=== PATIENT | male | born 1950 | race Caucasian/White ===

== ENCOUNTER 2018-06-23 19:34 | Inpatient (IN) | payer MEDICARE, MEDICAID, SELFPAY ==
[2018-06-23] VITALS (8 sets, daily range): BP systolic 112–146; BP diastolic 67–71; PULSE 61–68; RESP 15–20; TEMP 36.6–36.8; O2SAT 97–99; BMI 24.3
--- NOTE | 2018-06-23 19:43 | ED.RN ---
CALLED FOR EKG PER RN REQUEST, PULLED OLD EKGS FOR
--- NOTE | 2018-06-23 20:34 | EKG12_ITS ---
Test Reason : SOB Blood Pressure : / mmHG Vent. Rate : 067 BPM Atrial Rate : 067 BPM P-R Int : 260 ms QRS Dur : 138 ms QT Int : 444 ms P-R-T Axes : 076 -77 000 degrees QTc Int : 469 ms Sinus rhythm with 1st degree A-V block Left axis deviation Non-specific intra-ventricular conduction block Inferior SD,age undetermined, cannot be excluded Nonspecific ST and T wave abnormality Abnormal ECG Confirmed by SINYD MATHEW, JOSE MARTIN ([id number]), web content editor EUSEBIO MARES ([id number] on 06/26/2018 2:17:12 PM Referred By: YAZAN SOLIS Confirmed By:JOSE MARTIN CALLAHAN MD
[2018-06-23 20:49] LABS: Absolute Lymphocyte Count 0.68 X10^3/ul (0.83-4.51); Absolute Neutrophil Count 6.7 X10^3/uL (2.0-7.7); Basophil# 0.01 X10^3/uL; Basophil% 0.1 % (0-1); Eosinophil# 0.06 X10^3/uL; Eosinophils% 0.7 % (0-5); Hematocrit 39.1 % (40-54); Hemoglobin 12.1 g/dl (13.0-16.5); Lymphocyte # 0.68 X10^3/ul (4.0); Lymphocyte % 8.4 % (19-41); Mean Corp Hgb Conc 30.9 g/gl (32-36); Mean Corpuscular Hgb 27.4 pg (27.0-32.0); Mean Corpuscular Volume 88.5 fL (80-94); Mean Platelet Vol. 11.4 fl (6.2-12.0); Monocyte# 0.57 X10^3/uL; Monocyte% 7.1 % (0-10); Neutrophil # 6.72 X10^3/uL (2.7-7.7); Neutrophil % 83.5 % (47-70); Platelet Count 129 K/mm3 (150-450); RBC Distribution Width CV 13.9 % (11.6-14.6); RBC Distribution Width SD 44.9 fl (35.1-43.9); Red Blood Count 4.42 M/mm3 (4.6-6.2); White Blood Count 8.1 K/mm3 (4.4-11.0)
[2018-06-23 20:51] LABS: POSITIVE COUNT NO; POSITIVE DIFFERENTIAL NO; POSITIVE MORPHOLOGY NO
[2018-06-23 20:58] LABS: ALB/GLOB Ratio 0.8 RATIO (0.9-2.4); AST(SGOT) 66 U/L (15-37); Alanine Aminotransfer ALT/SGPT 73 U/L (16-61); Albumin, Serum 3.4 g/dL (3.2-5.0); Alkaline Phosphatase 122 U/L (45-117); Anion Gap 10 (5-15); BUN 57 mg/dL (7-18); BUN/Creat Ratio 21.4 RATIO (10-20); Calcium,Total 8.5 mg/dL (8.5-10.1); Chloride 107 mmol/L (98-107); Creatinine, Serum 2.66 mg/dL (0.70-1.30); EST Glomerular Filtration Rate 26 mL/min (>60); Est Glom Filt Rate - Afr Amer 31 mL/min (>60); Estimated Creatinine Clearance 26.79 ml/min; Globulin 4.2 g/dL (2.2-4.2); Glucose 388 mg/dL (74-106); Potassium 4.7 mmol/L (3.5-5.1); Protein, Total 7.6 g/dL (6.4-8.2); Sodium Level 136 mmol/L (136-145)
[2018-06-23] MEDS: Nitroglycerin Oint 1 INCH PACKET 0.5 INCH TRANSDERM. (21:05)
[2018-06-23] MEDS: Furosemide 20 MG/2 ML VIAL IV (21:06)
--- NOTE | 2018-06-23 21:09 | RAD_ITS ---
STUDY: X-RAY CHEST REASON FOR EXAM: Male, 67 years old. Shortness of breath with syncope TECHNIQUE: PA and lateral views of the chest. COMPARISON: June 16, 2014 FINDINGS: There is a nonspecific left basilar opacity. There are prominent interstitial markings. Sternal cerclage wires are present from a prior sternotomy. There is a prosthetic cardiac valve. Normal mediastinum and herman. Normal visualized pulmonary arteries. There is atherosclerotic calcification of the aortic arch with tortuosity. Normal visualized thoracic spine. Normal visualized ribs, clavicles, and shoulders. There is no demonstrated abnormality of the visualized soft tissue structures of the upper abdomen. RAD/Chest PA and Lateral IMPRESSION: Nonspecific left basilar opacity may be secondary to underlying atelectasis. Possible interstitial edema. Electronically Signed: Luna Berry MD at 21:44 EST Tel , Service support ,
[2018-06-23 21:18] LABS: International Normalized Ratio 1.2; Partial Thromboplast Time 31.4 Seconds (24.1-36.2); Prothrombin Time (Protime)PT. 15.5 SECONDS (11.7-14.9)
--- NOTE | 2018-06-23 23:36 | PCM.HP.STD ---
Problem List (1) Hypertension Status: Chronic (2) Hyperlipidemia Status: Chronic (3) History of atrial flutter Status: Chronic (4) Diabetes mellitus type II Status: Chronic (5) Coronary artery disease Status: Chronic Comment: Status post CABG, 20 years ago Status post and placement in May 2014 at [facility] Following with Dr. Graham (6) Congestive heart failure Status: Chronic (7) Chronic kidney disease stage III Status: Chronic (8) BPH Status: Chronic (9) Pulmonary hypertension Status: Chronic (10) Aortic stenosis Status: Chronic (11) Recurrent falls Status: Acute (12) Syncope and collapse Status: Acute (13) Cellulitis of second toe of right foot Status: Acute History of Present Illness Date of Admission: 06/23/18 Chief Complaint: Shortness of breath for about 3 days The patient is a 67 year old M with multiple comorbidities including coronary artery disease status post CABG, chronic systolic and diastolic heart failure aortic stenosis last admission in June 2014 for non-ST elevation NM was sent to ER by Dr. Puga for shortness of breath, frequent fall. The patient is very hard of hearing and therefore history is limited. Patient has shortness of breath for the past 3 days which is progressive. Dyspnea on exertion, orthopnea present. Patient denies any chest tightness or chest pain to me although documented as mild intermittent chest pain as per ER physician. About 3 days ago at night, patient had a fall while going to the bathroom and it perhaps syncope and collapse. This was unwitnessed. Patient also having recurrent fall. He has a right second toe redness, bruise and possible superficial abscess, perhaps after fall. Small bruise in frontal region of head. EKG shows normal sinus rhythm at 67 bpm with QRS 138 ms, LAD with possible left bundle branch block. EKG from May 2018 normal sinus rhythm at 60 bpm LAD with no change from present EKG. QRS is more prolonged as compared to previous EKG. Chest x-ray done in the ER shows interstitial edema and left basilar opacity probably atelectasis. Past Medical History Past Medical History (Chronic Problems): Chronic Problems Hypertension (Chronic) Hyperlipidemia (Chronic) History of atrial flutter (Chronic) Diabetes mellitus type II (Chronic) Coronary artery disease (Chronic) Status post CABG, 20 years ago Status post and placement in May 2014 at [facility] Following with Dr. Graham Congestive heart failure (Chronic) Chronic kidney disease stage III (Chronic) BPH (Chronic) Pulmonary hypertension (Chronic) Aortic stenosis (Chronic) Allergies meperidine HCl [From Demerol] Allergy (Verified 06/23/18 19:38) Other Home Medications: Ambulatory Orders Medication Instructions Recorded Atorvastatin Calcium [Lipitor] 40 mg PO QHS 03/11/14 Carvedilol [Coreg (Beta Sandip)] 6.25 mg PO BID 03/11/14 Cholecalciferol (Vitamin D3) 5,000 unit PO DAILY 03/11/14 [Vitamin D3] Furosemide [Lasix] 40 mg PO DAILY 03/11/14 Insulin Glargine [Lantus SoloStar 26 units SC QHS 03/11/14 Pen] Ipratropium [place] 0.06% 2 spray NASAL BID 03/11/14 [ATROVENT NASAL SPRAY] Nitroglycerin [Nitrostat] 0.3 mg SL UD 03/11/14 Aspirin [Aspirin, Baby] 81 mg PO DAILY@0800 06/16/14 Clopidogrel Bisulfate [Plavix] 75 mg PO DAILY 06/16/14 Chromium Picolinate 1,000 mcg PO 06/23/18 Insulin Aspart [Novolog Flexpen 12 units SC TIDCM 06/23/18 ([facility])] Isosorbide Dinitrate 30 mg PO BID 06/23/18 Loperamide HCl [Anti-Diarrheal] 1 mg PO DAILY 06/23/18 O'Brien-3 Fatty Acids/Fish Oil 1 each PO DAILY 06/23/18 [O'Brien 3 Fish Oil Softgel] Vitamin B Complex 1 each PO DAILY 06/23/18 Surgical History: - - CABG, Smoking Status: Never smoker - *Family History Maternal History Items: No pertinent history Review of Systems Constitutional: Reports: Weakness, Fatigue. Denies: Chills, Fever, Weight Change HEENT: Reports: Difficulty Hearing. Denies: Head Aches, Sinus Congestion, Sinus Drainage Cardiovascular: Reports: Edema, Orthopnea, Paroxysmal Noc. Dyspnea, Syncope. Denies: Chest Pain, Palpitations Respiratory: Reports: Shortness of Breath, Shortness of breath upon exertion. Denies: Cough, Sputum production Gastrointestinal: Denies: Abdominal Pain, Nausea, Vomiting Genitourinary: Denies: Dysuria Musculoskeletal: Reports: Joint Pain. Denies: Joint Tenderness Skin: Reports: Rash, Wounds - Right second toe Neurological: Reports: Balance problems. Denies: Focal weakness, Numbness, Tingling Psychiatric: Denies: Anxiety, Depression, Homicidal Ideations, Suicidal Ideations Hematologic/ Lymphatic: Denies: Easy Bruising, Easy Bleeding VTE Information - Inpt Only VTE Present on Admission: No VTE Mechan Device Prophylaxis: None VTE Pharm Prophylaxis ordered?: Yes Patient Problems: Active and Suspected Problems Recurrent falls (Acute) Syncope and collapse (Acute) Cellulitis of second toe of right foot (Acute) - Physical Exam General: Alert, Oriented x3, Cooperative HEENT: Atraumatic, PERRLA, EOMI, Normocephalic Oral: Dry Mucosa Neck: Supple, No JVD, Negative Carotid Bruits Lungs: No rhonchi, No wheeze, No rales, Diminished - Air entry diminished bilaterally, more on the left lung base Cardiovascular: Regular rate, Regular Rhythm, Normal S1, Normal S2, No murmurs, Murmur - Systolic murmur present over left sternal border and aortic region Abdomen: Bowel Sounds Present, Soft, Non Tender, Non-Distended Extremities: Capillary Refill Less than 3 Seconds, Edema Skin: Ulcer/ Wound - Small bruise with superficial abscess present over right second toe. Localized cellulitis., Skin Tear, Rash Present, - - Bruise over frontal region of head. Musculoskeletal: No Tenderness to Palpation of Joints or Extremities, Arthritic Changes, Muscle Wasting Neurological: Cranial nerves II-XII grossly intact, Deep Tendon Reflexes 2+/4 and Symmetrical, Neuro grossly intact Psych/Mental Status: Normal Affect, Appropriate Vital Signs Temp Pulse Resp BP Pulse Ox 97.9 F 61 16 138/67 H 98 06/23/18 21:42 06/23/18 21:42 06/23/18 21:42 06/23/18 21:05 06/23/18 21:42 Oxygen Flow Rate (L/min) 2 Oxygen Delivery Method Nasal Cannula Weight: 160 lb 4.417 oz Body Mass Index (BMI) 24.3 Laboratory Tests Past 24 Hrs 06/23/18 06/23/18 06/23/18 17:50 17:50 17:50 WBC 8.1 RBC 4.42 L Hgb 12.1 L Hct 39.1 L MCV 88.5 MCH 27.4 MCHC 30.9 L RDW 13.9 RDW Differential 44.9 H Plt Count 129 L MPV 11.4 Immature Gran % (Auto) 0.200 Neut % (Auto) 83.5 H Lymph % (Auto) 8.4 L [place] % (Auto) 7.1 Eos % (Auto) 0.7 Baso % (Auto) 0.1 Absolute Neuts (auto) 6.7 Absolute Lymphs (auto) 0.68 L Total Counted Not Reportable PT 15.5 H INR 1.2 APTT 31.4 Sodium 136 Potassium 4.7 Chloride 107 Carbon Dioxide 19.0 L Anion Gap 10 BUN 57 H Creatinine 2.66 H Estim Creat Clear Calc 26.79 Est GFR (MDRD) Af Amer 31 L Est GFR (MDRD) Non-Af 26 L BUN/Creatinine Ratio 21.4 H Glucose 388 H Calcium 8.5 Total Bilirubin 0.50 AST 66 H ALT 73 H Alkaline Phosphatase 122 H Troponin I 0.105 H B-Natriuretic Peptide Total Protein 7.6 Albumin 3.4 Globulin 4.2 Albumin/Globulin Ratio 0.8 L 06/23/18 17:50 WBC RBC Hgb Hct MCV MCH MCHC RDW RDW Differential Plt Count MPV Immature Gran % (Auto) Neut % (Auto) Lymph % (Auto) [place] % (Auto) Eos % (Auto) Baso % (Auto) Absolute Neuts (auto) Absolute Lymphs (auto) Total Counted PT INR APTT Sodium Potassium Chloride Carbon Dioxide Anion Gap BUN Creatinine Estim Creat Clear Calc Est GFR (MDRD) Af Amer Est GFR (MDRD) Non-Af BUN/Creatinine Ratio Glucose Calcium Total Bilirubin AST ALT Alkaline Phosphatase Troponin I B-Natriuretic Peptide 1041.0 H Total Protein Albumin Globulin Albumin/Globulin Ratio Assessment/Plan All Active Problems Recurrent falls (Acute) Syncope and collapse (Acute) Cellulitis of second toe of right foot (Acute) The patient is a 67 year old M with multiple comorbidities including coronary artery disease status post CABG, chronic systolic and diastolic heart failure aortic stenosis last admission in June 2014 for non-ST elevation NM was sent to ER by Dr. Puga for shortness of breath, frequent fall. The patient is very hard of hearing and therefore history is limited. Patient has shortness of breath for the past 3 days which is progressive. Dyspnea on exertion, orthopnea present. Patient denies any chest tightness or chest pain to me although documented as mild intermittent chest pain as per ER physician. About 3 days ago at night, patient had a fall while going to the bathroom and it perhaps syncope and collapse. This was unwitnessed. Patient also having recurrent fall. He has a right second toe redness, bruise and possible superficial abscess, perhaps after fall. Small bruise in frontal region of head. EKG shows normal sinus rhythm at 67 bpm with QRS 138 ms, LAD with possible left bundle branch block. EKG from May 2018 normal sinus rhythm at 60 bpm LAD with no change from present EKG. QRS is more prolonged as compared to previous EKG. Chest x-ray done in the ER shows interstitial edema and left basilar opacity probably atelectasis. 1. Acute on chronic combined systolic and diastolic heart failure: Patient is being admitted in PCU. On Lasix 40 mg IV twice daily. Cycle cardiac enzymes. Monitor intake and output. Continue aspirin, atorvastatin, Plavix, Coreg and Isordil. 2D echo tomorrow a.m. As per patient's , he was scheduled to have echo in August and had previous echo many years ago. His channel man, Dr. Graham. BNP 1041. 2. Elevated troponin, rule out acute coronary syndrome. Possibly elevated from heart failure/CKD. Patient has coronary artery status post CABG and stents. 3. Aortic stenosis, history of atrial flutter and pulmonary hypertension: Exact quantification of these diagnoses are unclear. 2D echo tomorrow a.m for better definition. Patient is not on anticoagulant agent. 4. CKD stage IV: Previous BUN/creatinine 56/2.0 in June 2014. Currently 57/2.66. Monitor intake and output. 5. Diabetes mellitus type 2: Accu-Chek before meals and at bedtime and cover with NovoLog sliding scale. A1c tomorrow a.m. Glucose 388 and BMP. 6. Recurrent falls: PT and OT. Other chronic comorbidities include hypertension, dyslipidemia, BPH: Home medication reconciliation done. DVT prophylaxis: On Lovenox 30 mg subcu daily. Clinical Impression(s) from Imaging Studies Chest X-Ray 06/23/18 21:09 IMPRESSION: Nonspecific left basilar opacity may be secondary to underlying atelectasis. Possible interstitial edema. Code Visit Inpatient E&M: 96837 Init Hosp L3
--- NOTE | 2018-06-23 23:54 | ED.VISSUMM ---
- ER Visit Summary Date of Service: 06/23/18 Chief Complaint: Shortness of breath and frequent falls History of Present Illness: The patient is a 67 M who presents with shortness of breath and frequent falls that have been getting worse over the past 3 days. Patient states his breathing is worse with any exertion. Patient also admits to two-pillow orthopnea. Patient admits to a cough but denies any sputum. Patient admits to some mild rhinorrhea. Patient admits to subjective chills but denies any fevers. Patient admits to some mild intermittent chest pain. Patient denies any calf pain but admits to some swelling of his lower extremities. Physical Examination: Vital signs are stable. Patient is afebrile. Patient is in no acute distress. Oral mucosa is pink and moist. Neck is supple. Trachea is midline. There is no JVD noted. Heart was regular rate and rhythm. Lungs show bilateral basilar rales. There is good respiratory effort noted. Abdomen is soft. There is no tenderness. There is no rebound or guarding noted. Cranial nerves II through XII are intact. There are no focal motor or sensory deficits noted. Extremities are intact. There is 2+ edema of the lower extremities bilaterally to the knees. Her meaning physical exam is within normal limits. Test Results: PA and lateral chest x-ray shows increased interstitial markings. EKG showed normal sinus rhythm with first-degree AV block with a rate of 67. There is a questionable left bundle branch block. There are nonspecific ST-T wave changes noted in leads V1 through V4. These were improved compared to previous EKG. QRS was more prolonged compared to previous EKG. Previous EKG was dated 06/18/2014. CBC was normal. BNP was elevated at 1041. Troponin was slightly elevated at 0.105. BUN and creatinine were slightly elevated compared to previous results. Emergency Department Course and Treatment: Patient was given Lasix and nitroglycerin paste. Patient was feeling better on reevaluation. Case was discussed with Dr. Oliveira. He will admit the patient to his service. Patient and family understood and were agreeable with the plan. All questions were answered. Disposition: Admit to hospital Impression: Acute systolic congestive heart failure This note was generated with [employer] dictation software. It may contain incorrect words, spelling, and punctuation that were not noted in review of the chart prior to signing ED Disposition - Plan for ED Patient: Chief Complaint: Shortness of Breath
[2018-06-24] VITALS (15 sets, daily range): BP systolic 133–163; BP diastolic 64–74; PULSE 59–73; RESP 18; TEMP 36.6–37.4; O2SAT 94–100; BMI 23.7
[2018-06-24 00:41] LABS: Bedside Glucose 278 mg/dL (70-110)
[2018-06-24] MEDS: 0.9% NaCl Peripheral Flush Adult/Peds IV ×3 (00:57→17:57)
[2018-06-24 05:27] LABS: Hematocrit 36.6 % (40-54); Hemoglobin 11.6 g/dl (13.0-16.5); Mean Corp Hgb Conc 31.7 g/gl (32-36); Mean Corpuscular Hgb 27.8 pg (27.0-32.0); Mean Corpuscular Volume 87.6 fL (80-94); Mean Platelet Vol. 10.7 fl (6.2-12.0); Platelet Count 130 K/mm3 (150-450); RBC Distribution Width CV 13.6 % (11.6-14.6); RBC Distribution Width SD 42.8 fl (35.1-43.9); Red Blood Count 4.18 M/mm3 (4.6-6.2); White Blood Count 8.6 K/mm3 (4.4-11.0)
[2018-06-24 05:41] LABS: Scan Indicated on CBC? Y/N NO
--- NOTE | 2018-06-24 05:55 | EKG12_ITS ---
Test Reason : AM Blood Pressure : / mmHG Vent. Rate : 067 BPM Atrial Rate : 067 BPM P-R Int : 236 ms QRS Dur : 134 ms QT Int : 432 ms P-R-T Axes : 067 -88 -22 degrees QTc Int : 456 ms Sinus rhythm with 1st degree A-V block Left axis deviation Non-specific intra-ventricular conduction block Cannot rule out Septal infarct , age undetermined T wave abnormality, consider anterior ischemia Abnormal ECG Confirmed by SINDY MATHEW, JOSE MARTIN ([id number]), makeup editor EUSEBIO MARES ([id number]) on 06/26/2018 2:40:11 PM Referred By: SWETHA Confirmed By:JOSE MARTIN CALLAHAN MD
--- NOTE | 2018-06-24 05:55 | ECHOCS_ITS ---
Reason For Study: Aortic valve replacement Procedure This was a 2D Doppler, Color Flow transthoracic echocardiogram. Exam performed portable in patient room. Left Ventricle Moderately dilated left ventricle. The estimated ejection fraction is 30-35 %. Septal motion consistent with IVCD. There is moderate to severe global hypokinesis of the left ventricle. Right Ventricle Moderately dilated right ventricle. Mild to moderate global right ventricular systolic dysfunction. Atria Normal left atrium. Normal right atrium. Normal atrial septum. Mitral Valve The mitral valve is structurally normal. No prolapse or stenosis seen. Trivial mitral valve insufficiency. Tricuspid Valve Normal tricuspid valve. Mild (1+) tricuspid valve insufficiency. Right ventricular systolic pressure estimated to be 83 mmHg. Severe pulmonary hypertension. Aortic Valve Stable appearing bioprosthetic aortic valve apparatus. Pulmonic Valve Normal pulmonic valve. Mild (1+) eccentric pulmonic valve insufficiency. Great Vessels Normal aortic root. Normal arch. The inferior vena cava is dilated. Inferior vena cava collapse with sniff. Pericardium/Pleural No pericardial effusion. Medication Diluted definity 2ml given slow IV push to enhance endocardial definition. MMode/2D Measurements & Calculations LVIDd: 5.1 cm IVSd: 1.2 cm LVOT diam: 2.1 cm LVIDs: 4.6 cm LVPWd: 1.2 cm RVDd: 4.0 cm FS: 9.8 % LVOT area: 3.3 cm2 Ao root diam: 3.4 cm LAV(MOD-bp): 55.6 ml LA A4 area: 19.1 cm2 LAV(MOD-bp) Indexed: 30.3 ml/m2 LAV(MOD-sp2): 56.4 ml LAV(MOD-sp4): 53.5 ml LA dimension(2D): 5.0 cm RA A4 area: 15.9 cm2 Doppler Measurements & Calculations MV E max lewis: 141.4 cm/sec Lat Peak E' Lewis: 6.1 cm/sec Med Peak E' Lewis: 3.4 cm/sec MV A max lewis: 35.7 cm/sec E/E' lat: 23.0 E/E' med: 42.1 MV E/A: 4.0 Ao V2 max: 201.4 cm/sec LV V1 max: 142.8 cm/sec SV(LVOT): 95.0 ml Ao max P.3 mmHg LV V1 max P.2 mmHg Ao V2 mean: 132.8 cm/sec LV V1 mean P.0 mmHg Ao mean P.0 mmHg LV V1 mean: 93.3 cm/sec Ao V2 VTI: 39.6 cm LV V1 VTI: 28.6 cm JESUS(I,D): 2.4 cm2 JESUS(V,D): 2.4 cm2 PA V2 max: 78.5 cm/sec TR max lewis: 439.1 cm/sec TR max P.1 mmHg Interpretation Summary Moderately dilated left ventricle. The estimated ejection fraction is 30-35 %. There is moderate to severe global hypokinesis of the left ventricle. Moderately dilated right ventricle. Mild to moderate global right ventricular systolic dysfunction. Trivial mitral valve insufficiency. Mild (1+) tricuspid valve insufficiency. Right ventricular systolic pressure estimated to be 83 mmHg. Severe pulmonary hypertension. Stable and normal appearing bioprosthetic aortic valve apparatus. The study was technically difficult. There is no comparison study available. Contrast injection was performed. Ordering Physician: Josue Oliveira Referring Physician: Eduin Hagen M.D. Performed By: Maryann Kothari RDCS
[2018-06-24 05:56] LABS: Anion Gap 8 (5-15); BUN 57 mg/dL (7-18); BUN/Creat Ratio 24.1 RATIO (10-20); Chloride 109 mmol/L (98-107); Cholesterol 111 mg/dL (200); Creatinine, Serum 2.37 mg/dL (0.70-1.30); EST Glomerular Filtration Rate 29 mL/min (>60); Est Glom Filt Rate - Afr Amer 36 mL/min (>60); Estimated Creatinine Clearance 30.06 ml/min; Glucose 263 mg/dL (74-106); High Density Lipoprotein 31 mg/dL; Magnesium 2.2 mg/dL (1.6-2.6); Potassium 3.9 mmol/L (3.5-5.1); Sodium Level 140 mmol/L (136-145); Thyroid Stim Hormone (TSH) 0.45 uIU/mL (0.358-3.74); Triglycerides 108 mg/dL; Very Low Density Lipoprotein 22 mg/dL (5-40)
[2018-06-24 07:05] LABS: Bedside Glucose 232 mg/dL (70-110)
--- NOTE | 2018-06-24 07:40 | CON.PCM_ITS ---
Problem List (1) Cellulitis of right foot Status: Acute (2) Ulcer of right foot with fat layer exposed Status: Acute (3) Hammer toe of right foot Status: Chronic (4) Diabetes mellitus with complication Status: Chronic (5) Other specified peripheral vascular diseases Status: Suspected (6) Chronic kidney disease stage III Status: Chronic (7) Malnutrition Status: Suspected Reason for Consult Date of Consultation: 06/24/18 Reason for Consultation: Right second toe redness and open wound History of Present Illness: This 67-year-old male with multiple comorbidities was seen bedside this morning for right toe ulcer with redness and pain. He relates the onset was yesterday. He was admitted to the hospital for a fall and syncopal episode and is not sure if he sustained an injury to the foot at that time. His pain is mild. He denies fever, chill, nausea, vomiting. He does have diarrhea however he relates this is chronic and was being worked up in the outpatient setting. He denies odor. He denies previous self care for the wound site. He does have a history of other previous lower extremity ulcers and he was treated at the [facility]. He denies claudication or rest paresthesias. Past Medical History Past Medical History (Chronic Problems): Chronic Problems Hammer toe of right foot (Chronic) Diabetes mellitus with complication (Chronic) Hypertension (Chronic) Hyperlipidemia (Chronic) History of atrial flutter (Chronic) Diabetes mellitus type II (Chronic) Coronary artery disease (Chronic) Status post CABG, 20 years ago Status post and placement in May 2014 at [facility] Following with Dr. Graham Congestive heart failure (Chronic) Chronic kidney disease stage III (Chronic) BPH (Chronic) Pulmonary hypertension (Chronic) Aortic stenosis (Chronic) Allergies meperidine HCl [From Demerol] Allergy (Verified 06/23/18 19:38) Other Home Medications: Ambulatory Orders Medication Instructions Recorded Atorvastatin Calcium [Lipitor] 40 mg PO QHS 03/11/14 Carvedilol [Coreg (Beta Sandip)] 6.25 mg PO BID 03/11/14 Cholecalciferol (Vitamin D3) 5,000 unit PO DAILY 03/11/14 [Vitamin D3] Furosemide [Lasix] 40 mg PO DAILY 03/11/14 Insulin Glargine [Lantus SoloStar 26 units SC QHS 03/11/14 Pen] Ipratropium Walker 0.06% 2 spray NASAL BID 03/11/14 [ATROVENT NASAL SPRAY] Nitroglycerin [Nitrostat] 0.3 mg SL UD 03/11/14 Aspirin [Aspirin, Baby] 81 mg PO DAILY@0800 06/16/14 Clopidogrel Bisulfate [Plavix] 75 mg PO DAILY 06/16/14 Chromium Picolinate 1,000 mcg PO 06/23/18 Insulin Aspart [Novolog Flexpen 12 units SC TIDCM 06/23/18 (BK)] Isosorbide Dinitrate 30 mg PO BID 06/23/18 Loperamide HCl [Anti-Diarrheal] 1 mg PO DAILY 06/23/18 [place]-3 Fatty Acids/Fish Oil 1 each PO DAILY 06/23/18 [[place] 3 Fish Oil Softgel] Vitamin B Complex 1 each PO DAILY 06/23/18 Surgical History: - - CABG Smoking Status: Never smoker Tobacco Use: Non-smoker - *Family History Maternal History Items: No pertinent history Review of Systems Constitutional: Reports: Weakness. Denies: Chills, Fever HEENT: Reports: Difficulty Hearing Cardiovascular: Denies: Chest Pain, Claudication Respiratory: Denies: Shortness of Breath Gastrointestinal: Reports: Diarrhea. Denies: Nausea, Vomiting Musculoskeletal: Reports: Foot Pain. Denies: Joint Tenderness, Leg Pain Skin: Reports: Skin Changes, Wounds Neurological: Reports: Balance problems, Incoordination Patient Problems: Active and Suspected Problems Recurrent falls (Acute) Syncope and collapse (Acute) Cellulitis of second toe of right foot (Acute) Cellulitis of right foot (Acute) Ulcer of right foot with fat layer exposed (Acute) Other specified peripheral vascular diseases (Suspected) Malnutrition (Suspected) - Physical Exam General: Alert, Oriented x3, Cooperative Extremities: No cyanosis, Capillary Refill Less than 3 Seconds - Capillary fill time to all digits bilateral foot, No Calf Tenderness - Negative Montrell and Anthony sign bilateral, Peripheral Pulses Normal - Normal DP and PT pulse bilateral Skin: Ulcer/ Wound - 1.8 cm x 1.6 cm x 0.1 cm skin discontinuity to dorsal second toe with evidence of previous blister with partially adhered overlying skin layer. This is granular and some hemorrhagic. There is no bogginess or fluctuance or abscess on palpation. There is erythema to the entire dorsal second toe that extends to the foot dorsum with some streaking. Compartments remain soft and there is no purulence on expression, denoted necrosis or tissue loss or gangrene. No interdigital maceration, - - Lack of hair bilateral mid legs and feet with atrophic skin Musculoskeletal: No Tenderness to Palpation of Joints or Extremities, Muscle Wasting, - - Dorsal contraction of right second toe Neurological: Sensory exam intact to light touch and pain Psych/Mental Status: Normal Affect, Appropriate Vital Signs Temp Pulse Resp BP Pulse Ox 99.3 F H 66 18 150/71 H 100 06/24/18 05:15 06/24/18 05:15 06/24/18 05:15 06/24/18 05:15 06/24/18 05:15 Oxygen Flow Rate (L/min) 2 Oxygen Delivery Method Nasal Cannula Weight: 70.7 kg Body Mass Index (BMI) 23.7 Intake and Output for Last 24 Hours 06/22/18 06/23/18 06/24/18 23:59 23:59 23:59 Intake Total 274 / 274 Output Total 900 / 900 Balance -626 / -626 Laboratory Tests Past 24 Hrs 06/23/18 06/23/18 06/23/18 17:50 17:50 17:50 WBC 8.1 RBC 4.42 L Hgb 12.1 L Hct 39.1 L MCV 88.5 MCH 27.4 MCHC 30.9 L RDW 13.9 RDW Differential 44.9 H Plt Count 129 L MPV 11.4 Immature Gran % (Auto) 0.200 Neut % (Auto) 83.5 H Lymph % (Auto) 8.4 L Bonner % (Auto) 7.1 Eos % (Auto) 0.7 Baso % (Auto) 0.1 Absolute Neuts (auto) 6.7 Absolute Lymphs (auto) 0.68 L Total Counted Not Reportable PT 15.5 H INR 1.2 APTT 31.4 Sodium 136 Potassium 4.7 Chloride 107 Carbon Dioxide 19.0 L Anion Gap 10 BUN 57 H Creatinine 2.66 H Estim Creat Clear Calc 26.79 Est GFR (MDRD) Af Amer 31 L Est GFR (MDRD) Non-Af 26 L BUN/Creatinine Ratio 21.4 H Glucose 388 H Hemoglobin A1c Calcium 8.5 Magnesium Total Bilirubin 0.50 AST 66 H ALT 73 H Alkaline Phosphatase 122 H Troponin I 0.105 H B-Natriuretic Peptide Total Protein 7.6 Albumin 3.4 Globulin 4.2 Albumin/Globulin Ratio 0.8 L Triglycerides Cholesterol LDL Cholesterol VLDL Cholesterol HDL Cholesterol TSH 06/23/18 06/24/18 06/24/18 17:50 02:50 05:10 WBC 8.6 RBC 4.18 L Hgb 11.6 L Hct 36.6 L MCV 87.6 MCH 27.8 MCHC 31.7 L RDW 13.6 RDW Differential 42.8 Plt Count 130 L MPV 10.7 Immature Gran % (Auto) Neut % (Auto) Lymph % (Auto) Bonner % (Auto) Eos % (Auto) Baso % (Auto) Absolute Neuts (auto) Absolute Lymphs (auto) Total Counted PT INR APTT Sodium Potassium Chloride Carbon Dioxide Anion Gap BUN Creatinine Estim Creat Clear Calc Est GFR (MDRD) Af Amer Est GFR (MDRD) Non-Af BUN/Creatinine Ratio Glucose Hemoglobin A1c Calcium Magnesium Total Bilirubin AST ALT Alkaline Phosphatase Troponin I 0.084 H B-Natriuretic Peptide 1041.0 H Total Protein Albumin Globulin Albumin/Globulin Ratio Triglycerides Cholesterol LDL Cholesterol VLDL Cholesterol HDL Cholesterol TSH 06/24/18 06/24/18 05:10 05:10 WBC RBC Hgb Hct MCV MCH MCHC RDW RDW Differential Plt Count MPV Immature Gran % (Auto) Neut % (Auto) Lymph % (Auto) Bonner % (Auto) Eos % (Auto) Baso % (Auto) Absolute Neuts (auto) Absolute Lymphs (auto) Total Counted PT INR APTT Sodium 140 Potassium 3.9 Chloride 109 H Carbon Dioxide 23.0 Anion Gap 8 BUN 57 H Creatinine 2.37 H Estim Creat Clear Calc 30.06 Est GFR (MDRD) Af Amer 36 L Est GFR (MDRD) Non-Af 29 L BUN/Creatinine Ratio 24.1 H Glucose 263 H Hemoglobin A1c 9.0 H Calcium 9.0 Magnesium 2.2 Total Bilirubin AST ALT Alkaline Phosphatase Troponin I 0.083 H B-Natriuretic Peptide Total Protein Albumin Globulin Albumin/Globulin Ratio Triglycerides 108 Cholesterol 111 LDL Cholesterol 58 VLDL Cholesterol 22 HDL Cholesterol 31 L TSH 0.45 POC Glucose 06/24/18 06/24/18 07:02 00:34 POC Glucose 232 H 278 H Assessment/Plan All Active Problems Recurrent falls (Acute) Syncope and collapse (Acute) Cellulitis of second toe of right foot (Acute) Cellulitis of right foot (Acute) Ulcer of right foot with fat layer exposed (Acute) Right foot ulcer fat layer exposed, second toe Cellulitis right foot Uncontrolled diabetes, hemoglobin A1c of 9.0% Chronic kidney disease Rule out peripheral vascular disease Other comorbidities including acute on chronic heart failure Malnutrition suspected I reviewed and discussed the case with the patient today. He appears to have cellulitis extending from his right second toe ulcer site and I do not appreciate a palpable abscess. I recommend localized wound care. His cellulitis area was marked and this will be monitored closely. His diagnostic data including labs was reviewed. He does not have leukocytosis. ESR and CRP are pending. Foot x-ray will be obtained and this is pending. Aerobic and anaerobic cultures were taken. It is noted he was already started on Unasyn then. I do recommend broad-spectrum coverage until some of these cultures results develop. To offload with surgical shoe; this was ordered. To change dressing daily with Aquacel Ag. I recommend nutritional supplementation and better glycemic control to optimize healing. I recommend a noninvasive vascular study due to his atrophic skin and lack of hair to the lower legs and feet, and his history of previous ulcer formation. This was ordered and the results are pending. Medical management, DVT prophylaxis, pain control per primary team is greatly appreciated. Aurea Simon DPM, [facility] [phone]
--- NOTE | 2018-06-24 08:18 | ART_ITS ---
Reason For Study: Ulcers Procedure A bilateral lower extremity continuous wave Doppler with analog waveform analysis and ankle brachial indexes. Left Segmental Pressures Left brachial= 163mmHg. Left posterior tibial artery = N/CmmHg. Left dorsalis pedis artery = N/CmmHg. Left digit = 99 mmHg. The left dorsalis pedis waveforms are monophasic. The left posterior tibial artery waveforms are biphasic. Right Segmental Pressures Right brachial= 155mmHg. Right posterior tibial artery = N/CmmHg. Right dorsalis pedis artery = N/CmmHg. Right digit = 47 mmHg. The right dorsalis pedis waveforms are monophasic. The right posterior tibial artery waveforms are biphasic. Indices The right digital-brachial index is .29. The left digital-brachial index is .61. Interpretation Summary 1. Bilateral noncompressible consistent wiht medial calcinosis and biphasic flow. Further evaluation as clinically warranted. 2. 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 Ordering Physician: Aurea Simon Referring Physician: AUREA SIMON DPM Performed By: Polly Duval [facility]
--- NOTE | 2018-06-24 08:21 | PCM.PN.HOSP ---
Patient Problems: Active and Suspected Problems Recurrent falls (Acute) Syncope and collapse (Acute) Cellulitis of second toe of right foot (Acute) Subjective: States that he is feeling okay, he is unsure when he injured his foot states that he just woke up with it like that denies any significant chest pain or shortness of breath at the moment Vitals/I&O's: Vital Signs Temp Pulse Resp BP Pulse Ox 99.3 F H 66 18 150/71 H 100 06/24/18 05:15 06/24/18 07:00 06/24/18 05:15 06/24/18 05:15 06/24/18 05:15 Oxygen Flow Rate (L/min) 2 Oxygen Delivery Method Nasal Cannula Weight: 155 lb 13.869 oz Body Mass Index (BMI) 23.7 Intake and Output for Last 24 Hours 06/22/18 06/23/18 06/24/18 23:59 23:59 23:59 Intake Total 274 / 274 Output Total 900 / 900 Balance -626 / -626 General: Alert, Oriented x3, Cooperative, No apparent distress HEENT: Atraumatic, EOMI, Normocephalic Oral: Moist Mucosa Neck: Supple, No JVD, Trachea Midline Lungs: Clear to auscultation, Normal air movement, No rhonchi, No wheeze, No rales Cardiovascular: Regular rate, Regular Rhythm, Normal S1, Murmur - 2/6 WILLIE left upper sternal border Abdomen: Soft, Non Tender, Non-Distended, No Hepato-splenomegaly Skin: Ulcer/ Wound - Skin tear and erythema over right second toe Neurological: Neuro grossly intact, Sensory exam intact to light touch and pain Psych/Mental Status: Normal Affect, Appropriate Laboratory Results 06/23/18 17:50: WBC 8.1, RBC 4.42 L, Hgb 12.1 L, Hct 39.1 L, MCV 88.5, MCH 27.4, MCHC 30.9 L, RDW 13.9, RDW Differential 44.9 H, Plt Count 129 L, MPV 11.4, Immature Gran % (Auto) 0.200, Neut % (Auto) 83.5 H, Lymph % (Auto) 8.4 L, Phillips % (Auto) 7.1, Eos % (Auto) 0.7, Baso % (Auto) 0.1, Absolute Neuts (auto) 6.7, Absolute Lymphs (auto) 0.68 L, Total Counted Not Reportable 06/23/18 17:50: PT 15.5 H, INR 1.2, APTT 31.4 06/23/18 17:50: Sodium 136, Potassium 4.7, Chloride 107, Carbon Dioxide 19.0 L, Anion Gap 10, BUN 57 H, Creatinine 2.66 H, Estim Creat Clear Calc 26.79, Est GFR (MDRD) Af Amer 31 L, Est GFR (MDRD) Non-Af 26 L, BUN/Creatinine Ratio 21.4 H, Glucose 388 H, Calcium 8.5, Total Bilirubin 0.50, AST 66 H, ALT 73 H, Alkaline Phosphatase 122 H, Troponin I 0.105 H, Total Protein 7.6, Albumin 3.4, Globulin 4.2, Albumin/Globulin Ratio 0.8 L 06/23/18 17:50: B-Natriuretic Peptide 1041.0 H 06/24/18 00:34: POC Glucose 278 H 06/24/18 02:50: Troponin I 0.084 H 06/24/18 05:10: WBC 8.6, RBC 4.18 L, Hgb 11.6 L, Hct 36.6 L, MCV 87.6, MCH 27.8, MCHC 31.7 L, RDW 13.6, RDW Differential 42.8, Plt Count 130 L, MPV 10.7 06/24/18 05:10: Hemoglobin A1c 9.0 H 06/24/18 05:10: Sodium 140, Potassium 3.9, Chloride 109 H, Carbon Dioxide 23.0, Anion Gap 8, BUN 57 H, Creatinine 2.37 H, Estim Creat Clear Calc 30.06, Est GFR (MDRD) Af Amer 36 L, Est GFR (MDRD) Non-Af 29 L, BUN/Creatinine Ratio 24.1 H, Glucose 263 H, Calcium 9.0, Magnesium 2.2, Troponin I 0.083 H, Triglycerides 108, Cholesterol 111, LDL Cholesterol 58, VLDL Cholesterol 22, HDL Cholesterol 31 L, TSH 0.45 06/24/18 07:02: POC Glucose 232 H 06/24/18 08:10: Troponin I Pending Current Medications Acetaminophen (Tylenol) 650 mg PO Q6H PRN PRN PRN Reason: Mild Pain (scale 0-3)/T>100.7 Al Hydroxide/Mg Hydroxide (Mylanta Ii) 30 ml PO Q6H PRN PRN PRN Reason: Gastric Burning Aspirin (Aspirin, Baby) 81 mg PO DAILY@0800 [facility] Atorvastatin Calcium (Lipitor) 40 mg PO QHS [facility] Bisacodyl (Dulcolax) 10 mg RECTAL DAILY PRN PRN PRN Reason: Constipation Carvedilol (Coreg) 6.25 mg PO BID [facility] Cholecalciferol (Vitamin D) 5,000 unit PO DAILY [facility] Clopidogrel Bisulfate (Plavix) 75 mg PO DAILY [facility] Dextrose (D50w Syringe) 0 gm IV X1 PRN; Protocol PRN Reason: Hypoglycemia Docusate Sodium (Colace) 200 mg PO BID PRN PRN PRN Reason: Constipation Enoxaparin Sodium (Lovenox) 30 mg SC DAILY [facility] Last Admin: 06/24/18 02:19 Dose: Not Given Furosemide (Lasix) 40 mg IV BIDLX [facility] Glucagon () 1 mg IM .X1 PRN PRN Reason: Hypoglycemia Ampicillin Sodium/Sulbactam (Sodium 3 gm/ Sodium Chloride) 112 mls @ 100 mls/hr IV Q12 [facility] Last Admin: 06/24/18 00:46 Dose: 100 mls/hr Sodium Chloride () 250 mls @ 15 mls/hr IV .[id number] PRN PRN Reason: SALINE FLUSH Insulin Glargine (Lantus (Bkc)) 26 units SC QHS [facility] Insulin Human Lispro (Humalog Kwikpen (Bkc)) 12 unit SC TIDCM [facility] Insulin Human Lispro (Humalog Kwikpen (Bkc)) 0 unit SQ ACHS [facility]; Protocol Ipratropium [place] (Atrovent Nasal [place] (G)) 2 spray NASAL BID [facility] Isosorbide Dinitrate (Isordil) 30 mg PO BID [facility] Loperamide HCl (Imodium) 1 mg PO DAILY PRN PRN Nitroglycerin (Nitrostat) 0.4 mg SUBLINGUAL Q5M PRN PRN Reason: CARDIAC/CHEST PAIN Nutritional Formula (Lactose Free) (Glucerna Shake) 120 ml PO TIDCM [facility] Ondansetron HCl (Zofran) 4 mg IV Q8H PRN PRN PRN Reason: Nausea Oxycodone HCl (Oxyir) 5 mg PO Q4H PRN PRN PRN Reason: Moderate Pain (pain scale 4-5) Polyethylene Glycol (Miralax) 17 gm PO DAILY [facility] Sodium Chloride () 5 - 15 ml IV UD PRN PRN Reason: SALINE FLUSH Last Admin: 06/24/18 00:57 Dose: 10 ml Zolpidem Tartrate (Ambien (Generic)) 5 mg PO QHS PRN PRN PRN Reason: INSOMNIA Medical Necessity - Tobacco Use Smoking Status: Never smoker Assessment/Plan All Active Problems Recurrent falls (Acute) Syncope and collapse (Acute) Cellulitis of second toe of right foot (Acute) 1. Acute on chronic combined systolic and diastolic heart failure/CAD s/p CABG and stents//HTN/HLD/history of a-flutter -We will continue with IV diuresis based on proBNP being elevated to 1041, though this could be elevated due to his renal dysfunction -Plan for an echo to evaluate any new wall motion abnormalities -Known aortic stenosis -Continue with Lipitor, Coreg, Lasix, isordil and Plavix -Troponin initially was 0.105 and is trending down 2.083, repeat is pending -When he had his heart attack in 2014 his troponins peaked at 0.50, therefore this is likely due to demand ischemia 2. Right second toe cellulitis -Appreciate assistance from podiatry -Continue with IV Unasyn -Attempt to have better control of his blood sugars 3. DM 2/CKD stage IV -We will continue with his home insulin regimen as well as a sliding scale insulin to make adjustments as appropriate -A1c is 9 DVT: Lovenox Code Visit Inpatient E&M: 96171 Subs Hosp L2
--- NOTE | 2018-06-24 08:31 | PN_ITS ---
Patient Problems: Active and Suspected Problems Recurrent falls (Acute) Syncope and collapse (Acute) Cellulitis of second toe of right foot (Acute) Subjective: States that he is feeling okay, he is unsure when he injured his foot states that he just woke up with it like that denies any significant chest pain or shortness of breath at the moment Vitals/I&O's: Vital Signs Temp Pulse Resp BP Pulse Ox 99.3 F H 66 18 150/71 H 100 06/24/18 05:15 06/24/18 07:00 06/24/18 05:15 06/24/18 05:15 06/24/18 05:15 Oxygen Flow Rate (L/min) 2 Oxygen Delivery Method Nasal Cannula Weight: 155 lb 13.869 oz Body Mass Index (BMI) 23.7 Intake and Output for Last 24 Hours 06/22/18 06/23/18 06/24/18 23:59 23:59 23:59 Intake Total 274 / 274 Output Total 900 / 900 Balance -626 / -626 General: Alert, Oriented x3, Cooperative, No apparent distress HEENT: Atraumatic, EOMI, Normocephalic Oral: Moist Mucosa Neck: Supple, No JVD, Trachea Midline Lungs: Clear to auscultation, Normal air movement, No rhonchi, No wheeze, No rales Cardiovascular: Regular rate, Regular Rhythm, Normal S1, Murmur - 2/6 WILLIE left upper sternal border Abdomen: Soft, Non Tender, Non-Distended, No Hepato-splenomegaly Skin: Ulcer/ Wound - Skin tear and erythema over right second toe Neurological: Neuro grossly intact, Sensory exam intact to light touch and pain Psych/Mental Status: Normal Affect, Appropriate Laboratory Results 06/23/18 17:50: WBC 8.1, RBC 4.42 L, Hgb 12.1 L, Hct 39.1 L, MCV 88.5, MCH 27.4, MCHC 30.9 L, RDW 13.9, RDW Differential 44.9 H, Plt Count 129 L, MPV 11.4, Immature Gran % (Auto) 0.200, Neut % (Auto) 83.5 H, Lymph % (Auto) 8.4 L, [place] % (Auto) 7.1, Eos % (Auto) 0.7, Baso % (Auto) 0.1, Absolute Neuts (auto) 6.7, Absolute Lymphs (auto) 0.68 L, Total Counted Not Reportable 06/23/18 17:50: PT 15.5 H, INR 1.2, APTT 31.4 06/23/18 17:50: Sodium 136, Potassium 4.7, Chloride 107, Carbon Dioxide 19.0 L, Anion Gap 10, BUN 57 H, Creatinine 2.66 H, Estim Creat Clear Calc 26.79, Est GFR (MDRD) Af Amer 31 L, Est GFR (MDRD) Non-Af 26 L, BUN/Creatinine Ratio 21.4 H, Glucose 388 H, Calcium 8.5, Total Bilirubin 0.50, AST 66 H, ALT 73 H, Alkaline Phosphatase 122 H, Troponin I 0.105 H, Total Protein 7.6, Albumin 3.4, Globulin 4.2, Albumin/Globulin Ratio 0.8 L 06/23/18 17:50: B-Natriuretic Peptide 1041.0 H 06/24/18 00:34: POC Glucose 278 H 06/24/18 02:50: Troponin I 0.084 H 06/24/18 05:10: WBC 8.6, RBC 4.18 L, Hgb 11.6 L, Hct 36.6 L, MCV 87.6, MCH 27.8, MCHC 31.7 L, RDW 13.6, RDW Differential 42.8, Plt Count 130 L, MPV 10.7 06/24/18 05:10: Hemoglobin A1c 9.0 H 06/24/18 05:10: Sodium 140, Potassium 3.9, Chloride 109 H, Carbon Dioxide 23.0, Anion Gap 8, BUN 57 H, Creatinine 2.37 H, Estim Creat Clear Calc 30.06, Est GFR (MDRD) Af Amer 36 L, Est GFR (MDRD) Non-Af 29 L, BUN/Creatinine Ratio 24.1 H, Glucose 263 H, Calcium 9.0, Magnesium 2.2, Troponin I 0.083 H, Triglycerides 108, Cholesterol 111, LDL Cholesterol 58, VLDL Cholesterol 22, HDL Cholesterol 31 L, TSH 0.45 06/24/18 07:02: POC Glucose 232 H 06/24/18 08:10: Troponin I Pending Current Medications Acetaminophen (Tylenol) 650 mg PO Q6H PRN PRN PRN Reason: Mild Pain (scale 0-3)/T>100.7 Al Hydroxide/Mg Hydroxide (Mylanta Ii) 30 ml PO Q6H PRN PRN PRN Reason: Gastric Burning Aspirin (Aspirin, Baby) 81 mg PO DAILY@0800 COUNTS [facility]CLUDE 234 BEDS AT THE [facility] Atorvastatin Calcium (Lipitor) 40 mg PO QHS COUNTS INCLUDE 234 BEDS AT THE [facility] Bisacodyl (Dulcolax) 10 mg RECTAL DAILY PRN PRN PRN Reason: Constipation Carvedilol (Coreg) 6.25 mg PO BID COUNTS INCLUDE 234 BEDS AT THE [facility] Cholecalciferol (Vitamin D) 5,000 unit PO DAILY COUNTS INCLUDE 234 BEDS AT THE [facility] Clopidogrel Bisulfate (Plavix) 75 mg PO DAILY COUNTS INCLUDE 234 BEDS AT THE [facility] Dextrose (D50w Syringe) 0 gm IV X1 PRN; Protocol PRN Reason: Hypoglycemia Docusate Sodium (Colace) 200 mg PO BID PRN PRN PRN Reason: Constipation Enoxaparin Sodium (Lovenox) 30 mg SC DAILY [facility]S INCLUDE 234 BEDS AT THE [facility] Last Admin: 06/24/18 02:19 Dose: Not Given Furosemide (Lasix) 40 mg IV BIDLX COUNTS INCLUDE 234 BEDS AT THE [facility] Glucagon () 1 mg IM .X1 PRN PRN Reason: Hypoglycemia Ampicillin Sodium/Sulbactam (Sodium 3 gm/ Sodium Chloride) 112 mls @ 100 mls/hr IV Q12 [facility]S [facility]CLUDE 234 BEDS AT THE [facility] Last Admin: 06/24/18 00:46 Dose: 100 mls/hr Sodium Chloride () 250 mls @ 15 mls/hr IV .[id number] PRN PRN Reason: SALINE FLUSH Insulin Glargine (Lantus (Bkc)) 26 units SC QHS [facility]S [facility]CLUDE 234 BEDS AT THE [facility] Insulin Human Lispro (Humalog Kwikpen (Bkc)) 12 unit SC TIDCM [facility]S [facility]CLUDE 234 BEDS AT THE [facility] Insulin Human Lispro (Humalog Kwikpen (Bkc)) 0 unit SQ ACHS [facility]S [facility]CLUDE 234 BEDS AT THE [facility]; Protocol Ipratropium [place] (Atrovent Nasal [place] (G)) 2 spray NASAL BID [facility]S INCLUDE 234 BEDS AT THE [facility] Isosorbide Dinitrate (Isordil) 30 mg PO BID [facility]CLUDE 234 BEDS AT THE [facility] Loperamide HCl (Imodium) 1 mg PO DAILY PRN PRN Nitroglycerin (Nitrostat) 0.4 mg SUBLINGUAL Q5M PRN PRN Reason: CARDIAC/CHEST PAIN Nutritional Formula (Lactose Free) (Glucerna Shake) 120 ml PO TIDCM COUNTS INCLUDE 234 BEDS AT THE [facility] Ondansetron HCl (Zofran) 4 mg IV Q8H PRN PRN PRN Reason: Nausea Oxycodone HCl (Oxyir) 5 mg PO Q4H PRN PRN PRN Reason: Moderate Pain (pain scale 4-5) Polyethylene Glycol (Miralax) 17 gm PO DAILY [facility] Sodium Chloride () 5 - 15 ml IV UD PRN PRN Reason: SALINE FLUSH Last Admin: 06/24/18 00:57 Dose: 10 ml Zolpidem Tartrate (Ambien (Generic)) 5 mg PO QHS PRN PRN PRN Reason: INSOMNIA Medical Necessity - Tobacco Use Smoking Status: Never smoker Assessment/Plan All Active Problems Recurrent falls (Acute) Syncope and collapse (Acute) Cellulitis of second toe of right foot (Acute) 1. Acute on chronic combined systolic and diastolic heart failure/CAD s/p CABG and stents//HTN/HLD/history of a-flutter -We will continue with IV diuresis based on proBNP being elevated to 1041, though this could be elevated due to his renal dysfunction -Plan for an echo to evaluate any new wall motion abnormalities -Known aortic stenosis -Continue with Lipitor, Coreg, Lasix, isordil and Plavix -Troponin initially was 0.105 and is trending down 2.083, repeat is pending -When he had his heart attack in 2014 his troponins peaked at 0.50, therefore this is likely due to demand ischemia 2. Right second toe cellulitis -Appreciate assistance from podiatry -Continue with IV Unasyn -Attempt to have better control of his blood sugars 3. DM 2/CKD stage IV -We will continue with his home insulin regimen as well as a sliding scale insulin to make adjustments as appropriate -A1c is 9 DVT: Lovenox Code Visit Inpatient E&M: 32872 Subs Hosp L2
[2018-06-24 08:56] LABS: Erythrocyte Sedimentation Rate 59 mm/hr (0-20)
[2018-06-24] MEDS: Ipratropium Bromide 0.06% NASAL SPRAY 2 SPRAY NASAL ×2 (10:50→21:52)
[2018-06-24] MEDS: Aspirin 81 MG TAB.CHEW PO (10:52)
[2018-06-24] MEDS: Carvedilol 6.25 MG Tablet PO ×2 (10:52→21:52)
[2018-06-24] MEDS: Isosorbide DN 30 MG Tablet PO ×2 (10:52→21:51)
[2018-06-24] MEDS: Enoxaparin 30 MG/0.3 ML Syringe SC (10:52)
[2018-06-24] MEDS: Clopidogrel Bisulfate 75 MG Tablet PO (10:52)
[2018-06-24] MEDS: Furosemide 40 MG/4 ML Vial IV ×2 (10:53→17:57)
[2018-06-24] MEDS: Insulin Lispro 100 UNIT/ML INSULN.PEN 12 UNIT SC ×2 (11:50→17:56)
[2018-06-24] MEDS: Insulin Lispro 100 UNIT/ML INSULN.PEN SQ ×2 (11:51→17:57)
--- NOTE | 2018-06-24 11:55 | RAD_ITS ---
STUDY: X-RAY - RIGHT FOOT CLINICAL: Male, 67 years old. CELLULITIS SECOND TOE TECHNIQUE: 3 view(s) of the foot. COMPARISON: None. FINDINGS: There is generalized osteoporosis and diffuse arteriosclerosis. There is a plantar calcaneal spur. Minimal arthropathy visualized subtalar, talonavicular, calcaneocuboid, tarsal and tarsometatarsal articulations. Normal metatarsi. There is degenerative arthrosis of the metatarsophalangeal joint of the hallux . Normal tibial and fibular sesamoid bones. There is degenerative arthrosis of the interphalangeal joint of the great toe. Normal phalanges of the great toe. Normal second through fifth metatarsophalangeal joints. Normal interphalangeal joints and phalanges of the lesser toes. The soft tissue structures are unremarkable. RAD/Foot min 3 Views IMPRESSION: Osteoporosis, degenerative changes, arteriosclerosis. Sign of osteomyelitis detected. Electronically Signed: Anastasiia Thomas MD at 3:54 EST , Service support ,
[2018-06-24] MEDS: Acetaminophen 325 MG Tablet 650 MG PO (13:43)
--- NOTE | 2018-06-24 14:09 | CASEMGMT ---
DENISSE SAUCEDO assessment: Face to Face with patient for initial transition planning/care coordination assessment. DENISSE SAUCEDO introduced self and role at [facility], pt voices understanding and consents to assessment at this time. Pt is sitting up in bed in no distress at this time. Pt is A/Ox4 at this time and answers all questions appropriately at this time. Care providers, pharmacy, and demographics verified at this time. PCP: Hieu Specialists: faheem Vigil [facility]acy: [facility] Insurance: [facility] A/B, ANDRES Prescription Benefit: ANDRES Living Will/HPOA: Pt states he is unsure if he has LW/HPOA and declines info at this time. There are no AD on file at [facility] at this time. LNOK: Melonie Peralta, Living Arrangements: Pt states lives with , daughter, and granddaughter in 2 story home and states has had increased sob/syncopal episodes lately and has had trouble with the stairs. Pt states is normally independent with ADL's. Transportation: Pt states drives self and states no transportation concerns at this time. DME/HHC: Pt states has a shower chair and 2 liters home oxygen through [employer] [facility] [employer] out of [place]. Pt states no need for any further DME at this time. Pt states has had HHC twice in the past and states no hx of SNF. Pt states no concerns with going home at time of discharge. 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 Pt states does not smoke or drink ETOH. Pt states no further concerns/needs at this time. CM to follow PT/OT evals and for any further discharge planning/needs. Advised pt to ask for CM if any further questions/concerns/needs arise, voice understanding. Plan: [place] DENISSE SAUCEDO
[2018-06-24 14:31] LABS: Bedside Glucose 201 mg/dL (70-110)
--- NOTE | 2018-06-24 15:33 | NURSING ---
wound photo: Right Second Toe
[2018-06-24 16:56] LABS: Bedside Glucose 257 mg/dL (70-110)
[2018-06-24] MEDS: Atorvastatin Calcium 40 MG Tablet PO (21:51)
[2018-06-24 22:30] LABS: Bedside Glucose 125 mg/dL (70-110)
[2018-06-25] VITALS (13 sets, daily range): BP systolic 129–156; BP diastolic 53–77; PULSE 57–71; RESP 16–18; TEMP 36.5–37.2; O2SAT 92–99
[2018-06-25 05:57] LABS: Absolute Lymphocyte Count 0.99 X10^3/ul (0.83-4.51); Absolute Neutrophil Count 5.4 X10^3/uL (2.0-7.7); Basophil# 0.01 X10^3/uL; Basophil% 0.1 % (0-1); Eosinophil# 0.16 X10^3/uL; Eosinophils% 2.2 % (0-5); Hematocrit 35.2 % (40-54); Hemoglobin 11.3 g/dl (13.0-16.5); Lymphocyte # 0.99 X10^3/ul (4.0); Lymphocyte % 13.8 % (19-41); Mean Corp Hgb Conc 32.1 g/gl (32-36); Mean Corpuscular Hgb 28.2 pg (27.0-32.0); Mean Corpuscular Volume 87.8 fL (80-94); Mean Platelet Vol. 10.9 fl (6.2-12.0); Monocyte# 0.67 X10^3/uL; Monocyte% 9.3 % (0-10); Neutrophil # 5.36 X10^3/uL (2.7-7.7); Neutrophil % 74.5 % (47-70); Platelet Count 140 K/mm3 (150-450); RBC Distribution Width CV 13.4 % (11.6-14.6); RBC Distribution Width SD 41.9 fl (35.1-43.9); Red Blood Count 4.01 M/mm3 (4.6-6.2); White Blood Count 7.2 K/mm3 (4.4-11.0)
[2018-06-25 06:05] LABS: Anion Gap 10 (5-15); BUN 64 mg/dL (7-18); BUN/Creat Ratio 28.4 RATIO (10-20); Calcium,Total 9.2 mg/dL (8.5-10.1); Chloride 109 mmol/L (98-107); Creatinine, Serum 2.25 mg/dL (0.70-1.30); EST Glomerular Filtration Rate 31 mL/min (>60); Est Glom Filt Rate - Afr Amer 38 mL/min (>60); Estimated Creatinine Clearance 31.67 ml/min; Glucose 118 mg/dL (74-106); Potassium 3.7 mmol/L (3.5-5.1); Sodium Level 144 mmol/L (136-145)
[2018-06-25 06:06] LABS: POSITIVE COUNT NO; POSITIVE DIFFERENTIAL NO; POSITIVE MORPHOLOGY NO
[2018-06-25 06:46] LABS: Bedside Glucose 123 mg/dL (70-110)
--- NOTE | 2018-06-25 10:09 | PN_ITS ---
Patient Problems: Active and Suspected Problems Recurrent falls (Acute) Syncope and collapse (Acute) Cellulitis of second toe of right foot (Acute) Cellulitis of right foot (Acute) Ulcer of right foot with fat layer exposed (Acute) Other specified peripheral vascular diseases (Suspected) Malnutrition (Suspected) Subjective: This 67 year old male with multiple comorbidities was seen bedside this morning for cellulitis and ulcer to right second toe. He denies fever, chills, nausea. He has some pain to the second toe and the long nail on the fifth toe of this same foot. He denies odor. - Physical Exam General: Alert, Oriented x3, Cooperative, Lethargic HEENT: Atraumatic Extremities: Capillary Refill Less than 3 Seconds, No Calf Tenderness - negative sole and crawley bilateral, Diminished Peripheral Pulses, Edema - dorsal forefoot and second toe, Tenderness - 2nd to palpation, - - compartments soft to palpate foot Skin: Ulcer/ Wound - granular based superficial ulcer dorsal 2nd toe noted without deep tissue exposure or necrosis. erythema and rubour is still noted to the dorsal second toe and forefoot. there is less streaking noted. no interdigital maceration. no ulcer,tissue loss or infection to fifth toe, - - elongated 5th toenail, right without infection or wound. skin is hairless and atrophic Musculoskeletal: No Tenderness to Palpation of Joints or Extremities, Muscle Was ting, - - varus rotation 5th toe, right. dorsal contraction right second toe. Neurological: Sensory exam intact to light touch and pain Psych/Mental Status: Normal Affect, Appropriate Vital Signs Temp Pulse Resp BP Pulse Ox 98.2 F 58 L 18 142/65 H 97 06/25/18 04:00 06/25/18 07:00 06/25/18 04:00 06/25/18 04:00 06/25/18 08:09 Oxygen Flow Rate (L/min) 2 Oxygen Delivery Method Nasal Cannula Weight: 68.2 kg Body Mass Index (BMI) 23.7 Intake and Output for Last 24 Hours 06/23/18 06/24/18 06/25/18 23:59 23:59 23:59 Intake Total 1064 / 1064 120 / 120 Output Total 2024 / 2024 250 / 250 Balance -961 / -961 -130 / -130 Microbiology Past 72 Hours 06/24/18 08:51 Gram Stain - Final Wound Drainage - Aerobic & Anaerobic Swabs Laboratory Tests Past 24 Hrs 06/25/18 06/25/18 05:25 05:25 WBC 7.2 RBC 4.01 L Hgb 11.3 L Hct 35.2 L MCV 87.8 MCH 28.2 MCHC 32.1 RDW 13.4 RDW Differential 41.9 Plt Count 140 L MPV 10.9 Immature Gran % (Auto) 0.100 Neut % (Auto) 74.5 H Lymph % (Auto) 13.8 L [place] % (Auto) 9.3 Eos % (Auto) 2.2 Baso % (Auto) 0.1 Absolute Neuts (auto) 5.4 Absolute Lymphs (auto) 0.99 Total Counted Not Reportable Sodium 144 Potassium 3.7 Chloride 109 H Carbon Dioxide 25.0 Anion Gap 10 BUN 64 H Creatinine 2.25 H Estim Creat Clear Calc 31.67 Est GFR (MDRD) Af Amer 38 L Est GFR (MDRD) Non-Af 31 L BUN/Creatinine Ratio 28.4 H Glucose 118 H Calcium 9.2 POC Glucose 06/25/18 06/24/18 06/24/18 06:41 21:48 16:32 POC Glucose 123 H 125 H 257 H 06/24/18 11:28 POC Glucose 201 H Medical Necessity - Tobacco Use Smoking Status: Never smoker Tobacco Use: Non-smoker Assessment/Plan All Active Problems Recurrent falls (Acute) Syncope and collapse (Acute) Cellulitis of second toe of right foot (Acute) Cellulitis of right foot (Acute) Ulcer of right foot with fat layer exposed (Acute) Right foot ulcer fat layer exposed, second toe Cellulitis right foot Uncontrolled diabetes, hemoglobin A1c of 9.0% Chronic kidney disease Rule out peripheral vascular disease Other comorbidities including acute on chronic heart failure Malnutrition suspected Elongated right fifth toenail, with discomfort I reviewed and discussed the case with the patient today. He appears to have continued cellulitis extending from his right second toe ulcer site and this has improved on a very minimal basis compared to yesterday. I recommend localized wound care. His dressing was changed with aquacel ag this morning. He is afebrile and his vitals remain stable. His diagnostic data including labs was reviewed. He does not have leukocytosis. ESR (59)and CRP (41.2) are elevated. Foot x-ray were also reviewed without acute fracture or dislocation, osseous destruction adjacent to the injury/ulcer site, foreign body, or soft tissue emphysema. His small vessel calcification is recognized on x-rays. Aerobic and anaerobic cultures were taken; no bacterial growth is noted so far. This ulcer site is very superficial and the culture may be of limited value. It is noted he was already started on Unasyn. I do recommend broad-spectrum coverage until some of these cultures results develop or improvement is noted. To continue to offload with surgical shoe. His noninvasive vascular studies were also reviewed and it appears that he has noncompressible vessels and a right toe pressure of 47 mmHg in his right dorsalis pedis artery has a monophasic flow. This is consistent with small vessel disease and I recommend a vascular surgery consultation on an inpatient or outpatient basis. Medical management, DVT prophylaxis, pain control per primary team is greatly appreciated. Please call if questions. His right fifth toenail was debrided in length and he tolerated this with a nipper. No infection or ulcer is noted. Aurea Simon DPM, [facility] [phone]
[2018-06-25] MEDS: Ipratropium Bromide 0.06% NASAL SPRAY 2 SPRAY NASAL ×2 (10:42→21:50)
[2018-06-25] MEDS: Clopidogrel Bisulfate 75 MG Tablet PO (10:42)
[2018-06-25] MEDS: Insulin Lispro 100 UNIT/ML INSULN.PEN 12 UNIT SC ×3 (10:43→17:46)
[2018-06-25] MEDS: Carvedilol 6.25 MG Tablet PO ×2 (10:45→21:50)
[2018-06-25] MEDS: Isosorbide DN 30 MG Tablet PO ×2 (10:45→21:51)
[2018-06-25] MEDS: Furosemide 40 MG/4 ML Vial IV (10:45)
[2018-06-25] MEDS: Aspirin 81 MG TAB.CHEW PO (10:45)
[2018-06-25] MEDS: 0.9% NaCl Peripheral Flush Adult/Peds IV (10:59)
--- NOTE | 2018-06-25 12:02 | PCM.PROGNOTE ---
<Leonid Patel - Last Filed: 06/25/18 12:02> Patient Problems: Active and Suspected Problems Recurrent falls (Acute) Syncope and collapse (Acute) Cellulitis of second toe of right foot (Acute) Cellulitis of right foot (Acute) Ulcer of right foot with fat layer exposed (Acute) Other specified peripheral vascular diseases (Suspected) Malnutrition (Suspected) Subjective: Pt complaints of right 5th digit pain. She states his breathing is only slightly improved. He does use home O2. No CP/pressure. - Physical Exam General: Alert, Oriented x3, Cooperative HEENT: Atraumatic, PERRLA, EOMI, Normocephalic Neck: Supple, No JVD, Negative Carotid Bruits Lungs: Diminished, Rales - faint BL bases Cardiovascular: Regular rate, Murmur - 3/6 systolic murmur Abdomen: Bowel Sounds Present, Soft, Non Tender Extremities: No edema, Capillary Refill Less than 3 Seconds Skin: No rashes, No breakdown Musculoskeletal: No Tenderness to Palpation of Joints or Extremities Neurological: Cranial nerves II-XII grossly intact Psych/Mental Status: Normal Affect, Appropriate Vital Signs Temp Pulse Resp BP Pulse Ox 98.9 F 71 18 156/69 H 95 06/25/18 10:31 06/25/18 11:00 06/25/18 10:31 06/25/18 10:31 06/25/18 10:31 Oxygen Flow Rate (L/min) 2 Oxygen Delivery Method Nasal Cannula Weight: 150 lb 5.684 oz Body Mass Index (BMI) 23.7 Intake and Output for Last 24 Hours 06/23/18 06/24/18 06/25/18 23:59 23:59 23:59 Intake Total 1064 / 1064 120 / 120 Output Total 2024 / 2024 250 / 250 Balance -961 / -961 -130 / -130 Microbiology Past 72 Hours 06/24/18 08:51 Gram Stain - Final Wound Drainage - Aerobic & Anaerobic Swabs Laboratory Tests Past 24 Hrs 06/25/18 06/25/18 05:25 05:25 WBC 7.2 RBC 4.01 L Hgb 11.3 L Hct 35.2 L MCV 87.8 MCH 28.2 MCHC 32.1 RDW 13.4 RDW Differential 41.9 Plt Count 140 L MPV 10.9 Immature Gran % (Auto) 0.100 Neut % (Auto) 74.5 H Lymph % (Auto) 13.8 L [place] % (Auto) 9.3 Eos % (Auto) 2.2 Baso % (Auto) 0.1 Absolute Neuts (auto) 5.4 Absolute Lymphs (auto) 0.99 Total Counted Not Reportable Sodium 144 Potassium 3.7 Chloride 109 H Carbon Dioxide 25.0 Anion Gap 10 BUN 64 H Creatinine 2.25 H Estim Creat Clear Calc 31.67 Est GFR (MDRD) Af Amer 38 L Est GFR (MDRD) Non-Af 31 L BUN/Creatinine Ratio 28.4 H Glucose 118 H Calcium 9.2 POC Glucose 06/25/18 06/24/18 06/24/18 06:41 21:48 16:32 POC Glucose 123 H 125 H 257 H 06/24/18 11:28 POC Glucose 201 H Medical Necessity - Tobacco Use Smoking Status: Never smoker Tobacco Use: Non-smoker Assessment/Plan All Active Problems Recurrent falls (Acute) Syncope and collapse (Acute) Cellulitis of second toe of right foot (Acute) Cellulitis of right foot (Acute) Ulcer of right foot with fat layer exposed (Acute) 1. Acute on chronic systolic CHF exacerbation complicated by severe pulmonary HTN - echo with EF 30-35%, RVSP 83. Has ICD. Troponin indeterminate. 2. Hx Bovine Aortic valve - stable per echo. 3. Chronic diabetic wound complicated by PVD - possible osteo on xr. Podiatry following recommends conservative management, debridement today at bedside. Continue unasyn. No fever or WBC elevation. Calcification and poor flow on vascular studies - will need o/p vascular follow up. CRP 41, ESR 59. Cultures ordered per Podiatry. 4. CKD IV - improving. 5. DMt2 - A1C 9.0. Continue SSI, TID insulin, Lantus. Control is improving. Continue to trend and adjust insulins as needed. 6. CAD, HTN, HLD - pt of Dr. Vigil, prior CABG, stents. Continue asa/plavix, coreg, statin, isordil. 7. Falls - PTOT evals DVT ppx: lovenox DC planning: PTOT, falling recently, may benefit from placement. This patient was seen by Leonid Patel PA-C under the supervision of Doctor Sahra. <Wilber Bocanegra - Last Filed: 06/25/18 14:24> - Physical Exam Vital Signs Temp Pulse Resp BP Pulse Ox 98.9 F 71 18 156/69 H 95 06/25/18 10:31 06/25/18 11:00 06/25/18 10:31 06/25/18 10:31 06/25/18 10:31 Oxygen Flow Rate (L/min) 2 Oxygen Delivery Method Nasal Cannula Weight: 150 lb 5.684 oz Body Mass Index (BMI) 23.7 Intake and Output for Last 24 Hours 06/23/18 06/24/18 06/25/18 23:59 23:59 23:59 Intake Total 1064 / 1064 473 / 473 Output Total 2024 / 2024 450 / 450 Balance -961 / -961 Microbiology Past 72 Hours 06/24/18 08:51 Gram Stain - Final Wound Drainage - Aerobic & Anaerobic Swabs Wound Culture - Preliminary Staphylococcus aureus Laboratory Tests Past 24 Hrs 06/25/18 06/25/18 05:25 05:25 WBC 7.2 RBC 4.01 L Hgb 11.3 L Hct 35.2 L MCV 87.8 MCH 28.2 MCHC 32.1 RDW 13.4 RDW Differential 41.9 Plt Count 140 L MPV 10.9 Immature Gran % (Auto) 0.100 Neut % (Auto) 74.5 H Lymph % (Auto) 13.8 L [place] % (Auto) 9.3 Eos % (Auto) 2.2 Baso % (Auto) 0.1 Absolute Neuts (auto) 5.4 Absolute Lymphs (auto) 0.99 Total Counted Not Reportable Sodium 144 Potassium 3.7 Chloride 109 H Carbon Dioxide 25.0 Anion Gap 10 BUN 64 H Creatinine 2.25 H Estim Creat Clear Calc 31.67 Est GFR (MDRD) Af Amer 38 L Est GFR (MDRD) Non-Af 31 L BUN/Creatinine Ratio 28.4 H Glucose 118 H Calcium 9.2 POC Glucose 06/25/18 06/25/18 06/24/18 12:19 06:41 21:48 POC Glucose 231 H 123 H 125 H 06/24/18 06/24/18 16:32 11:28 POC Glucose 257 H 201 H Code Visit Addendum: Dr. Bocanegra I personally examined the patient and reviewed the chart. I agree with the above. 67-year-old male presenting with shortness of breath and found to be having a COPD exacerbation as well as a right foot cellulitis. Podiatry was consulted and ordered an WILLI as well as a foot x-ray. The foot x-ray was normal and the ABIs show significant peripheral vascular disease. A superficial culture was also obtained that is currently growing staph aureus. We will change the antibiotic from Unasyn to vancomycin pending sensitivities. We will decrease his Lasix from 40 IV twice daily to down to 40 mg IV daily, he is not edematous and did not have any diminished breath sounds in his bases, and I feel that the proBNP was elevated because of his renal dysfunction. Also his renal dysfunction explains the elevation in his troponin especially with the lack of chest pain. His previous troponins during his heart attack were elevated to 0.5, therefore will discontinue to monitor at this time. Inpatient E&M: 68068 Subs Hosp L2
[2018-06-25] MEDS: Acetaminophen 325 MG Tablet 650 MG PO ×2 (12:16→21:51)
[2018-06-25 12:25] LABS: Bedside Glucose 231 mg/dL (70-110)
[2018-06-25] MEDS: Insulin Lispro 100 UNIT/ML INSULN.PEN SQ ×2 (13:15→17:47)
--- NOTE | 2018-06-25 13:29 | NURSING ---
Called [facility] and spoke to Isaias the pharmacist and clarified Imdur dose is correct
--- NOTE | 2018-06-25 14:51 | PCM.RX.CS ---
Consult Pharmacy has been consulted to manage selected antiobiotic: Vancomycin Type of Consult: New start Suspected Infection: Skin/Soft tissue Prior Doses of Antibiotics Received/Current Regimen: 1750mg (~25mg/kg) iv loading dose 06.25.18 @1415 Labs: Sodium 144 mmol/L (136-145) 06/25/18 05:25 Potassium 3.7 mmol/L (3.5-5.1) 06/25/18 05:25 Chloride 109 mmol/L (98-107) H 06/25/18 05:25 Carbon Dioxide 25.0 mmol/L (21.0-32.0) 06/25/18 05:25 Anion Gap 10 (5-15) 06/25/18 05:25 BUN 64 mg/dL (7-18) H 06/25/18 05:25 Creatinine 2.25 mg/dL (0.70-1.30) H 06/25/18 05:25 Est GFR (MDRD) Af Amer 38 mL/min (>60) L 06/25/18 05:25 Est GFR (MDRD) Non-Af 31 mL/min (>60) L 06/25/18 05:25 BUN/Creatinine Ratio 28.4 RATIO (10-20) H 06/25/18 05:25 Glucose 118 mg/dL (74-106) H 06/25/18 05:25 Microbiology: Microbiology 06/24/18 08:51 Wound Drainage - Aerobic & Anaerobic Swabs Gram Stain - Final 06/24/18 08:51 Wound Drainage - Aerobic & Anaerobic Swabs Wound Culture - Preliminary Staphylococcus aureus Weight used for dosin.2 kg Estimated Creatinine Clearance: ~32ml/min Goal Trough: 15-20 mcg/mL Pharmacy Plan for Drug Dosing: Renal status reviewed with Cr 2.25 and CrCl ~32ml/min. Will begin dosing regimen of 1gm iv daily starting 06.26.18. Vancomycin trough ordered before 3rd dose on 06.27.18 with goal range of 15-20mcg/ml. Pharmacy Service will continue to monitor and adjust dosing as required. Follow-Up Labs: Trough Vancomycin - 06.27.18 @1330 before 1400 dose
[2018-06-25 17:15] LABS: Bedside Glucose 214 mg/dL (70-110)
[2018-06-25] MEDS: Atorvastatin Calcium 40 MG Tablet PO (21:51)
[2018-06-25 22:35] LABS: Bedside Glucose 143 mg/dL (70-110)
[2018-06-26 03:01] VITALS: PULSE 59
[2018-06-26 03:40] VITALS: BP 136/68; PULSE 57; RESP 18; TEMP 36.4; O2SAT 99
[2018-06-26 03:57] VITALS: O2SAT 99
--- NOTE | 2018-06-26 06:49 | EKG12_ITS ---
Test Reason : CP Blood Pressure : / mmHG Vent. Rate : 056 BPM Atrial Rate : 056 BPM P-R Int : 238 ms QRS Dur : 136 ms QT Int : 482 ms P-R-T Axes : 065 -89 -65 degrees QTc Int : 465 ms Sinus bradycardia with 1st degree A-V block with occasional Premature ventricular complexes Left axis deviation Non-specific intra-ventricular conduction block T wave abnormality, consider anterior ischemia Abnormal ECG Confirmed by SINDY MATHEW, JOSE MARTIN ([id number]), script editor EUSEBIO MARES ([id number] on 06/30/2018 3:44:59 PM Referred By: RANDOLPH Confirmed By:JOSE MARTIN CALLAHAN MD
[2018-06-26 06:52] LABS: Anion Gap 10 (5-15); BUN 70 mg/dL (7-18); BUN/Creat Ratio 31.5 RATIO (10-20); Calcium,Total 8.9 mg/dL (8.5-10.1); Chloride 110 mmol/L (98-107); Creatinine, Serum 2.22 mg/dL (0.70-1.30); EST Glomerular Filtration Rate 32 mL/min (>60); Est Glom Filt Rate - Afr Amer 38 mL/min (>60); Estimated Creatinine Clearance 31.86 ml/min; Glucose 98 mg/dL (74-106); Potassium 3.7 mmol/L (3.5-5.1); Sodium Level 144 mmol/L (136-145)
[2018-06-26 06:56] LABS: Bedside Glucose 91 mg/dL (70-110)
[2018-06-26 07:06] VITALS: O2SAT 98
[2018-06-26 08:00] VITALS: PULSE 54
--- NOTE | 2018-06-26 08:17 | PCA ---
Refaxed request to medical records for Yaritza's office cardiology medical records
[2018-06-26] MEDS: Ipratropium Bromide 0.06% NASAL SPRAY 2 SPRAY NASAL (09:31)
[2018-06-26] MEDS: Furosemide 40 MG/4 ML Vial IV (09:32)
[2018-06-26] MEDS: Clopidogrel Bisulfate 75 MG Tablet PO (09:32)
[2018-06-26] MEDS: Carvedilol 6.25 MG Tablet PO (09:32)
[2018-06-26] MEDS: Isosorbide DN 30 MG Tablet PO (09:32)
[2018-06-26] MEDS: Aspirin 81 MG TAB.CHEW PO (09:32)
[2018-06-26 09:42] VITALS: BP 146/56; PULSE 59; RESP 18; TEMP 37; O2SAT 98
--- NOTE | 2018-06-26 10:19 | DCINST_ITS ---
- Discharge Diagnoses Current Active Problems: Current Active and Chronic Problems Recurrent falls (Acute) Syncope and collapse (Acute) Cellulitis of second toe of right foot (Acute) Cellulitis of right foot (Acute) Ulcer of right foot with fat layer exposed (Acute) Hammer toe of right foot (Chronic) Diabetes mellitus with complication (Chronic) You will use the following diet at home:: Calorie/Carbohydrate Controlled (specify 1200, 1400, etc) - 1800 dashawn/ day, Cardiac - <2 grams sodium daily Your food should be the consistency of: Regular Your liquids should be the consistency of: Regular/Thin Discharge Activity: Return to Normal Activity, - - check daily weights. Allergies/Adverse Reactions: Allergies meperidine HCl [From Demerol] Allergy (Verified 06/23/18 19:38) Other Medications to take at Discharge Atorvastatin Calcium [Lipitor] 40 mg PO QHS 03/11/14 Carvedilol [Coreg (Beta Sandip)] 6.25 mg PO BID 03/11/14 Cholecalciferol (Vitamin D3) [Vitamin D3] 5,000 unit PO DAILY 03/11/14 Insulin Glargine [Lantus SoloStar Pen] 26 units SC QHS 03/11/14 Ipratropium [place] 0.06% [ATROVENT NASAL SPRAY] 2 spray NASAL BID 03/11/14 Nitroglycerin [Nitrostat] 0.3 mg SL UD 03/11/14 Aspirin [Aspirin, Baby] 81 mg PO DAILY@0800 06/16/14 Clopidogrel Bisulfate [Plavix] 75 mg PO DAILY 06/16/14 Chromium Picolinate 1,000 mcg PO 06/23/18 Insulin Aspart [Novolog Flexpen] 12 units SC TIDCM 06/23/18 Isosorbide Dinitrate 30 mg PO BID 06/23/18 [place]-3 Fatty Acids/Fish Oil [[place] 3 Fish Oil Softgel] 1 each PO DAILY 06/23/18 Vitamin B Complex 1 each PO DAILY 06/23/18 Cephalexin [Keflex] 500 mg PO TID #15 capsule 06/26/18 Furosemide [Lasix] 40 mg PO DAILY #0 06/26/18 Loperamide [Imodium Liquid] 1 mg PO DAILY PRN PRN ml 06/26/18 The following prescriptions were given: Cephalexin [Keflex] 500 mg PO TID #15 capsule Orders to be completed after discharge: Basic Metabolic Profile (BMP) Time Frame: 1 Week, Location: Laboratory Primary Care Physician: Eduin Hagen MD [Primary Care Provider] - Please follow up with your Primary Care Physician in: 1-2 weeks Test Results: Test results from this visit will be discussed in further detail at your follow- up appointment, if applicable. Please Follow Up With: Justen Rai MD - Severe pulmonary htn When: 2 weeks Please Follow Up With: Jg Vigil MD When: 2 weeks Please Follow Up With: Aurea Simon DPM When: 1 week Proposed Discharge Date: 06/26/18
--- NOTE | 2018-06-26 10:21 | PCA ---
Records from Dr. Vigil's office received
--- NOTE | 2018-06-26 10:42 | CASEMGMT ---
Per Natalia SANCHEZ, pt is agreeable to OP therapy at this time. Order obtained for and faxed to [facility] at this time. When this RN CM to room to give order to pt at this time, pt states concerns regarding finding out what's going on with falls/syncope/sob, etc. Dr. Bocanegra and Natalia SANCHEZ aware that pt still has some questions/concerns, voice understanding. SStgloria SALCEDO CM
[2018-06-26] MEDS: Insulin Lispro 100 UNIT/ML INSULN.PEN 12 UNIT SC ×2 (10:52→12:57)
[2018-06-26] MEDS: Insulin Lispro 100 UNIT/ML INSULN.PEN SQ (12:57)
[2018-06-26 13:10] LABS: Bedside Glucose 282 mg/dL (70-110)
[2018-06-26] MEDS: Cephalexin 250 MG Capsule 500 MG PO (14:57)
--- NOTE | 2018-06-26 15:10 | PCM.DC.SUM ---
<Leonid Patel - Last Filed: 06/26/18 15:10> Discharge Date and Diagnosis Date of Admission: 06/23/18 Date of Discharge: 06/26/18 - Primary Discharge Diagnosis Active and Suspected Problems Acute systolic congestive heart failure exacerbation, complicated by severe pulmonary hypertension Right lower extremity diabetic ulcer with MSSA Syncope secondary to vasovagal CKD stage IV CAD with a history of CABG, stents ICD in place History of bovine aortic valve Hypertension Hyperlipidemia Debility - Secondary Discharge Diagnosis Chronic Problems Hammer toe of right foot (Chronic) Diabetes mellitus with complication (Chronic) Hypertension (Chronic) Hyperlipidemia (Chronic) History of atrial flutter (Chronic) Diabetes mellitus type II (Chronic) Coronary artery disease (Chronic) Status post CABG, 20 years ago Status post and placement in May 2014 at [facility] Following with Dr. Graham Congestive heart failure (Chronic) Chronic kidney disease stage III (Chronic) BPH (Chronic) Pulmonary hypertension (Chronic) Aortic stenosis (Chronic) Hospital Course and Treatment Imaging Results: RAD/Chest PA and Lateral IMPRESSION: Nonspecific left basilar opacity may be secondary to underlying atelectasis. Possible interstitial edema. Interpretation Summary 1. Bilateral noncompressible consistent wiht medial calcinosis and biphasic flow. Further evaluation as clinically warranted. 2. 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 RAD/Foot min 3 Views IMPRESSION: Osteoporosis, degenerative changes, arteriosclerosis. Sign of osteomyelitis detected. Consultations 06/24/18 02:24 Consult: Onc/Wound/provider education specialist Routine Comment: Podiatry-Fascione Operations: None Procedures: 2-D Echocardiogram Summary of Care Provided: Hospital course: The patient is a 67 year old M with past medical history of CAD with prior CABG and stents, bovine aortic valve, systolic CHF with ICD in place, CKD stage IV, diabetic foot wounds, hypertension, hyperlipidemia, who presented to the emergency room with increased shortness of breath worsening over the past 3 days. The day prior to admission he had ambulate to the bathroom sat down to have a bowel movement and passed out, recovering after laying on the floor several minutes. He was sent to the ER by his PCP. He was found to be in acute CHF exacerbation. He had increased lower extremity edema, and chest x-ray consistent with CHF on BNP of 1041. He was admitted to the PCU and placed on telemetry. He was placed on IV Lasix. His troponin was cycled as it was indeterminate on presentation and this remained flat. TSH was normal. Echocardiogram was obtained which showed EF of 30% and severe pulmonary hypertension. He had worsening of his underlying renal disease however this improved with diuresis. His breathing improved with Lasix as well. He had ongoing issues with chronic wounds of his feet, podiatry was consulted. Wound culture was obtained demonstrated MSSA. He was initially placed on IV Vanco which was transitioned to oral Keflex. PVRs were obtained and showed right small vessel disease with TBI 0.9, medial calcinosis bilaterally.. He would benefit from outpatient referral to vascular surgery. He follows podiatry at the wound center. He is very weak and seen by physical therapy. He was able to ambulate but did remain very weak. Patient was not interested in any sort of placement and stated that he would be able to go home and have somebody take him for his [facility] He was discharged home in stable condition. Please follow-up with podiatry in 1-2 weeks, your own digital forensic examiner in 1-2 weeks, and pulmonology regarding her pulmonary hypertension in 1-2 weeks. He was advised to take Lasix twice daily for 3 days and then return to his daily dose, he will need a BMP within the next week, and may need further adjustment of his diuretics on an outpatient basis. This patient was seen by Leonid Patel PA-C under the supervision of Doctor Bocanegra. [] - Physical Exam General: Alert, Oriented x3, Cooperative HEENT: Atraumatic, PERRLA, EOMI, Normocephalic Neck: Supple, No JVD, Negative Carotid Bruits Lungs: Clear to auscultation, Normal air movement Cardiovascular: Regular rate, Murmur - 3 out of 6 systolic murmur best heard over the right and left SB at 2nd intercostal space Abdomen: Bowel Sounds Present, Soft, Non Tender Extremities: Capillary Refill Less than 3 Seconds, Edema Skin: No rashes, No breakdown Musculoskeletal: No Tenderness to Palpation of Joints or Extremities Neurological: Cranial nerves II-XII grossly intact Psych/Mental Status: Normal Affect, Appropriate, Alert and oriented to time, place, person, mood and affect Vital Signs Temp Pulse Resp BP Pulse Ox 98.6 F 59 L 18 146/56 H 98 06/26/18 09:42 06/26/18 09:42 06/26/18 09:42 06/26/18 09:42 06/26/18 09:42 Oxygen Flow Rate (L/min) 1.5 Oxygen Delivery Method Nasal Cannula Weight: 149 lb 11.102 oz Body Mass Index (BMI) 23.7 Intake and Output for Last 24 Hours 06/24/18 06/25/18 06/26/18 23:59 23:59 23:59 Intake Total 1064 / 1064 1469 / 1469 250 / 250 Output Total 2024 950 / 950 625 / 625 Balance -961 / -961 519 / 519 -375 / -375 Microbiology Past 72 Hours 06/24/18 08:51 Gram Stain - Final Wound Drainage - Aerobic & Anaerobic Swabs Wound Culture - Final Staphylococcus aureus Anaerobic Culture - Final No anaerobic bacteria isolated. Laboratory Tests Past 24 Hrs 06/26/18 06:05 Sodium 144 Potassium 3.7 Chloride 110 H Carbon Dioxide 24.0 Anion Gap 10 BUN 70 H Creatinine 2.22 H Estim Creat Clear Calc 31.86 Est GFR (MDRD) Af Amer 38 L Est GFR (MDRD) Non-Af 32 L BUN/Creatinine Ratio 31.5 H Glucose 98 Calcium 8.9 POC Glucose 06/26/18 06/26/18 06/25/18 12:55 06:43 21:45 POC Glucose 282 H 91 143 H 06/25/18 16:39 POC Glucose 214 H Discharge Diet: Low fat/ Low Cholesterol, 2000 mg Sodium Diet Discharge Activity: Return to Normal Activity, - - check daily weights. Home Medications: Medications to take at Discharge Atorvastatin Calcium [Lipitor] 40 mg PO QHS 03/11/14 Carvedilol [Coreg (Beta Sandip)] 6.25 mg PO BID 03/11/14 Cholecalciferol (Vitamin D3) [Vitamin D3] 5,000 unit PO DAILY 03/11/14 Insulin Glargine [Lantus SoloStar Pen] 26 units SC QHS 03/11/14 Ipratropium [place] 0.06% [ATROVENT NASAL SPRAY] 2 spray NASAL BID 03/11/14 Nitroglycerin [Nitrostat] 0.3 mg SL UD 03/11/14 Aspirin [Aspirin, Baby] 81 mg PO DAILY@0800 06/16/14 Clopidogrel Bisulfate [Plavix] 75 mg PO DAILY 06/16/14 Chromium Picolinate 1,000 mcg PO 06/23/18 Insulin Aspart [Novolog Flexpen] 12 units SC TIDCM 06/23/18 Isosorbide Dinitrate 30 mg PO BID 06/23/18 [place]-3 Fatty Acids/Fish Oil [[place] 3 Fish Oil Softgel] 1 each PO DAILY 06/23/18 Vitamin B Complex 1 each PO DAILY 06/23/18 Cephalexin [Keflex] 500 mg PO TID #15 cap 06/26/18 Furosemide [Lasix] 40 mg PO DAILY #0 06/26/18 Loperamide [Imodium Liquid] 1 mg PO DAILY PRN PRN ml 06/26/18 Following Prescrptions Were Given to Patient: Cephalexin [Keflex] 500 mg PO TID #15 cap Other Amb Orders: Basic Metabolic Profile (BMP) Time Frame: 1 Week, Location: Laboratory Primary Care Physician: Eduin Hagen MD [Primary Care Provider] - Please follow up with your Primary Care Physician in: 1-2 weeks Please Follow Up With: Nawaf Childs DO When: 2 weeks Please Follow Up With: Jg Vigil MD When: 2 weeks Please Follow Up With: Aurea Simon DPM When: 1 week Please Follow Up With: Stacia Bermudez NP-C Disposition: Home Minutes spent on discharge:: 35 Patient Condition:: Stable Medical Necessity - Tobacco Use Smoking Status: Never smoker Tobacco Use: Non-smoker Meaningful Use Info Meaningful Use Diagnoses (Choose all that apply): CHF - CHF AVNI/ARB ordered at discharge?: No Reason AVNI/ARB not ordered?: Worsening renal disease Documented LVEF (%): 30 <Wilber Bocanegra F - Last Filed: 06/26/18 16:26> Discharge Date and Diagnosis - Secondary Discharge Diagnosis Chronic Problems Hammer toe of right foot (Chronic) Diabetes mellitus with complication (Chronic) Hypertension (Chronic) Hyperlipidemia (Chronic) History of atrial flutter (Chronic) Diabetes mellitus type II (Chronic) Coronary artery disease (Chronic) Status post CABG, 20 years ago Status post and placement in May 2014 at [facility] Following with Dr. Graham Congestive heart failure (Chronic) Chronic kidney disease stage III (Chronic) BPH (Chronic) Pulmonary hypertension (Chronic) Aortic stenosis (Chronic) Hospital Course and Treatment Consultations 06/24/18 02:24 Consult: Onc/Wound/provider education specialist Routine Comment: Summary of Care Provided: The patient is a 67 year old M [] - Physical Exam Vital Signs Temp Pulse Resp BP Pulse Ox 98.6 F 59 L 18 146/56 H 98 06/26/18 09:42 06/26/18 09:42 06/26/18 09:42 06/26/18 09:42 06/26/18 09:42 Oxygen Flow Rate (L/min) 1.5 Oxygen Delivery Method Nasal Cannula Weight: 149 lb 11.102 oz Body Mass Index (BMI) 23.7 Intake and Output for Last 24 Hours 06/24/18 06/25/18 06/26/18 23:59 23:59 23:59 Intake Total 1064 / 1064 1469 / 1469 250 / 250 Output Total 2024 / 2024 950 / 950 625 / 625 Balance -961 / -961 519 / 519 -375 / -375 Microbiology Past 72 Hours 06/24/18 08:51 Gram Stain - Final Wound Drainage - Aerobic & Anaerobic Swabs Wound Culture - Final Staphylococcus aureus Anaerobic Culture - Final No anaerobic bacteria isolated. Laboratory Tests Past 24 Hrs 06/26/18 06:05 Sodium 144 Potassium 3.7 Chloride 110 H Carbon Dioxide 24.0 Anion Gap 10 BUN 70 H Creatinine 2.22 H Estim Creat Clear Calc 31.86 Est GFR (MDRD) Af Amer 38 L Est GFR (MDRD) Non-Af 32 L BUN/Creatinine Ratio 31.5 H Glucose 98 Calcium 8.9 POC Glucose 06/26/18 06/26/18 06/25/18 12:55 06:43 21:45 POC Glucose 282 H 91 143 H 06/25/18 16:39 POC Glucose 214 H Code Visit Addendum: Dr. Bocanegra I personally examined the patient and reviewed the chart. I agree with the above. 67-year-old male who presented with shortness of breath from home and was found to have an acute on chronic systolic heart failure exacerbation with an EF of 30-35% as well as a right ventricular systolic pressure of 83 mmHg. He was started on IV Lasix 40 mg twice daily and diuresed very well, he was transitioned to 40 mg p.o. twice daily for a couple of days and then ultimately returned to his baseline of 40 mg p.o. daily. Given his pulmonary hypertension he will need to follow-up with pulmonology for further evaluation of its etiology as well as a possible right heart cath for better characterization. He also had an area of cellulitis on his right foot that x-rays determined did not have any component of osteomyelitis, he had a superficial culture that demonstrated MSSA, and he was discharged on Keflex. He will need to follow-up with his primary care doctor as well as his digital forensic examiner. Inpatient E&M: [id number] Disch Hosp
--- NOTE | 2018-06-26 15:19 | DS.PCM_ITS ---
<Leonid Patel - Last Filed: 06/26/18 15:10> Discharge Date and Diagnosis Date of Admission: 06/23/18 Date of Discharge: 06/26/18 - Primary Discharge Diagnosis Active and Suspected Problems Acute systolic congestive heart failure exacerbation, complicated by severe pulmonary hypertension Right lower extremity diabetic ulcer with MSSA Syncope secondary to vasovagal CKD stage IV CAD with a history of CABG, stents ICD in place History of bovine aortic valve Hypertension Hyperlipidemia Debility - Secondary Discharge Diagnosis Chronic Problems Hammer toe of right foot (Chronic) Diabetes mellitus with complication (Chronic) Hypertension (Chronic) Hyperlipidemia (Chronic) History of atrial flutter (Chronic) Diabetes mellitus type II (Chronic) Coronary artery disease (Chronic) Status post CABG, 20 years ago Status post and placement in May 2014 at [facility] Following with Dr. Graham Congestive heart failure (Chronic) Chronic kidney disease stage III (Chronic) BPH (Chronic) Pulmonary hypertension (Chronic) Aortic stenosis (Chronic) Hospital Course and Treatment Imaging Results: RAD/Chest PA and Lateral IMPRESSION: Nonspecific left basilar opacity may be secondary to underlying atelectasis. Possible interstitial edema. Interpretation Summary 1. Bilateral noncompressible consistent wiht medial calcinosis and biphasic flow. Further evaluation as clinically warranted. 2. 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 RAD/Foot min 3 Views IMPRESSION: Osteoporosis, degenerative changes, arteriosclerosis. Sign of osteomyelitis detected. Consultations 06/24/18 02:24 Consult: Onc/Wound/anvilsmith Routine Comment: Podiatry-[facility] Operations: None Procedures: 2-D Echocardiogram Summary of Care Provided: Hospital course: The patient is a 67 year old M with past medical history of CAD with prior CABG and stents, bovine aortic valve, systolic CHF with ICD in place, CKD stage IV, diabetic foot wounds, hypertension, hyperlipidemia, who presented to the emergency room with increased shortness of breath worsening over the past 3 days. The day prior to admission he had ambulate to the bathroom sat down to have a bowel movement and passed out, recovering after laying on the floor several minutes. He was sent to the ER by his PCP. He was found to be in acute CHF exacerbation. He had increased lower extremity edema, and chest x-ray consistent with CHF on BNP of 1041. He was admitted to the PCU and placed on telemetry. He was placed on IV Lasix. His troponin was cycled as it was indeterminate on presentation and this remained flat. TSH was normal. Ec hocardiogram was obtained which showed EF of 30% and severe pulmonary hypertension. He had worsening of his underlying renal disease however this improved with diuresis. His breathing improved with Lasix as well. He had ongoing issues with chronic wounds of his feet, podiatry was consulted. Wound culture was obtained demonstrated MSSA. He was initially placed on IV Vanco which was transitioned to oral Keflex. PVRs were obtained and showed right small vessel disease with TBI 0.9, medial calcinosis bilaterally.. He would benefit from outpatient referral to vascular surgery. He follows podiatry at the wound center. He is very weak and seen by physical therapy. He was able to ambulate but did remain very weak. Patient was not interested in any sort of placement and stated that he would be able to go home and have somebody take him for his occult therapy [facility]. He was discharged home in stable condition. Please follow-up with podiatry in 1-2 wee ks, your own seo intern in 1-2 weeks, and pulmonology regarding her pulmonary hypertension in 1-2 weeks. He was advised to take Lasix twice daily for 3 days and then return to his daily dose, he will need a BMP within the next week, and may need further adjustment of his diuretics on an outpatient basis. This patient was seen by Leonid Patel PA-C under the supervision of Doctor Sahra. [] - Physical Exam General: Alert, Oriented x3, Cooperative HEENT: Atraumatic, PERRLA, EOMI, Normocephalic Neck: Supple, No JVD, Negative Carotid Bruits Lungs: Clear to auscultation, Normal air movement Cardiovascular: Regular rate, Murmur - 3 out of 6 systolic murmur best heard over the right and left SB at 2nd intercostal space Abdomen: Bowel Sounds Present, Soft, Non Tender Extremities: Capillary Refill Less than 3 Seconds, Edema Skin: No rashes, No breakdown Musculoskeletal: No Tenderness to Palpation of Joints or Extremities Neurological: Cranial nerves II-XII grossly intact Psych/Mental Status: Normal Affect, Appropriate, Alert and oriented to time, place, person, mood and affect Vital Signs Temp Pulse Resp BP Pulse Ox 98.6 F 59 L 18 146/56 H 98 06/26/18 09:42 06/26/18 09:42 06/26/18 09:42 06/26/18 09:42 06/26/18 09:42 Oxygen Flow Rate (L/min) 1.5 Oxygen Delivery Method Nasal Cannula Weight: 149 lb 11.102 oz Body Mass Index (BMI) 23.7 Intake and Output for Last 24 Hours 06/24/18 06/25/18 06/26/18 23:59 23:59 23:59 Intake Total 1064 / 1064 1469 / 1469 250 / 250 Output Total 2024 950 / 950 625 / 625 Balance -961 / -961 519 / 519 -375 / -375 Microbiology Past 72 Hours 06/24/18 08:51 Gram Stain - Final Wound Drainage - Aerobic & Anaerobic Swabs Wound Culture - Final Staphylococcus aureus Anaerobic Culture - Final No anaerobic bacteria isolated. Laboratory Tests Past 24 Hrs 06/26/18 06:05 Sodium 144 Potassium 3.7 Chloride 110 H Carbon Dioxide 24.0 Anion Gap 10 BUN 70 H Creatinine 2.22 H Estim Creat Clear Calc 31.86 Est GFR (MDRD) Af Amer 38 L Est GFR (MDRD) Non-Af 32 L BUN/Creatinine Ratio 31.5 H Glucose 98 Calcium 8.9 POC Glucose 06/26/18 06/26/18 06/25/18 12:55 06:43 21:45 POC Glucose 282 H 91 143 H 06/25/18 16:39 POC Glucose 214 H Discharge Diet: Low fat/ Low Cholesterol, 2000 mg Sodium Diet Discharge Activity: Return to Normal Activity, - - check daily weights. Home Medications: Medications to take at Discharge Atorvastatin Calcium [Lipitor] 40 mg PO QHS 03/11/14 Carvedilol [Coreg (Beta Sandip)] 6.25 mg PO BID 03/11/14 Cholecalciferol (Vitamin D3) [Vitamin D3] 5,000 unit PO DAILY 03/11/14 Insulin Glargine [Lantus SoloStar Pen] 26 units SC QHS 03/11/14 Ipratropium [place] 0.06% [ATROVENT NASAL SPRAY] 2 spray NASAL BID 03/11/14 Nitroglycerin [Nitrostat] 0.3 mg SL UD 03/11/14 Aspirin [Aspirin, Baby] 81 mg PO DAILY@0800 06/16/14 Clopidogrel Bisulfate [Plavix] 75 mg PO DAILY 06/16/14 Chromium Picolinate 1,000 mcg PO 06/23/18 Insulin Aspart [Novolog Flexpen] 12 units SC TIDCM 06/23/18 Isosorbide Dinitrate 30 mg PO BID 06/23/18 [place]-3 Fatty Acids/Fish Oil [[place] 3 Fish Oil Softgel] 1 each PO DAILY 06/23/18 Vitamin B Complex 1 each PO DAILY 06/23/18 Cephalexin [Keflex] 500 mg PO TID #15 cap 06/26/18 Furosemide [Lasix] 40 mg PO DAILY #0 06/26/18 Loperamide [Imodium Liquid] 1 mg PO DAILY PRN PRN ml 06/26/18 Following Prescrptions Were Given to Patient: Cephalexin [Keflex] 500 mg PO TID #15 cap Other Amb Orders: Basic Metabolic Profile (BMP) Time Frame: 1 Week, Location: Laboratory Primary Care Physician: Eduin Hagen MD [Primary Care Provider] - Please follow up with your Primary Care Physician in: 1-2 weeks Please Follow Up With: Nawaf Childs DO When: 2 weeks Please Follow Up With: Jg Vigil MD When: 2 weeks Please Follow Up With: Aurea Simon DPM When: 1 week Please Follow Up With: Stacia Bermudez NP-C Disposition: Home Minutes spent on discharge:: 35 Patient Condition:: Stable Medical Necessity - Tobacco Use Smoking Status: Never smoker Tobacco Use: Non-smoker Meaningful Use Info Meaningful Use Diagnoses (Choose all that apply): CHF - CHF AVNI/ARB ordered at discharge?: No Reason AVNI/ARB not ordered?: Worsening renal disease Documented LVEF (%): 30 <Wilber Bocanegra - Last Filed: 06/26/18 16:26> Discharge Date and Diagnosis - Secondary Discharge Diagnosis Chronic Problems Hammer toe of right foot (Chronic) Diabetes mellitus with complication (Chronic) Hypertension (Chronic) Hyperlipidemia (Chronic) History of atrial flutter (Chronic) Diabetes mellitus type II (Chronic) Coronary artery disease (Chronic) Status post CABG, 20 years ago Status post and placement in May 2014 at [facility] Following with Dr. Graham Congestive heart failure (Chronic) Chronic kidney disease stage III (Chronic) BPH (Chronic) Pulmonary hypertension (Chronic) Aortic stenosis (Chronic) Hospital Course and Treatment Consultations 06/24/18 02:24 Consult: Onc/Wound/anvilsmith Routine Comment: Summary of Care Provided: The patient is a 67 year old M [] - Physical Exam Vital Signs Temp Pulse Resp BP Pulse Ox 98.6 F 59 L 18 146/56 H 98 06/26/18 09:42 06/26/18 09:42 06/26/18 09:42 06/26/18 09:42 06/26/18 09:42 Oxygen Flow Rate (L/min) 1.5 Oxygen Delivery Method Nasal Cannula Weight: 149 lb 11.102 oz Body Mass Index (BMI) 23.7 Intake and Output for Last 24 Hours 06/24/18 06/25/18 06/26/18 23:59 23:59 23:59 Intake Total 1064 / 1064 1469 / 1469 250 / 250 Output Total 2024 / 2024 950 / 950 625 / 625 Balance -961 / -961 519 / 519 -375 / -375 Microbiology Past 72 Hours 06/24/18 08:51 Gram Stain - Final Wound Drainage - Aerobic & Anaerobic Swabs Wound Culture - Final Staphylococcus aureus Anaerobic Culture - Final No anaerobic bacteria isolated. Laboratory Tests Past 24 Hrs 06/26/18 06:05 Sodium 144 Potassium 3.7 Chloride 110 H Carbon Dioxide 24.0 Anion Gap 10 BUN 70 H Creatinine 2.22 H Estim Creat Clear Calc 31.86 Est GFR (MDRD) Af Amer 38 L Est GFR (MDRD) Non-Af 32 L BUN/Creatinine Ratio 31.5 H Glucose 98 Calcium 8.9 POC Glucose 06/26/18 06/26/18 06/25/18 12:55 06:43 21:45 POC Glucose 282 H 91 143 H 06/25/18 16:39 POC Glucose 214 H Code Visit Addendum: Dr. Bocanegra I personally examined the patient and reviewed the chart. I agree with the above. 67-year-old male who presented with shortness of breath from home and was found to have an acute on chronic systolic heart failure exacerbation with an EF of 30-35% as well as a right ventricular systolic pressure of 83 mmHg. He was started on IV Lasix 40 mg twice daily and diuresed very well, he was transitioned to 40 mg p.o. twice daily for a couple of days and then ultimately returned to his baseline of 40 mg p.o. daily. Given his pulmonary hypertension he will need to follow-up with pulmonology for further evaluation of its etiology as well as a possible right heart cath for better characterization. He also had an area of cellulitis on his right foot that x-rays determined did not have any component of osteomyelitis, he had a superficial culture that demonstrated MSSA, and he was discharged on Keflex. He will need to follow-up with his primary care doctor as well as his seo intern. Inpatient E&M: [id number] Disch Hosp
--- NOTE | 2018-06-29 13:48 | CASEMGMT ---
DENISSE CM DC PHONE CALL DC DATE:06/26/18 DC DISPOSITION: hOME Attempted call to given cell phone. Message was not pt's name, so no message left. no other phone given. Maxwell KHALIL RN ACM
--- OUTSIDE RECORDS SUMMARY | 2018-08-25 23:42 | XMS RPT_ITS ---
:1950 Author Organization OHIP Care Team Providers Name Role Phone JG CASTILLO Attending Unavailable JG CASTILLO Referring Unavailable Eduin Hagen MD Primary Care Unavailable Eduin Hagen Primary Care Unavailable Tee, Josue Admitting Unavailable Wilber Bocanegra Attending Unavailable Jolieone, Aurea Consulting Unavailable Tee, Josue Admitting Unavailable Tee, Josue Attending Unavailable Eduin Hagen Primary Care Unavailable Tee, Josue Consulting Unavailable Tee, Josue Admitting Unavailable Wilber Bocanegra Attending Unavailable Eduin Hagen Primary Care Unavailable Jolieone, Aurea Consulting Unavailable Magdaleno Bocanegraolas F Consulting Unavailable Tee, Josue Admitting Unavailable Leonid Patel Attending Unavailable Eduin Hagen Primary Care Unavailable Jolieone, Aurea Consulting Unavailable Magdaleno Bocanegraolas F Consulting Unavailable Tee, Josue Admitting Unavailable Teto Pately Attending Unavailable Eduin Hagen Primary Care Unavailable Jolieone, Aurea Consulting Unavailable Sahra Wilber F Consulting Unavailable EDUIN HAGEN H Referring Unavailable STACIA BERMUDEZ (ADMINISTRATIVE OFFICE MANAGER) Attending Unavailable STACIA BERMUDEZ (ADMINISTRATIVE OFFICE MANAGER) Referring Unavailable ANNA, JG E Attending Unavailable ANNA, JG E Referring Unavailable ANNA, JG E Referring Unavailable OLDER, STACIA (ADMINISTRATIVE OFFICE MANAGER) Referring Unavailable LEANAYMIRIAN (PA) Referring Unavailable HAGEN, NESS Attending Unavailable HAGEN, NESS Referring Unavailable THORPE, GUERDA ([employer]IC[employer]) Attending Unavailable HAGEN, NESS Referring Unavailable ANNA, JG E Referring Unavailable ANNA, JG E Attending Unavailable ANNA, JG E Referring Unavailable THORPE, GUERDA ([employer] OFF[employer]ER) Referring Unavailable THORPE, GUERDA ([employer]ER) Attending Unavailable THORPE, GUERDA ([employer] [place]) Referring Unavailable HAGEN, NESS Attending Unavailable HAGEN, NESS Referring Unavailable HAGEN, NESS Referring Unavailable PROBLEMS PROBLEMS DATE TYPE CONDITION / CODE ATTENDING STATUS SOURCE 06/26/2018 Unknown R29.6 - Repeated Leonid Patel Active [place] / R29.6(ICD-10) [facility] Repository 06/23/2018 Active Syncope and collapse NA Active [facility] / R55(ICD-10) [facility] 05/28/2018 Active Unknown / GUERDA BEASLEY Active [facility] UNK(Unknown) ([employer]) [facility] 03/30/2015 Active Essential (primary) NA Active [facility] hypertension / [facility] I10(ICD-10) [facility] Rep[facility] 05/05/2018 Active Change in bowel habit NA Active [facility] / R19.4(ICD-10) [facility] 03/18/2018 Active Pain in left wrist / NA Active [facility] M25.532(ICD-10) [facility] Rep[facility] 05/22/2017 Active Other hyperlipidemia NA Active [facility] / E78.49(ICD-10) [facility] 03/18/2018 Active Type 2 diabetes NA Active [facility] mellitus with [facility] diabetic chronic [facility] kidney disease / Repository E11.22(ICD-10) 03/18/2018 Active Chronic kidney NA Active [facility] disease, stage 3 [facility] (moderate) / [facility] N18.3(ICD-10) Repository 03/18/2018 Active senior living (current) NA Active [facility] use of insulin / [facility] Z79.4(ICD-10) [facility] Repository 11/21/2017 Active Atherosclerotic heart NA Active [facility] disease of [place] [facility] coronary artery [facility] without angina Repository pectoris / I25.10(ICD-10) 11/21/2017 Active Presence of NA Active [facility] prosthetic heart [facility] valve / Z95.2(ICD-10) [facility] Repository 09/22/2017 Active Cervicalgia / NA Active [facility] M54.2(ICD-10) [facility] Rep[facility] 09/18/2017 Active Other group home NA Active [facility] (current) drug [facility] therapy / [facility] Z79.899(ICD-10) Repository PROCEDURES PROCEDURES No Procedure Records FoundRESULTS RESULTS DISCHARGE SUMMARY Observed: 06/26/2018 Status: F Source: [place] 4:26 PM [facility] REPOSITORY [facility] Medical Records Department [address] [place] [address] Discharge Summary 06/26/18 1510 MR#: [id number] Acct: [id number] Name: MARISSA PERALTA Rep #: [id number] : 1950 67 From: Leonid ACE PCP: Eduin Hagen MD Status: DIS IN Y Location: [facility] [id number] <Leonid Patel - Last Filed: 06/26/18 15:10> Discharge Date and Diagnosis Date of Admission: 06/23/18 Date of Discharge: 06/26/18 - Primary Discharge Diagnosis Active and Suspected Problems Acute systolic congestive heart failure exacerbation, complicated by severe pulmonary hypertension Right lower extremity diabetic ulcer with MSSA Syncope secondary to vasovagal CKD stage IV CAD with a history of CABG, stents ICD in place History of bovine aortic valve Hypertension Hyperlipidemia Debility - Secondary Discharge Diagnosis Chronic Problems Hammer toe of right foot (Chronic) Diabetes mellitus with complication (Chronic) Hypertension (Chronic) Hyperlipidemia (Chronic) History of atrial flutter (Chronic) Diabetes mellitus type II (Chronic) Coronary artery disease (Chronic) Status post CABG, 20 years ago Status post and placement in May 2014 at [facility] Following with Dr. Graham Congestive heart failure (Chronic) Chronic kidney disease stage III (Chronic) BPH (Chronic) Pulmonary hypertension (Chronic) Aortic stenosis (Chronic) Hospital Course and Treatment Imaging Results: RAD/Chest PA and Lateral IMPRESSION: Nonspecific left basilar opacity may be secondary to underlying atelectasis. Possible interstitial edema. Interpretation Summary 1. Bilateral noncompressible consistent wiht medial calcinosis and biphasic flow. Further evaluation as clinically warranted. 2. 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 RAD/Foot min 3 Views IMPRESSION: Osteoporosis, degenerative changes, arteriosclerosis. Sign of osteomyelitis detected. Consultations 06/24/18 02:24 Consult: Onc/Wound/supervisor pullet farm Routine Comment: Podiatry-[place] Operations: None Procedures: 2-D Echocardiogram Summary of Care Provided: Hospital course: The patient is a 67 year old M with past medical history of CAD with prior CABG and stents, bovine aortic valve, systolic CHF with ICD in place, CKD stage IV, diabetic foot wounds, hypertension, hyperlipidemia, who presented to the emergency room with increased shortness of breath worsening over the past 3 days. The day prior to admission he had ambulate to the bathroom sat down to have a bowel movement and passed out, recovering after laying on the floor several minutes. He was sent to the ER by his PCP. He was found to be in acute CHF exacerbation. He had increased lower extremity edema, and chest x-ray consistent with CHF on BNP of 1041. He was admitted to the PCU and placed on telemetry. He was placed on IV Lasix. His troponin was cycled as it was indeterminate on presentation and this remained flat. TSH was normal. Echocardiogram was obtained which showed EF of 30% and severe pulmonary hypertension. He had worsening of his underlying renal disease however this improved with diuresis. His breathing improved with Lasix as well. He had ongoing issues with chronic wounds of his feet, podiatry was consulted. Wound culture was obtained demonstrated MSSA. He was initially placed on IV Vanco which was transitioned to oral Keflex. PVRs were obtained and showed right small vessel disease with TBI 0.9, medial calcinosis bilaterally.. He would benefit from outpatient referral to vascular surgery. He follows podiatry at the wound center. He is very weak and seen by physical therapy. He was able to ambulate but did remain very weak. Patient was not interested in any sort of placement and stated that he would be able to go home and have somebody take him for his occult [facility]. He was discharged home in stable condition. Please follow-up with podiatry in 1-2 weeks, your own comic writer in 1-2 weeks, and pulmonology regarding her pulmonary hypertension in 1-2 weeks. He was advised to take Lasix twice daily for 3 days and then return to his daily dose, he will need a BMP within the next week, and may need further adjustment of his diuretics on an outpatient basis. This patient was seen by Leonid Patel PA-C under the supervision of Doctor Sahra. [] - Physical Exam General: Alert, Oriented x3, Cooperative HEENT: Atraumatic, PERRLA, EOMI, Normocephalic Neck: Supple, No JVD, Negative Carotid Bruits Lungs: Clear to auscultation, Normal air movement Cardiovascular: Regular rate, Murmur - 3 out of 6 systolic murmur best heard over the right and left SB at 2nd intercostal space Abdomen: Bowel Sounds Present, Soft, Non Tender Extremities: Capillary Refill Less than 3 Seconds, Edema Skin: No rashes, No breakdown Musculoskeletal: No Tenderness to Palpation of Joints or Extremities Neurological: Cranial nerves II-XII grossly intact Psych/Mental Status: Normal Affect, Appropriate, Alert and oriented to time, place, person, mood and affect Vital Signs Temp Pulse Resp BP Pulse Ox 98.6 F 59 L 18 146/56 H 98 06/26/18 09:42 06/26/18 09:42 06/26/18 09:42 06/26/18 09:42 06/26/18 09:42 Oxygen Flow Rate (L/min) 1.5 Oxygen Delivery Method Nasal Cannula Weight: 149 lb 11.102 oz Body Mass Index (BMI) 23.7 Intake and Output for Last 24 Hours Intake Total 1064 / 1064 1469 / 1469 250 / 250 Output Total 2024 / 2024 950 / 950 625 / 625 Balance -961 / -961 519 / 519 -375 / -375 Microbiology Past 72 Hours 06/24/18 08:51 Gram Stain - Final Wound Drainage - Aerobic AND Anaerobic Swabs Wound Culture - Final Laboratory Tests Past 24 Hrs Sodium 144 Potassium 3.7 Chloride 110 H Carbon Dioxide 24.0 Anion Gap 10 POC Glucose POC Glucose 282 H 91 143 H POC Glucose 214 H Discharge Diet: Low fat/ Low Cholesterol, 2000 mg Sodium Diet Discharge Activity: Return to Normal Activity, - - check daily weights. Home Medications: Medications to take at Discharge Atorvastatin Calcium [Lipitor] 40 mg PO QHS 03/11/14 Carvedilol [Coreg (Beta Jr)] 6.25 mg PO BID 03/11/14 Cholecalciferol (Vitamin D3) [Vitamin D3] 5,000 unit PO DAILY 03/11/14 Insulin Glargine [Lantus SoloStar Pen] 26 units SC QHS 03/11/14 Ipratropium Sanford 0.06% [ATROVENT NASAL SPRAY] 2 spray NASAL BID 03/11/14 Nitroglycerin [Nitrostat] 0.3 mg SL UD 03/11/14 Aspirin [Aspirin, Baby] 81 mg PO DAILY@0800 06/16/14 Clopidogrel Bisulfate [Plavix] 75 mg PO DAILY 06/16/14 Chromium Picolinate 1,000 mcg PO 06/23/18 Insulin Aspart [Novolog Flexpen] 12 units SC TIDCM 06/23/18 Isosorbide Dinitrate 30 mg PO BID 06/23/18 Decker-3 Fatty Acids/Fish Oil [Decker 3 Fish Oil Softgel] 1 each PO DAILY 06/23/18 Vitamin B Complex 1 each PO DAILY 06/23/18 Cephalexin [Keflex] 500 mg PO TID #15 cap 06/26/18 Furosemide [Lasix] 40 mg PO DAILY #0 06/26/18 Loperamide [Imodium Liquid] 1 mg PO DAILY PRN PRN ml 06/26/18 Following Prescrptions Were Given to Patient: Cephalexin [Keflex] 500 mg PO TID #15 cap Other Amb Orders: Basic Metabolic Profile (BMP) Time Frame: 1 Week, Location: Laboratory Primary Care Physician: Eduin Hagen MD [Primary Care Provider] - Please follow up with your Primary Care Physician in: 1-2 weeks Please Follow Up With: Nawaf Childs DO When: 2 weeks Please Follow Up With: Jg Castillo MD When: 2 weeks Please Follow Up With: Aurea Durán DPM When: 1 week Please Follow Up With: Stacia Bermudez, [employer]-C Disposition: Home Minutes spent on discharge:: 35 Patient Condition:: Stable Medical Necessity - Tobacco Use Smoking Status: Never smoker Tobacco Use: Non-smoker Meaningful Use Info Meaningful Use Diagnoses (Choose all that apply): CHF - CHF AVNI/ARB ordered at discharge?: No Reason AVNI/ARB not ordered?: Worsening renal disease Documented LVEF (%): 30 <Wilber Bocanegra - Last Filed: 06/26/18 16:26> Discharge Date and Diagnosis - Secondary Discharge Diagnosis Chronic Problems Hammer toe of right foot (Chronic) Diabetes mellitus with complication (Chronic) Hypertension (Chronic) Hyperlipidemia (Chronic) History of atrial flutter (Chronic) Diabetes mellitus type II (Chronic) Coronary artery disease (Chronic) Status post CABG, 20 years ago Status post and placement in May 2014 at [facility] Following with Dr. Graham Congestive heart failure (Chronic) Chronic kidney disease stage III (Chronic) BPH (Chronic) Pulmonary hypertension (Chronic) Aortic stenosis (Chronic) Hospital Course and Treatment Consultations 06/24/18 02:24 Consult: Onc/Wound/supervisor pullet farm Routine Comment: Summary of Care Provided: The patient is a 67 year old M [] - Physical Exam Vital Signs Temp Pulse Resp BP Pulse Ox 98.6 F 59 L 18 146/56 H 98 06/26/18 09:42 06/26/18 09:42 06/26/18 09:42 06/26/18 09:42 06/26/18 09:42 Oxygen Flow Rate (L/min) 1.5 Oxygen Delivery Method Nasal Cannula Weight: 149 lb 11.102 oz Body Mass Index (BMI) 23.7 Intake and Output for Last 24 Hours Intake Total 1064 / 1064 1469 / 1469 250 / 250 Output Total 2024 / 2024 950 / 950 625 / 625 Balance -961 / -961 519 / 519 -375 / -375 Microbiology Past 72 Hours 06/24/18 08:51 Gram Stain - Final Wound Drainage - Aerobic AND Anaerobic Swabs Wound Culture - Final Laboratory Tests Past 24 Hrs Sodium 144 Potassium 3.7 Chloride 110 H Carbon Dioxide 24.0 Anion Gap 10 POC Glucose POC Glucose 282 H 91 143 H POC Glucose 214 H Code Visit Addendum: Dr. Bocanegra I personally examined the patient and reviewed the chart. I agree with the above. 67-year-old male who presented with shortness of breath from home and was found to have an acute on chronic systolic heart failure exacerbation with an EF of 30-35% as well as a right ventricular systolic pressure of 83 mmHg. He was started on IV Lasix 40 mg twice daily and diuresed very well, he was transitioned to 40 mg p.o. twice daily for a couple of days and then ultimately returned to his baseline of 40 mg p.o. daily. Given his pulmonary hypertension he will need to follow-up with pulmonology for further evaluation of its etiology as well as a possible right heart cath for better characterization. He also had an area of cellulitis on his right foot that x-rays determined did not have any component of osteomyelitis, he had a superficial culture that demonstrated MSSA, and he was discharged on Keflex. He will need to follow-up with his primary care doctor as well as his comic writer. Inpatient E AND M: [id number] Disch Hosp 06/26/18 1522 <Electronically signed by Leonid ACE> Date Leonid ACE 06/26/18 1626 <Electronically signed by Wilber Bocanegra MD> Cosigner Signature (if applicable): Date Wilber Bocanegra MD CC: MALKA Patel; Wilber Bocanegra MD; Eduin Hagen MD Signed BEDSIDE GLUCOSE Collected: 06/26/2018 Status: F Source: [place] 12:55 PM [facility] REPOSITORY TYPE CODE TESTS RESULT OUT OF REFERENCE UNITS RANGE LAB L501.080 70-110 mg/dL High BEDSIDE GLU 282 Result Comment: MANAGEMENT OF PATIENT CARE PER NURSING PROTOCOL Performed By: #### L501.080 #### [facility] Point of Care [address] [place], [place] [address] [address] DISCHARGE INSTRUCTION Observed: 06/26/2018 Status: F Source: [place] 10:19 AM [facility] REPOSITORY [facility] Medical Records Department [address] [place] [address] Instructions for Home/Discharge Instructions 06/26/18 1017 MR#: [id number] Acct: [id number] Name: MARISSA PERALTA Rep #: [id number] : 1950 67 From: Leonid ACE PCP: Hagen MD,Eduin Status: ADM IN - Discharge Diagnoses Current Active Problems: Current Active and Chronic Problems Recurrent falls (Acute) Syncope and collapse (Acute) Cellulitis of second toe of right foot (Acute) Cellulitis of right foot (Acute) Ulcer of right foot with fat layer exposed (Acute) Hammer toe of right foot (Chronic) Diabetes mellitus with complication (Chronic) You will use the following diet at home:: Calorie/Carbohydrate Controlled (specify 1200, 1400, etc) - 1800 dashawn/ day, Cardiac - <2 grams sodium daily Your food should be the consistency of: Regular Your liquids should be the consistency of: Regular/Thin Discharge Activity: Return to Normal Activity, - - check daily weights. Allergies/Adverse Reactions: Allergies meperidine HCl [From Demerol] Allergy (Verified 06/23/18 19:38) Other Medications to take at Discharge Atorvastatin Calcium [Lipitor] 40 mg PO QHS 03/11/14 Carvedilol [Coreg (Beta Jr)] 6.25 mg PO BID 03/11/14 Cholecalciferol (Vitamin D3) [Vitamin D3] 5,000 unit PO DAILY 03/11/14 Insulin Glargine [Lantus SoloStar Pen] 26 units SC QHS 03/11/14 Ipratropium Sanford 0.06% [ATROVENT NASAL SPRAY] 2 spray NASAL BID 03/11/14 Nitroglycerin [Nitrostat] 0.3 mg SL UD 03/11/14 Aspirin [Aspirin, Baby] 81 mg PO DAILY@0800 06/16/14 Clopidogrel Bisulfate [Plavix] 75 mg PO DAILY 06/16/14 Chromium Picolinate 1,000 mcg PO 06/23/18 Insulin Aspart [Novolog Flexpen] 12 units SC TIDCM 06/23/18 Isosorbide Dinitrate 30 mg PO BID 06/23/18 Decker-3 Fatty Acids/Fish Oil [Decker 3 Fish Oil Softgel] 1 each PO DAILY 06/23/18 Vitamin B Complex 1 each PO DAILY 06/23/18 Cephalexin [Keflex] 500 mg PO TID #15 capsule 06/26/18 Furosemide [Lasix] 40 mg PO DAILY #0 06/26/18 Loperamide [Imodium Liquid] 1 mg PO DAILY PRN PRN ml 06/26/18 The following prescriptions were given: Cephalexin [Keflex] 500 mg PO TID #15 capsule Orders to be completed after discharge: Basic Metabolic Profile (BMP) Time Frame: 1 Week, Location: Laboratory Primary Care Physician: Eduin Hagen MD [Primary Care Provider] - Please follow up with your Primary Care Physician in: 1-2 weeks Test Results: Test results from this visit will be discussed in further detail at your follow-up appointment, if applicable. Please Follow Up With: Justen Rai MD - Severe pulmonary htn When: 2 weeks Please Follow Up With: Jg Castillo MD When: 2 weeks Please Follow Up With: Aurea Durán DPM When: 1 week Proposed Discharge Date: 06/26/18 06/26/18 1019 <Electronically signed by Leonid ACE> Date Leonid ACE CC: Aurea Durán DPM; Eduin Hagen MD Signed BEDSIDE GLUCOSE Collected: 06/26/2018 Status: F Source: [place] 6:43 AM [facility] REPOSITORY TYPE CODE TESTS RESULT OUT OF RANGE REFERENCE UNITS LAB L501.080 70-110 mg/dL Normal BEDSIDE GLU 91 Result Comment: MANAGEMENT OF PATIENT CARE PER NURSING PROTOCOL Performed By: #### L501.080 #### [facility] Point of Care [address] [place] [address] BASIC METABOLIC Collected: 06/26/2018 Status: F Source: [facility] PROFILE (BMP) 6:05 AM [facility] REPOSITORY TYPE CODE TESTS RESULT OUT OF RANGE REFERENCE UNITS LAB L501.0100 74-106 mg/dL Normal GLU 98 Result Comment: Please note revised GLUCOSE reference range effective 2017. LAB L501.1000 7-18 mg/dL High BUN 70 LAB L501.1100 0.70-1.30 mg/dL High CREAT,SERUM 2.22 Result Comment: The validity of the calculated GFR AND GFRAA in patients over 70 years has not been determined. Clinical correlation is essential. LAB L501.1110 >60 mL/min Low EST GFR 32 Result Comment: Non- GFR Calc LAB L501.1115 >60 mL/min Low EST GFR - AA 38 Result Comment: GFR Calc LAB L501.1255 ml/min Normal Estimated CRCL 31.86 LAB L501.1300 10-20 RATIO High BUN/CRE 31.5 LAB L501.2200 8.5-10 mg/dL Normal .1 CA 8.9 LAB L501.5300 136-14 mmol/L Normal 5 NA 144 LAB L501.5600 3.5-5. mmol/L Normal 1 K 3.7 LAB L501.5900 98-107 mmol/L High CL 110 LAB L501.6100 21.0-3 mmol/L Normal 2.0 CO2 24.0 LAB L501.6200 5-15 Normal GAP 10 Performed By: #### L500.2500 #### [facility] [address] [place], [address] BEDSIDE GLUCOSE Collected: 06/25/2018 Status: F Source: [place] 9:45 PM [facility] REPOSITORY TYPE CODE TESTS RESULT OUT OF REFERENCE UNITS RANGE LAB L501.080 70-110 mg/dL High BEDSIDE GLU 143 Result Comment: MANAGEMENT OF PATIENT CARE PER NURSING PROTOCOL Performed By: #### L501.080 #### [facility] Point of Care [address] [place] [address] BEDSIDE GLUCOSE Collected: 06/25/2018 Status: F Source: [place] 4:39 PM [facility] REPOSITORY TYPE CODE TESTS RESULT OUT OF REFERENCE UNITS RANGE LAB L501.080 70-110 mg/dL High BEDSIDE GLU 214 Result Comment: Insulin Given MANAGEMENT OF PATIENT CARE PER NURSING PROTOCOL Performed By: #### L501.080 #### [facility] Point of Care [address] [place] [address] BEDSIDE GLUCOSE Collected: 06/25/2018 Status: F Source: [place] 12:19 PM [facility] REPOSITORY TYPE CODE TESTS RESULT OUT OF REFERENCE UNITS RANGE LAB L501.080 70-110 mg/dL High BEDSIDE GLU 231 Result Comment: Insulin Given MANAGEMENT OF PATIENT CARE PER NURSING PROTOCOL Performed By: #### L501.080 #### [facility] Point of Care [address] [place] [address] BEDSIDE GLUCOSE Collected: 06/25/2018 Status: F Source: [facility] 6:41 AM [facility] REPOSITORY TYPE CODE TESTS RESULT OUT OF REFERENCE UNITS RANGE LAB L501.080 70-110 mg/dL High BEDSIDE GLU 123 Result Comment: MANAGEMENT OF PATIENT CARE PER NURSING PROTOCOL Performed By: #### L501.080 #### [facility] Point of Care [address] [place], [place] [address] BASIC METABOLIC Collected: 06/25/2018 Status: F Source: [facility] PROFILE (BMP) 5:25 AM [facility] REPOSITORY TYPE CODE TESTS RESULT OUT OF RANGE REFERENCE UNITS LAB L501.0100 74-106 mg/dL High GLU 118 Result Comment: Fasting Glucose result from 100 to 125 mg/dL suggests IMPAIRED HOMEOSTASIS per A.D.A. criteria. Please note revised GLUCOSE reference range effective 2017. LAB L501.1000 7-18 mg/dL High BUN 64 LAB L501.1100 0.70-1.30 mg/dL High CREAT,SERUM 2.25 Result Comment: The validity of the calculated GFR AND GFRAA in patients over 70 years has not been determined. Clinical correlation is essential. LAB L501.1110 >60 mL/min Low EST GFR 31 Result Comment: Non- GFR Calc LAB L501.1115 >60 mL/min Low EST GFR - AA 38 Result Comment: GFR Calc LAB L501.1255 ml/min Normal Estimated CRCL 31.67 LAB L501.1300 10-20 RATIO High BUN/CRE 28.4 LAB L501.2200 8.5-10 mg/dL Normal .1 CA 9.2 LAB L501.5300 136-14 mmol/L Normal 5 NA 144 LAB L501.5600 3.5-5. mmol/L Normal 1 K 3.7 LAB L501.5900 98-107 mmol/L High CL 109 LAB L501.6100 21.0-3 mmol/L Normal 2.0 CO2 25.0 LAB L501.6200 5-15 Normal GAP 10 Performed By: #### L500.2500 #### [facility] [address] [place], [address] CBC W/DIFF, AUTOMATED Collected: 06/25/2018 Status: F Source: [facility] 5:25 AM [facility] REPOSITORY TYPE CODE TESTS RESULT OUT OF RANGE REFERENCE UNITS LAB L100.1000 4.4-11.0 K/mm3 Normal WBC 7.2 LAB L100.1200 4.6-6.2 M/mm3 Low RBC 4.01 LAB L100.1300 13.0-16.5 g/dl Low HGB 11.3 LAB L100.1400 40-54 % Low HCT 35.2 LAB L100.1500 80-94 fL Normal MCV 87.8 LAB L100.1600 27.0-32.0 pg Normal MCH 28.2 LAB L100.1700 32-36 g/gl Normal MCHC 32.1 LAB L100.1810 11.6-14.6 % Normal RDW CV 13.4 LAB L100.1820 35.1-43.9 fl Normal RDW SD 41.9 LAB L100.1900 150-450 K/mm3 Low PLT 140 LAB L100.2000 6.2-12.0 fl Normal MPV 10.9 LAB L100.2100 47-70 % High NEUT% 74.5 LAB L100.2200 19-41 % Low LY% 13.8 LAB L100.2300 0-10 % Normal MONO% 9.3 LAB L100.2400 0-5 % Normal EO% 2.2 LAB L100.2500 0-1 % Normal BASO% 0.1 LAB L100.2550 0.0-0.9 % Normal IM GRAN % 0.100 Result Comment: IG% - Immature Granulocytes (promyelocytes, myelocytes and metamyelocytes) > 1% indicates that a LEFT SHIFT is Present. LAB L100.2620 2.0-7.7 X10 3/uL Normal Absolute Neut 5.4 LAB L100.2720 0.83-4.51 X10 3/ul Normal Absolute Lymph 0.99 Performed By: #### L100.0100 #### [facility] [address] [place], [place], [address] BEDSIDE GLUCOSE Collected: 06/24/2018 Status: F Source: [facility] 9:48 PM [facility] REPOSITORY TYPE CODE TESTS RESULT OUT OF REFERENCE UNITS RANGE LAB L501.080 70-110 mg/dL High BEDSIDE GLU 125 Result Comment: MANAGEMENT OF PATIENT CARE PER NURSING PROTOCOL Performed By: #### L501.080 #### [facility] Point of Care [address] [place] [address] CONSULTATION Observed: 06/24/2018 Status: F Source: [facility] 5:53 PM [facility] REPOSITORY [facility] Medical Records Department [address] [place] [address] Consultation 06/24/18 0740 MR#: [id number] Acct: [id number] Name: MARISSA PERALTA Rep #: [id number] : 1950 67 From: Aurea Durán DPM PCP: Eduin Hagen MD Status: ADM IN Y Location: [address] ADDENDUM by Aurea Durán DPM on 06/24/18 at 1753 Code Visit The results are as previously order tests were reviewed. It is noted his sedimentation rate and C-reactive protein are elevated as 59 and 41.2, respectively. 3 right foot x-rays were also reviewed without acute fracture or dislocation, osseous destruction adjacent to the injury/ulcer site, foreign body, or soft tissue emphysema. His small vessel calcification is recognized on x-rays. His noninvasive vascular studies were also reviewed and it appears that he has noncompressible vessels and a right toe pressure of 47 mmHg in his right dorsalis pedis artery has a monophasic flow. This is consistent with small vessel disease and I recommend a vascular surgery consultation as inpatient or outpatient basis. I will continue to follow him close while he is admitted at the hospital for clinical improvement of his cellulitis. 06/24/18 1753 <Electronically signed by Aurea Durán DPM> Date Aurea Durán DPM cc: Aurea Durán DPM; Eduin Hagen MD * Signed Problem List (1) Cellulitis of right foot Status: Acute (2) Ulcer of right foot with fat layer exposed Status: Acute (3) Hammer toe of right foot Status: Chronic (4) Diabetes mellitus with complication Status: Chronic (5) Other specified peripheral vascular diseases Status: Suspected (6) Chronic kidney disease stage III Status: Chronic (7) Malnutrition Status: Suspected Reason for Consult Date of Consultation: 06/24/18 Reason for Consultation: Right second toe redness and open wound History of Present Illness: This 67-year-old male with multiple comorbidities was seen bedside this morning for right toe ulcer with redness and pain. He relates the onset was yesterday. He was admitted to the hospital for a fall and syncopal episode and is not sure if he sustained an injury to the foot at that time. His pain is mild. He denies fever, chill, nausea, vomiting. He does have diarrhea however he relates this is chronic and was being worked up in the outpatient setting. He denies odor. He denies previous self care for the wound site. He does have a history of other previous lower extremity ulcers and he was treated at the [facility]. He denies claudication or rest paresthesias. Past Medical History Past Medical History (Chronic Problems): Chronic Problems Hammer toe of right foot (Chronic) Diabetes mellitus with complication (Chronic) Hypertension (Chronic) Hyperlipidemia (Chronic) History of atrial flutter (Chronic) Diabetes mellitus type II (Chronic) Coronary artery disease (Chronic) Status post CABG, 20 years ago Status post and placement in May 2014 at [facility] Following with Dr. Graham Congestive heart failure (Chronic) Chronic kidney disease stage III (Chronic) BPH (Chronic) Pulmonary hypertension (Chronic) Aortic stenosis (Chronic) Allergies meperidine HCl [From Demerol] Allergy (Verified 06/23/18 19:38) Other Home Medications: Ambulatory Orders Medication Instructions Recorded Atorvastatin Calcium [Lipitor] 40 mg PO QHS 03/11/14 Carvedilol [Coreg (Beta Jr)] 6.25 mg PO BID 03/11/14 Surgical History: - - CABG Smoking Status: Never smoker Tobacco Use: Non-smoker - *Family History Maternal History Items: No pertinent history Review of Systems Constitutional: Reports: Weakness. Denies: Chills, Fever HEENT: Reports: Difficulty Hearing Cardiovascular: Denies: Chest Pain, Claudication Respiratory: Denies: Shortness of Breath Gastrointestinal: Reports: Diarrhea. Denies: Nausea, Vomiting Musculoskeletal: Reports: Foot Pain. Denies: Joint Tenderness, Leg Pain Skin: Reports: Skin Changes, Wounds Neurological: Reports: Balance problems, Incoordination Patient Problems: Active and Suspected Problems Recurrent falls (Acute) Syncope and collapse (Acute) Cellulitis of second toe of right foot (Acute) Cellulitis of right foot (Acute) Ulcer of right foot with fat layer exposed (Acute) Other specified peripheral vascular diseases (Suspected) Malnutrition (Suspected) - Physical Exam General: Alert, Oriented x3, Cooperative Extremities: No cyanosis, Capillary Refill Less than 3 Seconds - Capillary fill time to all digits bilateral foot, No Calf Tenderness - Negative Montrell and Anthony sign bilateral, Peripheral Pulses Normal - Normal DP and PT pulse bilateral Skin: Ulcer/ Wound - 1.8 cm x 1.6 cm x 0.1 cm skin discontinuity to dorsal second toe with evidence of previous blister with partially adhered overlying skin layer. This is granular and some hemorrhagic. There is no bogginess or fluctuance or abscess on palpation. There is erythema to the entire dorsal second toe that extends to the foot dorsum with some streaking. Compartments remain soft and there is no purulence on expression, denoted necrosis or tissue loss or gangrene. No interdigital maceration, - - Lack of hair bilateral mid legs and feet with atrophic skin Musculoskeletal: No Tenderness to Palpation of Joints or Extremities, Muscle Wasting, - - Dorsal contraction of right second toe Neurological: Sensory exam intact to light touch and pain Psych/Mental Status: Normal Affect, Appropriate Vital Signs Temp Pulse Resp BP Pulse Ox 99.3 F H 66 18 150/71 H 100 06/24/18 05:15 06/24/18 05:15 06/24/18 05:15 06/24/18 05:15 06/24/18 05:15 Oxygen Flow Rate (L/min) 2 Oxygen Delivery Method Nasal Cannula Weight: 70.7 kg Body Mass Index (BMI) 23.7 Intake and Output for Last 24 Hours Intake Total 274 / 274 Output Total 900 / 900 Balance -626 / -626 Laboratory Tests Past 24 Hrs WBC RBC Hgb Hct MCV MCH MCHC RDW RDW Differential Plt Count MPV Immature Gran % (Auto) Neut % (Auto) Lymph % (Auto) POC Glucose POC Glucose 232 H 278 H Assessment/Plan All Active Problems Recurrent falls (Acute) Syncope and collapse (Acute) Cellulitis of second toe of right foot (Acute) Cellulitis of right foot (Acute) Ulcer of right foot with fat layer exposed (Acute) Right foot ulcer fat layer exposed, second toe Cellulitis right foot Uncontrolled diabetes, hemoglobin A1c of 9.0% Chronic kidney disease Rule out peripheral vascular disease Other comorbidities including acute on chronic heart failure Malnutrition suspected I reviewed and discussed the case with the patient today. He appears to have cellulitis extending from his right second toe ulcer site and I do not appreciate a palpable abscess. I recommend localized wound care. His cellulitis area was marked and this will be monitored closely. His diagnostic data including labs was reviewed. He does not have leukocytosis. ESR and CRP are pending. Foot x-ray will be obtained and this is pending. Aerobic and anaerobic cultures were taken. It is noted he was already started on Unasyn then. I do recommend broad-spectrum coverage until some of these cultures results develop. To offload with surgical shoe; this was ordered. To change dressing daily with Aquacel Ag. I recommend nutritional supplementation and better glycemic control to optimize healing. I recommend a noninvasive vascular study due to his atrophic skin and lack of hair to the lower legs and feet, and his history of previous ulcer formation. This was ordered and the results are pending. Medical management, DVT prophylaxis, pain control per primary team is greatly appreciated. Aurea Durán DPM, [facility] [phone] 06/24/18 0859 <Electronically signed by Aurea Durán DPM> Date Aurea Durán DPM Cosigner Signature (if applicable): Date CC: Aurea Durán DPM; Eduin Hagen MD Signed BEDSIDE GLUCOSE Collected: 06/24/2018 Status: F Source: [facility] 4:32 PM [facility] REPOSITORY TYPE CODE TESTS RESULT OUT OF REFERENCE UNITS RANGE LAB L501.080 70-110 mg/dL High BEDSIDE GLU 257 Result Comment: Insulin Given MANAGEMENT OF PATIENT CARE PER NURSING PROTOCOL Performed By: #### L501.080 #### [facility] Point of Care [address] [place] [address] ARTERIAL Observed: 06/24/2018 Status: F Source: [place] 11:51 AM [facility] REPOSITORY [facility] Cardiovascular [place] [address] Ankle Brachial Index 06/24/18 0944 MR#: [id number] Acct: [id number] Name: MARISSA PERALTA Rep #: [id number] : 1950 67 From: Aristides Hoff MD Attending Dr: Wilber Bocanegra MD Status: ADM IN Ordering Dr: Aurea Durán DPM Date: 06/24/18 Location: [facility] Sex: M C Admitted: 06/23/18 Reason For Study: Ulcers Procedure A bilateral lower extremity continuous wave Doppler with analog waveform analysis and ankle brachial indexes. Left Segmental Pressures Left brachial= 163mmHg. Left posterior tibial artery = N/CmmHg. Left dorsalis pedis artery = N/CmmHg. Left digit = 99 mmHg. The left dorsalis pedis waveforms are monophasic. The left posterior tibial artery waveforms are biphasic. Right Segmental Pressures Right brachial= 155mmHg. Right posterior tibial artery = N/CmmHg. Right dorsalis pedis artery = N/CmmHg. Right digit = 47 mmHg. The right dorsalis pedis waveforms are monophasic. The right posterior tibial artery waveforms are biphasic. Indices The right digital-brachial index is .29. The left digital- brachial index is .61. Interpretation Summary 1. Bilateral noncompressible consistent wiht medial calcinosis and biphasic flow. Further evaluation as clinically warranted. 2. 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 Ordering Physician: Aurea Durán Referring Physician: AUREA DURÁN DPM Performed By: Polly Duval T 06/24/18 1150 Date Aristides Hoff MD CC: Aurea Durán DPM; Wilber Bocanegra MD; Eduin Hagen MD Date Dictated: 06/24/18 0944 Date Transcribed: 06/24/18 115 Furniture Mechanic: Signed ECHO, COMPLETE W/ Observed: 06/24/2018 Status: F Source: [place] CONTRAST 11:42 AM [facility] REPOSITORY [facility] Cardiovascular Services [address] [place] [address] Echo Complete W/ Contrast 06/24/18 0956 MR#: [id number] Acct: [id number] Name: MARISSA PERALTA Rep #: [id number] : 1950 67 From: Justice Singh MD Attending Dr: Wilber Bocanegra MD Status: ADM IN Ordering Dr: Josue Oliveira MD Date: 06/24/18 Location: [facility] Sex: M C Admitted: 06/23/18 Reason For Study: Aortic valve replacement Procedure This was a 2D Doppler, Color Flow transthoracic echocardiogram. Exam performed portable in patient room. Left Ventricle Moderately dilated left ventricle. The estimated ejection fraction is 30-35 %. Septal motion consistent with IVCD. There is moderate to severe global hypokinesis of the left ventricle. Right Ventricle Moderately dilated right ventricle. Mild to moderate global right ventricular systolic dysfunction. Atria Normal left atrium. Normal right atrium. Normal atrial septum. Mitral Valve The mitral valve is structurally normal. No prolapse or stenosis seen. Trivial mitral valve insufficiency. Tricuspid Valve Normal tricuspid valve. Mild (1+) tricuspid valve insufficiency. Right ventricular systolic pressure estimated to be 83 mmHg. Severe pulmonary hypertension. Aortic Valve Stable appearing bioprosthetic aortic valve apparatus. Pulmonic Valve Normal pulmonic valve. Mild (1+) eccentric pulmonic valve insufficiency. Great Vessels Normal aortic root. Normal arch. The inferior vena cava is dilated. Inferior vena cava collapse with sniff. Pericardium/Pleural No pericardial effusion. Medication Diluted definity 2ml given slow IV push to enhance endocardial definition. MMode/2D Measurements AND Calculations LVIDd: 5.1 cm IVSd: 1.2 cm LVOT diam: 2.1 cm LVIDs: 4.6 cm LVPWd: 1.2 cm RVDd: 4.0 cm FS: 9.8 % LVOT area: 3.3 cm2 Ao root diam: 3.4 cm LAV(MOD-bp): 55.6 ml LA A4 area: 19.1 cm2 LAV(MOD-bp) Indexed: 30.3 ml/m2 LAV(MOD-sp2): 56.4 ml LAV(MOD-sp4): 53.5 ml LA dimension(2D): 5.0 cm RA A4 area: 15.9 cm2 Doppler Measurements AND Calculations MV E max thor: 141.4 cm/sec Lat Peak E' Thor: 6.1 cm/sec Med Peak E' Thor: 3.4 cm/sec MV A max thor: 35.7 cm/sec E/E' lat: 23.0 E/E' med: 42.1 MV E/A: 4.0 Ao V2 max: 201.4 cm/sec LV V1 max: 142.8 cm/sec SV(LVOT): 95.0 ml Ao max P.3 mmHg LV V1 max P.2 mmHg Ao V2 mean: 132.8 cm/sec LV V1 mean P.0 mmHg Ao mean P.0 mmHg LV V1 mean: 93.3 cm/sec Ao V2 VTI: 39.6 cm LV V1 VTI: 28.6 cm JESUS(I,D): 2.4 cm2 JESUS(V,D): 2.4 cm2 PA V2 max: 78.5 cm/sec TR max thor: 439.1 cm/sec TR max P.1 mmHg Interpretation Summary Moderately dilated left ventricle. The estimated ejection fraction is 30-35 %. There is moderate to severe global hypokinesis of the left ventricle. Moderately dilated right ventricle. Mild to moderate global right ventricular systolic dysfunction. Trivial mitral valve insufficiency. Mild (1+) tricuspid valve insufficiency. Right ventricular systolic pressure estimated to be 83 mmHg. Severe pulmonary hypertension. Stable and normal appearing bioprosthetic aortic valve apparatus. The study was technically difficult. There is no comparison study available. Contrast injection was performed. Ordering Physician: Josue Oliveira Referring Physician: Eduin Hagen M.D. Performed By: Maryann Kothari RDCS 06/24/18 1141 Date Justice Singh MD CC: Wilber Bocanegra MD; Josue Oliveira MD; Eduin Hagen MD Date Dictated: 06/24/1856 Date Transcribed: 06/24/18 1142 Furniture Mechanic: Signed BEDSIDE GLUCOSE Collected: 06/24/2018 Status: F Source: [facility] 11:28 AM [facility] REPOSITORY TYPE CODE TESTS RESULT OUT OF REFERENCE UNITS RANGE LAB L501.080 70-110 mg/dL High BEDSIDE GLU 201 Result Comment: MANAGEMENT OF PATIENT CARE PER NURSING PROTOCOL Performed By: #### L501.080 #### [facility] Point of Care [address] [place], [place] [address] Observed: 06/24/2018 Status: F Source: [facility] CULTURE, DEEP WOUND 8:51 AM [facility] REPOSITORY List Antibiotics Last 48 Hours? unasyn Comments: on counter in room Gram Stain Gram Stain Rare Red Blood Cells No organisms seen Wound Culture ORGANISM 1: Staphylococcus aureus Amount Growth 3+ Staphylococcus aureus: REACTION Cefoxitin *NF NEG Doxycline <=0.5 S Daptomycin $$ 0.25 S Clindamycin $$ 0.25 S Inducable Clindamycin Resistan NEG Erythromycin $ <=0.25 S Gentamicin $ <=0.5 S Levofloxacin $ <=0.12 S Linezolid $$$$ 2 S Moxifloxicin *NF <=0.25 S Oxacillin NF <=0.25 S Tigecycline $$$$ <=0.12 S Rifampin $$ <=0.5 S Tetracycline NF <=1 S Trimethoprim/Sulfametho $ <=10 S Vancomycin $ <=0.5 S (NF) indicates non-formulary drug at [facility]. Approval by Infectious Disease Specialist required before non-formulary drugs may be ordered and/or dispensed. * CLSI guidelines does not recommend testing of cephalosporins. This interpretation is deduced from Beta-lactam/penicillin results. Cult, Anaerobic No anaerobic bacteria isolated. Performed By: #### M100.1500 #### [facility] [address] [place], [place], [address] FOOT MIN 3 VIEWS Observed: 06/24/2018 Status: F Source: [place] 8:28 AM [facility] REPOSITORY [facility] Imaging Services [address] [place] [address] Foot min 3 Views MR#: [id number] Acct: [id number] Name: MARISSA PERALTA Rep #: [id number] : 1950 M 67 From: Anastasiia Thomas MD PCP: Eduin Hagen MD Status: ADM IN Study: Foot min 3 Views Date of Exam: 06/24/18 Exam# [id number] Ordering Dr: Aurea Durán DPM STUDY: X-RAY - RIGHT FOOT CLINICAL: Male, 67 years old. CELLULITIS SECOND TOE TECHNIQUE: 3 view(s) of the foot. COMPARISON: None. FINDINGS: There is generalized osteoporosis and diffuse arteriosclerosis. There is a plantar calcaneal spur. Minimal arthropathy visualized subtalar, talonavicular, calcaneocuboid, tarsal and tarsometatarsal articulations. Normal metatarsi. There is degenerative arthrosis of the metatarsophalangeal joint of the hallux . Normal tibial and fibular sesamoid bones. There is degenerative arthrosis of the interphalangeal joint of the great toe. Normal phalanges of the great toe. Normal second through fifth metatarsophalangeal joints. Normal interphalangeal joints and phalanges of the lesser toes. The soft tissue structures are unremarkable. RAD/Foot min 3 Views IMPRESSION: Osteoporosis, degenerative changes, arteriosclerosis. Sign of osteomyelitis detected. Electronically Signed: Anastasiia Thomas MD at 3:54 EST , Service support , CC: Aurea Durán DPM; Eduin Hagen MD Furniture Mechanic: Signed TROPONIN-I Collected: 06/24/2018 Status: F Source: [place] 8:10 AM [facility] REPOSITORY Order Comment: 'TROP' Serial specimen #1, #2 or #3: 3 TYPE CODE TESTS RESULT OUT OF RANGE REFERENCE UNITS LAB L501.4010 <0.045 ng/mL High 0.102 TROPONIN-I Result Comment: TROPONIN-I EXPECTED VALUES <0.045 Negative 0.045 - 0.590 Consistent with Cardiac Damage > OR = 0.600 Critical Value Not every elevated troponin is indicative of MD. These values should be used with clinical judgement in examining the patient's clinical picture for diagnosis. To establish a diagnosis of MD versus myocardial injury, there must be a demonstrated rise and/or fall in the troponin values, in addition to ischemic symptoms, EKG changes, new regional wall motion abnormality, and/or angiographical evidence. PLEASE NOTE: REFERENCE RANGES EDITED 17 Performed By: #### L500.2500, L500.4100, L501.4010, L501.5200, L501.9520 #### [facility] [address] [place], [address] CRP Collected: 06/24/2018 Status: F Source: [place] 8:10 AM [facility] REPOSITORY TYPE CODE TESTS RESULT OUT OF RANGE REFERENCE UNITS LAB L501.6710 0.0-3.0 mg/L High 41.20 C-REACTIVE PROT Result Comment: C-Reactive Protein (CRP) provides useful information for the diagnosis, therapy and monitoring of inflammatory processes and associated diseases. For the evaluation of Relative Risk for Cardiovascular Disease, a High Sensitivity CRP (HSCRP) should be ordered. Performed By: #### L501.6710 #### [facility] [address] [place], [address] ERYTHROCYTE SED RATE Collected: 06/24/2018 Status: F Source: [place] 8:10 AM [facility] REPOSITORY TYPE CODE TESTS RESULT OUT OF RANGE REFERENCE UNITS LAB L102.0000 0-20 mm/hr High SED RATE 59 Performed By: #### L101.9900 #### [facility] [address] [place], [address] BEDSIDE GLUCOSE Collected: 06/24/2018 Status: F Source: [place] 7:02 AM [facility] REPOSITORY TYPE CODE TESTS RESULT OUT OF REFERENCE UNITS RANGE LAB L501.080 70-110 mg/dL High BEDSIDE GLU 232 Result Comment: MANAGEMENT OF PATIENT CARE PER NURSING PROTOCOL Performed By: #### L501.080 #### [facility] Point of Care [address] [place], [place] [address] CBC-COMPLETE BLOOD CNT Collected: 06/24/2018 Status: F Source: [facility] NO DIFF 5:10 AM [facility] REPOSITORY TYPE CODE TESTS RESULT OUT OF RANGE REFERENCE UNITS LAB L100.1000 4.4-11.0 K/mm3 Normal WBC 8.6 LAB L100.1200 4.6-6.2 M/mm3 Low RBC 4.18 LAB L100.1300 13.0-16.5 g/dl Low HGB 11.6 LAB L100.1400 40-54 % Low HCT 36.6 LAB L100.1500 80-94 fL Normal MCV 87.6 LAB L100.1600 27.0-32.0 pg Normal MCH 27.8 LAB L100.1700 32-36 g/gl Low MCHC 31.7 LAB L100.1810 11.6-14.6 % Normal RDW CV 13.6 LAB L100.1820 35.1-43.9 fl Normal RDW SD 42.8 LAB L100.1900 150-450 K/mm3 Low PLT 130 LAB L100.2000 6.2-12.0 fl Normal MPV 10.7 Performed By: #### L100.0500 #### [facility] [address] [place], [place], [address] BASIC METABOLIC Collected: 06/24/2018 Status: F Source: [facility] PROFILE (BMP) 5:10 AM [facility] REPOSITORY Order Comment: 'TROP' Serial specimen #1, #2 or #3: 2 'TROP' Serial specimen #1, #2, #3, or #4: 2 TYPE CODE TESTS RESULT OUT OF RANGE REFERENCE UNITS LAB L501.0100 74-106 mg/dL High GLU 263 Result Comment: Glucose result greater than or equal to 200 mg/dL suggests DIABETES MELLITUS per A.D.A. criteria. Please note revised GLUCOSE reference range effective 2017. LAB L501.1000 7-18 mg/dL High BUN 57 LAB L501.1100 0.70-1.30 mg/dL High CREAT,SERUM 2.37 Result Comment: The validity of the calculated GFR AND GFRAA in patients over 70 years has not been determined. Clinical correlation is essential. LAB L501.1110 >60 mL/min Low EST GFR 29 Result Comment: Non- GFR Calc LAB L501.1115 >60 mL/min Low EST GFR - AA 36 Result Comment: GFR Calc LAB L501.1255 ml/min Normal Estimated CRCL 30.06 LAB L501.1300 10-20 RATIO High BUN/CRE 24.1 LAB L501.2200 8.5-10 mg/dL Normal .1 CA 9.0 LAB L501.5300 136-14 mmol/L Normal 5 NA 140 LAB L501.5600 3.5-5. mmol/L Normal 1 K 3.9 LAB L501.5900 98-107 mmol/L High CL 109 LAB L501.6100 21.0-3 mmol/L Normal 2.0 CO2 23.0 LAB L501.6200 5-15 Normal GAP 8 Performed By: #### L500.2500, L500.4100, L501.4010, L501.5200, L501.9520 #### [facility] [address] [place], [address] LIPID PROFILE Collected: 06/24/2018 Status: F Source: [facility] 5:10 AM [facility] REPOSITORY Order Comment: 'TROP' Serial specimen #1, #2 or #3: 2 'TROP' Serial specimen #1, #2, #3, or #4: 2 TYPE CODE TESTS RESULT OUT OF RANGE REFERENCE UNITS LAB L501.4900 200 mg/dL Normal CHOL 111 Result Comment: <200 mg/dL Desirable 200-240 mg/dL Borderline >240 mg/dL High Risk LAB L501.5000 mg/dL Normal TRIG 108 Result Comment: The drugs N-Acetylcysteine and Metamizole may falsely depress this assay. Serum Triglycerides Reference Interval Normal <150 mg/dL Borderline high 150 - 199 mg/dL High 200 - 499 mg/dL Very High > or = 500 mg/dL LAB L501.6400 mg/dL Low HDL 31 Result Comment: The drugs N-Acetylcysteine and Metamizole may falsely depress this assay. Reference Range HDL <40 mg/dL Low HDL Cholesterol HDL >or= 60 mg/dL High HDL Cholesterol LAB L501.6500 0-130 mg/dL Normal LDL 58 LAB L501.6600 5-40 mg/dL Normal VLDL 22 Performed By: #### L500.2500, L500.4100, L501.4010, L501.5200, L501.9520 #### [facility] [address] [place], [place], [address] MAGNESIUM Collected: 06/24/2018 Status: F Source: [place] 5:10 AM [facility] REPOSITORY Order Comment: 'TROP' Serial specimen #1, #2 or #3: 2 'TROP' Serial specimen #1, #2, #3, or #4: 2 TYPE CODE TESTS RESULT OUT OF RANGE REFERENCE UNITS LAB L501.5200 1.6-2.6 mg/dL Normal MG 2.2 Performed By: #### L500.2500, L500.4100, L501.4010, L501.5200, L501.9520 #### [facility] [address] [place], [place], [id number] THYROID STIM HORMONE Collected: 06/24/2018 Status: F Source: [facility] (TSH) 5:10 AM [facility] REPOSITORY Order Comment: 'TROP' Serial specimen #1, #2 or #3: 2 'TROP' Serial specimen #1, #2, #3, or #4: 2 TYPE CODE TESTS RESULT OUT OF RANGE REFERENCE UNITS LAB L501.9520 0.358-3.74 uIU/mL Normal TSH 0.45 Performed By: #### L500.2500, L500.4100, L501.4010, L501.5200, L501.9520 #### [facility] [address] [place], [place], [address] HEMOGLOBIN A1C Collected: 06/24/2018 Status: F Source: [facility] 5:10 AM [facility] REPOSITORY TYPE CODE TESTS RESULT OUT OF RANGE REFERENCE UNITS LAB L501.9985 4.2-6.3 % High HGB A1C 9.0 Performed By: #### L501.9985 #### [facility] [address] [place], [address] TROPONIN-I Collected: 06/24/2018 Status: F Source: [place] 2:50 AM [facility] REPOSITORY Order Comment: 'TROP' Serial specimen #1, #2 or #3: 1 TYPE CODE TESTS RESULT OUT OF RANGE REFERENCE UNITS LAB L501.4010 <0.045 ng/mL High 0.084 TROPONIN-I Result Comment: TROPONIN-I EXPECTED VALUES <0.045 Negative 0.045 - 0.590 Consistent with Cardiac Damage > OR = 0.600 Critical Value Not every elevated troponin is indicative of MD. These values should be used with clinical judgement in examining the patient's clinical picture for diagnosis. To establish a diagnosis of MD versus myocardial injury, there must be a demonstrated rise and/or fall in the troponin values, in addition to ischemic symptoms, EKG changes, new regional wall motion abnormality, and/or angiographical evidence. PLEASE NOTE: REFERENCE RANGES EDITED 17 Performed By: #### L501.4010 #### [facility] [address] [place], [place], [id number] HISTORY AND PHYSICAL Observed: 06/24/2018 Status: F Source: [place] EXAM 12:47 AM [facility] REPOSITORY [facility] Medical Records Department [address] [place] [address] History and Physical 06/23/18 2336 MR#: [id number] Acct: [id number] Name: MARISSA PERALTA Doug Rep #: [id number] : 1950 67 From: Josue Oliveira MD PCP: Eduin Hagen MD Status: ADM IN Y Location: [address] Problem List (1) Hypertension Status: Chronic (2) Hyperlipidemia Status: Chronic (3) History of atrial flutter Status: Chronic (4) Diabetes mellitus type II Status: Chronic (5) Coronary artery disease Status: Chronic Comment: Status post CABG, 20 years ago Status post and placement in May 2014 at [facility] Following with Dr. Graham (6) Congestive heart failure Status: Chronic (7) Chronic kidney disease stage III Status: Chronic (8) BPH Status: Chronic (9) Pulmonary hypertension Status: Chronic (10) Aortic stenosis Status: Chronic (11) Recurrent falls Status: Acute (12) Syncope and collapse Status: Acute (13) Cellulitis of second toe of right foot Status: Acute History of Present Illness Date of Admission: 06/23/18 Chief Complaint: Shortness of breath for about 3 days The patient is a 67 year old M with multiple comorbidities including coronary artery disease status post CABG, chronic systolic and diastolic heart failure aortic stenosis last admission in June 2014 for non-ST elevation MD was sent to ER by Dr. Puga for shortness of breath, frequent fall. The patient is very hard of hearing and therefore history is limited. Patient has shortness of breath for the past 3 days which is progressive. Dyspnea on exertion, orthopnea present. Patient denies any chest tightness or chest pain to me although documented as mild intermittent chest pain as per ER physician. About 3 days ago at night, patient had a fall while going to the bathroom and it perhaps syncope and collapse. This was unwitnessed. Patient also having recurrent fall. He has a right second toe redness, bruise and possible superficial abscess, perhaps after fall. Small bruise in frontal region of head. EKG shows normal sinus rhythm at 67 bpm with QRS 138 ms, LAD with possible left bundle branch block. EKG from May 2018 normal sinus rhythm at 60 bpm LAD with no change from present EKG. QRS is more prolonged as compared to previous EKG. Chest x-ray done in the ER shows interstitial edema and left basilar opacity probably atelectasis. Past Medical History Past Medical History (Chronic Problems): Chronic Problems Hypertension (Chronic) Hyperlipidemia (Chronic) History of atrial flutter (Chronic) Diabetes mellitus type II (Chronic) Coronary artery disease (Chronic) Status post CABG, 20 years ago Status post and placement in May 2014 at [facility] Following with Dr. Graham Congestive heart failure (Chronic) Chronic kidney disease stage III (Chronic) BPH (Chronic) Pulmonary hypertension (Chronic) Aortic stenosis (Chronic) Allergies meperidine HCl [From Demerol] Allergy (Verified 06/23/18 19:38) Other Home Medications: Ambulatory Orders Medication Instructions Recorded Atorvastatin Calcium [Lipitor] 40 mg PO QHS 03/11/14 Carvedilol [Coreg (Beta Jr)] 6.25 mg PO BID 03/11/14 Surgical History: - - CABG, Smoking Status: Never smoker - *Family History Maternal History Items: No pertinent history Review of Systems Constitutional: Reports: Weakness, Fatigue. Denies: Chills, Fever, Weight Change HEENT: Reports: Difficulty Hearing. Denies: Head Aches, Sinus Congestion, Sinus Drainage Cardiovascular: Reports: Edema, Orthopnea, Paroxysmal Noc. Dyspnea, Syncope. Denies: Chest Pain, Palpitations Respiratory: Reports: Shortness of Breath, Shortness of breath upon exertion. Denies: Cough, Sputum production Gastrointestinal: Denies: Abdominal Pain, Nausea, Vomiting Genitourinary: Denies: Dysuria Musculoskeletal: Reports: Joint Pain. Denies: Joint Tenderness Skin: Reports: Rash, Wounds - Right second toe Neurological: Reports: Balance problems. Denies: Focal weakness, Numbness, Tingling Psychiatric: Denies: Anxiety, Depression, Homicidal Ideations, Suicidal Ideations Hematologic/ Lymphatic: Denies: Easy Bruising, Easy Bleeding VTE Information - Inpt Only VTE Present on Admission: No VTE Mechan Device Prophylaxis: None VTE Pharm Prophylaxis ordered?: Yes Patient Problems: Active and Suspected Problems Recurrent falls (Acute) Syncope and collapse (Acute) Cellulitis of second toe of right foot (Acute) - Physical Exam General: Alert, Oriented x3, Cooperative HEENT: Atraumatic, PERRLA, EOMI, Normocephalic Oral: Dry Mucosa Neck: Supple, No JVD, Negative Carotid Bruits Lungs: No rhonchi, No wheeze, No rales, Diminished - Air entry diminished bilaterally, more on the left lung base Cardiovascular: Regular rate, Regular Rhythm, Normal S1, Normal S2, No murmurs, Murmur - Systolic murmur present over left sternal border and aortic region Abdomen: Bowel Sounds Present, Soft, Non Tender, Non-Distended Extremities: Capillary Refill Less than 3 Seconds, Edema Skin: Ulcer/ Wound - Small bruise with superficial abscess present over right second toe. Localized cellulitis., Skin Tear, Rash Present, - - Bruise over frontal region of head. Musculoskeletal: No Tenderness to Palpation of Joints or Extremities, Arthritic Changes, Muscle Wasting Neurological: Cranial nerves II-XII grossly intact, Deep Tendon Reflexes 2+/4 and Symmetrical, Neuro grossly intact Psych/Mental Status: Normal Affect, Appropriate Vital Signs Temp Pulse Resp BP Pulse Ox 97.9 F 61 16 138/67 H 98 06/23/18 21:42 06/23/18 21:42 06/23/18 21:42 06/23/18 21:05 06/23/18 21:42 Oxygen Flow Rate (L/min) 2 Oxygen Delivery Method Nasal Cannula Weight: 160 lb 4.417 oz Body Mass Index (BMI) 24.3 Laboratory Tests Past 24 Hrs WBC 8.1 WBC RBC Hgb Hct MCV MCH MCHC RDW RDW Differential Plt Count Assessment/Plan All Active Problems Recurrent falls (Acute) Syncope and collapse (Acute) Cellulitis of second toe of right foot (Acute) The patient is a 67 year old M with multiple comorbidities including coronary artery disease status post CABG, chronic systolic and diastolic heart failure aortic stenosis last admission in June 2014 for non-ST elevation MD was sent to ER by Dr. Puga for shortness of breath, frequent fall. The patient is very hard of hearing and therefore history is limited. Patient has shortness of breath for the past 3 days which is progressive. Dyspnea on exertion, orthopnea present. Patient denies any chest tightness or chest pain to me although documented as mild intermittent chest pain as per ER physician. About 3 days ago at night, patient had a fall while going to the bathroom and it perhaps syncope and collapse. This was unwitnessed. Patient also having recurrent fall. He has a right second toe redness, bruise and possible superficial abscess, perhaps after fall. Small bruise in frontal region of head. EKG shows normal sinus rhythm at 67 bpm with QRS 138 ms, LAD with possible left bundle branch block. EKG from May 2018 normal sinus rhythm at 60 bpm LAD with no change from present EKG. QRS is more prolonged as compared to previous EKG. Chest x-ray done in the ER shows interstitial edema and left basilar opacity probably atelectasis. 1. Acute on chronic combined systolic and diastolic heart failure: Patient is being admitted in PCU. On Lasix 40 mg IV twice daily. Cycle cardiac enzymes. Monitor intake and output. Continue aspirin, atorvastatin, Plavix, Coreg and Isordil. 2D echo tomorrow a.m. As per patient's , he was scheduled to have echo in August and had previous echo many years ago. His comic writer, Dr. Graham. BNP 1041. 2. Elevated troponin, rule out acute coronary syndrome. Possibly elevated from heart failure/CKD. Patient has coronary artery status post CABG and stents. 3. Aortic stenosis, history of atrial flutter and pulmonary hypertension: Exact quantification of these diagnoses are unclear. 2D echo tomorrow a.m for better definition. Patient is not on anticoagulant agent. 4. CKD stage IV: Previous BUN/creatinine 56/2.0 in June 2014. Currently 57/2.66. Monitor intake and output. 5. Diabetes mellitus type 2: Accu-Chek before meals and at bedtime and cover with NovoLog sliding scale. A1c tomorrow a.m. Glucose 388 and BMP. 6. Recurrent falls: PT and OT. Other chronic comorbidities include hypertension, dyslipidemia, BPH: Home medication reconciliation done. DVT prophylaxis: On Lovenox 30 mg subcu daily. Clinical Impression(s) from Imaging Studies Chest X-Ray 06/23/18 21:09 IMPRESSION: Nonspecific left basilar opacity may be secondary to underlying atelectasis. Possible interstitial edema. Code Visit Inpatient E AND M: 07640 Init Hosp L3 06/24/18 0047 <Electronically signed by Josue Oliveira MD> Date Josue Oliveira MD Cosigner Signature: Date (if applicable) CC: Josue Oliveira MD; Eduin Hagen MD Signed BEDSIDE GLUCOSE Collected: 06/24/2018 Status: F Source: [facility] 12:34 AM [facility] REPOSITORY TYPE CODE TESTS RESULT OUT OF REFERENCE UNITS RANGE LAB L501.080 70-110 mg/dL High BEDSIDE GLU 278 Result Comment: MANAGEMENT OF PATIENT CARE PER NURSING PROTOCOL Performed By: #### L501.080 #### [facility] Point of Care [address] [place] [address] EMERGENCY DEPARTMENT Observed: 06/24/2018 Status: F Source: [facility] SUMMARY 12:00 AM [facility] REPOSITORY [facility] Medical Records Department [address] [place] [address] Emergency Department Summary 06/23/18 2354 MR#: [id number] Acct: [id number] Name: MARISSA PERALTA Rep #: [id number] : 1950 67 From: Kole Gould DO PCP: Eduin Hagen MD Status: ADM IN - ER Visit Summary Date of Service: 06/23/18 Chief Complaint: Shortness of breath and frequent falls History of Present Illness: The patient is a 67 M who presents with shortness of breath and frequent falls that have been getting worse over the past 3 days. Patient states his breathing is worse with any exertion. Patient also admits to two-pillow orthopnea. Patient admits to a cough but denies any sputum. Patient admits to some mild rhinorrhea. Patient admits to subjective chills but denies any fevers. Patient admits to some mild intermittent chest pain. Patient denies any calf pain but admits to some swelling of his lower extremities. Physical Examination: Vital signs are stable. Patient is afebrile. Patient is in no acute distress. Oral mucosa is pink and moist. Neck is supple. Trachea is midline. There is no JVD noted. Heart was regular rate and rhythm. Lungs show bilateral basilar rales. There is good respiratory effort noted. Abdomen is soft. There is no tenderness. There is no rebound or guarding noted. Cranial nerves II through XII are intact. There are no focal motor or sensory deficits noted. Extremities are intact. There is 2+ edema of the lower extremities bilaterally to the knees. Her meaning physical exam is within normal limits. Test Results: PA and lateral chest x-ray shows increased interstitial markings. EKG showed normal sinus rhythm with first-degree AV block with a rate of 67. There is a questionable left bundle branch block. There are nonspecific ST-T wave changes noted in leads V1 through V4. These were improved compared to previous EKG. QRS was more prolonged compared to previous EKG. Previous EKG was dated 06/18/2014. CBC was normal. BNP was elevated at 1041. Troponin was slightly elevated at 0.105. BUN and creatinine were slightly elevated compared to previous results. Emergency Department Course and Treatment: Patient was given Lasix and nitroglycerin paste. Patient was feeling better on reevaluation. Case was discussed with Dr. Oliveira. He will admit the patient to his service. Patient and family understood and were agreeable with the plan. All questions were answered. Disposition: Admit to hospital Impression: Acute systolic congestive heart failure This note was generated with [employer] dictation software. It may contain incorrect words, spelling, and punctuation that were not noted in review of the chart prior to signing ED Disposition - Plan for ED Patient: Chief Complaint: Shortness of Breath What to do if you have Problems For any increased pain, shortness of breath, bleeding, nausea or vomiting, chest pain, or any unexpected problems, contact your Primary Care Provider. Call [facility] ([phone]) or report to the closest Emergency Room. Call 911 if necessary. 06/24/18 0000 <Electronically signed by Kole Gould DO> Date Kole Gould DO Cosigner Signature (If Indicated): Date CC: Eduin Hagen MD CHEST PA AND LATERAL Observed: 06/23/2018 Status: F Source: [place] 8:36 PM [facility] REPOSITORY [facility] Imaging Services [address] [place] [id number] Chest PA and Lateral MR#: [id number] Acct: [id number] Name: MARISSA PERALTA Rep #: [id number] : 1950 M 67 From: Luna Berry MD PCP: Eduin Hagen MD Status: REG ER Study: Chest PA and Lateral Date of Exam: 06/23/18 Exam# [id number] Ordering Dr: Kole Gould DO STUDY: X-RAY CHEST REASON FOR EXAM: Male, 67 years old. Shortness of breath with syncope TECHNIQUE: PA and lateral views of the chest. COMPARISON: June 16, 2014 FINDINGS: There is a nonspecific left basilar opacity. There are prominent interstitial markings. Sternal cerclage wires are present from a prior sternotomy. There is a prosthetic cardiac valve. Normal mediastinum and herman. Normal visualized pulmonary arteries. There is atherosclerotic calcification of the aortic arch with tortuosity. Normal visualized thoracic spine. Normal visualized ribs, clavicles, and shoulders. There is no demonstrated abnormality of the visualized soft tissue structures of the upper abdomen. RAD/Chest PA and Lateral IMPRESSION: Nonspecific left basilar opacity may be secondary to underlying atelectasis. Possible interstitial edema. Electronically Signed: Luna Berry MD at 21:44 EST Tel , Service support , CC: Kole Gould DO; Eduin Hagen MD Furniture Mechanic: Signed PROGRESS Observed: 06/23/2018 Status: COMPLETED Source: [place] 5:52 PM [facility] [place] REPOSITORY HNO ID: [id number] Author: Eduin Hagen Service: (none) Author Type: Physician Type: Progress Notes Filed: 06/23/2018 6:24 PM Note Text: This note was created using NoteWriter. Subjective Patient presents with: F/U 3 Month Marissa Peralta was here with spouse and daughter with multiple concerns. He had been falling more for the past 3 days. He was climbing stairs and felt dyspneic at the top and nearly passed out. He did not seek medical attention. Yesterday, he actually passed out and hit his head. He also injured his right toe. He woke up feeling very weak and crawled to the bathroom focusing on his breathing. He had similar symptoms of dyspnea, near syncope today. He refused to go to the ER yesterday. Apparently, Dr. Castillo recommended he go to the ER last week due to worsening angina. His isosorbide was increased last month at his cardiology appointment. Family also indicated he was non compliant with oxygen use at home. 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) Proteinuria Cad (Coronary Artery Disease), [place] Coronary Artery Ckd (Chronic Kidney Disease) Stage 3, Gfr 30-59 Ml/Min ([facility]) Aortic Stenosis Acute On Chronic Combined Systolic and Diastolic Heart Failure ([facility]) Pulmonary Hypertension, Primary ([facility]) Hypertensive Kidney Disease With Ckd Stage Iii ([facility]) S/P Aortic Valve Replacement Current Outpatient Prescriptions: isosorbide dinitrate (ISORDIL, SORBITRATE) 30 mg tablet Take 1 tablet by mouth twice daily. insulin glargine (LANTUS SOLOSTAR U-100 INSULIN) 100 unit/mL (3 mL) inpn Inject 26 Units subcutaneously every evening. Take around 10 PM. insulin aspart U-100 (NOVOLOG FLEXPEN U-100 INSULIN) 100 unit/mL inpn Inject 12 units as a base then 1 unit for every 25 carbs 3 times a day with meals and snacks. 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 clopidogrel (PLAVIX) 75 mg tablet Take 1 tablet by mouth once daily. atorvastatin (LIPITOR) 40 mg tablet TAKE 1 TABLET BY MOUTH AT BEDTIME furosemide (LASIX) 80 mg tablet TAKE ONE-HALF TABLET BY MOUTH ONCE DAILY psyllium seed, with dextrose, (FIBER ORAL) Take 30 g by mouth once daily. MEDICATION, NON-DATABASE 1,000 mg. tumeric blood sugar diagnostic (FREESTYLE TEST) test strip Check blood sugar 4 times daily, E11.22 ipratropium bromide (ATROVENT) 42 mcg (0.06 %) nasal spray Use 2 Sprays in the nose twice daily as needed. carvedilol (COREG) 6.25 mg tablet Take 1 tablet by mouth twice daily with meals. chromium picolinate 1,000 mcg tab Take by mouth. omega 9-pxx-adw-fish oil 350 mg-235 mg- 90 mg-597 mg cpDR Take by mouth. nitroglycerin sublingual (NITROSTAT) 0.4 mg SL tablet Dissolve 1 tablet under the tongue every 5 minutes as needed for Chest Pain. vitamin b complex (B COMPLETE) tab Take 1 tablet by mouth once daily. OXYGEN, HOME THERAPY, Inhale as instructed as directed. 3 lts at night while sleeping and 2 lts if needed while awake Blood-Glucose Meter (GMATE VOICE METER) misc Use as directed, test 4 times a day and as needed dx E11.22 Lancing Device (GMATE LANCING DEVICE) [facility] LiteTouch Test 4 times daily, and PRN Insulin yes, dx:E11.22 aspirin, enteric coated (ASPIRIN, ENTERIC COATED) 81 mg EC tablet Take 81 mg by mouth once daily. Cholecalciferol, Vitamin D3, (VITAMIN D-3) 1,000 unit Chew Take 5,000 Units by mouth once daily. No current facility-administered medications for this visit. Review of Systems Constitutional: Positive for fatigue. Negative for chills, diaphoresis and fever. HENT: Negative for trouble swallowing. Eyes: Negative for visual disturbance. Respiratory: Positive for chest tightness and shortness of breath. Cardiovascular: Negative for chest pain, palpitations and leg swelling. Gastrointestinal: Negative for blood in stool, nausea and vomiting. Genitourinary: Negative. Musculoskeletal: Positive for gait problem. Skin: Positive for wound. Neurological: Positive for dizziness, syncope and weakness. Negative for speech difficulty and headaches. Objective BP 99/55 (BP Site: Right Arm, BP Position: Sitting, BP Cuff Size: Regular Adult) Pulse 62 Temp 37.2 ?C (99 ?F) (Temporal Artery) Resp 16 Wt 72.1 kg (159 lb) BMI 24.18 kg/m? Supine BP:114/48 Pulse:60. Sitting BP110/48 Pulse:60. Physical Exam Constitutional: He is oriented to person, place, and time. No distress. Hard of hearing. HENT: Nose: Nose normal. Mouth/Throat: Oropharynx is clear and moist. Contusion right forehead. Eyes: Pupils are equal, round, and reactive to light. EOM are normal. Neck: No JVD present. Cardiovascular: Regular rhythm, S1 normal and S2 normal. Bradycardia present. Murmur heard. Systolic murmur is present with a grade of 1/6 LSB Pulmonary/Chest: No respiratory distress. He has no wheezes. He has rales in the right lower field and the left lower field. Abdominal: Soft. There is no tenderness. Musculoskeletal: He exhibits no edema. Swollen, ecchymotic, abscessed right 2nd toe with seropurulent drainage. Neurological: He is alert and oriented to person, place, and time. No cranial nerve deficit or sensory deficit. GCS eye subscore is 4. GCS verbal subscore is 5. GCS motor subscore is 6. No lateralizing weakness. General weakness. Skin: He is not diaphoretic. Crusted ulcer with erythema, below left inguinal line. EKG RESULTS: normal sinus rhythm and LAD, LVH, inferior infarct pattern. New asymmetric T inversions in chest leads. Assessment and Plan 1. Fall, initial encounter - ICD9: E888.9, ICD10: W19.XXXA (primary diagnosis) 2. Syncope, unspecified syncope type - ICD9: 780.2, ICD10: R55 - ECG COMPLETE W INTERPRETATION 3. Closed head injury, initial encounter - ICD9: 959.01, ICD10: S09.90XA 4. Abscess of second toe of right foot - ICD9: 681.10, ICD10: L02.611 5. Folliculitis - ICD9: 704.8, ICD10: L73.9 Left inguinal area. 6. Coronary artery disease involving [place] coronary artery of [place] heart with angina pectoris (HCC) - ICD9: 414.01, 413.9, ICD10: I25.119 Rule out ACS. EKG showed new changes. I recommended ER evaluation and likely admission. Patient and family agreed, and they preferred to take him directly to [place] ER. Last 2 EKGs provided. I discussed his situation with Dr. Kole Lorenzo. At least 40 minutes was spent for this evaluation. Eduin Hagen MD CBC W/DIFF, AUTOMATED Collected: 06/23/2018 Status: F Source: [place] 5:50 PM [facility] REPOSITORY TYPE CODE TESTS RESULT OUT OF RANGE REFERENCE UNITS LAB L100.1000 4.4-11.0 K/mm3 Normal WBC 8.1 LAB L100.1200 4.6-6.2 M/mm3 Low RBC 4.42 LAB L100.1300 13.0-16.5 g/dl Low HGB 12.1 LAB L100.1400 40-54 % Low HCT 39.1 LAB L100.1500 80-94 fL Normal MCV 88.5 LAB L100.1600 27.0-32.0 pg Normal MCH 27.4 LAB L100.1700 32-36 g/gl Low MCHC 30.9 LAB L100.1810 11.6-14.6 % Normal RDW CV 13.9 LAB L100.1820 35.1-43.9 fl High RDW SD 44.9 LAB L100.1900 150-450 K/mm3 Low PLT 129 LAB L100.2000 6.2-12.0 fl Normal MPV 11.4 LAB L100.2100 47-70 % High NEUT% 83.5 LAB L100.2200 19-41 % Low LY% 8.4 LAB L100.2300 0-10 % Normal MONO% 7.1 LAB L100.2400 0-5 % Normal EO% 0.7 LAB L100.2500 0-1 % Normal BASO% 0.1 LAB L100.2550 0.0-0.9 % Normal IM GRAN % 0.200 Result Comment: IG% - Immature Granulocytes (promyelocytes, myelocytes and metamyelocytes) > 1% indicates that a LEFT SHIFT is Present. LAB L100.2620 2.0-7.7 X10 3/uL Normal Absolute Neut 6.7 LAB L100.2720 0.83-4.51 X10 3/ul Low Absolute Lymph 0.68 Performed By: #### L100.0100 #### [facility] [address] [employer] [facility] [place], [address] COMPREHENSIVE METABOLIC Collected: 06/23/2018 Status: F Source: [facility] 5:50 PM [facility] REPOSITORY TYPE CODE TESTS RESULT OUT OF RANGE REFERENCE UNITS LAB L501.0100 74-106 mg/dL High GLU 388 Result Comment: Glucose result greater than or equal to 200 mg/dL suggests DIABETES MELLITUS per A.D.A. criteria. Please note revised GLUCOSE reference range effective 2017. LAB L501.1000 7-18 mg/dL High BUN 57 LAB L501.1100 0.70-1.30 mg/dL High CREAT,SERUM 2.66 Result Comment: The validity of the calculated GFR AND GFRAA in patients over 70 years has not been determined. Clinical correlation is essential. LAB L501.1110 >60 mL/min Low EST GFR 26 Result Comment: Non- GFR Calc LAB L501.1115 >60 mL/min Low EST GFR - AA 31 Result Comment: GFR Calc LAB L501.1255 ml/min Normal Estimated CRCL 26.79 LAB L501.1300 10-20 RATIO High BUN/CRE 21.4 LAB L501.1500 6.4-8. g/dL Normal 2 T PROT 7.6 LAB L501.1800 3.2-5. g/dL Normal 0 ALB 3.4 LAB L501.1950 2.2-4. g/dL Normal 2 GLOB 4.2 LAB L501.2000 0.9-2. RATIO Low 4 A/G 0.8 LAB L501.2200 8.5-10 mg/dL Normal .1 CA 8.5 LAB L501.4100 15-37 U/L High AST 66 Result Comment: Moderate Hemolysis, Result may be falsely increased. LAB L501.4305 45-117 U/L High ALK P 122 LAB L501.4405 16-61 U/L High ALT 73 LAB L501.4600 0.20-1.00 mg/dL Normal T BILI 0.50 LAB L501.5300 136-145 mmol/L Normal NA 136 LAB L501.5600 3.5-5.1 mmol/L Normal K 4.7 Result Comment: Moderate Hemolysis, Result may be falsely increased. LAB L501.5900 98-107 mmol/L Normal CL 107 LAB L501.6100 21.0-32.0 mmol/L Low CO2 19.0 LAB L501.6200 5-15 Normal GAP 10 Performed By: #### L500.4050, L501.4010 #### [facility] [address] [place], [address] TROPONIN-I Collected: 06/23/2018 Status: F Source: [place] 5:50 PM [facility] REPOSITORY TYPE CODE TESTS RESULT OUT OF RANGE REFERENCE UNITS LAB L501.4010 <0.045 ng/mL High 0.105 TROPONIN-I Result Comment: TROPONIN-I EXPECTED VALUES <0.045 Negative 0.045 - 0.590 Consistent with Cardiac Damage > OR = 0.600 Critical Value Not every elevated troponin is indicative of MD. These values should be used with clinical judgement in examining the patient's clinical picture for diagnosis. To establish a diagnosis of MD versus myocardial injury, there must be a demonstrated rise and/or fall in the troponin values, in addition to ischemic symptoms, EKG changes, new regional wall motion abnormality, and/or angiographical evidence. PLEASE NOTE: REFERENCE RANGES EDITED 17 Performed By: #### L500.4050, L501.4010 #### [facility] [address] [place], [address] BNP,B-TYPE NATRIURETIC Collected: 06/23/2018 Status: F Source: [place] PEPTIDE 5:50 PM [facility] REPOSITORY TYPE CODE TESTS RESULT OUT OF RANGE REFERENCE UNITS LAB L503.6620 0-100 pg/mL High B-TYPE 1041.0 STACY PEP Performed By: #### L503.6620 #### [facility] [address] [place], [address] PROTHROMBIN TIME W/INR Collected: 06/23/2018 Status: F Source: [place] 5:50 PM [facility] REPOSITORY TYPE CODE TESTS RESULT OUT OF RANGE REFERENCE UNITS LAB L300.4150 11.7-14.9 SECONDS High PROTIME 15.5 LAB L300.4200 Normal INR 1.2 Performed By: #### L300.3900, L300.4310 #### [facility] [address] [place], [address] PARTIAL THROMBOPLAST Collected: 06/23/2018 Status: F Source: [place] TIME 5:50 PM [facility] REPOSITORY TYPE CODE TESTS RESULT OUT OF RANGE REFERENCE UNITS LAB L300.4310 24.1-36.2 Seconds Normal PTT 31.4 Performed By: #### L300.3900, L300.4310 #### [facility] [address] [place], [address] ECG COMPLETE W Observed: 06/23/2018 Status: F Source: [place] INTERPRETATION 5:29 PM [facility] REPOSITORY NAME : MARISSA PERALTA PID : [id number] : 1950 Gender : Male Race : ORD : [id number] Procedure Date : Jun 23 2018 17:29:33 Edit Date : Jun 25 2018 09:28:02 Diagnosis:SINUS BRADYCARDIA WITH 1ST DEGREE AV BLOCK LEFT AXIS DEVIATION NONSPECIFIC INTRAVENTRICULAR BLOCK INFERIOR MYOCARDIAL INFARCTION , AGE UNDETERMINED ANTERIOR T WAVE ABNORMALITY ABNORMAL ECG Confirmed by MD DELANEY GREGORY () on 06/25/2018 9:27:55 AM Ventricular Rate : 59 BPM Atrial Rate : 59 BPM P-R Interval : 258 ms QRS Duration : 128 ms Q-T Interval : 472 ms QTC Calculation(Bezet) : 467 ms P Emmalena : 69 degrees R Emmalena : -82 degrees T Emmalena : -63 degrees Test Reason : Location : 185 : [facility] Overread By : MD DELANEY GREGORY Edited By : MD DELANEY GREGORY Referred By : JG CASTILLO Acquired by : ANGELIA ABURTO Observed: 06/23/2018 Status: COMPLETED Source: [place] 4:00 PM [facility] REPOSITORY Office Visit (INTMWS) MARISSA PERALTA ([id number]) 1950 M Date Time Provider Department 06/23/18 4:00 PM EDUIN HAGEN INTMWS During your visit today, we recorded the following information about you: Temperature Pulse Respiration Blood pressure 99 degrees 62/minute 16/minute 99/55 Weight 72.1 kg Eduin Hagen MD 06/23/2018 5:45 PM Signed Your EKG has changed. Go to the ER for evaluation of multiple concerns. Eduin Hagen MD 06/23/2018 6:24 PM Signed This note was created using NoteWriter. Subjective Patient presents with: F/U 3 Month Marissa Peralta was here with spouse and daughter with multiple concerns. He had been falling more for the past 3 days. He was climbing stairs and felt dyspneic at the top and nearly passed out. He did not seek medical attention. Yesterday, he actually passed out and hit his head. He also injured his right toe. He woke up feeling very weak and crawled to the bathroom focusing on his breathing. He had similar symptoms of dyspnea, near syncope today. He refused to go to the ER yesterday. Apparently, Dr. Castillo recommended he go to the ER last week due to worsening angina. His isosorbide was increased last month at his cardiology appointment. Family also indicated he was non compliant with oxygen use at home. 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) Proteinuria Cad (Coronary Artery Disease), [place] Coronary Artery Ckd (Chronic Kidney Disease) Stage 3, Gfr 30-59 Ml/Min ([facility]) Aortic Stenosis Acute On Chronic Combined Systolic and Diastolic Heart Failure ([facility]) Pulmonary Hypertension, Primary ([facility]) Hypertensive Kidney Disease With Ckd Stage Iii ([facility]) S/P Aortic Valve Replacement Current Outpatient Prescriptions: isosorbide dinitrate (ISORDIL, SORBITRATE) 30 mg tablet Take 1 tablet by mouth twice daily. insulin glargine (LANTUS SOLOSTAR U-100 INSULIN) 100 unit/mL (3 mL) inpn Inject 26 Units subcutaneously every evening. Take around 10 PM. insulin aspart U-100 (NOVOLOG FLEXPEN U-100 INSULIN) 100 unit/mL inpn Inject 12 units as a base then 1 unit for every 25 carbs 3 times a day with meals and snacks. 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 clopidogrel (PLAVIX) 75 mg tablet Take 1 tablet by mouth once daily. atorvastatin (LIPITOR) 40 mg tablet TAKE 1 TABLET BY MOUTH AT BEDTIME furosemide (LASIX) 80 mg tablet TAKE ONE-HALF TABLET BY MOUTH ONCE DAILY psyllium seed, with dextrose, (FIBER ORAL) Take 30 g by mouth once daily. MEDICATION, NON-DATABASE 1,000 mg. tumeric blood sugar diagnostic (FREESTYLE TEST) test strip Check blood sugar 4 times daily, E11.22 ipratropium bromide (ATROVENT) 42 mcg (0.06 %) nasal spray Use 2 Sprays in the nose twice daily as needed. carvedilol (COREG) 6.25 mg tablet Take 1 tablet by mouth twice daily with meals. chromium picolinate 1,000 mcg tab Take by mouth. omega 1-olh-ata-fish oil 350 mg-235 mg- 90 mg-597 mg cpDR Take by mouth. nitroglycerin sublingual (NITROSTAT) 0.4 mg SL tablet Dissolve 1 tablet under the tongue every 5 minutes as needed for Chest Pain. vitamin b complex (B COMPLETE) tab Take 1 tablet by mouth once daily. OXYGEN, HOME THERAPY, Inhale as instructed as directed. 3 lts at night while sleeping and 2 lts if needed while awake Blood-Glucose Meter (GMATE VOICE METER) misc Use as directed, test 4 times a day and as needed dx E11.22 Lancing Device (GMATE LANCING DEVICE) [facility] LiteTouch Test 4 times daily, and PRN Insulin yes, dx:E11.22 aspirin, enteric coated (ASPIRIN, ENTERIC COATED) 81 mg EC tablet Take 81 mg by mouth once daily. Cholecalciferol, Vitamin D3, (VITAMIN D-3) 1,000 unit Chew Take 5,000 Units by mouth once daily. No current facility-administered medications for this visit. Review of Systems Constitutional: Positive for fatigue. Negative for chills, diaphoresis and fever. HENT: Negative for trouble swallowing. Eyes: Negative for visual disturbance. Respiratory: Positive for chest tightness and shortness of breath. Cardiovascular: Negative for chest pain, palpitations and leg swelling. Gastrointestinal: Negative for blood in stool, nausea and vomiting. Genitourinary: Negative. Musculoskeletal: Positive for gait problem. Skin: Positive for wound. Neurological: Positive for dizziness, syncope and weakness. Negative for speech difficulty and headaches. Objective BP 99/55 (BP Site: Right Arm, BP Position: Sitting, BP Cuff Size: Regular Adult) Pulse 62 Temp 37.2 ?C (99 ?F) (Temporal Artery) Resp 16 Wt 72.1 kg (159 lb) BMI 24.18 kg/m? Supine BP:114/48 Pulse:60. Sitting BP110/48 Pulse:60. Physical Exam Constitutional: He is oriented to person, place, and time. No distress. Hard of hearing. HENT: Nose: Nose normal. Mouth/Throat: Oropharynx is clear and moist. Contusion right forehead. Eyes: Pupils are equal, round, and reactive to light. EOM are normal. Neck: No JVD present. Cardiovascular: Regular rhythm, S1 normal and S2 normal. Bradycardia present. Murmur heard. Systolic murmur is present with a grade of 1/6 LSB Pulmonary/Chest: No respiratory distress. He has no wheezes. He has rales in the right lower field and the left lower field. Abdominal: Soft. There is no tenderness. Musculoskeletal: He exhibits no edema. Swollen, ecchymotic, abscessed right 2nd toe with seropurulent drainage. Neurological: He is alert and oriented to person, place, and time. No cranial nerve deficit or sensory deficit. GCS eye subscore is 4. GCS verbal subscore is 5. GCS motor subscore is 6. No lateralizing weakness. General weakness. Skin: He is not diaphoretic. Crusted ulcer with erythema, below left inguinal line. EKG RESULTS: normal sinus rhythm and LAD, LVH, inferior infarct pattern. New asymmetric T inversions in chest leads. Assessment and Plan 1. Fall, initial encounter - ICD9: E888.9, ICD10: W19.XXXA (primary diagnosis) 2. Syncope, unspecified syncope type - ICD9: 780.2, ICD10: R55 - ECG COMPLETE W INTERPRETATION 3. Closed head injury, initial encounter - ICD9: 959.01, ICD10: S09.90XA 4. Abscess of second toe of right foot - ICD9: 681.10, ICD10: L02.611 5. Folliculitis - ICD9: 704.8, ICD10: L73.9 Left inguinal area. 6. Coronary artery disease involving [place] coronary artery of [place] heart with angina pectoris (HCC) - ICD9: 414.01, 413.9, ICD10: I25.119 Rule out ACS. EKG showed new changes. I recommended ER evaluation and likely admission. Patient and family agreed, and they preferred to take him directly to [place] [facility]. Last 2 EKGs provided. I discussed his situation with Dr. Kole Lorenzo. At least 40 minutes was spent for this evaluation. Eduin Hagen MD Referring Provider: EDUIN HAGEN [[id number]] Allergies As of Date: 06/23/2018 Noted Allergy Reaction REMERON (MIRTAZAPINE) 07/10/2015 5 - Intolerance Comments: sleptalot; felt spaced out. DEMEROL (MEPERIDINE HCL) 03/18/2005 5 - Intolerance Comments: Vomiting spacey Date Reviewed: 06/23/2018 Reviewed by: Criselda Gallardo LPN - Fully Assessed Reason for Visit: F/U 3 Month [443] Primary Visit Diagnosis:Fall, initial encounter [W19.XXXA] Other Visit Diagnoses:Syncope, unspecified syncope type [R55] Closed head injury, initial encounter [S09.90XA] Abscess of second toe of right foot [L02.611] Folliculitis [L73.9] Coronary artery disease involving [place] coronary artery of [place] heart with angina pectoris (HCC) [I25.119] Order(s):ECG COMPLETE W INTERPRETATION [ECG01] Order #: [id number] FUTURE COMPLETE ECG [0615388] Order #: [id number]. #:[id number]--[id number]: 1 Prescriptions as of 06/23/2018 Sig: ISOSORBIDE DINITRATE 30 MG TA* Take 1 tablet by mouth twice * INSULIN GLARGINE (U-100) 100 * Inject 26 Units subcutaneousl* INSULIN ASPART U-100 100 UNI* Inject 12 units as a base the* PEN NEEDLE, DIABETIC 31 GAUGE* Use 1 pen needle for each ins* LOPERAMIDE 2 MG TABLET Take 1/2 tablet each morning. CLOPIDOGREL 75 MG TABLET Take 1 tablet by mouth once d* ATORVASTATIN 40 MG TABLET TAKE 1 TABLET BY MOUTH AT BED* FUROSEMIDE 80 MG TABLET TAKE ONE-HALF TABLET BY MOUTH* FIBER ORAL Take 30 g by mouth once daily* MEDICATION, NON-DATABASE 1,000 mg. tumeric BLOOD SUGAR DIAGNOSTIC STRIPS Check blood sugar 4 times jameel* IPRATROPIUM BROMIDE 42 MCG (0* Use 2 Sprays in the nose twic* CARVEDILOL 6.25 MG TABLET Take 1 tablet by mouth twice * CHROMIUM PICOLINATE 1,000 MCG* Take by mouth. OMEGA 3 350 MG-DHA 235 MG-EPA* Take by mouth. NITROGLYCERIN 0.4 MG SUBLINGU* Dissolve 1 tablet under the t* VITAMIN B COMPLEX TABLET Take 1 tablet by mouth once d* OXYGEN (HOME THERAPY) Inhale as instructed as dire* BLOOD-GLUCOSE METER Use as directed, test 4 times* LANCING DEVICE LiteTouch Test 4 times daily,* ASPIRIN 81 MG TABLET,DELAYED * Take 81 mg by mouth once joanie* CHOLECALCIFEROL (VITAMIN D3) * Take 5,000 Units by mouth onc* Medication notes this encounter BLOOD SUGAR DIAGNOSTIC STRIPS >> Criselda Gallardo LPN 06/23/2018 4:23 PM >> CRISELDA GALLARDO LPN FriJun 23, 2018 4:23 PM Patient testing blood sugar(s) x2 daily. OXYGEN (HOME THERAPY) >> Criselda Gallardo LPN 06/23/2018 4:25 PM >> CRISELDA GALLARDO LPN FriJun 23, 2018 4:25 PM Per family, Patient is not using oxygen through day. Problem List As Of Date 06/23/2018 Noted Resolved Other hyperlipidemia [E78.49] BENIGN HYPERTENSION [I10] AORTOCORONARY BYPASS STATUS [Z95.1] INVALID FOR* HEARING LOSS NOS [H91.90] INVALID FOR* Type II diabetes mellitus with renal manifestat*INVALID FOR* NEUROPATHY IN DIABETES [E11.42] INVALID FOR* Impotence of organic origin [N52.9] INVALID FOR*10/17/2015 CHRONIC RHINITIS [J31.0] INVALID FOR* Hypertrophy of prostate without urinary obstruc*INVALID FOR*05/22/2017 MOD NONPROLIF DIAB RETINOPATHY [E11.3399] INVALID FOR* More... Proteinuria [R80.9] INVALID FOR* Debility [R53.81] INVALID FOR*05/22/2017 Atrial flutter [I48.92] INVALID FOR*10/17/2015 More... Gallbladder calculus without cholecystitis [K80*INVALID FOR*11/04/2013 ADHF (acute decompensated heart failure) (HCC) *INVALID FOR*10/11/2014 More... Angina pectoris (HCC) [I20.9] INVALID FOR*10/16/2015 More... CAD (coronary artery disease), [place] coronary *INVALID FOR* More... SUMMARY [V999.95] INVALID FOR*05/09/2014 More... CKD (chronic kidney disease) stage 3, GFR 30-59*INVALID FOR* Aortic stenosis [I35.0] INVALID FOR* More... Lung crackles [R09.89] INVALID FOR*10/11/2014 More... SUMMARY [V999.95] INVALID FOR*10/17/2015 More... Hematoma [T14.8XXA] INVALID FOR*10/11/2014 More... Rash and nonspecific skin eruption [R21] INVALID FOR*10/17/2015 Hydrocele of testis [N43.3] INVALID FOR*10/17/2015 BPH with obstruction/lower urinary tract sympto*INVALID FOR*10/17/2015 Encounter for screening for other disorder [Z13*INVALID FOR*10/17/2015 SUMMARY INVALID FOR*04/09/2015 More... Acute on chronic combined systolic and diastoli*INVALID FOR* Acute renal injury (HCC) [N17.9] INVALID FOR*10/16/2015 More... Ascites of liver [R18.8] INVALID FOR*10/16/2015 More... Pulmonary hypertension, primary (HCC) [I27.0] INVALID FOR* More... More... Depressive disorder [F32.9] INVALID FOR*05/22/2017 Dental caries on smooth surface penetrating int*INVALID FOR*10/17/2015 Hypertensive kidney disease with CKD stage III *INVALID FOR* More... S/P aortic valve replacement [Z95.2] INVALID FOR* Right foot ulcer (HCC) [L97.519] INVALID FOR*08/08/2016 ACS (acute coronary syndrome) (HCC) [I24.9] INVALID FOR*05/22/2017 Other instructions from your clinician: Your EKG has changed. Go to the ER for evaluation of multiple concerns. Encounter Status:Closed by EDUIN HAGEN MD on 06/23/18 OBSOLETE Observed: 06/16/2018 Status: COMPLETED Source: [place] 12:00 AM [facility] REPOSITORY Refill (INTMWS) MARISSA PERALTA ([id number]) 1950 M Date Time Provider Department 06/16/18 EDUIN HAGEN During your visit today, we recorded the following information about you: Meghana Veras LPN 06/16/2018 6:38 PM Signed Refill request from [facility] for Isosorbide. Original Rx was written for 2 tabs TID. At last office visit patient reported taking 1 tab BID. Order pended to refect new sig if appropriate. Call from pharmacy requesting refill. Pending Prescriptions Disp Refills ISOSORBIDE DINITRATE 30 MG TABLET 60 tablet 11 Sig: Take 1 tablet by mouth twice daily. CAAR: No Patient last seen 03/24/18 Meghana Bermudez APRN.ADMINISTRATIVE OFFICE MANAGER 06/17/2018 8:26 AM Signed At last office visit Dr. Castillo made the following recommendations: As he is not taking his isosorbide as recommended, I have asked him to gradually return to the previous schedule of 30 milligrams 3 times daily. Please find out if patient has been taking as directed. Stacia Bermudez APRN.ADMINISTRATIVE OFFICE MANAGER Criselda Gallardo LPN 06/17/2018 8:34 AM Signed Per , Marissa is taking 1 tablet twice daily. Criselda Gallardo LPN Allergies As of Date: 06/16/2018 Noted Allergy Reaction REMERON (MIRTAZAPINE) 07/10/2015 5 - Intolerance Comments: sleptalot; felt spaced out. DEMEROL (MEPERIDINE HCL) 03/18/2005 5 - Intolerance Comments: Vomiting spacey Date Reviewed: 05/28/2018 Reviewed by: Janet Schroeder LPN - Fully Assessed Reason for Visit: Refill Request [94] Order(s):isosorbide dinitrate (ISORDIL, SORBITRATE) 30 mg tabletTake 1 tablet by mouth twice daily.Disp: 60 tabletRfl: 11 Prescriptions as of 06/16/2018 Sig: ISOSORBIDE DINITRATE 30 MG TA* Take 1 tablet by mouth twice * INSULIN GLARGINE (U-100) 100 * Inject 26 Units subcutaneousl* INSULIN ASPART U-100 100 UNI* Inject 12 units as a base the* PEN NEEDLE, DIABETIC 31 GAUGE* Use 1 pen needle for each ins* LOPERAMIDE 2 MG TABLET Take 1/2 tablet each morning. CLOPIDOGREL 75 MG TABLET Take 1 tablet by mouth once d* ATORVASTATIN 40 MG TABLET TAKE 1 TABLET BY MOUTH AT BED* FUROSEMIDE 80 MG TABLET TAKE ONE-HALF TABLET BY MOUTH* FIBER ORAL Take 30 g by mouth once daily* MEDICATION, NON-DATABASE 1,000 mg. tumeric BLOOD SUGAR DIAGNOSTIC STRIPS Check blood sugar 4 times jameel* IPRATROPIUM BROMIDE 42 MCG (0* Use 2 Sprays in the nose twic* CARVEDILOL 6.25 MG TABLET Take 1 tablet by mouth twice * CHROMIUM PICOLINATE 1,000 MCG* Take by mouth. OMEGA 3 350 MG-DHA 235 MG-EPA* Take by mouth. NITROGLYCERIN 0.4 MG SUBLINGU* Dissolve 1 tablet under the t* VITAMIN B COMPLEX TABLET Take 1 tablet by mouth once d* OXYGEN (HOME THERAPY) Inhale as instructed as dire* BLOOD-GLUCOSE METER Use as directed, test 4 times* LANCING DEVICE LiteTouch Test 4 times daily,* ASPIRIN 81 MG TABLET,DELAYED * Take 81 mg by mouth once joanie* CHOLECALCIFEROL (VITAMIN D3) * Take 5,000 Units by mouth onc* Problem List As Of Date 06/16/2018 Noted Resolved Other hyperlipidemia [E78.49] BENIGN HYPERTENSION [I10] AORTOCORONARY BYPASS STATUS [Z95.1] INVALID FOR* HEARING LOSS NOS [H91.90] INVALID FOR* Type II diabetes mellitus with renal manifestat*INVALID FOR* NEUROPATHY IN DIABETES [E11.42] INVALID FOR* Impotence of organic origin [N52.9] INVALID FOR*10/17/2015 CHRONIC RHINITIS [J31.0] INVALID FOR* Hypertrophy of prostate without urinary obstruc*INVALID FOR*05/22/2017 MOD NONPROLIF DIAB RETINOPATHY [E11.3399] INVALID FOR* More... Proteinuria [R80.9] INVALID FOR* Debility [R53.81] INVALID FOR*05/22/2017 Atrial flutter [I48.92] INVALID FOR*10/17/2015 More... Gallbladder calculus without cholecystitis [K80*INVALID FOR*11/04/2013 ADHF (acute decompensated heart failure) ([facility]) *INVALID FOR*10/11/2014 More... Angina pectoris (HCC) [I20.9] INVALID FOR*10/16/2015 More... CAD (coronary artery disease), [place] coronary *INVALID FOR* More... SUMMARY [V999.95] INVALID FOR*05/09/2014 More... CKD (chronic kidney disease) stage 3, GFR 30-59*INVALID FOR* Aortic stenosis [I35.0] INVALID FOR* More... Lung crackles [R09.89] INVALID FOR*10/11/2014 More... SUMMARY [V999.95] INVALID FOR*10/17/2015 More... Hematoma [T14.8XXA] INVALID FOR*10/11/2014 More... Rash and nonspecific skin eruption [R21] INVALID FOR*10/17/2015 Hydrocele of testis [N43.3] INVALID FOR*10/17/2015 BPH with obstruction/lower urinary tract sympto*INVALID FOR*10/17/2015 Encounter for screening for other disorder [Z13*INVALID FOR*10/17/2015 SUMMARY INVALID FOR*04/09/2015 More... Acute on chronic combined systolic and diastoli*INVALID FOR* Acute renal injury (HCC) [N17.9] INVALID FOR*10/16/2015 More... Ascites of liver [R18.8] INVALID FOR*10/16/2015 More... Pulmonary hypertension, primary (HCC) [I27.0] INVALID FOR* More... More... Depressive disorder [F32.9] INVALID FOR*05/22/2017 Dental caries on smooth surface penetrating int*INVALID FOR*10/17/2015 Hypertensive kidney disease with CKD stage III *INVALID FOR* More... S/P aortic valve replacement [Z95.2] INVALID FOR* Right foot ulcer (HCC) [L97.519] INVALID FOR*08/08/2016 ACS (acute coronary syndrome) (HCC) [I24.9] INVALID FOR*05/22/2017 Prescriptions ordered this encounter Disp Refills Start End ISOSORBIDE DINITRATE 30 MG TABLET 60 t* 11 06/17/2018 Route: ORAL Sig: Take 1 tablet by mouth twice daily. Medications Discontinued During This Encounter isosorbide dinitrate (ISORDIL, SORBI* 180 * 11 06/10/2017 06/17/2018 Cmt: Please consider 90 day supplies to promote better adherence Sig: TAKE TWO TABLETS BY MOUTH THREE TIMES DAILY Patient taking differently: take 2 tablets twice a ay Disc: Reason for discontinue is not on file. Encounter Status:Closed by STACIA BERMUDEZ CNP on 06/17/18 PROGRESS Observed: 05/28/2018 Status: COMPLETED Source: [place] 12:40 PM [facility] REPOSITORY HNO ID: [id number] Author: Guerda Jones) Ramos Service: (none) Author Type: Nurse Practitioner Type: Progress Notes Filed: 05/29/2018 8:04 AM Note Text: Marissa Peralta a 67 year old male who is returning for follow up regarding loose stool. I saw the patient in consultation on 05/05/18. That note has been reviewed. he reported loose stool since LAST May. Going several times a day. When I saw him on the he told me that he had started fiber and the stool was firming up. He was experiencing shortness of breath, and had a follow up with Dr. Castillo on 05/20/18. I suggested that we postpone setting up any procedures until after that appointment. The patient exhibits shortness of breath after walking in to the office. It has taken some time for him to recover. The patient didn't turn in the stool test until 05/24/18. We have contacted lab to expedite results, as it shows it's still pending. Component Latest Ref Rng AND Units 05/05/2018 Protein, Total 6.3 - 8.0 g/dL 7.2 Albumin 3.9 - 4.9 g/dL 4.1 Calcium 8.5 - 10.2 mg/dL 9.7 Bilirubin, Total 0.2 - 1.3 mg/dL 0.4 Alkaline Phosphatase 38 - 113 U/L 99 AST 14 - 40 U/L 20 Glucose 74 - 99 mg/dL 174 (H) BUN 9 - 24 mg/dL 56 (H) Creatinine 0.73 - 1.22 mg/dL 2.73 (H) Sodium 136 - 144 mmol/L 141 Potassium 3.7 - 5.1 mmol/L 4.4 Chloride 97 - 105 mmol/L 103 CO2 22 - 30 mmol/L 22 Anion Gap 9 - 18 mmol/L 16 ALT 10 - 54 U/L 22 eGFR- 28 eGFR-All Other Races . 24 Lipase 16 - 61 U/L 33 Amylase 30 - 104 U/L 76 Component Latest Ref Rng AND Units 05/20/2018 Magnesium 1.7 - 2.3 mg/dL 2.[address] Castillo on 05/20 has been reviewed and part as follows: CLINICAL IMPRESSION/PLAN: Marissa Peralta has had an increase in his exercise-related shortness of breath. This may be an ischemic equivalent. We would like to avoid any further dye test given his renal insufficiency. As he is not taking his isosorbide as recommended, I have asked him to gradually return to the previous schedule of 40 milligrams 3 times daily. I've asked him to update me in the next few weeks. ? He's had no recurrence of his atrial arrhythmia. ? His aortic valve gradients appears stable by exam. Is blood pressure is well-controlled. ? He will have an echocardiogram in 4 months for follow-up of his valvular heart disease and LV function. ? I recommend follow-up in the office in 6 months. ? Written and verbal health teaching given to patient, patient verbalizes understanding and agrees with treatment plan. Presenting complaint: The patient presents today reporting that he still has three or four bowel movements a day. Form can range from fluid to solid. He tells me that he has cramping (LLQ) and gas with the looser stools. Stools are brown in color. No visible blood or black stool. The patient continues to drink milk and eat ice cream just not every day. He tells me that he switched to organic. I have explained that it's the lactose in the milk and ice cream that's a problem. His is lactose intolerant and tells me that she has Lactaid tablets that she will have him use. I'm not sure why she hasn't given them to him already, as she was present for our discussion on 05/05/18. The patient also continues to take magnesium 2-3 times a week. He started that on his own after reading something on line that recommended magnesium fir IBS symptoms. I have explained that he needs to stop it completely. We also discussed that 05/05/18. I have suggested taking 1/2 tablet of loperamide each morning while we get him set up for procedure. REVIEW OF SYSTEMS: GENERAL: No weight loss, malaise or fevers RESPIRATORY: Shortness of breath secondary to cardiac status (according to Anna). O2 at night. CARDIOVASCULAR: Decreasing exercise tolerence, CHF, Shortness of breath, Hypertension, ischemic cardiomyopathy - under the care of Dr. Castillo. GI: The patient states that his appetite has been adequate. He does get hungry. There has been no nausea, no vomiting. He denies dysphagia and denies odynophagia. There has not been indigestion or heartburn. There has not been regurgitation. Bowel habits have been irregular. There has been diarrhea. There has not been constipation. The patient denies rectal bleeding. There has not been melena. No abdominal pain. HEMATOLOGY/LYMPHOLOGY: On Plavix. No anemia. ENDOCRINE: Positive for diabetes mellitus on insulin NEURO: No history of headaches, syncope, paralysis, seizures or tremors All other reviewed and negative other than HPI. PAST MEDICAL HISTORY Diagnosis Date - Aortic stenosis 05/06/2014 - Ascites of liver 04/04/2015 ar hepatic seen on CTA - Atrial flutter (HCC) 10/09/2012 - Chronic renal insufficiency - Chronic rhinitis 03/19/2005 - CKD (chronic kidney disease) stage 3, GFR 30-59 ml/min (HCC) 05/05/2014 - Congestive heart failure (HCC) - Essential hypertension, benign - Fracture - Gallbladder calculus without cholecystitis 10/09/2012 - Hypertrophy of prostate without urinary obstruction and other lower urinary tract symptoms (LUTS) 12/03/2007 - Impotence of organic origin 03/19/2005 - Moderate nonproliferative diabetic retinopathy(362.05) 12/16/2007 Dr. Pope - Myocardial infarct, old - New onset atrial flutter (HCC) 10/09/2012 - Other and unspecified hyperlipidemia - Polyneuropathy in diabetes(357.2) 03/19/2005 - Postsurgical aortocoronary bypass status 03/19/2005 - Proteinuria 08/13/2010 - Rash and nonspecific skin eruption 06/27/2014 - Rheumatic fever - Type I (juvenile type) diabetes mellitus with renal manifestations, not stated as uncontrolled(250.41) 03/19/2005 - Type II or unspecified type diabetes mellitus without mention of complication, not stated as uncontrolled - Unspecified hearing loss 03/19/2005 PAST SURGICAL HISTORY Procedure Laterality Date - CABG, ARTERY-VEIN, FIVE 09/1997 - CC CORONARY STENT 05/16/2014 bare metal stent, LMT - CC CORONARY STENT 04/07/2015 ENZO, LCfx - CC CORONARY STENT 09/28/2016 ENZO again, Left Cfx - INCISION AND DRAINAGE, COMPLICATED OR MULT 2004 brown recluse, upper back. - LEFT HEART CATH,PERCUTANEOUS 12/17/2001 Cardiac cath, L heart - TAVR PROCEDURAL PLANNING 07/11/2015 FAMILY HISTORY Problem Relation Age of Onset - Diabetes Father age 71 - Heart Father - Diabetes Mother - None Brother Current Outpatient Prescriptions: aspirin, enteric coated (ASPIRIN, ENTERIC COATED) 81 mg EC tablet Take 81 mg by mouth once daily. Disp: Rfl: atorvastatin (LIPITOR) 40 mg tablet TAKE 1 TABLET BY MOUTH AT BEDTIME Disp: 30 tablet Rfl: 5 blood sugar diagnostic (FREESTYLE TEST) test strip Check blood sugar 4 times daily, E11.22 Disp: 400 Strip Rfl: 4 Blood-Glucose Meter (GMATE VOICE METER) misc Use as directed, test 4 times a day and as needed dx E11.22 Disp: 1 Each Rfl: 0 carvedilol (COREG) 6.25 mg tablet Take 1 tablet by mouth twice daily with meals. Disp: 180 tablet Rfl: 3 Cholecalciferol, Vitamin D3, (VITAMIN D-3) 1,000 unit Chew Take 5,000 Units by mouth once daily. Disp: Rfl: chromium picolinate 1,000 mcg tab Take by mouth. Disp: Rfl: clopidogrel (PLAVIX) 75 mg tablet Take 1 tablet by mouth once daily. Disp: 30 tablet Rfl: 11 furosemide (LASIX) 80 mg tablet TAKE ONE-HALF TABLET BY MOUTH ONCE DAILY Disp: 45 tablet Rfl: 99 insulin aspart U-100 (NOVOLOG FLEXPEN U-100 INSULIN) 100 unit/mL inpn Inject 12 units as a base then 1 unit for every 25 carbs 3 times a day with meals and snacks. (12-15 units based upon glucose) Disp: 5 Pen Rfl: 1 insulin glargine (LANTUS SOLOSTAR U-100 INSULIN) 100 unit/mL (3 mL) inpn Inject 26 Units subcutaneously every evening. Take around 10 PM. 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 Disp: 1 Bottle Rfl: 2 isosorbide dinitrate (ISORDIL, SORBITRATE) 30 mg tablet TAKE TWO TABLETS BY MOUTH THREE TIMES DAILY Disp: 180 tablet Rfl: 11 Lancing Device (GMATE LANCING DEVICE) misc LiteTouch Test 4 times daily, and PRN Insulin yes, dx:E11.22 Disp: 300 Each Rfl: 3 Magnesium Oxide 500 mg tab Take 400 mg by mouth once daily. Disp: Rfl: MEDICATION, NON-DATABASE 1,000 mg. tumeric Disp: Rfl: nitroglycerin sublingual (NITROSTAT) 0.4 mg SL tablet Dissolve 1 tablet under the tongue every 5 minutes as needed for Chest Pain. Disp: 1 Bottle of 25 Rfl: 2 omega 0-mie-hti-fish oil 350 mg-235 mg- 90 mg-597 mg cpDR Take by mouth. Disp: Rfl: OXYGEN, HOME THERAPY, Inhale as instructed as directed. 3 lts at night while sleeping and 2 lts if needed while awake Disp: Rfl: psyllium seed, with dextrose, (FIBER ORAL) Take 30 g by mouth once daily. Disp: Rfl: vitamin b complex (B COMPLETE) tab Take 1 tablet by mouth once daily. Disp: Rfl: 0 No current facility-administered medications for this visit. SOCIAL HISTORY: Patient is . He quit smoking 8 years ago. He doesn't drink alcohol. He denies recreational drug use. PHYSICAL EXAMINATION: Blood pressure 138/64, pulse 61, height 172.7 cm (5' 8), weight 69.4 kg (153 lb). General Appearance: Appears older than his age, alert, in no acute distress, well-hydrated, well nourished. Skin: Skin color, texture, turgor normal, no suspicious rashes or lesions. Head: Normocephalic, no masses, lesions or abnormalities. Eyes: Anicteric sclera. Pupils are equally round and reactive to light. Extraocular movements are intact. Oropharynx: Lips, mucosa, and tongue normal, teeth and gums normal, oropharynx normal. Neck: Supple, no adenopathy; thyroid symmetric, normal size. Lungs: lungs clear to auscultation. No wheezing, rhonchi, rales. Heart: RRR with 1/6 murmur. Abdomen: Normal abdominal exam, Abdomen soft, non-tender. Bowel sounds normal. No masses, organomegaly. Extremities: No deformities. Trace edema bilateral lower extremities. Peripheral Pulses: Normal. Impression: altered bowel habits, some of which may be med related. lactose inotlerance Plan: Loperamide. Lactaid. Stop magnesium. Continue fiber. Status update 06/04, then set up for procedures. Performable message if any concerns in the mean time. He agrees with this plan. I have personally interviewed and examined this patient. I have reviewed the information that the PROPERTY CLERK entered for this encounter. I spent 30 minutes in the visit, with greater than 50% of the total [id number]-ib-[id number] time of the visit in counseling and coordination of care. Guerda Beasley RN APRN.SUNITA CNOV Observed: 05/28/2018 Status: COMPLETED Source: [place] 12:40 PM [facility] REPOSITORY Office Visit ([facility]) MARISSA PERALTA ([id number]) 1950 M Date Time Provider Department 05/28/18 12:40 PM GUERDA BEASLEY ([employer]) [facility] During your visit today, we recorded the following information about you: Pulse Blood pressure Weight Height 61/minute 138/64 69.4 kg 1.727 m Guerda Beasley RN APRN.SUNITA 05/29/2018 8:04 AM Signed Marissa Peralta a 67 year old male who is returning for follow up regarding loose stool. I saw the patient in consultation on 05/05/18. That note has been reviewed. he reported loose stool since LAST May. Going several times a day. When I saw him on the he told me that he had started fiber and the stool was firming up. He was experiencing shortness of breath, and had a follow up with Dr. Castillo on 05/20/18. I suggested that we postpone setting up any procedures until after that appointment. The patient exhibits shortness of breath after walking in to the office. It has taken some time for him to recover. The patient didn't turn in the stool test until 05/24/18. We have contacted lab to expedite results, as it shows it's still pending. Component Latest Ref Rng AND Units 05/05/2018 Protein, Total 6.3 - 8.0 g/dL 7.2 Albumin 3.9 - 4.9 g/dL 4.1 Calcium 8.5 - 10.2 mg/dL 9.7 Bilirubin, Total 0.2 - 1.3 mg/dL 0.4 Alkaline Phosphatase 38 - 113 U/L 99 AST 14 - 40 U/L 20 Glucose 74 - 99 mg/dL 174 (H) BUN 9 - 24 mg/dL 56 (H) Creatinine 0.73 - 1.22 mg/dL 2.73 (H) Sodium 136 - 144 mmol/L 141 Potassium 3.7 - 5.1 mmol/L 4.4 Chloride 97 - 105 mmol/L 103 CO2 22 - 30 mmol/L 22 Anion Gap 9 - 18 mmol/L 16 ALT 10 - 54 U/L 22 eGFR- 28 eGFR-All Other Races . 24 Lipase 16 - 61 U/L 33 Amylase 30 - 104 U/L 76 Component Latest Ref Rng AND Units 05/20/2018 Magnesium 1.7 - 2.3 mg/dL 2.[address] Castillo on 05/20 has been reviewed and part as follows: CLINICAL IMPRESSION/PLAN: Marissa Peralta has had an increase in his exercise-related shortness of breath. This may be an ischemic equivalent. We would like to avoid any further dye test given his renal insufficiency. As he is not taking his isosorbide as recommended, I have asked him to gradually return to the previous schedule of 40 milligrams 3 times daily. I've asked him to update me in the next few weeks. ? He's had no recurrence of his atrial arrhythmia. ? His aortic valve gradients appears stable by exam. Is blood pressure is well-controlled. ? He will have an echocardiogram in 4 months for follow-up of his valvular heart disease and LV function. ? I recommend follow-up in the office in 6 months. ? Written and verbal health teaching given to patient, patient verbalizes understanding and agrees with treatment plan. Presenting complaint: The patient presents today reporting that he still has three or four bowel movements a day. Form can range from fluid to solid. He tells me that he has cramping (LLQ) and gas with the looser stools. Stools are brown in color. No visible blood or black stool. The patient continues to drink milk and eat ice cream just not every day. He tells me that he switched to organic. I have explained that it's the lactose in the milk and ice cream that's a problem. His is lactose intolerant and tells me that she has Lactaid tablets that she will have him use. I'm not sure why she hasn't given them to him already, as she was present for our discussion on 05/05/18. The patient also continues to take magnesium 2-3 times a week. He started that on his own after reading something on line that recommended magnesium fir IBS symptoms. I have explained that he needs to stop it completely. We also discussed that 05/05/18. I have suggested taking 1/2 tablet of loperamide each morning while we get him set up for procedure. REVIEW OF SYSTEMS: GENERAL: No weight loss, malaise or fevers RESPIRATORY: Shortness of breath secondary to cardiac status (according to Anna). O2 at night. CARDIOVASCULAR: Decreasing exercise tolerence, CHF, Shortness of breath, Hypertension, ischemic cardiomyopathy - under the care of Dr. Castillo. GI: The patient states that his appetite has been adequate. He does get hungry. There has been no nausea, no vomiting. He denies dysphagia and denies odynophagia. There has not been indigestion or heartburn. There has not been regurgitation. Bowel habits have been irregular. There has been diarrhea. There has not been constipation. The patient denies rectal bleeding. There has not been melena. No abdominal pain. HEMATOLOGY/LYMPHOLOGY: On Plavix. No anemia. ENDOCRINE: Positive for diabetes mellitus on insulin NEURO: No history of headaches, syncope, paralysis, seizures or tremors All other reviewed and negative other than HPI. PAST MEDICAL HISTORY Diagnosis Date - Aortic stenosis 05/06/2014 - Ascites of liver 04/04/2015 ar hepatic seen on CTA - Atrial flutter (HCC) 10/09/2012 - Chronic renal insufficiency - Chronic rhinitis 03/19/2005 - CKD (chronic kidney disease) stage 3, GFR 30-59 ml/min ([facility]) 05/05/2014 - Congestive heart failure (HCC) - Essential hypertension, benign - Fracture - Gallbladder calculus without cholecystitis 10/09/2012 - Hypertrophy of prostate without urinary obstruction and other lower urinary tract symptoms (LUTS) 12/03/2007 - Impotence of organic origin 03/19/2005 - Moderate nonproliferative diabetic retinopathy(362.05) 12/16/2007 Dr. Pope - Myocardial infarct, old - New onset atrial flutter ([facility]) 10/09/2012 - Other and unspecified hyperlipidemia - Polyneuropathy in diabetes(357.2) 03/19/2005 - Postsurgical aortocoronary bypass status 03/19/2005 - Proteinuria 08/13/2010 - Rash and nonspecific skin eruption 06/27/2014 - Rheumatic fever - Type I (juvenile type) diabetes mellitus with renal manifestations, not stated as uncontrolled(250.41) 03/19/2005 - Type II or unspecified type diabetes mellitus without mention of complication, not stated as uncontrolled - Unspecified hearing loss 03/19/2005 PAST SURGICAL HISTORY Procedure Laterality Date - CABG, ARTERY-VEIN, FIVE 09/1997 - CC CORONARY STENT 05/16/2014 bare metal stent, LMT - CC CORONARY STENT 04/07/2015 ENZO, LCfx - CC CORONARY STENT 09/28/2016 ENZO again, Left Cfx - INCISION AND DRAINAGE, COMPLICATED OR MULT 2004 brown recluse, upper back. - LEFT HEART CATH,PERCUTANEOUS 12/17/2001 Cardiac cath, L heart - TAVR PROCEDURAL PLANNING 07/11/2015 FAMILY HISTORY Problem Relation Age of Onset - Diabetes Father age 71 - Heart Father - Diabetes Mother - None Brother Current Outpatient Prescriptions: aspirin, enteric coated (ASPIRIN, ENTERIC COATED) 81 mg EC tablet Take 81 mg by mouth once daily. Disp: Rfl: atorvastatin (LIPITOR) 40 mg tablet TAKE 1 TABLET BY MOUTH AT BEDTIME Disp: 30 tablet Rfl: 5 blood sugar diagnostic (FREESTYLE TEST) test strip Check blood sugar 4 times daily, E11.22 Disp: 400 Strip Rfl: 4 Blood-Glucose Meter (GMATE VOICE METER) misc Use as directed, test 4 times a day and as needed dx E11.22 Disp: 1 Each Rfl: 0 carvedilol (COREG) 6.25 mg tablet Take 1 tablet by mouth twice daily with meals. Disp: 180 tablet Rfl: 3 Cholecalciferol, Vitamin D3, (VITAMIN D-3) 1,000 unit Chew Take 5,000 Units by mouth once daily. Disp: Rfl: chromium picolinate 1,000 mcg tab Take by mouth. Disp: Rfl: clopidogrel (PLAVIX) 75 mg tablet Take 1 tablet by mouth once daily. Disp: 30 tablet Rfl: 11 furosemide (LASIX) 80 mg tablet TAKE ONE-HALF TABLET BY MOUTH ONCE DAILY Disp: 45 tablet Rfl: 99 insulin aspart U-100 (NOVOLOG FLEXPEN U-100 INSULIN) 100 unit/mL inpn Inject 12 units as a base then 1 unit for every 25 carbs 3 times a day with meals and snacks. (12-15 units based upon glucose) Disp: 5 Pen Rfl: 1 insulin glargine (LANTUS SOLOSTAR U-100 INSULIN) 100 unit/mL (3 mL) inpn Inject 26 Units subcutaneously every evening. Take around 10 PM. 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 Disp: 1 Bottle Rfl: 2 isosorbide dinitrate (ISORDIL, SORBITRATE) 30 mg tablet TAKE TWO TABLETS BY MOUTH THREE TIMES DAILY Disp: 180 tablet Rfl: 11 Lancing Device (GMATE LANCING DEVICE) misc LiteTouch Test 4 times daily, and PRN Insulin yes, dx:E11.22 Disp: 300 Each Rfl: 3 Magnesium Oxide 500 mg tab Take 400 mg by mouth once daily. Disp: Rfl: MEDICATION, NON-DATABASE 1,000 mg. tumeric Disp: Rfl: nitroglycerin sublingual (NITROSTAT) 0.4 mg SL tablet Dissolve 1 tablet under the tongue every 5 minutes as needed for Chest Pain. Disp: 1 Bottle of 25 Rfl: 2 omega 2-jum-nir-fish oil 350 mg-235 mg- 90 mg-597 mg cpDR Take by mouth. Disp: Rfl: OXYGEN, HOME THERAPY, Inhale as instructed as directed. 3 lts at night while sleeping and 2 lts if needed while awake Disp: Rfl: psyllium seed, with dextrose, (FIBER ORAL) Take 30 g by mouth once daily. Disp: Rfl: vitamin b complex (B COMPLETE) tab Take 1 tablet by mouth once daily. Disp: Rfl: 0 No current facility-administered medications for this visit. SOCIAL HISTORY: Patient is . He quit smoking 8 years ago. He doesn't drink alcohol. He denies recreational drug use. PHYSICAL EXAMINATION: Blood pressure 138/64, pulse 61, height 172.7 cm (5' 8), weight 69.4 kg (153 lb). General Appearance: Appears older than his age, alert, in no acute distress, well-hydrated, well nourished. Skin: Skin color, texture, turgor normal, no suspicious rashes or lesions. Head: Normocephalic, no masses, lesions or abnormalities. Eyes: Anicteric sclera. Pupils are equally round and reactive to light. Extraocular movements are intact. Oropharynx: Lips, mucosa, and tongue normal, teeth and gums normal, oropharynx normal. Neck: Supple, no adenopathy; thyroid symmetric, normal size. Lungs: lungs clear to auscultation. No wheezing, rhonchi, rales. Heart: RRR with 1/6 murmur. Abdomen: Normal abdominal exam, Abdomen soft, non-tender. Bowel sounds normal. No masses, organomegaly. Extremities: No deformities. Trace edema bilateral lower extremities. Peripheral Pulses: Normal. Impression: altered bowel habits, some of which may be med related. lactose inotlerance Plan: Loperamide. Lactaid. Stop magnesium. Continue fiber. Status update 06/04, then set up for procedures. MyChart message if any concerns in the mean time. He agrees with this plan. I have personally interviewed and examined this patient. I have reviewed the information that the PROPERTY CLERK entered for this encounter. I spent 30 minutes in the visit, with greater than 50% of the total jiwl-lg-lfyl time of the visit in counseling and coordination of care. Guerda Beasley RN [employer].SUNITA Beasley RN APRN.SUNITA 05/28/2018 1:51 PM Addendum Stop the magnesium. Continue fiber - either fiber or stir- in. Take 1/2 tablet loperamide each morning. Send a MyChart message with how this is working. Referring Provider: GUERDA BEASLEY ([employer]) [[id number]] Allergies As of Date: 05/28/2018 Noted Allergy Reaction REMERON (MIRTAZAPINE) 07/10/2015 5 - Intolerance Comments: sleptalot; felt spaced out. DEMEROL (MEPERIDINE HCL) 03/18/2005 5 - Intolerance Comments: Vomiting spacey Date Reviewed: 05/28/2018 Reviewed by: Janet Schroeder LPN - Fully Assessed Reason for Visit: follow up diarrhea [Other] Primary Visit Diagnosis:Altered bowel habits [R19.4] Other Visit Diagnosis:Loose stools [R19.5] Order(s):Loperamide HCl (IMODIUM) 2 mg tabTake 1/2 tablet each morning.Disp: 15 tabletRfl: 2 Prescriptions as of 05/28/2018 Sig: ISOSORBIDE DINITRATE 30 MG TA* TAKE TWO TABLETS BY MOUTH THR* Patient taking differently: take 2 tablets twice a ay ASPIRIN 81 MG TABLET,DELAYED * Take 81 mg by mouth once joanie* ATORVASTATIN 40 MG TABLET TAKE 1 TABLET BY MOUTH AT BED* BLOOD SUGAR DIAGNOSTIC STRIPS Check blood sugar 4 times jameel* BLOOD-GLUCOSE METER Use as directed, test 4 times* CARVEDILOL 6.25 MG TABLET Take 1 tablet by mouth twice * CHOLECALCIFEROL (VITAMIN D3) * Take 5,000 Units by mouth onc* CHROMIUM PICOLINATE 1,000 MCG* Take by mouth. CLOPIDOGREL 75 MG TABLET Take 1 tablet by mouth once d* FUROSEMIDE 80 MG TABLET TAKE ONE-HALF TABLET BY MOUTH* INSULIN ASPART U-100 100 UNI* Inject 12 units as a base the* INSULIN GLARGINE (U-100) 100 * Inject 26 Units subcutaneousl* PEN NEEDLE, DIABETIC 31 GAUGE* Use 1 pen needle for each ins* IPRATROPIUM BROMIDE 42 MCG (0* Use 2 Sprays in the nose twic* LANCING DEVICE LiteTouch Test 4 times daily,* LOPERAMIDE 2 MG TABLET Take 1/2 tablet each morning. MEDICATION, NON-DATABASE 1,000 mg. tumeric NITROGLYCERIN 0.4 MG SUBLINGU* Dissolve 1 tablet under the t* OMEGA 3 350 MG-DHA 235 MG-EPA* Take by mouth. OXYGEN (HOME THERAPY) Inhale as instructed as dire* FIBER ORAL Take 30 g by mouth once daily* VITAMIN B COMPLEX TABLET Take 1 tablet by mouth once d* Problem List As Of Date 05/28/2018 Noted Resolved Other hyperlipidemia [E78.49] BENIGN HYPERTENSION [I10] AORTOCORONARY BYPASS STATUS [Z95.1] INVALID FOR* HEARING LOSS NOS [H91.90] INVALID FOR* Type II diabetes mellitus with renal manifestat*INVALID FOR* NEUROPATHY IN DIABETES [E11.42] INVALID FOR* Impotence of organic origin [N52.9] INVALID FOR*10/17/2015 CHRONIC RHINITIS [J31.0] INVALID FOR* Hypertrophy of prostate without urinary obstruc*INVALID FOR*05/22/2017 MOD NONPROLIF DIAB RETINOPATHY [E11.3399] INVALID FOR* More... Proteinuria [R80.9] INVALID FOR* Debility [R53.81] INVALID FOR*05/22/2017 Atrial flutter [I48.92] INVALID FOR*10/17/2015 More... Gallbladder calculus without cholecystitis [K80*INVALID FOR*11/04/2013 ADHF (acute decompensated heart failure) (HCC) *INVALID FOR*10/11/2014 More... Angina pectoris (HCC) [I20.9] INVALID FOR*10/16/2015 More... CAD (coronary artery disease), [place] coronary *INVALID FOR* More... SUMMARY [V999.95] INVALID FOR*05/09/2014 More... CKD (chronic kidney disease) stage 3, GFR 30-59*INVALID FOR* Aortic stenosis [I35.0] INVALID FOR* More... Lung crackles [R09.89] INVALID FOR*10/11/2014 More... SUMMARY [V999.95] INVALID FOR*10/17/2015 More... Hematoma [T14.8XXA] INVALID FOR*10/11/2014 More... Rash and nonspecific skin eruption [R21] INVALID FOR*10/17/2015 Hydrocele of testis [N43.3] INVALID FOR*10/17/2015 BPH with obstruction/lower urinary tract sympto*INVALID FOR*10/17/2015 Encounter for screening for other disorder [Z13*INVALID FOR*10/17/2015 SUMMARY INVALID FOR*04/09/2015 More... Acute on chronic combined systolic and diastoli*INVALID FOR* Acute renal injury (HCC) [N17.9] INVALID FOR*10/16/2015 More... Ascites of liver [R18.8] INVALID FOR*10/16/2015 More... Pulmonary hypertension, primary (HCC) [I27.0] INVALID FOR* More... More... Depressive disorder [F32.9] INVALID FOR*05/22/2017 Dental caries on smooth surface penetrating int*INVALID FOR*10/17/2015 Hypertensive kidney disease with CKD stage III *INVALID FOR* More... S/P aortic valve replacement [Z95.2] INVALID FOR* Right foot ulcer (HCC) [L97.519] INVALID FOR*08/08/2016 ACS (acute coronary syndrome) (HCC) [I24.9] INVALID FOR*05/22/2017 Other instructions from your clinician: Stop the magnesium. Continue fiber - either fiber or stir- in. Take 1/2 tablet loperamide each morning. Send a Performable message with how this is working. Prescriptions ordered this encounter Disp Refills Start End LOPERAMIDE 2 MG TABLET 15 t* 2 05/28/2018 Sig: Take 1/2 tablet each morning. Medications Discontinued During This Encounter Magnesium Oxide 500 mg tab 05/28/2018 Class: Historical Med Route: ORAL Sig: Take 400 mg by mouth once daily. Disc: Reason for discontinue is not on file. Encounter Status:Closed by GUERDA BEASLEY CNP on 05/29/18 PANC ELASTASE, FECAL Collected: 05/24/2018 Status: F Source: [place] 2:00 PM [facility] REPOSITORY TYPE CODE TESTS RESULT OUT OF RANGE REFERENCE UNITS LAB PANCF1 >=201 ug/g Low Panc 195 Elastase, Fecal Result Comment: (NOTE) REFERENCE INTERVAL: Pancreatic Elastase, Fecal by TATA Greater than 200 ug/g ........ Normal 100-200 ug/g ................. Moderate to mild pancreatic insufficiency Less than 100 ug/g ........... Severe exocrine pancreatic insufficiency Reference range does not apply for infants less than one month old. Performed by [facility], [address] [place] [id number] [email or web address] Ej Thompson MD, Lab. Director Performed By: #### PANCEF #### [facility] [address] [place] [address] [phone] EKG1 Observed: 05/20/2018 Status: F Source: [place] 3:39 PM [facility] REPOSITORY NAME : MARISSA PERALTA PID : [id number] : 1950 Gender : Male Race : ORD : Procedure Date : May 20 2018 15:39:22 Edit Date : May 21 2018 12:10:52 Diagnosis:SINUS RHYTHM WITH 1ST DEGREE AV BLOCK WITH PREMATURE ATRIAL COMPLEXES WITH ABERRANT CONDUCTION LEFT AXIS DEVIATION LEFT VENTRICULAR HYPERTROPHY WITH QRS WIDENING AND REPOLARIZATION ABNORMALITY INFERIOR MYOCARDIAL INFARCTION , AGE UNDETERMINED ABNORMAL ECG NO SIGNIFICANT CHANGE FROM PREVIOUS ECG Confirmed by JG CASTILLO MD ([id number]) on 05/21/2018 12:10:45 PM Ventricular Rate : 60 BPM Atrial Rate : 60 BPM P-R Interval : 252 ms QRS Duration : 130 ms Q-T Interval : 474 ms QTC Calculation(Bezet) : 474 ms P Emmalena : 73 degrees R Emmalena : -45 degrees T Emmalena : 191 degrees Test Reason : Location : 136 : [place] Overread By : JG CASTILLO MD Edited By : JG CASTILLO MD Referred By : ANNA, Acquired by : , BASIC METABOLIC PANL Collected: 05/20/2018 Status: F Source: [place] 3:34 PM [facility] REPOSITORY TYPE CODE TESTS RESULT OUT OF REFERENCE UNITS RANGE LAB GLU 74-99 mg/dL Glucose High 261 LAB BUN 9-24 mg/dL BUN High 62 LAB CRET 0.73-1.22 mg/dL High Creatinine 2.26 LAB NA 136-144 mmol/L Sodium 138 LAB K 3.7-5.1 mmol/L Potassium 4.1 LAB CL 97-105 mmol/L Chloride 103 LAB CO2 22-30 mmol/L CO2 25 LAB AGAP 9-18 mmol/L Anion Gap 10 LAB CA 8.5-10.2 mg/dL Calcium, Total 9.9 LAB GFRAA eGFR- 35 Amer. LAB GFRNAA . eGFR-All Other Races 29 Result Comment: eGFR (Estimated GFR) Units of measure: mL/min/1.73 meters squared eGFR is derived from the reexpressed MDRD Study equation using the following parameters: serum creatinine, age, gender and race. The creatinine assay has been calibrated to be traceable to IDMS. An eGFR <60 mL/min/1.73m2 for >3 months is consistent with chronic kidney disease. Refer to KDOQI guidelines for clinical interpretation. In patients with unstable renal function, e.g. those with acute kidney injury, the eGFR may not accurately reflect actual GFR. MAGNESIUM Collected: 05/20/2018 Status: F Source: [place] 3:34 PM [facility] REPOSITORY TYPE CODE TESTS RESULT OUT OF REFERENCE UNITS RANGE LAB MG 1.7-2.3 mg/dL Magnesium 2.3 PROGRESS Observed: 05/20/2018 Status: COMPLETED Source: [place] 3:04 PM [facility] REPOSITORY HNO ID: [id number] Author: Jg Castillo Service: (none) Author Type: Physician Type: Progress Notes Filed: 05/20/2018 5:25 PM Note Text: PERTINENT CARDIAC HISTORY ASHD - CABGx5 1997, 05/2014 PCI (BMS) distal LMT/proximal LCx, PCI Cx 2014, PCI osteal Cx (ENZO) 09/16 Cardiomyopathy - ischemic CHF - systolic DM HTN HL Atrial flutter - cardioversion 2013, no a/c while on DAPT, due to bleeding CRF Aortic stenosis - TAVR 2015 Pulmonary hypertension ADHERENCE TO GUIDELINES AVNI-I or ARB for HF with prior LVEF<40 (NQF 0081) - CRF ASA or Plavix for ASHD (NQF 0067) - met Beta jr for ASHD with prior MD or prior LVEF<40 (NQF 0070) - met Beta jr for HF with prior LVEF<40 (NQF 0083) - met AVNI-I or ARB for ASHD with DM or prior LVEF<40 (NQF 0066) - CRF Statin therapy for ASHD or FHL or DM - met BMI documented and plan if >25 (NQF 0421) - lifestyle recommendation form Tobacco use screening and referral (NQF 0028) - lifestyle recommendation form Recommendation for whole food, plant based diet - lifestyle recommendation form CLINICAL IMPRESSION/PLAN: Marissa Peralta has had an increase in his exercise-related shortness of breath. This may be an ischemic equivalent. We would like to avoid any further dye test given his renal insufficiency. As he is not taking his isosorbide as recommended, I have asked him to gradually return to the previous schedule of 40 milligrams 3 times daily. I've asked him to update me in the next few weeks. He's had no recurrence of his atrial arrhythmia. His aortic valve gradients appears stable by exam. Is blood pressure is well-controlled. He will have an echocardiogram in 4 months for follow-up of his valvular heart disease and LV function. I recommend follow-up in the office in 6 months. Written and verbal health teaching given to patient, patient verbalizes understanding and agrees with treatment plan. DIAGNOSIS FOR VISIT: AVR Hypertension HISTORY OF PRESENT ILLNESS Marissa Peralta returns for follow-up of his valvular and ischemic heart disease and other issues. He reports that he has had some decrease in exercise tolerance. He reports being short of breath walking up the steps. He has not been taking isosorbide as recommended. He's had no chest tightness at rest and has used no nitroglycerin sublingual. He denies orthopnea. He's had no recent exacerbation of his COPD. He's had stable, minimal edema. He denies syncope, TIAs, amaurosis and claudication. He's had no recent palpitations. ALLERGIES: ALLERGIES Allergen Reactions - Remeron [Mirtazapin* Intolerance sleptalot; felt spaced out. - Demerol [Meperidine* Intolerance Vomiting spacey CURRENT OUTPATIENT MEDICATIONS: aspirin, enteric coated (ASPIRIN, ENTERIC COATED) 81 mg EC tablet Take 81 mg by mouth once daily. atorvastatin (LIPITOR) 40 mg tablet TAKE 1 TABLET BY MOUTH AT BEDTIME blood sugar diagnostic (FREESTYLE TEST) test strip Check blood sugar 4 times daily, E11.22 Blood-Glucose Meter (GMATE VOICE METER) [facility] Use as directed, test 4 times a day and as needed dx E11.22 carvedilol (COREG) 6.25 mg tablet Take 1 tablet by mouth twice daily with meals. Cholecalciferol, Vitamin D3, (VITAMIN D-3) 1,000 unit Chew Take 5,000 Units by mouth once daily. chromium picolinate 1,000 mcg tab Take by mouth. clopidogrel (PLAVIX) 75 mg tablet Take 1 tablet by mouth once daily. furosemide (LASIX) 80 mg tablet TAKE ONE-HALF TABLET BY MOUTH ONCE DAILY insulin aspart U-100 (NOVOLOG FLEXPEN U-100 INSULIN) 100 unit/mL inpn Inject 12 units as a base then 1 unit for every 25 carbs 3 times a day with meals and snacks. (12-15 units based upon glucose) insulin glargine (LANTUS SOLOSTAR U-100 INSULIN) 100 unit/mL (3 mL) inpn Inject 26 Units subcutaneously every evening. Take around 10 PM. 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 isosorbide dinitrate (ISORDIL, SORBITRATE) 30 mg tablet TAKE TWO TABLETS BY MOUTH THREE TIMES DAILY Lancing Device (GMATE LANCING DEVICE) misc LiteTouch Test 4 times daily, and PRN Insulin yes, dx:E11.22 Magnesium Oxide 500 mg tab Take 400 mg by mouth once daily. MEDICATION, NON-DATABASE 1,000 mg. tumeric nitroglycerin sublingual (NITROSTAT) 0.4 mg SL tablet Dissolve 1 tablet under the tongue every 5 minutes as needed for Chest Pain. omega 0-geu-pwi-fish oil 350 mg-235 mg- 90 mg-597 mg cpDR Take by mouth. OXYGEN, HOME THERAPY, Inhale as instructed as directed. 3 lts at night while sleeping and 2 lts if needed while awake psyllium seed, with dextrose, (FIBER ORAL) Take 30 g by mouth once daily. vitamin b complex (B COMPLETE) tab Take 1 tablet by mouth once daily. PHYSICAL EXAMINATION: VITAL SIGNS: BP 138/79 Pulse 59 Ht 5' 8 (1.73m) Wt 154 lb 8 oz (70.1kg) BMI 23.50 kg/(m2). Chest: Clear to auscultation. There is mild expiratory prolongation. Trachea is midline. Air entry is equal. Cardiac: Regular rhythm. S1 and S2 are normal. PMI is nondisplaced. There is a 1/6 systolic ejection murmur. Carotids are brisk soft bilateral bruits. JVP is less than 10 cm. Abdomen: Soft and nontender. There are no pulsatile masses or bruits. No liver enlargement. Bowel sounds are active. Extremities: Trace edema. Pulses are diminished but symmetrical. Recent labs reviewed. Renal function has decreased. LDL was 33. EKG shows sinus rhythm with incomplete left bundle branch block. There is occasional ventricular ectopic. There is no significant change. Electronically Signed: Jg Castillo MD May 20, 2018 3:04 PM CC: Eduin Hagen MD CNOV Observed: 05/20/2018 Status: COMPLETED Source: [place] 2:45 PM [facility] REPOSITORY Office Visit (CAWSTR) MARISSA PERALTA ([id number]) 1950 M Date Time Provider Department 05/20/18 2:45 PM JG CASTILLO CAWSTR During your visit today, we recorded the following information about you: Pulse Blood pressure Weight Height 59/minute 138/79 70.1 kg 1.727 m Jg Castillo MD 05/20/2018 5:25 PM Signed PERTINENT CARDIAC HISTORY ASHD - CABGx5 1997, 05/2014 PCI (BMS) distal LMT/proximal LCx, PCI Cx 2014, PCI osteal Cx (ENZO) 09/16 Cardiomyopathy - ischemic CHF - systolic DM HTN HL Atrial flutter - cardioversion 2013, no a/c while on DAPT, due to bleeding CRF Aortic stenosis - TAVR 2015 Pulmonary hypertension ADHERENCE TO GUIDELINES AVNI-I or ARB for HF with prior LVEF<40 (NQF 0081) - CRF ASA or Plavix for ASHD (NQF 0067) - met Beta jr for ASHD with prior MD or prior LVEF<40 (NQF 0070) - met Beta jr for HF with prior LVEF<40 (NQF 0083) - met AVNI-I or ARB for ASHD with DM or prior LVEF<40 (NQF 0066) - CRF Statin therapy for ASHD or FHL or DM - met BMI documented and plan if >25 (NQF 0421) - lifestyle recommendation form Tobacco use screening and referral (NQF 0028) - lifestyle recommendation form Recommendation for whole food, plant based diet - lifestyle recommendation form CLINICAL IMPRESSION/PLAN: Marissa Peralta has had an increase in his exercise-related shortness of breath. This may be an ischemic equivalent. We would like to avoid any further dye test given his renal insufficiency. As he is not taking his isosorbide as recommended, I have asked him to gradually return to the previous schedule of 40 milligrams 3 times daily. I've asked him to update me in the next few weeks. He's had no recurrence of his atrial arrhythmia. His aortic valve gradients appears stable by exam. Is blood pressure is well-controlled. He will have an echocardiogram in 4 months for follow-up of his valvular heart disease and LV function. I recommend follow-up in the office in 6 months. Written and verbal health teaching given to patient, patient verbalizes understanding and agrees with treatment plan. DIAGNOSIS FOR VISIT: AVR Hypertension HISTORY OF PRESENT ILLNESS Marissa Peralta returns for follow-up of his valvular and ischemic heart disease and other issues. He reports that he has had some decrease in exercise tolerance. He reports being short of breath walking up the steps. He has not been taking isosorbide as recommended. He's had no chest tightness at rest and has used no nitroglycerin sublingual. He denies orthopnea. He's had no recent exacerbation of his COPD. He's had stable, minimal edema. He denies syncope, TIAs, amaurosis and claudication. He's had no recent palpitations. ALLERGIES: ALLERGIES Allergen Reactions - Remeron [Mirtazapin* Intolerance sleptalot; felt spaced out. - Demerol [Meperidine* Intolerance Vomiting spacey CURRENT OUTPATIENT MEDICATIONS: aspirin, enteric coated (ASPIRIN, ENTERIC COATED) 81 mg EC tablet Take 81 mg by mouth once daily. atorvastatin (LIPITOR) 40 mg tablet TAKE 1 TABLET BY MOUTH AT BEDTIME blood sugar diagnostic (FREESTYLE TEST) test strip Check blood sugar 4 times daily, E11.22 Blood-Glucose Meter (GMATE VOICE METER) [facility] [place] Use as directed, test 4 times a day and as needed dx E11.22 carvedilol (COREG) 6.25 mg tablet Take 1 tablet by mouth twice daily with meals. Cholecalciferol, Vitamin D3, (VITAMIN D-3) 1,000 unit Chew Take 5,000 Units by mouth once daily. chromium picolinate 1,000 mcg tab Take by mouth. clopidogrel (PLAVIX) 75 mg tablet Take 1 tablet by mouth once daily. furosemide (LASIX) 80 mg tablet TAKE ONE-HALF TABLET BY MOUTH ONCE DAILY insulin aspart U-100 (NOVOLOG FLEXPEN U-100 INSULIN) 100 unit/mL inpn Inject 12 units as a base then 1 unit for every 25 carbs 3 times a day with meals and snacks. (12-15 units based upon glucose) insulin glargine (LANTUS SOLOSTAR U-100 INSULIN) 100 unit/mL (3 mL) inpn Inject 26 Units subcutaneously every evening. Take around 10 PM. 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 isosorbide dinitrate (ISORDIL, SORBITRATE) 30 mg tablet TAKE TWO TABLETS BY MOUTH THREE TIMES DAILY Lancing Device (GMATE LANCING DEVICE) misc LiteTouch Test 4 times daily, and PRN Insulin yes, dx:E11.22 Magnesium Oxide 500 mg tab Take 400 mg by mouth once daily. MEDICATION, NON-DATABASE 1,000 mg. tumeric nitroglycerin sublingual (NITROSTAT) 0.4 mg SL tablet Dissolve 1 tablet under the tongue every 5 minutes as needed for Chest Pain. omega 5-akq-ssw-fish oil 350 mg-235 mg- 90 mg-597 mg cpDR Take by mouth. OXYGEN, HOME THERAPY, Inhale as instructed as directed. 3 lts at night while sleeping and 2 lts if needed while awake psyllium seed, with dextrose, (FIBER ORAL) Take 30 g by mouth once daily. vitamin b complex (B COMPLETE) tab Take 1 tablet by mouth once daily. PHYSICAL EXAMINATION: VITAL SIGNS: BP 138/79 Pulse 59 Ht 5' 8 (1.73m) Wt 154 lb 8 oz (70.1kg) BMI 23.50 kg/(m2). Chest: Clear to auscultation. There is mild expiratory prolongation. Trachea is midline. Air entry is equal. Cardiac: Regular rhythm. S1 and S2 are normal. PMI is nondisplaced. There is a 1/6 systolic ejection murmur. Carotids are brisk soft bilateral bruits. JVP is less than 10 cm. Abdomen: Soft and nontender. There are no pulsatile masses or bruits. No liver enlargement. Bowel sounds are active. Extremities: Trace edema. Pulses are diminished but symmetrical. Recent labs reviewed. Renal function has decreased. LDL was 33. EKG shows sinus rhythm with incomplete left bundle branch block. There is occasional ventricular ectopic. There is no significant change. Electronically Signed: Jg Castillo MD May 20, 2018 3:04 PM CC: MD Jg Bronson MD 05/20/2018 3:04 PM Signed LIFESTYLE CHANGE A healthy lifestyle is the most important component of your overall treatment plan. Please give serious thought to the following areas and commit to making baster hand changes. EAT A WHOLE FOOD, PLANT BASED DIET The nutrition your body gets is more important than the medicine you take. What matters most is the overall way you eat. We encourage you to minimize the use of animal products (which include dairy and all meats except fatty fish) and use whole, unprocessed plant foods to provide your protein, vitamins and other nutrients. We have a lot of information to share with you on this topic. This is not a diet. It is a way of life that you will keep with you. EXERCISE REGULARLY It is not important to spend hours in the gym, lifting weights and perspiring heavily. A total of 2-3 hours per week of aerobic (causing you to be moderately short of breath) exercise is sufficient to improve your health. Talk to us before you begin a new exercise program, if you have heart disease or experience shortness of breath or chest pain. REDUCE STRESS Chronic emotional and physical stress leads to disease. Ways of reducing stress include meditation, visualization, prayer, yoga and other forms of relaxation therapy. Consistency is the jauregui. Find a technique that works for you and do it every day. CULTIVATE RELATIONSHIPS Loneliness and isolation have a major negative impact on health. Seek out others who can love, care for and nurture you. Avoid hurtful relationships. MAINTAIN IDEAL BODY WEIGHT The best way to do this is to do all the things above. Our bodies naturally find the right weight if we keep moving and feed ourselves the right food. If your BMI is greater than 25, we strongly recommend a referral to a weight management program. Please speak to us or your family physician about available programs. AVOID NICOTINE IN ALL FORMS This includes all tobacco products, whether chewed, smoked, vaped, or rubbed on the skin. Smoking cessation programs, which can make use of tobacco substitutes, medications to suppress cravings and behavior management, are available. Please contact your family physician about programs in your area. Referring Provider: JG CASTILLO [[id number]] Allergies As of Date: 05/20/2018 Noted Allergy Reaction REMERON (MIRTAZAPINE) 07/10/2015 5 - Intolerance Comments: sleptalot; felt spaced out. DEMEROL (MEPERIDINE HCL) 03/18/2005 5 - Intolerance Comments: Vomiting spacey Date Reviewed: 05/20/2018 Reviewed by: Lu Sims MA - Fully Assessed Reason for Visit: Established Patient [175] Primary Visit Diagnosis:ASHD (arteriosclerotic heart disease) [I25.10] Other Visit Diagnosis:Essential hypertension [I10] Order(s):BASIC METABOLIC PNL [SQBMP] Order #: [id number] FUTURE ECHO [129526] Order #: [id number]: 1 FUTURE Prescriptions as of 05/20/2018 Sig: ASPIRIN 81 MG TABLET,DELAYED * Take 81 mg by mouth once joanie* ATORVASTATIN 40 MG TABLET TAKE 1 TABLET BY MOUTH AT BED* BLOOD SUGAR DIAGNOSTIC STRIPS Check blood sugar 4 times jameel* BLOOD-GLUCOSE METER Use as directed, test 4 times* CARVEDILOL 6.25 MG TABLET Take 1 tablet by mouth twice * CHOLECALCIFEROL (VITAMIN D3) * Take 5,000 Units by mouth onc* CHROMIUM PICOLINATE 1,000 MCG* Take by mouth. CLOPIDOGREL 75 MG TABLET Take 1 tablet by mouth once d* FUROSEMIDE 80 MG TABLET TAKE ONE-HALF TABLET BY MOUTH* INSULIN ASPART U-100 100 UNI* Inject 12 units as a base the* INSULIN GLARGINE (U-100) 100 * Inject 26 Units subcutaneousl* PEN NEEDLE, DIABETIC 31 GAUGE* Use 1 pen needle for each ins* IPRATROPIUM BROMIDE 42 MCG (0* Use 2 Sprays in the nose twic* ISOSORBIDE DINITRATE 30 MG TA* TAKE TWO TABLETS BY MOUTH THR* LANCING DEVICE LiteTouch Test 4 times daily,* MAGNESIUM OXIDE 500 MG TABLET Take 400 mg by mouth once jameel* MEDICATION, NON-DATABASE 1,000 mg. tumeric NITROGLYCERIN 0.4 MG SUBLINGU* Dissolve 1 tablet under the t* OMEGA 3 350 MG-DHA 235 MG-EPA* Take by mouth. OXYGEN (HOME THERAPY) Inhale as instructed as dire* FIBER ORAL Take 30 g by mouth once daily* VITAMIN B COMPLEX TABLET Take 1 tablet by mouth once d* Problem List As Of Date 05/20/2018 Noted Resolved Other hyperlipidemia [E78.49] BENIGN HYPERTENSION [I10] AORTOCORONARY BYPASS STATUS [Z95.1] INVALID FOR* HEARING LOSS NOS [H91.90] INVALID FOR* Type II diabetes mellitus with renal manifestat*INVALID FOR* NEUROPATHY IN DIABETES [E11.42] INVALID FOR* Impotence of organic origin [N52.9] INVALID FOR*10/17/2015 CHRONIC RHINITIS [J31.0] INVALID FOR* Hypertrophy of prostate without urinary obstruc*INVALID FOR*05/22/2017 MOD NONPROLIF DIAB RETINOPATHY [E11.3399] INVALID FOR* More... Proteinuria [R80.9] INVALID FOR* Debility [R53.81] INVALID FOR*05/22/2017 Atrial flutter [I48.92] INVALID FOR*10/17/2015 More... Gallbladder calculus without cholecystitis [K80*INVALID FOR*11/04/2013 ADHF (acute decompensated heart failure) (HCC) *INVALID FOR*10/11/2014 More... Angina pectoris (HCC) [I20.9] INVALID FOR*10/16/2015 More... CAD (coronary artery disease), [place] coronary *INVALID FOR* More... SUMMARY [V999.95] INVALID FOR*05/09/2014 More... CKD (chronic kidney disease) stage 3, GFR 30-59*INVALID FOR* Aortic stenosis [I35.0] INVALID FOR* More... Lung crackles [R09.89] INVALID FOR*10/11/2014 More... SUMMARY [V999.95] INVALID FOR*10/17/2015 More... Hematoma [T14.8XXA] INVALID FOR*10/11/2014 More... Rash and nonspecific skin eruption [R21] INVALID FOR*10/17/2015 Hydrocele of testis [N43.3] INVALID FOR*10/17/2015 BPH with obstruction/lower urinary tract sympto*INVALID FOR*10/17/2015 Encounter for screening for other disorder [Z13*INVALID FOR*10/17/2015 SUMMARY INVALID FOR*04/09/2015 More... Acute on chronic combined systolic and diastoli*INVALID FOR* Acute renal injury (HCC) [N17.9] INVALID FOR*10/16/2015 More... Ascites of liver [R18.8] INVALID FOR*10/16/2015 More... Pulmonary hypertension, primary (HCC) [I27.0] INVALID FOR* More... More... Depressive disorder [F32.9] INVALID FOR*05/22/2017 Dental caries on smooth surface penetrating int*INVALID FOR*10/17/2015 Hypertensive kidney disease with CKD stage III *INVALID FOR* More... S/P aortic valve replacement [Z95.2] INVALID FOR* Right foot ulcer (HCC) [L97.519] INVALID FOR*08/08/2016 ACS (acute coronary syndrome) (HCC) [I24.9] INVALID FOR*05/22/2017 Other instructions from your clinician: LIFESTYLE CHANGE A healthy lifestyle is the most important component of your overall treatment plan. Please give serious thought to the following areas and commit to making group home changes. EAT A WHOLE FOOD, PLANT BASED DIET The nutrition your body gets is more important than the medicine you take. What matters most is the overall way you eat. We encourage you to minimize the use of animal products (which include dairy and all meats except fatty fish) and use whole, unprocessed plant foods to provide your protein, vitamins and other nutrients. We have a lot of information to share with you on this topic. This is not a diet. It is a way of life that you will keep with you. EXERCISE REGULARLY It is not important to spend hours in the gym, lifting weights and perspiring heavily. A total of 2-3 hours per week of aerobic (causing you to be moderately short of breath) exercise is sufficient to improve your health. Talk to us before you begin a new exercise program, if you have heart disease or experience shortness of breath or chest pain. REDUCE STRESS Chronic emotional and physical stress leads to disease. Ways of reducing stress include meditation, visualization, prayer, yoga and other forms of relaxation therapy. Consistency is the jauregui. Find a technique that works for you and do it every day. CULTIVATE RELATIONSHIPS Loneliness and isolation have a major negative impact on health. Seek out others who can love, care for and nurture you. Avoid hurtful relationships. MAINTAIN IDEAL BODY WEIGHT The best way to do this is to do all the things above. Our bodies naturally find the right weight if we keep moving and feed ourselves the right food. If your BMI is greater than 25, we strongly recommend a referral to a weight management program. Please speak to us or your family physician about available programs. AVOID NICOTINE IN ALL FORMS This includes all tobacco products, whether chewed, smoked, vaped, or rubbed on the skin. Smoking cessation programs, which can make use of tobacco substitutes, medications to suppress cravings and behavior management, are available. Please contact your family physician about programs in your area. Prescriptions ordered this encounter Disp Refills Start End PERFLUTREN LIPID MICROSPHERES 1.1 MG* 1.3 * 0 05/20/2018 05/20/2018 Class: In Office Route: INTRAVENOUS Sig: Inject 1.3 mL intravenously as directed. Medications Discontinued During This Encounter perflutren lipid microspheres (DEFIN* 1.3 * 0 05/20/2018 05/20/2018 Class: In Office Route: INTRAVENOUS Sig: Inject 1.3 mL intravenously as directed. Disc: Reason for discontinue is not on file. Encounter Status:Closed by JG CASTILLO MD on 05/20/18 OBSOLETE Observed: 05/09/2018 Status: COMPLETED Source: [place] 12:00 AM [facility] OTHER [place] REPOSITORY Refill (AGCARDWST) MARISSA PERALTA ([id number]) 1950 M Date Time Provider Department 05/09/18 JG CASTILLO During your visit today, we recorded the following information about you: Allergies As of Date: 05/09/2018 Noted Allergy Reaction REMERON (MIRTAZAPINE) 07/10/2015 5 - Intolerance Comments: sleptalot; felt spaced out. DEMEROL (MEPERIDINE HCL) 03/18/2005 5 - Intolerance Comments: Vomiting spacey Date Reviewed: 05/05/2018 Reviewed by: Janet Schroeder PROPERTY CLERK - Fully Assessed Reason for Visit: Refill Request [94] Order(s):clopidogrel (PLAVIX) 75 mg tabletTAKE ONE TABLET BY MOUTH ONCE DAILYDisp: 30 tabletRfl: 11 Prescriptions as of 05/09/2018 Sig: CLOPIDOGREL 75 MG TABLET TAKE ONE TABLET BY MOUTH ONCE* ATORVASTATIN 40 MG TABLET TAKE 1 TABLET BY MOUTH AT BED* FUROSEMIDE 80 MG TABLET TAKE ONE-HALF TABLET BY MOUTH* MAGNESIUM OXIDE 500 MG TABLET Take 400 mg by mouth once jameel* FIBER ORAL Take 30 g by mouth once daily* MEDICATION, NON-DATABASE 1,000 mg. tumeric BLOOD SUGAR DIAGNOSTIC STRIPS Check blood sugar 4 times jameel* IPRATROPIUM BROMIDE 42 MCG (0* Use 2 Sprays in the nose twic* INSULIN ASPART U-100 100 UNI* Inject 12 units as a base the* PEN NEEDLE, DIABETIC 31 GAUGE* Use 1 pen needle for each ins* INSULIN GLARGINE (U-100) 100 * Inject 26 Units subcutaneousl* CARVEDILOL 6.25 MG TABLET Take 1 tablet by mouth twice * ISOSORBIDE DINITRATE 30 MG TA* TAKE TWO TABLETS BY MOUTH THR* CHROMIUM PICOLINATE 1,000 MCG* Take by mouth. OMEGA 3 350 MG-DHA 235 MG-EPA* Take by mouth. NITROGLYCERIN 0.4 MG SUBLINGU* Dissolve 1 tablet under the t* VITAMIN B COMPLEX TABLET Take 1 tablet by mouth once d* OXYGEN (HOME THERAPY) Inhale as instructed as dire* BLOOD-GLUCOSE METER Use as directed, test 4 times* LANCING DEVICE LiteTouch Test 4 times daily,* ASPIRIN 81 MG TABLET,DELAYED * Take 81 mg by mouth once joanie* CHOLECALCIFEROL (VITAMIN D3) * Take 5,000 Units by mouth onc* Problem List As Of Date 05/09/2018 Noted Resolved Other hyperlipidemia [E78.49] BENIGN HYPERTENSION [I10] AORTOCORONARY BYPASS STATUS [Z95.1] INVALID FOR* HEARING LOSS NOS [H91.90] INVALID FOR* Type II diabetes mellitus with renal manifestat*INVALID FOR* NEUROPATHY IN DIABETES [E11.42] INVALID FOR* Impotence of organic origin [N52.9] INVALID FOR*10/17/2015 CHRONIC RHINITIS [J31.0] INVALID FOR* Hypertrophy of prostate without urinary obstruc*INVALID FOR*05/22/2017 MOD NONPROLIF DIAB RETINOPATHY [E11.3399] INVALID FOR* More... Proteinuria [R80.9] INVALID FOR* Debility [R53.81] INVALID FOR*05/22/2017 Atrial flutter [I48.92] INVALID FOR*10/17/2015 More... Gallbladder calculus without cholecystitis [K80*INVALID FOR*11/04/2013 ADHF (acute decompensated heart failure) (HCC) *INVALID FOR*10/11/2014 More... Angina pectoris (HCC) [I20.9] INVALID FOR*10/16/2015 More... CAD (coronary artery disease), [place] coronary *INVALID FOR* More... SUMMARY [V999.95] INVALID FOR*05/09/2014 More... CKD (chronic kidney disease) stage 3, GFR 30-59*INVALID FOR* Aortic stenosis [I35.0] INVALID FOR* More... Lung crackles [R09.89] INVALID FOR*10/11/2014 More... SUMMARY [V999.95] INVALID FOR*10/17/2015 More... Hematoma [T14.8XXA] INVALID FOR*10/11/2014 More... Rash and nonspecific skin eruption [R21] INVALID FOR*10/17/2015 Hydrocele of testis [N43.3] INVALID FOR*10/17/2015 BPH with obstruction/lower urinary tract sympto*INVALID FOR*10/17/2015 Encounter for screening for other disorder [Z13*INVALID FOR*10/17/2015 SUMMARY INVALID FOR*04/09/2015 More... Acute on chronic combined systolic and diastoli*INVALID FOR* Acute renal injury (HCC) [N17.9] INVALID FOR*10/16/2015 More... Ascites of liver [R18.8] INVALID FOR*10/16/2015 More... Pulmonary hypertension, primary (HCC) [I27.0] INVALID FOR* More... More... Depressive disorder [F32.9] INVALID FOR*05/22/2017 Dental caries on smooth surface penetrating int*INVALID FOR*10/17/2015 Hypertensive kidney disease with CKD stage III *INVALID FOR* More... S/P aortic valve replacement [Z95.2] INVALID FOR* Right foot ulcer (HCC) [L97.519] INVALID FOR*08/08/2016 ACS (acute coronary syndrome) (HCC) [I24.9] INVALID FOR*05/22/2017 Prescriptions ordered this encounter Disp Refills Start End CLOPIDOGREL 75 MG TABLET 30 t* 11 05/11/2018 Cmt: Please consider 90 day supplies to promote better adherence Sig: TAKE ONE TABLET BY MOUTH ONCE DAILY Medications Discontinued During This Encounter clopidogrel (PLAVIX) 75 mg tablet 90 t* 3 05/08/2017 05/11/2018 Route: ORAL Sig: Take 1 tablet by mouth once daily. Disc: Reason for discontinue is not on file. Encounter Status:Closed by KYLE TEMPLE RN on 05/11/18 AMYLASE Collected: 05/05/2018 Status: F Source: [place] 1:38 PM [facility] REPOSITORY TYPE CODE TESTS RESULT OUT OF REFERENCE UNITS RANGE LAB AMYL 30-104 U/L Amylase 76 Performed By: #### AMYL, CMP, LIPA #### [facility] [address] [place] [address] COMP METABOLIC PANEL Collected: 05/05/2018 Status: F Source: [place] 1:38 PM [facility] REPOSITORY TYPE CODE TESTS RESULT OUT OF REFERENCE UNITS RANGE LAB TP 6.3-8.0 g/dL Protein, Total 7.2 LAB ALB 3.9-4.9 g/dL Albumin 4.1 LAB CA 8.5-10.2 mg/dL Calcium, Total 9.7 LAB TBIL 0.2-1.3 mg/dL Bilirubin, Total 0.4 LAB ALKP 38-113 U/L Alkaline Phosphatase 99 LAB AST 14-40 U/L AST 20 LAB GLU 74-99 mg/dL Glucose High 174 Result Comment: The [place] [employer] (ADA) provides guidance for cutoff values for fasting glucose and random glucose. The ADA defines fasting as no caloric intake for at least 8 hours. Fas ting plasma glucose results between 100 to 125 mg/dL indicate increased risk for diabetes (prediabetes). Fasting plasma glucose results greater than or equal to 126 mg/dL meet the criteria for diagnosis of diabetes. In the absence of unequivocal hyperglycemia, results should be confirmed by repeat testing. In a patient with classic symptoms of hyperglycemia or hyperglycemic crisis, random plasma glucose results greater than or equal to 200 mg/dL meet the criteria for diagnosis of diabetes. Reference: Standards of Medical Care in Diabetes 2016, [place] [employer]. Diabetes Care. 2016.39(Suppl 1). LAB BUN 9-24 mg/dL BUN High 56 LAB CRET 0.73-1.22 mg/dL Creatinine High 2.73 LAB NA 136-144 mmol/L Sodium 141 LAB K 3.7-5.1 mmol/L Potassium 4.4 LAB CL 97-105 mmol/L Chloride 103 LAB CO2 22-30 mmol/L CO2 22 LAB AGAP 9-18 mmol/L Anion Gap 16 LAB ALT 10-54 U/L ALT 22 LAB GFRAA eGFR- Amer. 28 LAB GFRNAA . eGFR-All Other Races 24 Result Comment: eGFR (Estimated GFR) Units of measure: mL/min/1.73 meters squared eGFR is derived from the reexpressed MDRD Study equation using the following parameters: serum creatinine, age, gender and race. The creatinine assay has been calibrated to be traceable to IDMS. An eGFR <60 mL/min/1.73m2 for >3 months is consistent with chronic kidney disease. Refer to KDOQI guidelines for clinical interpretation. In patients with unstable renal function, e.g. those with acute kidney injury, the eGFR may not accurately reflect actual GFR. Performed By: #### AMYL, CMP, LIPA #### [facility] [address] [place] [address] LIPASE Collected: 05/05/2018 Status: F Source: [place] 1:38 PM [facility] REPOSITORY TYPE CODE TESTS RESULT OUT OF REFERENCE UNITS RANGE LAB LIPA 16-61 U/L Lipase 33 Performed By: #### AMYL, CMP, LIPA #### [facility] [address] [place] [address] CNOV Observed: 05/05/2018 Status: COMPLETED Source: [place] 12:40 PM [facility] REPOSITORY [facility] MARISSA PERALTA ([id number]) 1950 M Date Time Provider Department 05/05/18 12:40 PM GUERDA BEASLEY (ERNESTO) [facility] During your visit today, we recorded the following information about you: Pulse Blood pressure Weight Height 62/minute 153/60 71.2 kg 1.727 m Guerda Beasley RN [employer]HING.ADMINISTRATIVE OFFICE MANAGER 05/05/2018 5:10 PM Signed Marissa Peralta a 67 year old male who is a consultation requested by Dr. Hagen for an opinion regarding diarrhea. My final recommendations will be communicated back to the requesting physician by way of shared Medical record. The patient denies a family history of colon cancer. The patient was seen by Dr. Hagen on 03/24/18, leading to this consultation. That note has been reviewed and part as follows: He complained of diarrhea since May, 2-4 times a day, brown, liquid, non bloody, occasionally with incontinence of stool needing pads. As far as I can tell, this had not been mentioned or evaluated. He was scheduled for a colonoscopy earlier this year, but he was ill. ASSESSMENT/PLAN: 1. Chronic diarrhea - ICD9: 787.91, ICD10: K52.9 (primary diagnosis) - C. DIFFICILE PCR - I encourage rescheduling colonoscopy. Component Latest Ref Rng AND Units 05/22/2017 11/21/2017 03/18/2018 Glucose 74 - 99 mg/dL 294 (H) 189 (H) 187 (H) BUN 7 - 21 mg/dL 63 (H) 44 (H) 67 (H) Creatinine 0.73 - 1.22 mg/dL 2.13 (H) 1.98 (H) 2.15 (H) Sodium 136 - 144 mmol/L 137 141 138 Potassium 3.7 - 5.1 mmol/L 4.5 4.6 4.9 Chloride 97 - 105 mmol/L 100 106 (H) 102 CO2 22 - 30 mmol/L 24 25 24 Anion Gap 9 - 18 mmol/L 13 10 12 Calcium 8.5 - 10.2 mg/dL 9.5 9.4 10.0 eGFR- 38 41 38 eGFR-All Other Races . 31 34 31 Component Latest Ref Rng AND Units 09/30/2016 05/22/2017 03/18/2018 WBC 3.70 - 11.00 k/uL 4.34 8.33 8.13 RBC 4.20 - 6.00 m/uL 4.01 (L) 6.17 (H) 5.17 Hemoglobin 13.0 - 17.0 g/dL 11.7 (L) 18.1 (H) 15.3 Hematocrit 39.0 - 51.0 % 37.1 (L) 57.1 (H) 48.2 MCV 80.0 - 100.0 fL 92.5 92.5 93.2 MCH 26.0 - 34.0 pG 29.2 29.3 29.6 MCHC 30.5 - 36.0 g/dL 31.5 31.7 31.7 RDW-CV 11.5 - 15.0 % 13.9 14.3 13.8 Platelet Count 150 - 400 k/uL 96 (L) 141 (L) 125 (L) MPV 9.0 - 12.7 fL 10.5 11.3 10.9 Neut% % 71.0 77.9 Abs Neut (ANC) 1.45 - 7.50 k/uL 3.08 6.49 Lymph% % 15.4 12.0 Abs Lymph 1.00 - 4.00 k/uL 0.67 (L) 1.00 [place]% % 10.1 7.8 Abs [place] <0.87 k/uL 0.44 0.65 Eosin% % 3.0 1.7 Abs Eosin <0.46 k/uL 0.13 0.14 Baso% % 0.5 0.6 Abs Baso <0.11 k/uL 0.02 0.05 Nucleated Reds 0 /100 WBC 0.0 Absolute nRBC <0.01 k/uL <0.01 <0.01 Diff Type Auto Diff Auto Diff Component Latest Ref Rng AND Units 03/18/2018 Hemoglobin A1C 4.3 - 5.6 % 8.2 (H) Estimated Average Glucose mg/dL 189 Component Latest Ref Rng AND Units 03/24/2018 C. difficile PCR Negative for C. difficile toxin by PCR On chart review, the patient has a complicated health history. He has a follow up with Dr. Castillo on 05/20. On Plavix. He uses O2 at home, usually at night. Presenting complaint: The patient begins today by stating I am due for another stent so Dr. Castillo will not be happy with me when I see him in a couple weeks. The patient tells me that diarrhea started mid May last year. Imodium was good at first. Got progressively more frequent, no matter what he ate. He tells me that he might be back and forth to the bathroom 3-4 times in 20 minutes. He would be incontinent at times - even during the night. The patient tells me it would get ok for a while, for up to a couple weeks, then back to loose again. Watery at the worst. It would be small pieces of stool, when not watery. The patient tells me that he did some reading on line and started taking magnesium, 500mg a day. he read it would help with gut health. Next started a probiotic and eating yogurt. Next added a fiber tablet. Most recently started a taking Metamucil. The patient tells me I started the fiber in November and it's starting to settle down. I get normal stool, but occasional diarrhea. No blood or black stool. Notes a lot of gas. He tells me that the gas can be painful until I get it out. He denies drinking milk or having cereal with milk. Rare ice cream. No cream in coffee. The patient reports that he had planned a colonoscopy a couple times, but had to cancel both. One in-patient and one out-patient, cancelled due to heart issues. REVIEW OF SYSTEMS: GENERAL: Weight varies in a 5 pound window. Last 10 Encounter Wt Readings: Date: Wt: 05/05/2018 71.2 kg (157 lb) 03/24/2018 72.6 kg (160 lb) 03/18/2018 73.9 kg (163 lb) 11/21/2017 73.5 kg (162 lb) 11/15/2017 73.6 kg (162 lb 3.2 oz) 09/22/2017 71.7 kg (158 lb) 05/23/2017 73.2 kg (161 lb 4.8 oz) 05/22/2017 73 kg (161 lb) 12/12/2016 73.2 kg (161 lb 6.4 oz) 11/11/2016 71.5 kg (157 lb 9.6 oz) RESPIRATORY: Using O2 at night. Notes shortness of breath. CARDIOVASCULAR: Heart disease. Sees Dr. Castillo. Tells me he's due for another stent. GI: The patient states that his appetite has been adequate. He does get hungry. There has been no nausea, no vomiting. He denies dysphagia and denies odynophagia. There has not been indigestion or heartburn. There has not been regurgitation. Bowel habits have been irregular. There has been diarrhea. There has not been constipation. The patient denies rectal bleeding. There has not been melena. No abdominal pain other than related to gas. PSYCH: Negative for sleep disturbance, mood disorder and recent psychosocial stressors. HEMATOLOGY/LYMPHOLOGY On Plavix. Denies easy bruising or bleeding. ENDOCRINE: Positive for diabetes mellitus on insulin NEURO: Positive for numbness or tingling of feet All other reviewed and negative other than HPI. PAST MEDICAL HISTORY Diagnosis Date - Aortic stenosis 05/06/2014 - Ascites of liver 04/04/2015 ar hepatic seen on CTA - Atrial flutter (HCC) 10/09/2012 - Chronic renal insufficiency - Chronic rhinitis 03/19/2005 - CKD (chronic kidney disease) stage 3, GFR 30-59 ml/min (HCC) 05/05/2014 - Congestive heart failure (HCC) - Essential hypertension, benign - Fracture - Gallbladder calculus without cholecystitis 10/09/2012 - Hypertrophy of prostate without urinary obstruction and other lower urinary tract symptoms (LUTS) 12/03/2007 - Impotence of organic origin 03/19/2005 - Moderate nonproliferative diabetic retinopathy(362.05) 12/16/2007 Dr. Pope - Myocardial infarct, old - New onset atrial flutter (HCC) 10/09/2012 - Other and unspecified hyperlipidemia - Polyneuropathy in diabetes(357.2) 03/19/2005 - Postsurgical aortocoronary bypass status 03/19/2005 - Proteinuria 08/13/2010 - Rash and nonspecific skin eruption 06/27/2014 - Rheumatic fever - Type I (juvenile type) diabetes mellitus with renal manifestations, not stated as uncontrolled(250.41) 03/19/2005 - Type II or unspecified type diabetes mellitus without mention of complication, not stated as uncontrolled - Unspecified hearing loss 03/19/2005 PAST SURGICAL HISTORY Procedure Laterality Date - CABG, ARTERY-VEIN, FIVE 09/1997 - CC CORONARY STENT 05/16/2014 bare metal stent, LMT - CC CORONARY STENT 04/07/2015 ENZO, LCfx - CC CORONARY STENT 09/28/2016 ENZO again, Left Cfx - INCISION AND DRAINAGE, COMPLICATED OR MULT 2004 brown recluse, upper back. - LEFT HEART CATH,PERCUTANEOUS 12/17/2001 Cardiac cath, L heart - TAVR PROCEDURAL PLANNING 07/11/2015 FAMILY HISTORY Problem Relation Age of Onset - Diabetes Father age 71 - Heart Father - Diabetes Mother - None Brother Current Outpatient Prescriptions: atorvastatin (LIPITOR) 40 mg tablet TAKE 1 TABLET BY MOUTH AT BEDTIME Disp: 30 tablet Rfl: 5 furosemide (LASIX) 80 mg tablet TAKE ONE-HALF TABLET BY MOUTH ONCE DAILY Disp: 45 tablet Rfl: 99 Magnesium Oxide 500 mg tab Take 400 mg by mouth once daily. Disp: Rfl: psyllium seed, with dextrose, (FIBER ORAL) Take 30 g by mouth once daily. Disp: Rfl: MEDICATION, NON-DATABASE 1,000 mg. tumeric Disp: Rfl: blood sugar diagnostic (FREESTYLE TEST) test strip Check blood sugar 4 times daily, E11.22 Disp: 400 Strip Rfl: 4 ipratropium bromide (ATROVENT) 42 mcg (0.06 %) nasal spray Use 2 Sprays in the nose twice daily as needed. Disp: 1 Bottle Rfl: 2 insulin aspart U-100 (NOVOLOG FLEXPEN U-100 INSULIN) 100 unit/mL inpn Inject 12 units as a base then 1 unit for every 25 carbs 3 times a day with meals and snacks. (12-15 units based upon glucose) Disp: 5 Pen Rfl: 1 Insulin [place], Disposable, (BD ULTRAFINE III MINI PEN) 31 gauge x 3/16 ndle Use 1 pen needle for each insulin injection (4 times daily) DX: Type I (juvenile type) DM with renal manifestations 250.41 Disp: 400 Each Rfl: 0 insulin glargine (LANTUS SOLOSTAR U-100 INSULIN) 100 unit/mL (3 mL) inpn Inject 26 Units subcutaneously every evening. Take around 10 PM. Disp: 15 Pen Rfl: 1 carvedilol (COREG) 6.25 mg tablet Take 1 tablet by mouth twice daily with meals. Disp: 180 tablet Rfl: 3 isosorbide dinitrate (ISORDIL, SORBITRATE) 30 mg tablet TAKE TWO TABLETS BY MOUTH THREE TIMES DAILY Disp: 180 tablet Rfl: 11 chromium picolinate 1,000 mcg tab Take by mouth. Disp: Rfl: omega 9-ugn-eay-fish oil 350 mg-235 mg- 90 mg-597 mg cpDR Take by mouth. Disp: Rfl: clopidogrel (PLAVIX) 75 mg tablet Take 1 tablet by mouth once daily. Disp: 90 tablet Rfl: 3 nitroglycerin sublingual (NITROSTAT) 0.4 mg SL tablet Dissolve 1 tablet under the tongue every 5 minutes as needed for Chest Pain. Disp: 1 Bottle of 25 Rfl: 2 vitamin b complex (B COMPLETE) tab Take 1 tablet by mouth once daily. Disp: Rfl: 0 OXYGEN, HOME THERAPY, Inhale as instructed as directed. 3 lts at night while sleeping and 2 lts if needed while awake Disp: Rfl: Blood-Glucose Meter (GMATE VOICE METER) misc Use as directed, test 4 times a day and as needed dx E11.22 Disp: 1 Each Rfl: 0 Lancing Device (GMATE LANCING DEVICE) misc LiteTouch Test 4 times daily, and PRN Insulin yes, dx:E11.22 Disp: 300 Each Rfl: 3 aspirin, enteric coated (ASPIRIN, ENTERIC COATED) 81 mg EC tablet Take 81 mg by mouth once daily. Disp: Rfl: Cholecalciferol, Vitamin D3, (VITAMIN D-3) 1,000 unit Chew Take 5,000 Units by mouth once daily. Disp: Rfl: No current facility-administered medications for this visit. SOCIAL HISTORY: Patient is . He quit smoking years ago and reports his alcohol use as never. PHYSICAL EXAMINATION: Blood pressure 153/60, pulse 62, height 172.7 cm (5' 8), weight 71.2 kg (157 lb). General Appearance: Well appearing, alert, in no acute distress, well-hydrated, well nourished. Skin: Skin color, texture, turgor normal, no suspicious rashes or lesions. Head: Normocephalic, no masses, lesions or abnormalities. Eyes: Anicteric sclera. Extraocular movements are intact. Neck: Supple, no adenopathy; thyroid symmetric, normal size. Lungs: Lungs clear to auscultation. No wheezing, rhonchi, rales. Heart: RRR with 1/6 murmur. Abdomen: Abdomen soft, non-tender. Bowel sounds normal. No masses, organomegaly. Extremities: No deformities, edema. Peripheral Pulses: Normal. Neurologic: Gait normal. Sensation grossly intact. Impression: altered bowel habits Plan: Stool study and check magnesium, for starters. I have explained that I won't set up any procedures until he sees Dr. Castillo. Procedure would need to be done at a hospital. If stool is positive we can start medication to see about improvement. He agrees with this plan. I have personally interviewed and examined this patient. I have reviewed the information that the PROPERTY CLERK entered for this encounter. I spent 30 minutes in the visit, with greater than 50% of the total mbmt-ta-ayum time of the visit in counseling and coordination of care. Guerda Beasley RN [employer] THRESHING.SUNITA Schroeder LPN 05/05/2018 12:46 PM Signed Patient blood pressure high x 2. Just took his BP medication before apt. Can run high for new office visits per patient. Janet Beasley RN APRN.ADMINISTRATIVE OFFICE MANAGER 05/05/2018 1:27 PM Signed Return the stool sample to the lab. We will let you know the results as soon as I have reviewed them. Follow up with me on , May 28 - arriving at 12:40. (after you see Dr. Castillo. A procedure will have to wait until after you see him). Referring Provider: EDUIN HAGEN [[id number]] Allergies As of Date: 05/05/2018 Noted Allergy Reaction REMERON (MIRTAZAPINE) 07/10/2015 5 - Intolerance Comments: sleptalot; felt spaced out. DEMEROL (MEPERIDINE HCL) 03/18/2005 5 - Intolerance Comments: Vomiting spacey Date Reviewed: 05/05/2018 Reviewed by: Janet Schroeder LPN - Fully Assessed Reason for Visit: Diarrhea [35] Primary Visit Diagnosis:Altered bowel habits [R19.4] Order(s):PANC ELASTASE, FECAL [SQPANCEF] Order #: [id number] FUTURE COMP METABOLIC PANEL [SQCMP] Order #: [id number] FUTURE LIPASE BLD [SQLIPA] Order #: [id number] FUTURE AMYLASE BLD [SQAMYL] Order #: [id number] FUTURE MAGNESIUM BLD [SQMG1] Order #: [id number] FUTURE Prescriptions as of 05/05/2018 Sig: ATORVASTATIN 40 MG TABLET TAKE 1 TABLET BY MOUTH AT BED* FUROSEMIDE 80 MG TABLET TAKE ONE-HALF TABLET BY MOUTH* MAGNESIUM OXIDE 500 MG TABLET Take 400 mg by mouth once jameel* FIBER ORAL Take 30 g by mouth once daily* MEDICATION, NON-DATABASE 1,000 mg. tumeric BLOOD SUGAR DIAGNOSTIC STRIPS Check blood sugar 4 times jameel* IPRATROPIUM BROMIDE 42 MCG (0* Use 2 Sprays in the nose twic* INSULIN ASPART U-100 100 UNI* Inject 12 units as a base the* PEN NEEDLE, DIABETIC 31 GAUGE* Use 1 pen needle for each ins* INSULIN GLARGINE (U-100) 100 * Inject 26 Units subcutaneousl* CARVEDILOL 6.25 MG TABLET Take 1 tablet by mouth twice * ISOSORBIDE DINITRATE 30 MG TA* TAKE TWO TABLETS BY MOUTH THR* CHROMIUM PICOLINATE 1,000 MCG* Take by mouth. OMEGA 3 350 MG-DHA 235 MG-EPA* Take by mouth. CLOPIDOGREL 75 MG TABLET Take 1 tablet by mouth once d* NITROGLYCERIN 0.4 MG SUBLINGU* Dissolve 1 tablet under the t* VITAMIN B COMPLEX TABLET Take 1 tablet by mouth once d* OXYGEN (HOME THERAPY) Inhale as instructed as dire* BLOOD-GLUCOSE METER Use as directed, test 4 times* LANCING DEVICE LiteTouch Test 4 times daily,* ASPIRIN 81 MG TABLET,DELAYED * Take 81 mg by mouth once joanie* CHOLECALCIFEROL (VITAMIN D3) * Take 5,000 Units by mouth onc* Problem List As Of Date 05/05/2018 Noted Resolved Other hyperlipidemia [E78.49] BENIGN HYPERTENSION [I10] AORTOCORONARY BYPASS STATUS [Z95.1] INVALID FOR* HEARING LOSS NOS [H91.90] INVALID FOR* Type II diabetes mellitus with renal manifestat*INVALID FOR* NEUROPATHY IN DIABETES [E11.42] INVALID FOR* Impotence of organic origin [N52.9] INVALID FOR*10/17/2015 CHRONIC RHINITIS [J31.0] INVALID FOR* Hypertrophy of prostate without urinary obstruc*INVALID FOR*05/22/2017 MOD NONPROLIF DIAB RETINOPATHY [E11.3399] INVALID FOR* More... Proteinuria [R80.9] INVALID FOR* Debility [R53.81] INVALID FOR*05/22/2017 Atrial flutter [I48.92] INVALID FOR*10/17/2015 More... Gallbladder calculus without cholecystitis [K80*INVALID FOR*11/04/2013 ADHF (acute decompensated heart failure) (HCC) *INVALID FOR*10/11/2014 More... Angina pectoris (HCC) [I20.9] INVALID FOR*10/16/2015 More... CAD (coronary artery disease), [place] coronary *INVALID FOR* More... SUMMARY [V999.95] INVALID FOR*05/09/2014 More... CKD (chronic kidney disease) stage 3, GFR 30-59*INVALID FOR* Aortic stenosis [I35.0] INVALID FOR* More... Lung crackles [R09.89] INVALID FOR*10/11/2014 More... SUMMARY [V999.95] INVALID FOR*10/17/2015 More... Hematoma [T14.8XXA] INVALID FOR*10/11/2014 More... Rash and nonspecific skin eruption [R21] INVALID FOR*10/17/2015 Hydrocele of testis [N43.3] INVALID FOR*10/17/2015 BPH with obstruction/lower urinary tract sympto*INVALID FOR*10/17/2015 Encounter for screening for other disorder [Z13*INVALID FOR*10/17/2015 SUMMARY INVALID FOR*04/09/2015 More... Acute on chronic combined systolic and diastoli*INVALID FOR* Acute renal injury (HCC) [N17.9] INVALID FOR*10/16/2015 More... Ascites of liver [R18.8] INVALID FOR*10/16/2015 More... Pulmonary hypertension, primary (HCC) [I27.0] INVALID FOR* More... More... Depressive disorder [F32.9] INVALID FOR*05/22/2017 Dental caries on smooth surface penetrating int*INVALID FOR*10/17/2015 Hypertensive kidney disease with CKD stage III *INVALID FOR* More... S/P aortic valve replacement [Z95.2] INVALID FOR* Right foot ulcer (HCC) [L97.519] INVALID FOR*08/08/2016 ACS (acute coronary syndrome) (HCC) [I24.9] INVALID FOR*05/22/2017 Other instructions from your clinician: Return the stool sample to the lab. We will let you know the results as soon as I have reviewed them. Follow up with me on May 28 - arriving at 12:40. (after you see Dr. Castillo. A procedure will have to wait until after you see him). Visit Notes: >> Janet Schroeder MARY Bethany May 05, 2018 12:46 PM Status: Signed Patient blood pressure high x 2. Just took his BP medication before apt. Can run high for new office visits per patient. Janet Felder Alexandre HERNANDEZ Follow-up and Disposition History Recorded Encounter Status:Closed by GUERDA BEASLEY CNP on 05/05/18 HISTORY PHYSICAL Observed: 05/04/2018 Status: COMPLETED Source: [place] 11:51 AM [facility] REPOSITORY HNO ID: [id number] Author: Guerda (Discharge Door Operator) Ramos Service: (none) Author Type: Nurse Practitioner Type: HANDP Filed: 05/05/2018 5:10 PM Note Text: Marissa Peralta a 67 year old male who is a consultation requested by Dr. Hagen for an opinion regarding diarrhea. My final recommendations will be communicated back to the requesting physician by way of shared Medical record. The patient denies a family history of colon cancer. The patient was seen by Dr. Hagen on 03/24/18, leading to this consultation. That note has been reviewed and part as follows: He complained of diarrhea since May, 2-4 times a day, brown, liquid, non bloody, occasionally with incontinence of stool needing pads. As far as I can tell, this had not been mentioned or evaluated. He was scheduled for a colonoscopy earlier this year, but he was ill. ASSESSMENT/PLAN: 1. Chronic diarrhea - ICD9: 787.91, ICD10: K52.9 (primary diagnosis) - C. DIFFICILE PCR - I encourage rescheduling colonoscopy. Component Latest Ref Rng AND Units 05/22/2017 11/21/2017 03/18/2018 Glucose 74 - 99 mg/dL 294 (H) 189 (H) 187 (H) BUN 7 - 21 mg/dL 63 (H) 44 (H) 67 (H) Creatinine 0.73 - 1.22 mg/dL 2.13 (H) 1.98 (H) 2.15 (H) Sodium 136 - 144 mmol/L 137 141 138 Potassium 3.7 - 5.1 mmol/L 4.5 4.6 4.9 Chloride 97 - 105 mmol/L 100 106 (H) 102 CO2 22 - 30 mmol/L 24 25 24 Anion Gap 9 - 18 mmol/L 13 10 12 Calcium 8.5 - 10.2 mg/dL 9.5 9.4 10.0 eGFR- 38 41 38 eGFR-All Other Races . 31 34 31 Component Latest Ref Rng AND Units 09/30/2016 05/22/2017 03/18/2018 WBC 3.70 - 11.00 k/uL 4.34 8.33 8.13 RBC 4.20 - 6.00 m/uL 4.01 (L) 6.17 (H) 5.17 Hemoglobin 13.0 - 17.0 g/dL 11.7 (L) 18.1 (H) 15.3 Hematocrit 39.0 - 51.0 % 37.1 (L) 57.1 (H) 48.2 MCV 80.0 - 100.0 fL 92.5 92.5 93.2 MCH 26.0 - 34.0 pG 29.2 29.3 29.6 MCHC 30.5 - 36.0 g/dL 31.5 31.7 31.7 RDW-CV 11.5 - 15.0 % 13.9 14.3 13.8 Platelet Count 150 - 400 k/uL 96 (L) 141 (L) 125 (L) MPV 9.0 - 12.7 fL 10.5 11.3 10.9 Neut% % 71.0 77.9 Abs Neut (ANC) 1.45 - 7.50 k/uL 3.08 6.49 Lymph% % 15.4 12.0 Abs Lymph 1.00 - 4.00 k/uL 0.67 (L) 1.00 [place]% % 10.1 7.8 Abs [place] <0.87 k/uL 0.44 0.65 Eosin% % 3.0 1.7 Abs Eosin <0.46 k/uL 0.13 0.14 Baso% % 0.5 0.6 Abs Baso <0.11 k/uL 0.02 0.05 Nucleated Reds 0 /100 WBC 0.0 Absolute nRBC <0.01 k/uL <0.01 <0.01 Diff Type Auto Diff Auto Diff Component Latest Ref Rng AND Units 03/18/2018 Hemoglobin A1C 4.3 - 5.6 % 8.2 (H) Estimated Average Glucose mg/dL 189 Component Latest Ref Rng AND Units 03/24/2018 C. difficile PCR Negative for C. difficile toxin by PCR On chart review, the patient has a complicated health history. He has a follow up with Dr. Castillo on 05/20. On Plavix. He uses O2 at home, usually at night. Presenting complaint: The patient begins today by stating I am due for another stent so Dr. Castillo will not be happy with me when I see him in a couple weeks. The patient tells me that diarrhea started mid May last year. Imodium was good at first. Got progressively more frequent, no matter what he ate. He tells me that he might be back and forth to the bathroom 3-4 times in 20 minutes. He would be incontinent at times - even during the night. The patient tells me it would get ok for a while, for up to a couple weeks, then back to loose again. Watery at the worst. It would be small pieces of stool, when not watery. The patient tells me that he did some reading on line and started taking magnesium, 500mg a day. he read it would help with gut health. Next started a probiotic and eating yogurt. Next added a fiber tablet. Most recently started a taking Metamucil. The patient tells me I started the fiber in November and it's starting to settle down. I get normal stool, but occasional diarrhea. No blood or black stool. Notes a lot of gas. He tells me that the gas can be painful until I get it out. He denies drinking milk or having cereal with milk. Rare ice cream. No cream in coffee. The patient reports that he had planned a colonoscopy a couple times, but had to cancel both. One in-patient and one out-patient, cancelled due to heart issues. REVIEW OF SYSTEMS: GENERAL: Weight varies in a 5 pound window. Last 10 Encounter Wt Readings: Date: Wt: 05/05/2018 71.2 kg (157 lb) 03/24/2018 72.6 kg (160 lb) 03/18/2018 73.9 kg (163 lb) 11/21/2017 73.5 kg (162 lb) 11/15/2017 73.6 kg (162 lb 3.2 oz) 09/22/2017 71.7 kg (158 lb) 05/23/2017 73.2 kg (161 lb 4.8 oz) 05/22/2017 73 kg (161 lb) 12/12/2016 73.2 kg (161 lb 6.4 oz) 11/11/2016 71.5 kg (157 lb 9.6 oz) RESPIRATORY: Using O2 at night. Notes shortness of breath. CARDIOVASCULAR: Heart disease. Sees Dr. Castillo. Tells me he's due for another stent. GI: The patient states that his appetite has been adequate. He does get hungry. There has been no nausea, no vomiting. He denies dysphagia and denies odynophagia. There has not been indigestion or heartburn. There has not been regurgitation. Bowel habits have been irregular. There has been diarrhea. There has not been constipation. The patient denies rectal bleeding. There has not been melena. No abdominal pain other than related to gas. PSYCH: Negative for sleep disturbance, mood disorder and recent psychosocial stressors. HEMATOLOGY/LYMPHOLOGY On Plavix. Denies easy bruising or bleeding. ENDOCRINE: Positive for diabetes mellitus on insulin NEURO: Positive for numbness or tingling of feet All other reviewed and negative other than HPI. PAST MEDICAL HISTORY Diagnosis Date - Aortic stenosis 05/06/2014 - Ascites of liver 04/04/2015 ar hepatic seen on CTA - Atrial flutter (HCC) 10/09/2012 - Chronic renal insufficiency - Chronic rhinitis 03/19/2005 - CKD (chronic kidney disease) stage 3, GFR 30-59 ml/min (HCC) 05/05/2014 - Congestive heart failure (HCC) - Essential hypertension, benign - Fracture - Gallbladder calculus without cholecystitis 10/09/2012 - Hypertrophy of prostate without urinary obstruction and other lower urinary tract symptoms (LUTS) 12/03/2007 - Impotence of organic origin 03/19/2005 - Moderate nonproliferative diabetic retinopathy(362.05) 12/16/2007 Dr. Pope - Myocardial infarct, old - New onset atrial flutter (HCC) 10/09/2012 - Other and unspecified hyperlipidemia - Polyneuropathy in diabetes(357.2) 03/19/2005 - Postsurgical aortocoronary bypass status 03/19/2005 - Proteinuria 08/13/2010 - Rash and nonspecific skin eruption 06/27/2014 - Rheumatic fever - Type I (juvenile type) diabetes mellitus with renal manifestations, not stated as uncontrolled(250.41) 03/19/2005 - Type II or unspecified type diabetes mellitus without mention of complication, not stated as uncontrolled - Unspecified hearing loss 03/19/2005 PAST SURGICAL HISTORY Procedure Laterality Date - CABG, ARTERY-VEIN, FIVE 09/1997 - CC CORONARY STENT 05/16/2014 bare metal stent, LMT - CC CORONARY STENT 04/07/2015 ENZO, LCfx - CC CORONARY STENT 09/28/2016 ENZO again, Left Cfx - INCISION AND DRAINAGE, COMPLICATED OR MULT 2004 brown recluse, upper back. - LEFT HEART CATH,PERCUTANEOUS 12/17/2001 Cardiac cath, L heart - TAVR PROCEDURAL PLANNING 07/11/2015 FAMILY HISTORY Problem Relation Age of Onset - Diabetes Father age 71 - Heart Father - Diabetes Mother - None Brother Current Outpatient Prescriptions: atorvastatin (LIPITOR) 40 mg tablet TAKE 1 TABLET BY MOUTH AT BEDTIME Disp: 30 tablet Rfl: 5 furosemide (LASIX) 80 mg tablet TAKE ONE-HALF TABLET BY MOUTH ONCE DAILY Disp: 45 tablet Rfl: 99 Magnesium Oxide 500 mg tab Take 400 mg by mouth once daily. Disp: Rfl: psyllium seed, with dextrose, (FIBER ORAL) Take 30 g by mouth once daily. Disp: Rfl: MEDICATION, NON-DATABASE 1,000 mg. tumeric Disp: Rfl: blood sugar diagnostic (FREESTYLE TEST) test strip Check blood sugar 4 times daily, E11.22 Disp: 400 Strip Rfl: 4 ipratropium bromide (ATROVENT) 42 mcg (0.06 %) nasal spray Use 2 Sprays in the nose twice daily as needed. Disp: 1 Bottle Rfl: 2 insulin aspart U-100 (NOVOLOG FLEXPEN U-100 INSULIN) 100 unit/mL inpn Inject 12 units as a base then 1 unit for every 25 carbs 3 times a day with meals and snacks. (12-15 units based upon glucose) Disp: 5 Pen Rfl: 1 Insulin [place], Disposable, (BD ULTRAFINE III MINI PEN) 31 gauge x 3/16 ndle Use 1 pen needle for each insulin injection (4 times daily) DX: Type I (juvenile type) DM with renal manifestations 250.41 Disp: 400 Each Rfl: 0 insulin glargine (LANTUS SOLOSTAR U-100 INSULIN) 100 unit/mL (3 mL) inpn Inject 26 Units subcutaneously every evening. Take around 10 PM. Disp: 15 Pen Rfl: 1 carvedilol (COREG) 6.25 mg tablet Take 1 tablet by mouth twice daily with meals. Disp: 180 tablet Rfl: 3 isosorbide dinitrate (ISORDIL, SORBITRATE) 30 mg tablet TAKE TWO TABLETS BY MOUTH THREE TIMES DAILY Disp: 180 tablet Rfl: 11 chromium picolinate 1,000 mcg tab Take by mouth. Disp: Rfl: omega 4-kgy-dji-fish oil 350 mg-235 mg- 90 mg-597 mg cpDR Take by mouth. Disp: Rfl: clopidogrel (PLAVIX) 75 mg tablet Take 1 tablet by mouth once daily. Disp: 90 tablet Rfl: 3 nitroglycerin sublingual (NITROSTAT) 0.4 mg SL tablet Dissolve 1 tablet under the tongue every 5 minutes as needed for Chest Pain. Disp: 1 Bottle of 25 Rfl: 2 vitamin b complex (B COMPLETE) tab Take 1 tablet by mouth once daily. Disp: Rfl: 0 OXYGEN, HOME THERAPY, Inhale as instructed as directed. 3 lts at night while sleeping and 2 lts if needed while awake Disp: Rfl: Blood-Glucose Meter (GMATE VOICE METER) [facility] [place] Use as directed, test 4 times a day and as needed dx E11.22 Disp: 1 Each Rfl: 0 Lancing Device (GMATE LANCING DEVICE) [facility] [place] LiteTouch Test 4 times daily, and PRN Insulin yes, dx:E11.22 Disp: 300 Each Rfl: 3 aspirin, enteric coated (ASPIRIN, ENTERIC COATED) 81 mg EC tablet Take 81 mg by mouth once daily. Disp: Rfl: Cholecalciferol, Vitamin D3, (VITAMIN D-3) 1,000 unit Chew Take 5,000 Units by mouth once daily. Disp: Rfl: No current facility-administered medications for this visit. SOCIAL HISTORY: Patient is . He quit smoking years ago and reports his alcohol use as never. PHYSICAL EXAMINATION: Blood pressure 153/60, pulse 62, height 172.7 cm (5' 8), weight 71.2 kg (157 lb). General Appearance: Well appearing, alert, in no acute distress, well-hydrated, well nourished. Skin: Skin color, texture, turgor normal, no suspicious rashes or lesions. Head: Normocephalic, no masses, lesions or abnormalities. Eyes: Anicteric sclera. Extraocular movements are intact. Neck: Supple, no adenopathy; thyroid symmetric, normal size. Lungs: Lungs clear to auscultation. No wheezing, rhonchi, rales. Heart: RRR with 1/6 murmur. Abdomen: Abdomen soft, non-tender. Bowel sounds normal. No masses, organomegaly. Extremities: No deformities, edema. Peripheral Pulses: Normal. Neurologic: Gait normal. Sensation grossly intact. Impression: altered bowel habits Plan: Stool study and check magnesium, for starters. I have explained that I won't set up any procedures until he sees Dr. Castillo. Procedure would need to be done at a hospital. If stool is positive we can start medication to see about improvement. He agrees with this plan. I have personally interviewed and examined this patient. I have reviewed the information that the PROPERTY CLERK entered for this encounter. I spent 30 minutes in the visit, with greater than 50% of the total [id number] time of the visit in counseling and coordination of care. Guerda Beasley RN CONTRACTOR [employer]ING.ADMINISTRATIVE OFFICE MANAGER OBSOLETE Observed: 03/31/2018 Status: COMPLETED Source: [facility] 12:00 AM [facility] OTHER [facility] REPOSITORY Refill (AGCARDWST) MARISSA PERALTA ([id number]) 1950 M Date Time Provider Department 03/31/18 JG CASTILLO During your visit today, we recorded the following information about you: Allergies As of Date: 03/31/2018 Noted Allergy Reaction REMERON (MIRTAZAPINE) 07/10/2015 5 - Intolerance Comments: sleptalot; felt spaced out. DEMEROL (MEPERIDINE HCL) 03/18/2005 5 - Intolerance Comments: Vomiting spacey Date Reviewed: 03/24/2018 Reviewed by: Criselda Gallardo LPN - Fully Assessed Reason for Visit: Refill Request [94] Order(s):furosemide (LASIX) 80 mg tabletTAKE ONE-HALF TABLET BY MOUTH ONCE DAILYDisp: 45 tabletRfl: 99 Prescriptions as of 03/31/2018 Sig: FUROSEMIDE 80 MG TABLET TAKE ONE-HALF TABLET BY MOUTH* MAGNESIUM OXIDE 500 MG TABLET Take 400 mg by mouth once jameel* FIBER ORAL Take 30 g by mouth once daily* MEDICATION, NON-DATABASE 1,000 mg. tumeric BLOOD SUGAR DIAGNOSTIC STRIPS Check blood sugar 4 times jameel* IPRATROPIUM BROMIDE 42 MCG (0* Use 2 Sprays in the nose twic* INSULIN ASPART U-100 100 UNI* Inject 12 units as a base the* PEN NEEDLE, DIABETIC 31 GAUGE* Use 1 pen needle for each ins* INSULIN GLARGINE (U-100) 100 * Inject 26 Units subcutaneousl* CARVEDILOL 6.25 MG TABLET Take 1 tablet by mouth twice * ATORVASTATIN 40 MG TABLET TAKE ONE TABLET BY MOUTH AT B* ISOSORBIDE DINITRATE 30 MG TA* TAKE TWO TABLETS BY MOUTH THR* CHROMIUM PICOLINATE 1,000 MCG* Take by mouth. OMEGA 3 350 MG-DHA 235 MG-EPA* Take by mouth. CLOPIDOGREL 75 MG TABLET Take 1 tablet by mouth once d* NITROGLYCERIN 0.4 MG SUBLINGU* Dissolve 1 tablet under the t* VITAMIN B COMPLEX TABLET Take 1 tablet by mouth once d* OXYGEN (HOME THERAPY) Inhale as instructed as dire* BLOOD-GLUCOSE METER Use as directed, test 4 times* LANCING DEVICE LiteTouch Test 4 times daily,* ASPIRIN 81 MG TABLET,DELAYED * Take 81 mg by mouth once joanie* CHOLECALCIFEROL (VITAMIN D3) * Take 5,000 Units by mouth onc* Problem List As Of Date 03/31/2018 Noted Resolved Other hyperlipidemia [E78.49] BENIGN HYPERTENSION [I10] AORTOCORONARY BYPASS STATUS [Z95.1] INVALID FOR* HEARING LOSS NOS [H91.90] INVALID FOR* Type II diabetes mellitus with renal manifestat*INVALID FOR* Priority: D NEUROPATHY IN DIABETES [E11.42] INVALID FOR* Impotence of organic origin [N52.9] INVALID FOR*10/17/2015 CHRONIC RHINITIS [J31.0] INVALID FOR* Hypertrophy of prostate without urinary obstruc*INVALID FOR*05/22/2017 MOD NONPROLIF DIAB RETINOPATHY [E11.3399] INVALID FOR* More... Proteinuria [R80.9] INVALID FOR* Debility [R53.81] INVALID FOR*05/22/2017 Atrial flutter [I48.92] INVALID FOR*10/17/2015 More... Gallbladder calculus without cholecystitis [K80*INVALID FOR*11/04/2013 ADHF (acute decompensated heart failure) (HCC) *INVALID FOR*10/11/2014 Priority: B More... Angina pectoris (HCC) [I20.9] INVALID FOR*10/16/2015 More... CAD (coronary artery disease), [place] coronary *INVALID FOR* Priority: B More... SUMMARY [V999.95] INVALID FOR*05/09/2014 Priority: A More... CKD (chronic kidney disease) stage 3, GFR 30-59*INVALID FOR* Aortic stenosis [I35.0] INVALID FOR* Priority: Mild More... Lung crackles [R09.89] INVALID FOR*10/11/2014 More... SUMMARY [V999.95] INVALID FOR*10/17/2015 Priority: Very Severe More... Hematoma [T14.8XXA] INVALID FOR*10/11/2014 More... Rash and nonspecific skin eruption [R21] INVALID FOR*10/17/2015 Hydrocele of testis [N43.3] INVALID FOR*10/17/2015 BPH with obstruction/lower urinary tract sympto*INVALID FOR*10/17/2015 Encounter for screening for other disorder [Z13*INVALID FOR*10/17/2015 SUMMARY INVALID FOR*04/09/2015 Priority: Mild More... 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 Ascites of liver [R18.8] INVALID FOR*10/16/2015 More... Pulmonary hypertension, primary (HCC) [I27.0] INVALID FOR* More... More... Depressive disorder [F32.9] INVALID FOR*05/22/2017 Priority: A Dental caries on smooth surface penetrating int*INVALID FOR*10/17/2015 Hypertensive kidney disease with CKD stage III *INVALID FOR* Priority: C More... S/P aortic valve replacement [Z95.2] INVALID FOR* Right foot ulcer (HCC) [L97.519] INVALID FOR*08/08/2016 ACS (acute coronary syndrome) ([facility]) [I24.9] INVALID FOR*05/22/2017 Prescriptions ordered this encounter Disp Refills Start End FUROSEMIDE 80 MG TABLET 45 t* 99 03/31/2018 Cmt: Please consider 90 day supplies to promote better adherence Sig: TAKE ONE-HALF TABLET BY MOUTH ONCE DAILY Medications Discontinued During This Encounter furosemide (LASIX) 80 mg tablet 30 t* 11 03/21/2017 03/31/2018 Route: ORAL Sig: Take 0.5 tablets by mouth once daily. Disc: Reason for discontinue is not on file. Encounter Status:Closed by KYLE TEMPLE RN on 03/31/18 C DIFFICILE PCR Collected: 03/24/2018 Status: F Source: [facility] 4:27 PM [facility] REPOSITORY TYPE CODE TESTS RESULT OUT OF REFERENCE UNITS RANGE LAB CDFRES C difficile PCR Negative for C. difficile toxin by PCR Performed By: #### CDPCR #### [facility] [address], [place] [address] PROGRESS Observed: 03/24/2018 Status: COMPLETED Source: [facility] 4:18 PM [facility] REPOSITORY HNO ID: [id number] Author: Eduin Hagen Service: (none) Author Type: Physician Type: Progress Notes Filed: 03/24/2018 9:10 PM Note Text: This note was created using Vue Technologyriter. Subjective Marissa Peralta is a 67 year old male here for follow up. He had vague multiple concerns. He was not feeling well in general. He felt dizzy on his way here, characterized as imbalance. His diabetes mellitus was not well controlled, and he was on prednisone for presumed gout of the left wrist. Left wrist was a lot better. His congestive heart failure was monitored, and his CKD fluctuated. He was taking extra furosemide off and on depending on symptoms of dyspnea. He complained of diarrhea since May, 2-4 times a day, brown, liquid, non bloody, occasionally with incontinence of stool needing pads. As far as I can tell, this had not been mentioned or evaluated. He was scheduled for a colonoscopy earlier this year, but he was ill. ACTIVE PROBLEM LIST Other Hyperlipidemia BENIGN HYPERTENSION AORTOCORONARY BYPASS STATUS Unspecified Hearing Loss Type II Diabetes Mellitus With Renal Manifestations (Hcc) Polyneuropathy in Diabetes(357.2) Chronic Rhinitis Moderate Nonproliferative Diabetic Retinopathy(362.05) Proteinuria Cad (Coronary Artery Disease), [place] Coronary Artery Ckd (Chronic Kidney Disease) Stage 3, Gfr 30-59 Ml/Min ([facility]) Aortic Stenosis Acute On Chronic Combined Systolic and Diastolic Heart Failure ([facility]) Pulmonary Hypertension, Primary ([facility]) Hypertensive Kidney Disease With Ckd Stage Iii ([facility]) S/P Aortic Valve Replacement PAST SURGICAL HISTORY Procedure Laterality Date - CABG, ARTERY-VEIN, FIVE 09/1997 - CC CORONARY STENT 05/16/2014 bare metal stent, LMT - CC CORONARY STENT 04/07/2015 ENZO, LCfx - CC CORONARY STENT 09/28/2016 ENZO again, Left Cfx - INCISION AND DRAINAGE, COMPLICATED OR MULT 2004 brown recluse, upper back. - LEFT HEART CATH,PERCUTANEOUS 12/17/2001 Cardiac cath, L heart - TAVR PROCEDURAL PLANNING 07/11/2015 Current Outpatient Prescriptions: Magnesium Oxide 500 mg tab Take 400 mg by mouth once daily. psyllium seed, with dextrose, (FIBER ORAL) Take 30 g by mouth once daily. MEDICATION, NON-DATABASE 1,000 mg. tumeric methylPREDNISolone (MEDROL, YAZAN,) 4 mg Dose-Pack Follow dosing instructions, take with food. blood sugar diagnostic (FREESTYLE TEST) test strip Check blood sugar 4 times daily, E11.22 ipratropium bromide (ATROVENT) 42 mcg (0.06 %) nasal spray Use 2 Sprays in the nose twice daily as needed. insulin aspart U-100 (NOVOLOG FLEXPEN U-100 INSULIN) 100 unit/mL inpn Inject 12 units as a base then 1 unit for every 25 carbs 3 times a day with meals and snacks. 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 Take around 10 PM. carvedilol (COREG) 6.25 mg tablet Take 1 tablet by mouth twice daily with meals. atorvastatin (LIPITOR) 40 mg tablet TAKE ONE TABLET BY MOUTH AT BEDTIME isosorbide dinitrate (ISORDIL, SORBITRATE) 30 mg tablet TAKE TWO TABLETS BY MOUTH THREE TIMES DAILY chromium picolinate 1,000 mcg tab Take by mouth. clopidogrel (PLAVIX) 75 mg tablet Take 1 tablet by mouth once daily. furosemide (LASIX) 80 mg tablet Take 0.5 tablets by mouth once daily. nitroglycerin sublingual (NITROSTAT) 0.4 mg SL tablet Dissolve 1 tablet under the tongue every 5 minutes as needed for Chest Pain. vitamin b complex (B COMPLETE) tab Take 1 tablet by mouth once daily. Blood-Glucose Meter ([employer] VOICE METER) [facility] Use as directed, test 4 times a day and as needed dx E11.22 Lancing Device (GMATE LANCING DEVICE) [facility] LiteTouch Test 4 times daily, and PRN Insulin yes, dx:E11.22 aspirin, enteric coated (ASPIRIN, ENTERIC COATED) 81 mg EC tablet Take 81 mg by mouth once daily. Cholecalciferol, Vitamin D3, (VITAMIN D-3) 1,000 unit Chew Take 5,000 Units by mouth once daily. omega 3-vqi-tiw-fish oil 350 mg-235 mg- 90 mg-597 mg cpDR Take by mouth. OXYGEN, HOME THERAPY, Inhale as instructed as directed. 3 lts at night while sleeping and 2 lts if needed while awake No current facility-administered medications for this visit. Review of Systems Constitutional: Positive for fatigue. Negative for chills, diaphoresis and fever. HENT: Negative. Respiratory: Positive for shortness of breath. Negative for cough, chest tightness and wheezing. Cardiovascular: Negative for chest pain, palpitations and leg swelling. Gastrointestinal: Positive for diarrhea. Negative for abdominal distention, abdominal pain, anal bleeding, blood in stool, nausea and vomiting. Genitourinary: Negative. Musculoskeletal: Negative. Neurological: Positive for light-headedness and numbness. Negative for dizziness, tremors, syncope and headaches. Psychiatric/Behavioral: Negative for confusion. Objective BP 118/54 (BP Site: Right Arm, BP Position: Sitting, BP Cuff Size: Regular Adult) Pulse (!) 56 Temp (!) 35.7 ?C (96.3 ?F) (Left Tympanic) Resp 16 Wt 72.6 kg (160 lb) BMI 24.33 kg/m? Physical Exam Constitutional: No distress. HENT: Head: Normocephalic. Eyes: Pupils are equal, round, and reactive to light. Conjunctivae and EOM are normal. Neck: Neck supple. No JVD present. Cardiovascular: S1 normal and S2 normal. Occasional extrasystoles are present. Bradycardia present. Exam reveals no gallop. Murmur heard. Systolic murmur is present with a grade of 1/6 LSB Pulmonary/Chest: Breath sounds normal. He has no wheezes. He has no rales. Musculoskeletal: He exhibits no edema. Left wrist: He exhibits tenderness. He exhibits normal range of motion, no swelling, no effusion and no deformity. Neurological: He is alert. He has normal strength. No cranial nerve deficit. Coordination and gait normal. Supine BP:120/70 Pulse:64. Sitting BP124/60 Pulse:56. Component Latest Ref Rng AND Units 03/18/2018 WBC 3.70 - 11.00 k/uL 8.13 RBC 4.20 - 6.00 m/uL 5.17 Hemoglobin 13.0 - 17.0 g/dL 15.3 Hematocrit 39.0 - 51.0 % 48.2 MCV 80.0 - 100.0 fL 93.2 MCH 26.0 - 34.0 pG 29.6 MCHC 30.5 - 36.0 g/dL 31.7 RDW-CV 11.5 - 15.0 % 13.8 Platelet Count 150 - 400 k/uL 125 (L) MPV 9.0 - 12.7 fL 10.9 Absolute nRBC <0.01 k/uL <0.01 Glucose 74 - 99 mg/dL 187 (H) BUN 7 - 21 mg/dL 67 (H) Creatinine 0.73 - 1.22 mg/dL 2.15 (H) Sodium 136 - 144 mmol/L 138 Potassium 3.7 - 5.1 mmol/L 4.9 Chloride 97 - 105 mmol/L 102 CO2 22 - 30 mmol/L 24 Anion Gap 9 - 18 mmol/L 12 Calcium 8.5 - 10.2 mg/dL 10.0 eGFR- 38 eGFR-All Other Races . 31 Cholesterol, Total <200 mg/dL 76 Triglyceride <150 mg/dL 63 HDL Cholesterol >39 mg/dL 30 (L) LDL Cholesterol <100 mg/dL 33 Non HDL Cholesterol <130 mg/dL 46 Fasting Time hrs 12 VLDL Cholesterol <30 mg/dL 13 TC:HDL Ratio <5.10 2.53 LDL:HDL Ratio <2.54 1.10 Hemoglobin A1C 4.3 - 5.6 % 8.2 (H) Estimated Average Glucose mg/dL 189 Assessment and Plan ASSESSMENT/PLAN: 1. Chronic diarrhea - ICD9: 787.91, ICD10: K52.9 (primary diagnosis) - C. DIFFICILE PCR - I encourage rescheduling colonoscopy. 2. Dizziness - ICD9: 780.4, ICD10: R42 Orthostatic? 3. CKD (chronic kidney disease) stage 3, GFR 30-59 ml/min (HCC) - ICD9: 585.3, ICD10: N18.3 Worse. Take furosemide as directed. - BASIC METABOLIC PNL 4. Type 2 diabetes mellitus with stage 3 chronic kidney disease, with long-term current use of insulin (HCC) - ICD9: 250.40, 585.3, V58.67, ICD10: E11.22, N18.3, Z79.4 poorly controlled - Continue current medications as patient historically labile diabetes mellitus. - HGB A1C - ALBUMIN/CREAT RATIO RND UR 5. Acute on chronic combined systolic and diastolic heart failure (HCC) - ICD9: 428.43, ICD10: I50.43 Compensated. 6. Need for vaccination - ICD9: V05.9, ICD10: Z23 - PNEUMOCOCCAL-13 VACCINE PCV-13 - ADMIN OF INFLUENZA VACCINE - INFLUENZA SEASONAL HIGH DOSE AGE 65+ 7. Wrist pain, left - ICD9: 719.43, ICD10: M25.532 Rule out gout. - URIC ACID BLOOD Eduin Hagen MD CNOV Observed: 03/24/2018 Status: COMPLETED Source: [facility] 2:00 PM [facility] REPOSITORY Office Visit (INTMWS) MARISSA PERALTA ([id number]) 1950 M Date Time Provider Department 03/24/18 2:00 PM EDUIN HAGEN INTMWS During your visit today, we recorded the following information about you: Temperature Pulse Respiration Blood pressure 96.3 degrees 56/minute 16/minute 118/54 Weight 72.6 kg Criselda Glalardo MARY 03/24/2018 4:04 PM Signed Influenza Vaccine Documentation: ? Patient is identified by name and date of : Yes ? Patient is older than 6 months of age: Yes ? Patient denies a severe allergy to any vaccine component or to a previous dose of influenza vaccine: Yes FOR EGG ALLERGY CONCERNS, REFER TO PROVIDER. ? Denies allergy to gelatin, formaldehyde, thimerosol :Yes ? Patient is afebrile and not moderately or severely ill: Yes ? Does the patient have a history of Guillain ?Meacham Syndrome (a severe paralytic illness): No ? Denies bone marrow transplant prior 6 months or solid organ transplant prior 3 months: Yes ? Denies a history of fainting after a prior injection or medical procedure? Yes If patient has fainted in the past, the CDC recommends sitting or lying down for 15 minutes after the vaccination. ? VIS sheet provided: Yes ? See Immunization Form in [facility] for details of immunizations administered today. If patient reports dizziness, vision changes or ringing in the ears post vaccination ? please have patient sit or lie down for 15 minutes. Eduin Hagen MD 03/24/2018 9:10 PM Signed This note was created using [employer]ue [employer]. Subjective Marissa Peralta is a 67 year old male here for follow up. He had vague multiple concerns. He was not feeling well in general. He felt dizzy on his way here, characterized as imbalance. His diabetes mellitus was not well controlled, and he was on prednisone for presumed gout of the left wrist. Left wrist was a lot better. His congestive heart failure was monitored, and his CKD fluctuated. He was taking extra furosemide off and on depending on symptoms of dyspnea. He complained of diarrhea since May, 2-4 times a day, brown, liquid, non bloody, occasionally with incontinence of stool needing pads. As far as I can tell, this had not been mentioned or evaluated. He was scheduled for a colonoscopy earlier this year, but he was ill. ACTIVE PROBLEM LIST Other Hyperlipidemia BENIGN HYPERTENSION AORTOCORONARY BYPASS STATUS Unspecified Hearing Loss Type II Diabetes Mellitus With Renal Manifestations (Hcc) Polyneuropathy in Diabetes(357.2) Chronic Rhinitis Moderate Nonproliferative Diabetic Retinopathy(362.05) Proteinuria Cad (Coronary Artery Disease), [place] Coronary Artery Ckd (Chronic Kidney Disease) Stage 3, Gfr 30-59 Ml/Min ([facility]) Aortic Stenosis Acute On Chronic Combined Systolic and Diastolic Heart Failure ([facility]) Pulmonary Hypertension, Primary ([facility]) Hypertensive Kidney Disease With Ckd Stage Iii ([facility]) S/P Aortic Valve Replacement PAST SURGICAL HISTORY Procedure Laterality Date - CABG, ARTERY-VEIN, FIVE 09/1997 - CC CORONARY STENT 05/16/2014 bare metal stent, LMT - CC CORONARY STENT 04/07/2015 ENZO, LCfx - CC CORONARY STENT 09/28/2016 ENZO again, Left Cfx - INCISION AND DRAINAGE, COMPLICATED OR MULT 2004 brown recluse, upper back. - LEFT HEART CATH,PERCUTANEOUS 12/17/2001 Cardiac cath, L heart - TAVR PROCEDURAL PLANNING 07/11/2015 Current Outpatient Prescriptions: Magnesium Oxide 500 mg tab Take 400 mg by mouth once daily. psyllium seed, with dextrose, (FIBER ORAL) Take 30 g by mouth once daily. MEDICATION, NON-DATABASE 1,000 mg. tumeric methylPREDNISolone (MEDROL, YAZAN,) 4 mg Dose-Pack Follow dosing instructions, take with food. blood sugar diagnostic (FREESTYLE TEST) test strip Check blood sugar 4 times daily, E11.22 ipratropium bromide (ATROVENT) 42 mcg (0.06 %) nasal spray Use 2 Sprays in the nose twice daily as needed. insulin aspart U-100 (NOVOLOG FLEXPEN U-100 INSULIN) 100 unit/mL inpn Inject 12 units as a base then 1 unit for every 25 carbs 3 times a day with meals and snacks. 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 Take around 10 PM. carvedilol (COREG) 6.25 mg tablet Take 1 tablet by mouth twice daily with meals. atorvastatin (LIPITOR) 40 mg tablet TAKE ONE TABLET BY MOUTH AT BEDTIME isosorbide dinitrate (ISORDIL, SORBITRATE) 30 mg tablet TAKE TWO TABLETS BY MOUTH THREE TIMES DAILY chromium picolinate 1,000 mcg tab Take by mouth. clopidogrel (PLAVIX) 75 mg tablet Take 1 tablet by mouth once daily. furosemide (LASIX) 80 mg tablet Take 0.5 tablets by mouth once daily. nitroglycerin sublingual (NITROSTAT) 0.4 mg SL tablet Dissolve 1 tablet under the tongue every 5 minutes as needed for Chest Pain. vitamin b complex (B COMPLETE) tab Take 1 tablet by mouth once daily. Blood-Glucose Meter ([employer] VOICE METER) misc Use as directed, test 4 times a day and as needed dx E11.22 Lancing Device (GMATE LANCING DEVICE) misc LiteTouch Test 4 times daily, and PRN Insulin yes, dx:E11.22 aspirin, enteric coated (ASPIRIN, ENTERIC COATED) 81 mg EC tablet Take 81 mg by mouth once daily. Cholecalciferol, Vitamin D3, (VITAMIN D-3) 1,000 unit Chew Take 5,000 Units by mouth once daily. omega 8-tfy-jib-fish oil 350 mg-235 mg- 90 mg-597 mg cpDR Take by mouth. OXYGEN, HOME THERAPY, Inhale as instructed as directed. 3 lts at night while sleeping and 2 lts if needed while awake No current facility-administered medications for this visit. Review of Systems Constitutional: Positive for fatigue. Negative for chills, diaphoresis and fever. HENT: Negative. Respiratory: Positive for shortness of breath. Negative for cough, chest tightness and wheezing. Cardiovascular: Negative for chest pain, palpitations and leg swelling. Gastrointestinal: Positive for diarrhea. Negative for abdominal distention, abdominal pain, anal bleeding, blood in stool, nausea and vomiting. Genitourinary: Negative. Musculoskeletal: Negative. Neurological: Positive for light-headedness and numbness. Negative for dizziness, tremors, syncope and headaches. Psychiatric/Behavioral: Negative for confusion. Objective BP 118/54 (BP Site: Right Arm, BP Position: Sitting, BP Cuff Size: Regular Adult) Pulse (!) 56 Temp (!) 35.7 ?C (96.3 ?F) (Left Tympanic) Resp 16 Wt 72.6 kg (160 lb) BMI 24.33 kg/m? Physical Exam Constitutional: No distress. HENT: Head: Normocephalic. Eyes: Pupils are equal, round, and reactive to light. Conjunctivae and EOM are normal. Neck: Neck supple. No JVD present. Cardiovascular: S1 normal and S2 normal. Occasional extrasystoles are present. Bradycardia present. Exam reveals no gallop. Murmur heard. Systolic murmur is present with a grade of 1/6 LSB Pulmonary/Chest: Breath sounds normal. He has no wheezes. He has no rales. Musculoskeletal: He exhibits no edema. Left wrist: He exhibits tenderness. He exhibits normal range of motion, no swelling, no effusion and no deformity. Neurological: He is alert. He has normal strength. No cranial nerve deficit. Coordination and gait normal. Supine BP:120/70 Pulse:64. Sitting BP124/60 Pulse:56. Component Latest Ref Rng AND Units 03/18/2018 WBC 3.70 - 11.00 k/uL 8.13 RBC 4.20 - 6.00 m/uL 5.17 Hemoglobin 13.0 - 17.0 g/dL 15.3 Hematocrit 39.0 - 51.0 % 48.2 MCV 80.0 - 100.0 fL 93.2 MCH 26.0 - 34.0 pG 29.6 MCHC 30.5 - 36.0 g/dL 31.7 RDW-CV 11.5 - 15.0 % 13.8 Platelet Count 150 - 400 k/uL 125 (L) MPV 9.0 - 12.7 fL 10.9 Absolute nRBC <0.01 k/uL <0.01 Glucose 74 - 99 mg/dL 187 (H) BUN 7 - 21 mg/dL 67 (H) Creatinine 0.73 - 1.22 mg/dL 2.15 (H) Sodium 136 - 144 mmol/L 138 Potassium 3.7 - 5.1 mmol/L 4.9 Chloride 97 - 105 mmol/L 102 CO2 22 - 30 mmol/L 24 Anion Gap 9 - 18 mmol/L 12 Calcium 8.5 - 10.2 mg/dL 10.0 eGFR- 38 eGFR-All Other Races . 31 Cholesterol, Total <200 mg/dL 76 Triglyceride <150 mg/dL 63 HDL Cholesterol >39 mg/dL 30 (L) LDL Cholesterol <100 mg/dL 33 Non HDL Cholesterol <130 mg/dL 46 Fasting Time hrs 12 VLDL Cholesterol <30 mg/dL 13 TC:HDL Ratio <5.10 2.53 LDL:HDL Ratio <2.54 1.10 Hemoglobin A1C 4.3 - 5.6 % 8.2 (H) Estimated Average Glucose mg/dL 189 Assessment and Plan ASSESSMENT/PLAN: 1. Chronic diarrhea - ICD9: 787.91, ICD10: K52.9 (primary diagnosis) - C. DIFFICILE PCR - I encourage rescheduling colonoscopy. 2. Dizziness - ICD9: 780.4, ICD10: R42 Orthostatic? 3. CKD (chronic kidney disease) stage 3, GFR 30-59 ml/min ([facility]) - ICD9: 585.3, ICD10: N18.3 Worse. Take furosemide as directed. - BASIC METABOLIC PNL 4. Type 2 diabetes mellitus with stage 3 chronic kidney disease, with long-term current use of insulin ([facility]) - ICD9: 250.40, 585.3, V58.67, ICD10: E11.22, N18.3, Z79.4 poorly controlled - Continue current medications as patient historically labile diabetes mellitus. - HGB A1C - ALBUMIN/CREAT RATIO RND UR 5. Acute on chronic combined systolic and diastolic heart failure (HCC) - ICD9: 428.43, ICD10: I50.43 Compensated. 6. Need for vaccination - ICD9: V05.9, ICD10: Z23 - PNEUMOCOCCAL-13 VACCINE PCV-13 - ADMIN OF INFLUENZA VACCINE - INFLUENZA SEASONAL HIGH DOSE AGE 65+ 7. Wrist pain, left - ICD9: 719.43, ICD10: M25.532 Rule out gout. - URIC ACID BLOOD Eduin Hagen MD Referring Provider: EDUIN HAGEN [[id number]] Allergies As of Date: 03/24/2018 Noted Allergy Reaction REMERON (MIRTAZAPINE) 07/10/2015 5 - Intolerance Comments: sleptalot; felt spaced out. DEMEROL (MEPERIDINE HCL) 03/18/2005 5 - Intolerance Comments: Vomiting spacey Date Reviewed: 03/24/2018 Reviewed by: Criselda Gallardo LPN - Fully Assessed Reason for Visit: F/U 6 Month [444] Primary Visit Diagnosis:Chronic diarrhea [K52.9] Other Visit Diagnoses:Dizziness [R42] CKD (chronic kidney disease) stage 3, GFR 30-59 ml/min ([facility]) [N18.3] Type 2 diabetes mellitus with stage 3 chronic kidney disease, with long-term current use of insulin (HCC) [E11.22, N18.3, Z79.4] Acute on chronic combined systolic and diastolic heart failure (HCC) [I50.43] Need for vaccination [Z23] Wrist pain, left [M25.532] Order(s):C. DIFFICILE PCR [SQCDPCR] Order #: [id number]. #:[id number] PNEUMOCOCCAL-13 VACCINE PCV-13 [[id number]] Order #: [id number] BASIC METABOLIC PNL [SQBMP] Order #: [id number] FUTURE HGB A1C [EFHJY6A] Order #: [id number] FUTURE URIC ACID BLOOD [SQURIC] Order #: [id number] FUTURE ALBUMIN/CREAT RATIO RND UR [SQUACR] Order #: [id number] FUTURE ADMIN OF INFLUENZA VACCINE [[id number]] Order #: [id number]: 1 INFLUENZA SEASONAL HIGH DOSE AGE 65+ [[id number]] Order #: [id number] Prescriptions as of 03/24/2018 Sig: MAGNESIUM OXIDE 500 MG TABLET Take 400 mg by mouth once jameel* FIBER ORAL Take 30 g by mouth once daily* MEDICATION, NON-DATABASE 1,000 mg. tumeric METHYLPREDNISOLONE 4 MG TABLE* Follow dosing instructions, t* BLOOD SUGAR DIAGNOSTIC STRIPS Check blood sugar 4 times jameel* IPRATROPIUM BROMIDE 42 MCG (0* Use 2 Sprays in the nose twic* INSULIN ASPART U-100 100 UNI* Inject 12 units as a base the* PEN NEEDLE, DIABETIC 31 GAUGE* Use 1 pen needle for each ins* INSULIN GLARGINE (U-100) 100 * Inject 26 Units subcutaneousl* CARVEDILOL 6.25 MG TABLET Take 1 tablet by mouth twice * ATORVASTATIN 40 MG TABLET TAKE ONE TABLET BY MOUTH AT B* ISOSORBIDE DINITRATE 30 MG TA* TAKE TWO TABLETS BY MOUTH THR* CHROMIUM PICOLINATE 1,000 MCG* Take by mouth. CLOPIDOGREL 75 MG TABLET Take 1 tablet by mouth once d* FUROSEMIDE 80 MG TABLET Take 0.5 tablets by mouth onc* NITROGLYCERIN 0.4 MG SUBLINGU* Dissolve 1 tablet under the t* VITAMIN B COMPLEX TABLET Take 1 tablet by mouth once d* BLOOD-GLUCOSE METER Use as directed, test 4 times* LANCING DEVICE LiteTouch Test 4 times daily,* ASPIRIN 81 MG TABLET,DELAYED * Take 81 mg by mouth once joanie* CHOLECALCIFEROL (VITAMIN D3) * Take 5,000 Units by mouth onc* OMEGA 3 350 MG-DHA 235 MG-EPA* Take by mouth. OXYGEN (HOME THERAPY) Inhale as instructed as dire* Medication notes this encounter BLOOD SUGAR DIAGNOSTIC STRIPS >> Criselda Gallardo PROPERTY CLERK 03/24/2018 2:42 PM >> CRISELDA GALLARDO LPN FriMar 24, 2018 2:42 PM Patient testing blood sugar(s) x2 daily. ISOSORBIDE DINITRATE 30 MG TABLET >> Criselda Melvi Gallardo PROPERTY CLERK 03/24/2018 2:45 PM >> CRISELDA GALLARDO PROPERTY CLERK FriMar 24, 2018 2:45 PM Patient taking 1 tablet twice daily. Problem List As Of Date 03/24/2018 Noted Resolved Other hyperlipidemia [E78.49] BENIGN HYPERTENSION [I10] AORTOCORONARY BYPASS STATUS [Z95.1] INVALID FOR* HEARING LOSS NOS [H91.90] INVALID FOR* Type II diabetes mellitus with renal manifestat*INVALID FOR* Priority: D NEUROPATHY IN DIABETES [E11.42] INVALID FOR* Impotence of organic origin [N52.9] INVALID FOR*10/17/2015 CHRONIC RHINITIS [J31.0] INVALID FOR* Hypertrophy of prostate without urinary obstruc*INVALID FOR*05/22/2017 MOD NONPROLIF DIAB RETINOPATHY [E11.3399] INVALID FOR* More... Proteinuria [R80.9] INVALID FOR* Debility [R53.81] INVALID FOR*05/22/2017 Atrial flutter [I48.92] INVALID FOR*10/17/2015 More... Gallbladder calculus without cholecystitis [K80*INVALID FOR*11/04/2013 ADHF (acute decompensated heart failure) (HCC) *INVALID FOR*10/11/2014 Priority: B More... Angina pectoris (HCC) [I20.9] INVALID FOR*10/16/2015 More... CAD (coronary artery disease), [place] coronary *INVALID FOR* Priority: B More... SUMMARY [V999.95] INVALID FOR*05/09/2014 Priority: A More... CKD (chronic kidney disease) stage 3, GFR 30-59*INVALID FOR* Aortic stenosis [I35.0] INVALID FOR* Priority: Mild More... Lung crackles [R09.89] INVALID FOR*10/11/2014 More... SUMMARY [V999.95] INVALID FOR*10/17/2015 Priority: Very Severe More... Hematoma [T14.8XXA] INVALID FOR*10/11/2014 More... Rash and nonspecific skin eruption [R21] INVALID FOR*10/17/2015 Hydrocele of testis [N43.3] INVALID FOR*10/17/2015 BPH with obstruction/lower urinary tract sympto*INVALID FOR*10/17/2015 Encounter for screening for other disorder [Z13*INVALID FOR*10/17/2015 SUMMARY INVALID FOR*04/09/2015 Priority: Mild More... 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 Ascites of liver [R18.8] INVALID FOR*10/16/2015 More... Pulmonary hypertension, primary (HCC) [I27.0] INVALID FOR* More... More... Depressive disorder [F32.9] INVALID FOR*05/22/2017 Priority: A Dental caries on smooth surface penetrating int*INVALID FOR*10/17/2015 Hypertensive kidney disease with CKD stage III *INVALID FOR* Priority: C More... S/P aortic valve replacement [Z95.2] INVALID FOR* Right foot ulcer (HCC) [L97.519] INVALID FOR*08/08/2016 ACS (acute coronary syndrome) (HCC) [I24.9] INVALID FOR*05/22/2017 Visit Notes: >> Criselda Sims Mar 24, 2018 4:02 PM Status: Signed Influenza Vaccine Documentation: ? Patient is identified by name and date of : Yes ? Patient is older than 6 months of age: Yes ? Patient denies a severe allergy to any vaccine component or to a previous dose of influenza vaccine: Yes FOR EGG ALLERGY CONCERNS, REFER TO PROVIDER. ? Denies allergy to gelatin, formaldehyde, thimerosol :Yes ? Patient is afebrile and not moderately or severely ill: Yes ? Does the patient have a history of Guillain ?Meacham Syndrome (a severe paralytic illness): No ? Denies bone marrow transplant prior 6 months or solid organ transplant prior 3 months: Yes ? Denies a history of fainting after a prior injection or medical procedure? Yes If patient has fainted in the past, the CDC recommends sitting or lying down for 15 minutes after the vaccination. ? VIS sheet provided: Yes ? See Immunization Form in [facility] for details of immunizations administered today. If patient reports dizziness, vision changes or ringing in the ears post vaccination ? please have patient sit or lie down for 15 minutes. Disposition: Return in about 3 months (around 06/24/2018). Follow-up and Disposition History Recorded Encounter Status:Closed by EDUIN HAGEN MD on 03/24/18 PROGRESS Observed: 03/18/2018 Status: COMPLETED Source: [place] 6:33 PM [facility] REPOSITORY O ID: [id number] Author: Mirian Alcala) Jed Service: (none) Author Type: Physician Wardrobe Coordinator Type: Progress Notes Filed: 03/18/2018 6:37 PM Note Text: Subjective HPI Patient presents a chief complaint left wrist pain. He noticed some redness and swelling today and has pain with range of motion of the wrist. Denies any injury. He does have a remote injury to the scaphoid bone several years ago. No fever or chills. Patient is diabetic and also has stage III kidney disease. Review of Systems Musculoskeletal: Left wrist pain, redness and swelling All other systems reviewed and are negative. PAST MEDICAL HISTORY Diagnosis Date - Aortic stenosis 05/06/2014 - Ascites of liver 04/04/2015 ar hepatic seen on CTA - Atrial flutter (HCC) 10/09/2012 - Chronic renal insufficiency - Chronic rhinitis 03/19/2005 - CKD (chronic kidney disease) stage 3, GFR 30-59 ml/min (HCC) 05/05/2014 - Congestive heart failure (HCC) - Essential hypertension, benign - Fracture - Gallbladder calculus without cholecystitis 10/09/2012 - Hypertrophy of prostate without urinary obstruction and other lower urinary tract symptoms (LUTS) 12/03/2007 - Impotence of organic origin 03/19/2005 - Moderate nonproliferative diabetic retinopathy(362.05) 12/16/2007 Dr. Pope - Myocardial infarct, old - New onset atrial flutter (HCC) 10/09/2012 - Other and unspecified hyperlipidemia - Polyneuropathy in diabetes(357.2) 03/19/2005 - Postsurgical aortocoronary bypass status 03/19/2005 - Proteinuria 08/13/2010 - Rash and nonspecific skin eruption 06/27/2014 - Rheumatic fever - Type I (juvenile type) diabetes mellitus with renal manifestations, not stated as uncontrolled(250.41) 03/19/2005 - Type II or unspecified type diabetes mellitus without mention of complication, not stated as uncontrolled - Unspecified hearing loss 03/19/2005 Current Outpatient Prescriptions: Magnesium Oxide 500 mg tab Take by mouth. Disp: Rfl: psyllium seed, with dextrose, (FIBER ORAL) Take by mouth. Disp: Rfl: MEDICATION, NON-DATABASE 1,000 mg. tumeric Disp: Rfl: blood sugar diagnostic (FREESTYLE TEST) test strip Check blood sugar 4 times daily, E11.22 Disp: 400 Strip Rfl: 4 ipratropium bromide (ATROVENT) 42 mcg (0.06 %) nasal spray Use 2 Sprays in the nose twice daily as needed. Disp: 1 Bottle Rfl: 2 insulin aspart U-100 (NOVOLOG FLEXPEN U-100 INSULIN) 100 unit/mL inpn Inject 12 units as a base then 1 unit for every 25 carbs 3 times a day with meals and snacks. (12-15 units based upon glucose) Disp: 5 Pen Rfl: 1 Insulin Milton, Disposable, (BD ULTRAFINE III MINI PEN) 31 gauge x 3/16 ndle Use 1 pen needle for each insulin injection (4 times daily) DX: Type I (juvenile type) DM with renal manifestations 250.41 Disp: 400 Each Rfl: 0 insulin glargine (LANTUS SOLOSTAR U-100 INSULIN) 100 unit/mL (3 mL) inpn Inject 26 Units subcutaneously every evening. Take around 10 PM. Disp: 15 Pen Rfl: 1 carvedilol (COREG) 6.25 mg tablet Take 1 tablet by mouth twice daily with meals. Disp: 180 tablet Rfl: 3 atorvastatin (LIPITOR) 40 mg tablet TAKE ONE TABLET BY MOUTH AT BEDTIME Disp: 30 tablet Rfl: 5 isosorbide dinitrate (ISORDIL, SORBITRATE) 30 mg tablet TAKE TWO TABLETS BY MOUTH THREE TIMES DAILY Disp: 180 tablet Rfl: 11 chromium picolinate 1,000 mcg tab Take by mouth. Disp: Rfl: omega 6-zbh-mqc-fish oil 350 mg-235 mg- 90 mg-597 mg cpDR Take by mouth. Disp: Rfl: clopidogrel (PLAVIX) 75 mg tablet Take 1 tablet by mouth once daily. Disp: 90 tablet Rfl: 3 furosemide (LASIX) 80 mg tablet Take 0.5 tablets by mouth once daily. Disp: 30 tablet Rfl: 11 nitroglycerin sublingual (NITROSTAT) 0.4 mg SL tablet Dissolve 1 tablet under the tongue every 5 minutes as needed for Chest Pain. Disp: 1 Bottle of 25 Rfl: 2 vitamin b complex (B COMPLETE) tab Take 1 tablet by mouth once daily. Disp: Rfl: 0 OXYGEN, HOME THERAPY, Inhale as instructed as directed. 3 lts at night while sleeping and 2 lts if needed while awake Disp: Rfl: Blood-Glucose Meter (GMATE VOICE METER) misc Use as directed, test 4 times a day and as needed dx E11.22 Disp: 1 Each Rfl: 0 Lancing Device (GMATE LANCING DEVICE) misc LiteTouch Test 4 times daily, and PRN Insulin yes, dx:E11.22 Disp: 300 Each Rfl: 3 aspirin, enteric coated (ASPIRIN, ENTERIC COATED) 81 mg EC tablet Take 81 mg by mouth once daily. Disp: Rfl: Cholecalciferol, Vitamin D3, (VITAMIN D-3) 1,000 unit Chew Take 2 tablets by mouth once daily. Disp: Rfl: methylPREDNISolone (MEDROL, YAZAN,) 4 mg Dose-Pack Follow dosing instructions, take with food. Disp: 1 Package Rfl: 0 No current facility-administered medications for this visit. PAST SURGICAL HISTORY Procedure Laterality Date - CABG, ARTERY-VEIN, FIVE 09/1997 - CARDIAC CATHETERIZATION HX - CC CORONARY STENT 05/16/2014 bare metal stent, LMT - CC CORONARY STENT 04/07/2015 ENZO, LCfx - CC CORONARY STENT 09/28/2016 ENZO again, Left Cfx - HEART SURGERY HX - LEFT HEART CATH,PERCUTANEOUS 12/17/2001 Cardiac cath, L heart - TAVR PROCEDURAL PLANNING 07/11/2015 FAMILY HISTORY Problem Relation Age of Onset - Diabetes Father age 71 - Heart Father - Diabetes Mother - None Brother Social History Substance Use Topics - Smoking status: Former Smoker Types: Pipe, Cigars Quit date: 04/02/2010 - Smokeless tobacco: Never Used Comment: Pipe or cigars, since age 22 - Alcohol use No BP 128/76 Pulse 76 Temp 36.7 ?C (98 ?F) (Tympanic) Resp 18 Wt 73.9 kg (163 lb) BMI 24.78 kg/m? Objective Physical Exam Constitutional: He is well-developed, well-nourished, and in no distress. HENT: Head: Normocephalic and atraumatic. Cardiovascular: Normal rate, regular rhythm and normal heart sounds. Pulmonary/Chest: Effort normal and breath sounds normal. Musculoskeletal: Hands: Patient has redness and swelling to the radial dorsum of the left wrist. He does have pain with range of motion on flexion and extension of the wrist. He is tender to palpation as well. No streaking. It is warm to touch. Radial pulses 2+. Normal hand grasp strength. Normal distal sensation. Neurological: He is alert. Skin: Skin is warm and dry. Nursing note and vitals reviewed. ASSESSMENT/PLAN: 1. Wrist pain, acute, left - ICD9: 719.43, ICD10: M25.532 X-rays here show remote injury of the scaphoid. Some other degenerative changes present as well. Patient's exam is more consistent with acute gout. He states he has had gout in the past one time he thinks. I did review recent lab work. He states he does check his blood sugar twice a day and is on a sliding scale insulin. I will put him on a Medrol Dosepak with instructions that his his blood sugars go high(>299) he needs to discontinue. Patient also has kidney disease and coronary artery disease so NSAIDs were avoided. He has a follow-up appointment with his PCP in 1 week. Discussed if he gets severe pain the redness gets significantly worse or has any other worsening concerning symptoms he currently does go to the emergency department. Otherwise follow-up with PCP. He is agreeable to this plan. - XR WRIST INJURY 4V PA/LAT/OBL/SCAPH LT Mirian Kern PA-C XR WRIST 4V Observed: 03/18/2018 Status: F Source: [facility] PA/LAT/OBL/SCAPH LT 6:12 PM [facility] * * *Final Report* * * DATE OF EXAM: Mar 18 2018 6:12PM WOX [id number] - XR WRIST 4V PA/LAT/OBL/SCAPH LT / PROCEDURE REASON: Wrist pain, acute, left * * * * Physician Interpretation * * * * Left wrist HISTORY: 67 years old Clinical information: Wrist pain, acute, left pt states woke up today with pain poserior radial side of left wrist, redness and allot of pain, has a lump there. prev fx to scaphoid years ago no recent inj TECHNIQUE: Images: XR WRIST 4V PA/LAT/OBL/SCAPH LT Comparison: None. RESULT: Findings: Deformity scaphoid consistent with remote fracture and/or surgery involving the distal aspect of the scaphoid. There is spurring of the radial and at the first CMC joint. Narrowing of the lunate- carpal joint space. There are several carpal cysts as well as subchondral cysts in the base of the metacarpals and radial styloid region. Extensive vascular calcification and multiple surgical clips. IMPRESSION: Degenerative and remote posttraumatic and remote postsurgical findings. No acute finding Furniture Mechanic: CAROLYNN Transcribe Date/Time: Mar 18 2018 6:19P Dictated by : GITA RICHARDS MD This examination was interpreted and the report reviewed and electronically signed by: GITA RICHARDS MD on Mar 18 2018 6:23PM EST [id number] PROGRESS Observed: 03/18/2018 Status: COMPLETED Source: [place] 6:04 PM [facility] REPOSITORY HNO ID: [id number] Author: Zachary Brown (Rt) Service: (none) Author Type: Gas Leak Inspector Type: Progress Notes Filed: 03/18/2018 6:10 PM Note Text: Radiology Service Progress Note PATIENT NAME: Marissa Peralta DATE OF SERVICE: March 18, 2018 TIME: 6:04 PM PATIENT IDENTITY VERIFICATION COMPLETED USING TWO (2) METHODS: Patient confirmed name verbally and Date of . PATIENT GENDER DATA: Male PATIENT RELEVANT IMPLANT DATA REVIEWED: Not Applicable RADIOLOGY DEPARTMENT: General X-ray: Exam(s) Completed: Upper Extremity X-Ray(s): Wrist, left : PERIPHERAL IV DATA: Not applicable SIGNED BY: RT Kevin March 18, 2018 6:04 PM CNOV Observed: 03/18/2018 Status: COMPLETED Source: [place] 5:45 PM [facility] REPOSITORY Office Visit (WSTR) MARISSA PERALTA ([id number]) 1950 M Date Time Provider Department 03/18/18 5:45 PM MIRIAN KERN) [facility] During your visit today, we recorded the following information about you: Temperature Pulse Respiration Blood pressure 98 degrees 76/minute 18/minute 128/76 Weight 73.9 kg Mirian Kern PA-C 03/18/2018 6:37 PM Signed Subjective HPI Patient presents a chief complaint left wrist pain. He noticed some redness and swelling today and has pain with range of motion of the wrist. Denies any injury. He does have a remote injury to the scaphoid bone several years ago. No fever or chills. Patient is diabetic and also has stage III kidney disease. Review of Systems Musculoskeletal: Left wrist pain, redness and swelling All other systems reviewed and are negative. PAST MEDICAL HISTORY Diagnosis Date - Aortic stenosis 05/06/2014 - Ascites of liver 04/04/2015 ar hepatic seen on CTA - Atrial flutter (HCC) 10/09/2012 - Chronic renal insufficiency - Chronic rhinitis 03/19/2005 - CKD (chronic kidney disease) stage 3, GFR 30-59 ml/min (HCC) 05/05/2014 - Congestive heart failure (HCC) - Essential hypertension, benign - Fracture - Gallbladder calculus without cholecystitis 10/09/2012 - Hypertrophy of prostate without urinary obstruction and other lower urinary tract symptoms (LUTS) 12/03/2007 - Impotence of organic origin 03/19/2005 - Moderate nonproliferative diabetic retinopathy(362.05) 12/16/2007 Dr. Pope - Myocardial infarct, old - New onset atrial flutter (HCC) 10/09/2012 - Other and unspecified hyperlipidemia - Polyneuropathy in diabetes(357.2) 03/19/2005 - Postsurgical aortocoronary bypass status 03/19/2005 - Proteinuria 08/13/2010 - Rash and nonspecific skin eruption 06/27/2014 - Rheumatic fever - Type I (juvenile type) diabetes mellitus with renal manifestations, not stated as uncontrolled(250.41) 03/19/2005 - Type II or unspecified type diabetes mellitus without mention of complication, not stated as uncontrolled - Unspecified hearing loss 03/19/2005 Current Outpatient Prescriptions: Magnesium Oxide 500 mg tab Take by mouth. Disp: Rfl: psyllium seed, with dextrose, (FIBER ORAL) Take by mouth. Disp: Rfl: MEDICATION, NON-DATABASE 1,000 mg. tumeric Disp: Rfl: blood sugar diagnostic (FREESTYLE TEST) test strip Check blood sugar 4 times daily, E11.22 Disp: 400 Strip Rfl: 4 ipratropium bromide (ATROVENT) 42 mcg (0.06 %) nasal spray Use 2 Sprays in the nose twice daily as needed. Disp: 1 Bottle Rfl: 2 insulin aspart U-100 (NOVOLOG FLEXPEN U-100 INSULIN) 100 unit/mL inpn Inject 12 units as a base then 1 unit for every 25 carbs 3 times a day with meals and snacks. (12-15 units based upon glucose) Disp: 5 Pen Rfl: 1 Insulin [place], Disposable, (BD ULTRAFINE III MINI PEN) 31 gauge x 3/16 ndle Use 1 pen needle for each insulin injection (4 times daily) DX: Type I (juvenile type) DM with renal manifestations 250.41 Disp: 400 Each Rfl: 0 insulin glargine (LANTUS SOLOSTAR U-100 INSULIN) 100 unit/mL (3 mL) inpn Inject 26 Units subcutaneously every evening. Take around 10 PM. Disp: 15 Pen Rfl: 1 carvedilol (COREG) 6.25 mg tablet Take 1 tablet by mouth twice daily with meals. Disp: 180 tablet Rfl: 3 atorvastatin (LIPITOR) 40 mg tablet TAKE ONE TABLET BY MOUTH AT BEDTIME Disp: 30 tablet Rfl: 5 isosorbide dinitrate (ISORDIL, SORBITRATE) 30 mg tablet TAKE TWO TABLETS BY MOUTH THREE TIMES DAILY Disp: 180 tablet Rfl: 11 chromium picolinate 1,000 mcg tab Take by mouth. Disp: Rfl: omega 6-ipp-cki-fish oil 350 mg-235 mg- 90 mg-597 mg cpDR Take by mouth. Disp: Rfl: clopidogrel (PLAVIX) 75 mg tablet Take 1 tablet by mouth once daily. Disp: 90 tablet Rfl: 3 furosemide (LASIX) 80 mg tablet Take 0.5 tablets by mouth once daily. Disp: 30 tablet Rfl: 11 nitroglycerin sublingual (NITROSTAT) 0.4 mg SL tablet Dissolve 1 tablet under the tongue every 5 minutes as needed for Chest Pain. Disp: 1 Bottle of 25 Rfl: 2 vitamin b complex (B COMPLETE) tab Take 1 tablet by mouth once daily. Disp: Rfl: 0 OXYGEN, HOME THERAPY, Inhale as instructed as directed. 3 lts at night while sleeping and 2 lts if needed while awake Disp: Rfl: Blood-Glucose Meter (GMATE VOICE METER) misc Use as directed, test 4 times a day and as needed dx E11.22 Disp: 1 Each Rfl: 0 Lancing Device (GMATE LANCING DEVICE) misc LiteTouch Test 4 times daily, and PRN Insulin yes, dx:E11.22 Disp: 300 Each Rfl: 3 aspirin, enteric coated (ASPIRIN, ENTERIC COATED) 81 mg EC tablet Take 81 mg by mouth once daily. Disp: Rfl: Cholecalciferol, Vitamin D3, (VITAMIN D-3) 1,000 unit Chew Take 2 tablets by mouth once daily. Disp: Rfl: methylPREDNISolone (MEDROL, YAZAN,) 4 mg Dose-Pack Follow dosing instructions, take with food. Disp: 1 Package Rfl: 0 No current facility-administered medications for this visit. PAST SURGICAL HISTORY Procedure Laterality Date - CABG, ARTERY-VEIN, FIVE 09/1997 - CARDIAC CATHETERIZATION HX - CC CORONARY STENT 05/16/2014 bare metal stent, LMT - CC CORONARY STENT 04/07/2015 ENZO, LCfx - CC CORONARY STENT 09/28/2016 ENZO again, Left Cfx - HEART SURGERY HX - LEFT HEART CATH,PERCUTANEOUS 12/17/2001 Cardiac cath, L heart - TAVR PROCEDURAL PLANNING 07/11/2015 FAMILY HISTORY Problem Relation Age of Onset - Diabetes Father age 71 - Heart Father - Diabetes Mother - None Brother Social History Substance Use Topics - Smoking status: Former Smoker Types: Pipe, Cigars Quit date: 04/02/2010 - Smokeless tobacco: Never Used Comment: Pipe or cigars, since age 22 - Alcohol use No BP 128/76 Pulse 76 Temp 36.7 ?C (98 ?F) (Tympanic) Resp 18 Wt 73.9 kg (163 lb) BMI 24.78 kg/m? Objective Physical Exam Constitutional: He is well-developed, well-nourished, and in no distress. HENT: Head: Normocephalic and atraumatic. Cardiovascular: Normal rate, regular rhythm and normal heart sounds. Pulmonary/Chest: Effort normal and breath sounds normal. Musculoskeletal: Hands: Patient has redness and swelling to the radial dorsum of the left wrist. He does have pain with range of motion on flexion and extension of the wrist. He is tender to palpation as well. No streaking. It is warm to touch. Radial pulses 2+. Normal hand grasp strength. Normal distal sensation. Neurological: He is alert. Skin: Skin is warm and dry. Nursing note and vitals reviewed. ASSESSMENT/PLAN: 1. Wrist pain, acute, left - ICD9: 719.43, ICD10: M25.532 X-rays here show remote injury of the scaphoid. Some other degenerative changes present as well. Patient's exam is more consistent with acute gout. He states he has had gout in the past one time he thinks. I did review recent lab work. He states he does check his blood sugar twice a day and is on a sliding scale insulin. I will put him on a Medrol Dosepak with instructions that his his blood sugars go high(>299) he needs to discontinue. Patient also has kidney disease and coronary artery disease so NSAIDs were avoided. He has a follow-up appointment with his PCP in 1 week. Discussed if he gets severe pain the redness gets significantly worse or has any other worsening concerning symptoms he currently does go to the emergency department. Otherwise follow-up with PCP. He is agreeable to this plan. - XR WRIST INJURY 4V PA/LAT/OBL/SCAPH LT Mirian Kern PA-C Referring Provider: SELF [200] Allergies As of Date: 03/18/2018 Noted Allergy Reaction REMERON (MIRTAZAPINE) 07/10/2015 5 - Intolerance Comments: sleptalot; felt spaced out. DEMEROL (MEPERIDINE HCL) 03/18/2005 5 - Intolerance Comments: Vomiting spacey Date Reviewed: 03/18/2018 Reviewed by: Lu Sorenson Ma - Fully Assessed Reason for Visit: Wrist Pain [1580] Cmt: left x last night, lump with pain, did have previous injury Primary Visit Diagnosis:Wrist pain, acute, left [M25.532] Order(s):XR WRIST INJURY 4V PA/LAT/OBL/SCAPH LT [[id number]] Order #: [id number] FUTURE methylPREDNISolone (MEDROL, YAZAN,) 4 mg Dose-PackFollow dosing instructions, take with food.Disp: 1 PackageRfl: 0 Prescriptions as of 03/18/2018 Sig: MAGNESIUM OXIDE 500 MG TABLET Take by mouth. FIBER ORAL Take by mouth. MEDICATION, NON-DATABASE 1,000 mg. tumeric BLOOD SUGAR DIAGNOSTIC STRIPS Check blood sugar 4 times jameel* IPRATROPIUM BROMIDE 42 MCG (0* Use 2 Sprays in the nose twic* INSULIN ASPART U-100 100 UNI* Inject 12 units as a base the* PEN NEEDLE, DIABETIC 31 GAUGE* Use 1 pen needle for each ins* INSULIN GLARGINE (U-100) 100 * Inject 26 Units subcutaneousl* CARVEDILOL 6.25 MG TABLET Take 1 tablet by mouth twice * ATORVASTATIN 40 MG TABLET TAKE ONE TABLET BY MOUTH AT B* ISOSORBIDE DINITRATE 30 MG TA* TAKE TWO TABLETS BY MOUTH THR* CHROMIUM PICOLINATE 1,000 MCG* Take by mouth. OMEGA 3 350 MG-DHA 235 MG-EPA* Take by mouth. CLOPIDOGREL 75 MG TABLET Take 1 tablet by mouth once d* FUROSEMIDE 80 MG TABLET Take 0.5 tablets by mouth onc* NITROGLYCERIN 0.4 MG SUBLINGU* Dissolve 1 tablet under the t* VITAMIN B COMPLEX TABLET Take 1 tablet by mouth once d* OXYGEN (HOME THERAPY) Inhale as instructed as dire* BLOOD-GLUCOSE METER Use as directed, test 4 times* LANCING DEVICE LiteTouch Test 4 times daily,* ASPIRIN 81 MG TABLET,DELAYED * Take 81 mg by mouth once joanie* CHOLECALCIFEROL (VITAMIN D3) * Take 2 tablets by mouth once * METHYLPREDNISOLONE 4 MG TABLE* Follow dosing instructions, t* Problem List As Of Date 03/18/2018 Noted Resolved Other hyperlipidemia [E78.49] BENIGN HYPERTENSION [I10] AORTOCORONARY BYPASS STATUS [Z95.1] INVALID FOR* HEARING LOSS NOS [H91.90] INVALID FOR* Type II diabetes mellitus with renal manifestat*INVALID FOR* Priority: D NEUROPATHY IN DIABETES [E11.42] INVALID FOR* Impotence of organic origin [N52.9] INVALID FOR*10/17/2015 CHRONIC RHINITIS [J31.0] INVALID FOR* Hypertrophy of prostate without urinary obstruc*INVALID FOR*05/22/2017 MOD NONPROLIF DIAB RETINOPATHY [E11.3399] INVALID FOR* More... Proteinuria [R80.9] INVALID FOR* Debility [R53.81] INVALID FOR*05/22/2017 Atrial flutter [I48.92] INVALID FOR*10/17/2015 More... Gallbladder calculus without cholecystitis [K80*INVALID FOR*11/04/2013 ADHF (acute decompensated heart failure) (HCC) *INVALID FOR*10/11/2014 Priority: B More... Angina pectoris (HCC) [I20.9] INVALID FOR*10/16/2015 More... CAD (coronary artery disease), [place] coronary *INVALID FOR* Priority: B More... SUMMARY [V999.95] INVALID FOR*05/09/2014 Priority: A More... CKD (chronic kidney disease) stage 3, GFR 30-59*INVALID FOR* Aortic stenosis [I35.0] INVALID FOR* Priority: Mild More... Lung crackles [R09.89] INVALID FOR*10/11/2014 More... SUMMARY [V999.95] INVALID FOR*10/17/2015 Priority: Very Severe More... Hematoma [T14.8XXA] INVALID FOR*10/11/2014 More... Rash and nonspecific skin eruption [R21] INVALID FOR*10/17/2015 Hydrocele of testis [N43.3] INVALID FOR*10/17/2015 BPH with obstruction/lower urinary tract sympto*INVALID FOR*10/17/2015 Encounter for screening for other disorder [Z13*INVALID FOR*10/17/2015 SUMMARY INVALID FOR*04/09/2015 Priority: Mild More... 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 Ascites of liver [R18.8] INVALID FOR*10/16/2015 More... Pulmonary hypertension, primary (HCC) [I27.0] INVALID FOR* More... More... Depressive disorder [F32.9] INVALID FOR*05/22/2017 Priority: A Dental caries on smooth surface penetrating int*INVALID FOR*10/17/2015 Hypertensive kidney disease with CKD stage III *INVALID FOR* Priority: C More... S/P aortic valve replacement [Z95.2] INVALID FOR* Right foot ulcer (HCC) [L97.519] INVALID FOR*08/08/2016 ACS (acute coronary syndrome) (HCC) [I24.9] INVALID FOR*05/22/2017 Prescriptions ordered this encounter Disp Refills Start End METHYLPREDNISOLONE 4 MG TABLETS IN A* 1 Pa* 0 03/18/2018 03/24/2018 Sig: Follow dosing instructions, take with food. Encounter Status:Closed by MIRIAN KERN PA-C on 03/18/18 BASIC METABOLIC PANL Collected: 03/18/2018 Status: F Source: [place] 4:34 PM [facility] REPOSITORY TYPE CODE TESTS RESULT OUT OF REFERENCE UNITS RANGE LAB GLU 74-99 mg/dL Glucose High 187 LAB BUN 7-21 mg/dL BUN High 67 LAB CRET 0.73-1.22 mg/dL High Creatinine 2.15 LAB NA 136-144 mmol/L Sodium 138 LAB K 3.7-5.1 mmol/L Potassium 4.9 LAB CL 97-105 mmol/L Chloride 102 LAB CO2 22-30 mmol/L CO2 24 LAB AGAP 9-18 mmol/L Anion Gap 12 LAB CA 8.5-10.2 mg/dL Calcium, Total 10.0 LAB GFRAA eGFR- 38 Amer. LAB GFRNAA . eGFR-All Other Races 31 Result Comment: eGFR (Estimated GFR) Units of measure: mL/min/1.73 meters squared eGFR is derived from the reexpressed MDRD Study equation using the following parameters: serum creatinine, age, gender and race. The creatinine assay has been calibrated to be traceable to IDMS. An eGFR <60 mL/min/1.73m2 for >3 months is consistent with chronic kidney disease. Refer to KDOQI guidelines for clinical interpretation. In patients with unstable renal function, e.g. those with acute kidney injury, the eGFR may not accurately reflect actual GFR. CBC Collected: 03/18/2018 Status: F Source: [place] 4:34 PM [facility] REPOSITORY TYPE CODE TESTS RESULT OUT OF REFERENCE UNITS RANGE LAB WBC 3.70-11.00 k/uL WBC 8.13 LAB RBC 4.20-6.00 m/uL RBC 5.17 LAB HGB 13.0-17.0 g/dL Hemoglobin 15.3 LAB HCT 39.0-51.0 % Hematocrit 48.2 LAB MCV 80.0-100.0 fL MCV 93.2 LAB MCH 26.0-34.0 pG MCH 29.6 LAB MCHC 30.5-36.0 g/dL MCHC 31.7 LAB RDWCV 11.5-15.0 % RDW-CV 13.8 LAB PLTCT 150-400 k/uL Low Platelet Count 125 LAB MPV 9.0-12.7 fL MPV 10.9 LAB ABSNUC <0.01 k/uL Absolute nRBC <0.01 Performed By: #### CBC #### [facility] [address] [place], [place] [address] LIPID PANEL, BASIC Collected: 03/18/2018 Status: F Source: [place] 4:33 PM [facility] REPOSITORY TYPE CODE TESTS RESULT OUT OF REFERENCE UNITS RANGE LAB CHOL <200 mg/dL Cholesterol 76 Result Comment: <200 mg/dL, Desirable 200-239 mg/dL, Borderline high >239 mg/dL, High LAB TRIGLY <150 mg/dL Triglyceride 63 Result Comment: <150 mg/dL, Normal 150-199 mg/dL, Borderline high 200-499 mg/dL, High >499 mg/dL, Very high LAB HDL >39 mg/dL HDL-Cholesterol Low 30 Result Comment: 40-59 mg/dL, Acceptable >59 mg/dL, High: Negative risk factor for coronary heart disease <40 mg/dL, Low: Positive risk factor for coronary heart disease LAB LDL <100 mg/dL LDL-Cholesterol 33 Result Comment: <100 mg/dL, Optimal 100-129 mg/dL, Near optimal/above optimal 130-159 mg/dL, Borderline high 160-189 mg/dL, High >189 mg/dL, Very high Secondary prevention optimal LDL Cholesterol levels are recommended to be < 70 mg/dL LAB NONHDL <130 mg/dL Non HDL Cholesterol 46 Result Comment: <130 mg/dL, Optimal 130-159 mg/dL, Near optimal/above optimal 160-189 mg/dL, Borderline high 190-219 mg/dL, High >219 mg/dL, Very high Secondary prevention optimal non HDL Cholesterol levels are recommended to be < 100 mg/dL LAB FT hrs Fasting Time 12 LAB VLDL <30 mg/dL VLDL Cholesterol 13 LAB TCHDL <5.10 TC:HDL Ratio 2.53 LAB LDLHDL <2.54 LDL:HDL Ratio 1.10 Result Comment: Reference: 1. National Cholesterol Education Program ATP III Guideline At-A-Glance Quick Desk Reference: National Heart, Lung, and Blood Petty. National Institutes of Health. 2001: NIH Publication No. 01-3305. 2. An International Atherosclerosis Society position paper: global recommendations for the management of dyslipidemia: executive summary, Atherosclerosis. 2014: 232(2):410-413. Performed By: #### LIPB, HBA1C #### [facility] [address] [place], [place] [address] HEMOGLOBIN A1C Collected: 03/18/2018 Status: F Source: [place] 4:33 PM [facility] REPOSITORY TYPE CODE TESTS RESULT OUT OF REFERENCE UNITS RANGE LAB HGBA1C 4.3-5.6 % High Hemoglobin A1c 8.2 LAB HBA0 mg/dL Est. Average Glucose 189 Result Comment: eAG: (Estimated average glucose) is a calculated value from HgbA1c and is patient accounting representative of the average blood glucose level in the last 2-3 month period. Performed By: #### LIPB, HBA1C #### [facility] [address] [place], [place] [address] CNPTOUTREACH Observed: 03/10/2018 Status: COMPLETED Source: [place] 12:00 AM [facility] REPOSITORY Patient Outreach (INTMWH) MARISSA PERALTA ([id number]) 1950 M Date Time Provider Department 03/10/18 EDUIN HAGEN [facility] During your visit today, we recorded the following information about you: Allergies As of Date: 03/10/2018 Noted Allergy Reaction REMERON (MIRTAZAPINE) 07/10/2015 5 - Intolerance Comments: sleptalot; felt spaced out. DEMEROL (MEPERIDINE HCL) 03/18/2005 5 - Intolerance Comments: Vomiting spacey Date Reviewed: 11/21/2017 Reviewed by: Radha Foreman PROPERTY CLERK - Fully Assessed Visit Diagnosis:Medication management [Z79.899] Order(s):CBC [[facility]] Order #: [id number] FUTURE Prescriptions as of 03/10/2018 Sig: BLOOD SUGAR DIAGNOSTIC STRIPS Check blood sugar 4 times jameel* IPRATROPIUM BROMIDE 42 MCG (0* Use 2 Sprays in the nose twic* INSULIN ASPART U-100 100 UNI* Inject 12 units as a base the* PEN NEEDLE, DIABETIC 31 GAUGE* Use 1 pen needle for each ins* INSULIN GLARGINE (U-100) 100 * Inject 26 Units subcutaneousl* CARVEDILOL 6.25 MG TABLET Take 1 tablet by mouth twice * ATORVASTATIN 40 MG TABLET TAKE ONE TABLET BY MOUTH AT B* ISOSORBIDE DINITRATE 30 MG TA* TAKE TWO TABLETS BY MOUTH THR* CHROMIUM PICOLINATE 1,000 MCG* Take by mouth. OMEGA 3 350 MG-DHA 235 MG-EPA* Take by mouth. CLOPIDOGREL 75 MG TABLET Take 1 tablet by mouth once d* X FUROSEMIDE 80 MG TABLET Take 0.5 tablets by mouth onc* NITROGLYCERIN 0.4 MG SUBLINGU* Dissolve 1 tablet under the t* VITAMIN B COMPLEX TABLET Take 1 tablet by mouth once d* OXYGEN (HOME THERAPY) Inhale as instructed as dire* BLOOD-GLUCOSE METER Use as directed, test 4 times* LANCING DEVICE LiteTouch Test 4 times daily,* ASPIRIN 81 MG TABLET,DELAYED * Take 81 mg by mouth once joanie* CHOLECALCIFEROL (VITAMIN D3) * Take 5,000 Units by mouth onc* Problem List As Of Date 03/10/2018 Noted Resolved Other hyperlipidemia [E78.49] BENIGN HYPERTENSION [I10] AORTOCORONARY BYPASS STATUS [Z95.1] INVALID FOR* HEARING LOSS NOS [H91.90] INVALID FOR* Type II diabetes mellitus with renal manifestat*INVALID FOR* Priority: D NEUROPATHY IN DIABETES [E11.42] INVALID FOR* Impotence of organic origin [N52.9] INVALID FOR*10/17/2015 CHRONIC RHINITIS [J31.0] INVALID FOR* Hypertrophy of prostate without urinary obstruc*INVALID FOR*05/22/2017 MOD NONPROLIF DIAB RETINOPATHY [E11.3399] INVALID FOR* More... Proteinuria [R80.9] INVALID FOR* Debility [R53.81] INVALID FOR*05/22/2017 Atrial flutter [I48.92] INVALID FOR*10/17/2015 More... Gallbladder calculus without cholecystitis [K80*INVALID FOR*11/04/2013 ADHF (acute decompensated heart failure) (HCC) *INVALID FOR*10/11/2014 Priority: B More... Angina pectoris (HCC) [I20.9] INVALID FOR*10/16/2015 More... CAD (coronary artery disease), [place] coronary *INVALID FOR* Priority: B More... SUMMARY [V999.95] INVALID FOR*05/09/2014 Priority: A More... CKD (chronic kidney disease) stage 3, GFR 30-59*INVALID FOR* Aortic stenosis [I35.0] INVALID FOR* Priority: Mild More... Lung crackles [R09.89] INVALID FOR*10/11/2014 More... SUMMARY [V999.95] INVALID FOR*10/17/2015 Priority: Very Severe More... Hematoma [T14.8XXA] INVALID FOR*10/11/2014 More... Rash and nonspecific skin eruption [R21] INVALID FOR*10/17/2015 Hydrocele of testis [N43.3] INVALID FOR*10/17/2015 BPH with obstruction/lower urinary tract sympto*INVALID FOR*10/17/2015 Encounter for screening for other disorder [Z13*INVALID FOR*10/17/2015 SUMMARY INVALID FOR*04/09/2015 Priority: Mild More... 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 Ascites of liver [R18.8] INVALID FOR*10/16/2015 More... Pulmonary hypertension, primary (HCC) [I27.0] INVALID FOR* More... More... Depressive disorder [F32.9] INVALID FOR*05/22/2017 Priority: A Dental caries on smooth surface penetrating int*INVALID FOR*10/17/2015 Hypertensive kidney disease with CKD stage III *INVALID FOR* Priority: C More... S/P aortic valve replacement [Z95.2] INVALID FOR* Right foot ulcer (HCC) [L97.519] INVALID FOR*08/08/2016 ACS (acute coronary syndrome) (HCC) [I24.9] INVALID FOR*05/22/2017 Encounter Status:Closed by KEN STONE on 04/10/18 PROGRESS Observed: 01/06/2018 Status: COMPLETED Source: [place] 12:37 PM [facility] REPOSITORY HNO ID: [id number] Author: Fiorella Bone Cma Service: (none) Author Type: (none) Type: Progress Notes Filed: 01/06/2018 12:37 PM Note Text: Letters mailed to patient. PROGRESS Observed: 01/06/2018 Status: COMPLETED Source: [place] 12:36 PM [facility] REPOSITORY HNO ID: [id number] Author: Fiorella Bone [facility] Service: (none) Author Type: (none) Type: Progress Notes Filed: 01/06/2018 12:37 PM Note Text: Marissa has an upcoming appointment with PCP on 03/24. Labs ordered. I will send appointment/retinal exam reminder with release form. Appointment notes updated gap pt. Health Maintenance Due: AVNI/ARB MED PRESCRIBED due on 1970 DILATED RETINAL EXAM due on 06/29/2016 - mailing letter ABDOMINAL AORTIC ANEURYSM SCREENING TOPIC due on 2017 ADULT PREVNAR-13 due on 2017 PNEUMOVAX AGE 65 AND OVER WITH 5YR LOOKBACK(1) due on 2017 HBA1C due on 12/18/2017 - ordered INFLUENZA(1) due on 01/31/2018 CNPTOUTREACH Observed: 01/06/2018 Status: COMPLETED Source: [place] 12:00 AM [facility] REPOSITORY Patient Outreach (INTMWS) MARISSA PERALTA ([id number]) 1950 M Date Time Provider Department 01/06/18 FIORELLA BONE) IN[facility] During your visit today, we recorded the following information about you: Fiorella Bone Cma 01/06/2018 12:37 PM Signed Marissa has an upcoming appointment with PCP on 03/24. Labs ordered. I will send appointment/retinal exam reminder with release form. Appointment notes updated gap pt. Health Maintenance Due: AVNI/ARB MED PRESCRIBED due on 1970 DILATED RETINAL EXAM due on 06/29/2016 - mailing letter ABDOMINAL AORTIC ANEURYSM SCREENING TOPIC due on 2017 ADULT PREVNAR-13 due on 2017 PNEUMOVAX AGE 65 AND OVER WITH 5YR LOOKBACK(1) due on 2017 HBA1C due on 12/18/2017 - ordered INFLUENZA(1) due on 01/31/2018 Fiorella Bone [facility] 01/06/2018 12:37 PM Signed Letters mailed to patient. Allergies As of Date: 01/06/2018 Noted Allergy Reaction REMERON (MIRTAZAPINE) 07/10/2015 5 - Intolerance Comments: sleptalot; felt spaced out. DEMEROL (MEPERIDINE HCL) 03/18/2005 5 - Intolerance Comments: Vomiting spacey Date Reviewed: 11/21/2017 Reviewed by: Radha Foreman LPN - Fully Assessed Reason for Visit: PHMA/Care Gap Outreach [[id number]] Prescriptions as of 01/06/2018 Sig: INSULIN ASPART U-100 100 UNI* Inject 12 units as a base the* PEN NEEDLE, DIABETIC 31 GAUGE* Use 1 pen needle for each ins* INSULIN GLARGINE (U-100) 100 * Inject 26 Units subcutaneousl* CARVEDILOL 6.25 MG TABLET Take 1 tablet by mouth twice * ATORVASTATIN 40 MG TABLET TAKE ONE TABLET BY MOUTH AT B* ISOSORBIDE DINITRATE 30 MG TA* TAKE TWO TABLETS BY MOUTH THR* CHROMIUM PICOLINATE 1,000 MCG* Take by mouth. OMEGA 3 350 MG-DHA 235 MG-EPA* Take by mouth. CLOPIDOGREL 75 MG TABLET Take 1 tablet by mouth once d* FUROSEMIDE 80 MG TABLET Take 0.5 tablets by mouth onc* FREESTYLE TEST STRIPS USE ONE STRIP TO CHECK GLUCOS* NITROGLYCERIN 0.4 MG SUBLINGU* Dissolve 1 tablet under the t* VITAMIN B COMPLEX TABLET Take 1 tablet by mouth once d* IPRATROPIUM BROMIDE 42 MCG (0* Use 2 Sprays in the nose twic* OXYGEN (HOME THERAPY) Inhale as instructed as dire* BLOOD-GLUCOSE METER Use as directed, test 4 times* LANCING DEVICE LiteTouch Test 4 times daily,* ASPIRIN 81 MG TABLET,DELAYED * Take 81 mg by mouth once joanie* CHOLECALCIFEROL (VITAMIN D3) * Take 2 tablets by mouth once * Problem List As Of Date 01/06/2018 Noted Resolved Other hyperlipidemia [E78.4] BENIGN HYPERTENSION [I10] AORTOCORONARY BYPASS STATUS [Z95.1] INVALID FOR* HEARING LOSS NOS [H91.90] INVALID FOR* Type II diabetes mellitus with renal manifestat*INVALID FOR* Priority: D NEUROPATHY IN DIABETES [E11.42] INVALID FOR* Impotence of organic origin [N52.9] INVALID FOR*10/17/2015 CHRONIC RHINITIS [J31.0] INVALID FOR* Hypertrophy of prostate without urinary obstruc*INVALID FOR*05/22/2017 MOD NONPROLIF DIAB RETINOPATHY [E11.3399] INVALID FOR* More... Proteinuria [R80.9] INVALID FOR* Debility [R53.81] INVALID FOR*05/22/2017 Atrial flutter [I48.92] INVALID FOR*10/17/2015 More... Gallbladder calculus without cholecystitis [K80*INVALID FOR*11/04/2013 ADHF (acute decompensated heart failure) (HCC) *INVALID FOR*10/11/2014 Priority: B More... Angina pectoris (HCC) [I20.9] INVALID FOR*10/16/2015 More... CAD (coronary artery disease), [place] coronary *INVALID FOR* Priority: B More... SUMMARY [V999.95] INVALID FOR*05/09/2014 Priority: A More... CKD (chronic kidney disease) stage 3, GFR 30-59*INVALID FOR* Aortic stenosis [I35.0] INVALID FOR* Priority: Mild More... Lung crackles [R09.89] INVALID FOR*10/11/2014 More... SUMMARY [V999.95] INVALID FOR*10/17/2015 Priority: Very Severe More... Hematoma [T14.8XXA] INVALID FOR*10/11/2014 More... Rash and nonspecific skin eruption [R21] INVALID FOR*10/17/2015 Hydrocele of testis [N43.3] INVALID FOR*10/17/2015 BPH with obstruction/lower urinary tract sympto*INVALID FOR*10/17/2015 Encounter for screening for other disorder [Z13*INVALID FOR*10/17/2015 SUMMARY INVALID FOR*04/09/2015 Priority: Mild More... 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 Ascites of liver [R18.8] INVALID FOR*10/16/2015 More... Pulmonary hypertension, primary (HCC) [I27.0] INVALID FOR* More... More... Depressive disorder [F32.9] INVALID FOR*05/22/2017 Priority: A Dental caries on smooth surface penetrating int*INVALID FOR*10/17/2015 Hypertensive kidney disease with CKD stage III *INVALID FOR* Priority: C More... S/P aortic valve replacement [Z95.2] INVALID FOR* Right foot ulcer (HCC) [L97.519] INVALID FOR*08/08/2016 ACS (acute coronary syndrome) (HCC) [I24.9] INVALID FOR*05/22/2017 Letter Text [facility] [place] [address] [place], [place] [id number] Dear Marissa Peralta Your health care is very important to us. Our records indicate that you may be due for a diabetic eye exam. If you have had a diabetic eye exam within the last year, please have your records sent to us so that we may update your medical records. There is a medical records of release of information included in this letter. Please take the release to your eye doctor for future appointments to have your records forwarded to us. Important facts about diabetic eye exams Diabetic retinal exams should be done yearly for all patients with a diagnosis of diabetes. Risks such as diabetic retinopathy can be reduced with blood glucose control and early detection of potential problems. Diabetic retinopathy is damage to the small blood vessels in the retina that can lead to blindness Thank you, Eduin Ann MD Letter Text Medicine [place] [id number] Office: [phone] Eduin Ann MD REQUEST FOR EYE EXAM FINDINGS June 21, 2016 Dear eye day care teacher, Thank you for coordinating eye care for our mutual patient, Marissa Peralta (1950). Please fax this letter back to me with the most appropriate response selected below. Please allow the patient's signature to serve as permission to share your findings. Sincerely, Eduin Ann MD Patient Signature Date Date of eye exam: Findings Both Eyes Right Left No Retinopathy Detected Non Proliferative Retinopathy Mild Moderate Severe Proliferative Retinopathy Macular Edema Further testing and/or treatment indicated Comments: Patient is to return: Encounter Status:Closed by FIORELLA BONE CMA on 01/06/18 PROGRESS Observed: 11/24/2017 Status: COMPLETED Source: [place] 8:58 AM [facility] REPOSITORY HNO ID: [id number] Author: Fiorella Bone Cma Service: (none) Author Type: (none) Type: Progress Notes Filed: 11/24/2017 8:58 AM Note Text: Mychart message read. BASIC METABOLIC PANL Collected: 11/21/2017 Status: F Source: [place] 2:19 PM [facility] REPOSITORY TYPE CODE TESTS RESULT OUT OF REFERENCE UNITS RANGE LAB GLU 74-99 mg/dL High Glucose 189 Result Comment: The [place] [employer] (ADA) provides guidance for cutoff values for fasting glucose and random glucose. The ADA defines fasting as no caloric intake for at least 8 hours. Fas ting plasma glucose results between 100 to 125 mg/dL indicate increased risk for diabetes (prediabetes). Fasting plasma glucose results greater than or equal to 126 mg/dL meet the criteria for diagnosis of diabetes. In the absence of unequivocal hyperglycemia, results should be confirmed by repeat testing. In a patient with classic symptoms of hyperglycemia or hyperglycemic crisis, random plasma glucose results greater than or equal to 200 mg/dL meet the criteria for diagnosis of diabetes. Reference: Standards of Medical Care in Diabetes 2016, [place] [employer]. Diabetes Care. 2016.39(Suppl 1). LAB BUN 9-24 mg/dL BUN High 44 LAB CRET 0.73-1.22 mg/dL Creatinine High 1.98 LAB NA 136-144 mmol/L Sodium 141 LAB K 3.7-5.1 mmol/L Potassium 4.6 LAB CL 97-105 mmol/L Chloride High 106 LAB CO2 22-30 mmol/L CO2 25 LAB AGAP 9-18 mmol/L Anion Gap 10 LAB CA 8.5-10.2 mg/dL Calcium, Total 9.4 LAB GFRAA eGFR- Amer. 41 LAB GFRNAA . eGFR-All Other Races 34 Result Comment: eGFR (Estimated GFR) Units of measure: mL/min/1.73 meters squared eGFR is derived from the reexpressed MDRD Study equation using the following parameters: serum creatinine, age, gender and race. The creatinine assay has been calibrated to be traceable to IDMS. An eGFR <60 mL/min/1.73m2 for >3 months is consistent with chronic kidney disease. Refer to KDOQI guidelines for clinical interpretation. In patients with unstable renal function, e.g. those with acute kidney injury, the eGFR may not accurately reflect actual GFR. Performed By: #### BMP #### [facility] [address] [place] [id number] PROGRESS Observed: 11/21/2017 Status: COMPLETED Source: [place] 2:05 PM [facility] REPOSITORY HNO ID: [id number] Author: Jg Castillo Service: (none) Author Type: Physician Type: Progress Notes Filed: 11/21/2017 5:47 PM Note Text: PERTINENT CARDIAC HISTORY ASHD - CABGx5 1997, 05/2014 PCI (BMS) distal LMT/proximal LCx, PCI Cx 2014, PCI osteal Cx (ENZO) 09/16 Cardiomyopathy - ischemic CHF - systolic DM HTN HL Atrial flutter - cardioversion 2013, no a/c while on DAPT, due to bleeding CRF Aortic stenosis - TAVR 2015 Pulmonary hypertension ADHERENCE TO GUIDELINES AVNI-I or ARB for HF with prior LVEF<40 (NQF 0081) - CRF ASA or Plavix for ASHD (NQF 0067) - met Beta jr for ASHD with prior MD or prior LVEF<40 (NQF 0070) - met Beta jr for HF with prior LVEF<40 (NQF 0083) - met AVNI-I or ARB for ASHD with DM or prior LVEF<40 (NQF 0066) - CRF Statin therapy for ASHD or FHL or DM - met BMI documented and plan if >25 (NQF 0421) - lifestyle recommendation form Tobacco use screening and referral (NQ 0028) - lifestyle recommendation form Recommendation for whole food, plant based diet - lifestyle recommendation form CLINICAL IMPRESSION/PLAN: Marissa Peralta is doing well. He was congratulated on his progress. I've asked him to continue to exercise and let me know if he has increased chest pain or shortness of breath. Follow-up labs will be obtained. I will see him in 6 months or as needed. Written and verbal health teaching given to patient, patient verbalizes understanding and agrees with treatment plan. DIAGNOSIS FOR VISIT: ANDREW CORTES HISTORY OF PRESENT ILLNESS Marissa Peralta returns for follow-up of multiple cardiac issues, as noted above. He reports that he has increased his activity. He is doing some yard work and repair work around the house which he has not done for several years. His breathing has been slowly improving. He's had no recent chest discomfort and has used no nitroglycerin. He's had minimal edema. He denies syncope, TIAs, amaurosis, claudication. ALLERGIES: ALLERGIES Allergen Reactions - Remeron [Mirtazapin* Intolerance sleptalot; felt spaced out. - Demerol [Meperidine* Intolerance Vomiting spacey CURRENT OUTPATIENT MEDICATIONS: cephALEXin (KEFLEX) 500 mg capsule Take 1 capsule by mouth three times daily for 10 days. doxycycline monohydrate (MONODOX) 100 mg capsule Take 1 capsule by mouth twice daily for 10 days. insulin aspart U-100 (NOVOLOG FLEXPEN U-100 INSULIN) 100 unit/mL inpn Inject 12 units as a base then 1 unit for every 25 carbs 3 times a day with meals and snacks. 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 Take around 10 PM. carvedilol (COREG) 6.25 mg tablet Take 1 tablet by mouth twice daily with meals. atorvastatin (LIPITOR) 40 mg tablet TAKE ONE TABLET BY MOUTH AT BEDTIME isosorbide dinitrate (ISORDIL, SORBITRATE) 30 mg tablet TAKE TWO TABLETS BY MOUTH THREE TIMES DAILY chromium picolinate 1,000 mcg tab Take by mouth. omega 0-ryo-cmo-fish oil 350 mg-235 mg- 90 mg-597 mg cpDR Take by mouth. clopidogrel (PLAVIX) 75 mg tablet Take 1 tablet by mouth once daily. furosemide (LASIX) 80 mg tablet Take 0.5 tablets by mouth once daily. FREESTYLE TEST test strip USE ONE STRIP TO CHECK GLUCOSE 4 TIMES DAILY nitroglycerin sublingual (NITROSTAT) 0.4 mg SL tablet Dissolve 1 tablet under the tongue every 5 minutes as needed for Chest Pain. vitamin b complex (B COMPLETE) tab Take 1 tablet by mouth once daily. ipratropium bromide (ATROVENT) 0.06 % nasal spray Use 2 Sprays in the nose twice daily as needed. OXYGEN, HOME THERAPY, Inhale as instructed as directed. 3 lts at night while sleeping and 2 lts if needed while awake Blood-Glucose Meter (GMATE VOICE METER) [facility] [place] Use as directed, test 4 times a day and as needed dx E11.22 Lancing Device (GMATE LANCING DEVICE) [facility] [place] LiteTouch Test 4 times daily, and PRN Insulin yes, dx:E11.22 aspirin, enteric coated (ASPIRIN, ENTERIC COATED) 81 mg EC tablet Take 81 mg by mouth once daily. Cholecalciferol, Vitamin D3, (VITAMIN D-3) 1,000 unit Chew Take 2 tablets by mouth once daily. PHYSICAL EXAMINATION: VITAL SIGNS: BP 108/62 Pulse 60 Resp 17 Wt 162 lb (73.5kg) SpO2 96% Chest: Clear to percussion and auscultation.There is mild expiratory prolongation. Trachea is midline. Air entry is equal. Cardiac: Regular rhythm. S1 and S2 are normal. PMI is nondisplaced. There is a 1/6 systolic ejection murmur. Carotids are brisk with soft bilateral bruits. JVP is less than 10 cm. Abdomen: Soft and nontender. There are no pulsatile masses or bruits. No liver enlargement. Bowel sounds are active. Extremities: No edema. Pulses are intact and symmetrical. EKG shows sinus bradycardia with first degree AV block. There are repolarization abnormalities, similar to those seen on previous tracings. The current EKG is recorded at a higher scale. Electronically Signed: Jg Castillo MD November 21, 2017 2:05 PM CC: Eduin Hagen MD CNOV Observed: 11/21/2017 Status: COMPLETED Source: [place] 1:30 PM [facility] REPOSITORY Office Visit (CAWSTR) MARISSA PERALTA ([id number]) 1950 M Date Time Provider Department 11/21/17 1:30 PM JG CASTILLO CA[facility] During your visit today, we recorded the following information about you: Pulse Respiration Blood pressure Weight 60/minute 17/minute 108/62 73.5 kg Jg Castillo MD 11/21/2017 5:47 PM Signed PERTINENT CARDIAC HISTORY ASHD - CABGx5 1997, 05/2014 PCI (BMS) distal LMT/proximal LCx, PCI Cx 2014, PCI osteal Cx (ENZO) 09/16 Cardiomyopathy - ischemic CHF - systolic DM HTN HL Atrial flutter - cardioversion 2013, no a/c while on DAPT, due to bleeding CRF Aortic stenosis - TAVR 2015 Pulmonary hypertension ADHERENCE TO GUIDELINES AVNI-I or ARB for HF with prior LVEF<40 (NQF 0081) - CRF ASA or Plavix for ASHD (NQF 0067) - met Beta jr for ASHD with prior MD or prior LVEF<40 (NQF 0070) - met Beta jr for HF with prior LVEF<40 (NQF 0083) - met AVNI-I or ARB for ASHD with DM or prior LVEF<40 (NQF 0066) - CRF Statin therapy for ASHD or FHL or DM - met BMI documented and plan if >25 (NQF 0421) - lifestyle recommendation form Tobacco use screening and referral (NQF 0028) - lifestyle recommendation form Recommendation for whole food, plant based diet - lifestyle recommendation form CLINICAL IMPRESSION/PLAN: Marissa Peralta is doing well. He was congratulated on his progress. I've asked him to continue to exercise and let me know if he has increased chest pain or shortness of breath. Follow-up labs will be obtained. I will see him in 6 months or as needed. Written and verbal health teaching given to patient, patient verbalizes understanding and agrees with treatment plan. DIAGNOSIS FOR VISIT: ANDREW CORTES HISTORY OF PRESENT ILLNESS Marissa Peralta returns for follow-up of multiple cardiac issues, as noted above. He reports that he has increased his activity. He is doing some yard work and repair work around the house which he has not done for several years. His breathing has been slowly improving. He's had no recent chest discomfort and has used no nitroglycerin. He's had minimal edema. He denies syncope, TIAs, amaurosis, claudication. ALLERGIES: ALLERGIES Allergen Reactions - Remeron [Mirtazapin* Intolerance sleptalot; felt spaced out. - Demerol [Meperidine* Intolerance Vomiting spacey CURRENT OUTPATIENT MEDICATIONS: cephALEXin (KEFLEX) 500 mg capsule Take 1 capsule by mouth three times daily for 10 days. doxycycline monohydrate (MONODOX) 100 mg capsule Take 1 capsule by mouth twice daily for 10 days. insulin aspart U-100 (NOVOLOG FLEXPEN U-100 INSULIN) 100 unit/mL inpn Inject 12 units as a base then 1 unit for every 25 carbs 3 times a day with meals and snacks. 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 Take around 10 PM. carvedilol (COREG) 6.25 mg tablet Take 1 tablet by mouth twice daily with meals. atorvastatin (LIPITOR) 40 mg tablet TAKE ONE TABLET BY MOUTH AT BEDTIME isosorbide dinitrate (ISORDIL, SORBITRATE) 30 mg tablet TAKE TWO TABLETS BY MOUTH THREE TIMES DAILY chromium picolinate 1,000 mcg tab Take by mouth. omega 7-jhr-upo-fish oil 350 mg-235 mg- 90 mg-597 mg cpDR Take by mouth. clopidogrel (PLAVIX) 75 mg tablet Take 1 tablet by mouth once daily. furosemide (LASIX) 80 mg tablet Take 0.5 tablets by mouth once daily. FREESTYLE TEST test strip USE ONE STRIP TO CHECK GLUCOSE 4 TIMES DAILY nitroglycerin sublingual (NITROSTAT) 0.4 mg SL tablet Dissolve 1 tablet under the tongue every 5 minutes as needed for Chest Pain. vitamin b complex (B COMPLETE) tab Take 1 tablet by mouth once daily. ipratropium bromide (ATROVENT) 0.06 % nasal spray Use 2 Sprays in the nose twice daily as needed. OXYGEN, HOME THERAPY, Inhale as instructed as directed. 3 lts at night while sleeping and 2 lts if needed while awake Blood-Glucose Meter (GMATE VOICE METER) misc Use as directed, test 4 times a day and as needed dx E11.22 Lancing Device (GMATE LANCING DEVICE) misc LiteTouch Test 4 times daily, and PRN Insulin yes, dx:E11.22 aspirin, enteric coated (ASPIRIN, ENTERIC COATED) 81 mg EC tablet Take 81 mg by mouth once daily. Cholecalciferol, Vitamin D3, (VITAMIN D-3) 1,000 unit Chew Take 2 tablets by mouth once daily. PHYSICAL EXAMINATION: VITAL SIGNS: BP 108/62 Pulse 60 Resp 17 Wt 162 lb (73.5kg) SpO2 96% Chest: Clear to percussion and auscultation.There is mild expiratory prolongation. Trachea is midline. Air entry is equal. Cardiac: Regular rhythm. S1 and S2 are normal. PMI is nondisplaced. There is a 1/6 systolic ejection murmur. Carotids are brisk with soft bilateral bruits. JVP is less than 10 cm. Abdomen: Soft and nontender. There are no pulsatile masses or bruits. No liver enlargement. Bowel sounds are active. Extremities: No edema. Pulses are intact and symmetrical. EKG shows sinus bradycardia with first degree AV block. There are repolarization abnormalities, similar to those seen on previous tracings. The current EKG is recorded at a higher scale. Electronically Signed: Jg Castillo MD November 21, 2017 2:05 PM CC: MD Jg Bronson MD 11/21/2017 2:05 PM Signed LIFESTYLE CHANGE A healthy lifestyle is the most important component of your overall treatment plan. Please give serious thought to the following areas and commit to making baster hand changes. EAT A WHOLE FOOD, PLANT BASED DIET The nutrition your body gets is more important than the medicine you take. What matters most is the overall way you eat. We encourage you to minimize the use of animal products (which include dairy and all meats except fatty fish) and use whole, unprocessed plant foods to provide your protein, vitamins and other nutrients. We have a lot of information to share with you on this topic. This is not a diet. It is a way of life that you will keep with you. EXERCISE REGULARLY It is not important to spend hours in the gym, lifting weights and perspiring heavily. A total of 2-3 hours per week of aerobic (causing you to be moderately short of breath) exercise is sufficient to improve your health. Talk to us before you begin a new exercise program, if you have heart disease or experience shortness of breath or chest pain. REDUCE STRESS Chronic emotional and physical stress leads to disease. Ways of reducing stress include meditation, visualization, prayer, yoga and other forms of relaxation therapy. Consistency is the jauregui. Find a technique that works for you and do it every day. CULTIVATE RELATIONSHIPS Loneliness and isolation have a major negative impact on health. Seek out others who can love, care for and nurture you. Avoid hurtful relationships. MAINTAIN IDEAL BODY WEIGHT The best way to do this is to do all the things above. Our bodies naturally find the right weight if we keep moving and feed ourselves the right food. If your BMI is greater than 25, we strongly recommend a referral to a weight management program. Please speak to us or your family physician about available programs. AVOID NICOTINE IN ALL FORMS This includes all tobacco products, whether chewed, smoked, vaped, or rubbed on the skin. Smoking cessation programs, which can make use of tobacco substitutes, medications to suppress cravings and behavior management, are available. Please contact your family physician about programs in your area. Referring Provider: JG CASTILLO [[id number]] Allergies As of Date: 11/21/2017 Noted Allergy Reaction REMERON (MIRTAZAPINE) 07/10/2015 5 - Intolerance Comments: sleptalot; felt spaced out. DEMEROL (MEPERIDINE HCL) 03/18/2005 5 - Intolerance Comments: Vomiting spacey Date Reviewed: 11/21/2017 Reviewed by: Radha Foreman LPN - Fully Assessed Reason for Visit: Established Patient [175] Cmt: 6 month follow up Primary Visit Diagnosis:ASHD (arteriosclerotic heart disease) [I25.10] Other Visit Diagnosis:S/P AVR [Z95.2] Order(s):BASIC METABOLIC PNL [SQBMP] Order #: [id number] FUTURE Prescriptions as of 11/21/2017 Sig: CEPHALEXIN 500 MG CAPSULE Take 1 capsule by mouth three* DOXYCYCLINE MONOHYDRATE 100 M* Take 1 capsule by mouth twice* INSULIN ASPART U-100 100 UNI* Inject 12 units as a base the* PEN NEEDLE, DIABETIC 31 GAUGE* Use 1 pen needle for each ins* INSULIN GLARGINE (U-100) 100 * Inject 26 Units subcutaneousl* CARVEDILOL 6.25 MG TABLET Take 1 tablet by mouth twice * ATORVASTATIN 40 MG TABLET TAKE ONE TABLET BY MOUTH AT B* ISOSORBIDE DINITRATE 30 MG TA* TAKE TWO TABLETS BY MOUTH THR* CHROMIUM PICOLINATE 1,000 MCG* Take by mouth. OMEGA 3 350 MG-DHA 235 MG-EPA* Take by mouth. CLOPIDOGREL 75 MG TABLET Take 1 tablet by mouth once d* FUROSEMIDE 80 MG TABLET Take 0.5 tablets by mouth onc* FREESTYLE TEST STRIPS USE ONE STRIP TO CHECK GLUCOS* NITROGLYCERIN 0.4 MG SUBLINGU* Dissolve 1 tablet under the t* VITAMIN B COMPLEX TABLET Take 1 tablet by mouth once d* IPRATROPIUM BROMIDE 42 MCG (0* Use 2 Sprays in the nose twic* OXYGEN (HOME THERAPY) Inhale as instructed as dire* BLOOD-GLUCOSE METER Use as directed, test 4 times* LANCING DEVICE LiteTouch Test 4 times daily,* ASPIRIN 81 MG TABLET,DELAYED * Take 81 mg by mouth once joanie* CHOLECALCIFEROL (VITAMIN D3) * Take 2 tablets by mouth once * Problem List As Of Date 11/21/2017 Noted Resolved Other hyperlipidemia [E78.4] BENIGN HYPERTENSION [I10] AORTOCORONARY BYPASS STATUS [Z95.1] INVALID FOR* HEARING LOSS NOS [H91.90] INVALID FOR* Type II diabetes mellitus with renal manifestat*INVALID FOR* Priority: D NEUROPATHY IN DIABETES [E11.42] INVALID FOR* Impotence of organic origin [N52.9] INVALID FOR*10/17/2015 CHRONIC RHINITIS [J31.0] INVALID FOR* Hypertrophy of prostate without urinary obstruc*INVALID FOR*05/22/2017 MOD NONPROLIF DIAB RETINOPATHY [E11.3399] INVALID FOR* More... Proteinuria [R80.9] INVALID FOR* Debility [R53.81] INVALID FOR*05/22/2017 Atrial flutter [I48.92] INVALID FOR*10/17/2015 More... Gallbladder calculus without cholecystitis [K80*INVALID FOR*11/04/2013 ADHF (acute decompensated heart failure) (HCC) *INVALID FOR*10/11/2014 Priority: B More... Angina pectoris (HCC) [I20.9] INVALID FOR*10/16/2015 More... CAD (coronary artery disease), [place] coronary *INVALID FOR* Priority: B More... SUMMARY [V999.95] INVALID FOR*05/09/2014 Priority: A More... CKD (chronic kidney disease) stage 3, GFR 30-59*INVALID FOR* Aortic stenosis [I35.0] INVALID FOR* Priority: Mild More... Lung crackles [R09.89] INVALID FOR*10/11/2014 More... SUMMARY [V999.95] INVALID FOR*10/17/2015 Priority: Very Severe More... Hematoma [T14.8XXA] INVALID FOR*10/11/2014 More... Rash and nonspecific skin eruption [R21] INVALID FOR*10/17/2015 Hydrocele of testis [N43.3] INVALID FOR*10/17/2015 BPH with obstruction/lower urinary tract sympto*INVALID FOR*10/17/2015 Encounter for screening for other disorder [Z13*INVALID FOR*10/17/2015 SUMMARY INVALID FOR*04/09/2015 Priority: Mild More... 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 Ascites of liver [R18.8] INVALID FOR*10/16/2015 More... Pulmonary hypertension, primary (HCC) [I27.0] INVALID FOR* More... More... Depressive disorder [F32.9] INVALID FOR*05/22/2017 Priority: A Dental caries on smooth surface penetrating int*INVALID FOR*10/17/2015 Hypertensive kidney disease with CKD stage III *INVALID FOR* Priority: C More... S/P aortic valve replacement [Z95.2] INVALID FOR* Right foot ulcer (HCC) [L97.519] INVALID FOR*08/08/2016 ACS (acute coronary syndrome) (HCC) [I24.9] INVALID FOR*05/22/2017 Other instructions from your clinician: LIFESTYLE CHANGE A healthy lifestyle is the most important component of your overall treatment plan. Please give serious thought to the following areas and commit to making baster hand changes. EAT A WHOLE FOOD, PLANT BASED DIET The nutrition your body gets is more important than the medicine you take. What matters most is the overall way you eat. We encourage you to minimize the use of animal products (which include dairy and all meats except fatty fish) and use whole, unprocessed plant foods to provide your protein, vitamins and other nutrients. We have a lot of information to share with you on this topic. This is not a diet. It is a way of life that you will keep with you. EXERCISE REGULARLY It is not important to spend hours in the gym, lifting weights and perspiring heavily. A total of 2-3 hours per week of aerobic (causing you to be moderately short of breath) exercise is sufficient to improve your health. Talk to us before you begin a new exercise program, if you have heart disease or experience shortness of breath or chest pain. REDUCE STRESS Chronic emotional and physical stress leads to disease. Ways of reducing stress include meditation, visualization, prayer, yoga and other forms of relaxation therapy. Consistency is the jauregui. Find a technique that works for you and do it every day. CULTIVATE RELATIONSHIPS Loneliness and isolation have a major negative impact on health. Seek out others who can love, care for and nurture you. Avoid hurtful relationships. MAINTAIN IDEAL BODY WEIGHT The best way to do this is to do all the things above. Our bodies naturally find the right weight if we keep moving and feed ourselves the right food. If your BMI is greater than 25, we strongly recommend a referral to a weight management program. Please speak to us or your family physician about available programs. AVOID NICOTINE IN ALL FORMS This includes all tobacco products, whether chewed, smoked, vaped, or rubbed on the skin. Smoking cessation programs, which can make use of tobacco substitutes, medications to suppress cravings and behavior management, are available. Please contact your family physician about programs in your area. Encounter Status:Closed by JG CASTILLO MD on 11/21/17 PROGRESS Observed: 11/20/2017 Status: COMPLETED Source: [place] 8:57 AM [facility] REPOSITORY HNO ID: [id number] Author: Fiorella Bone [facility] Service: (none) Author Type: (none) Type: Progress Notes Filed: 11/24/2017 8:58 AM Note Text: MyChart message sent. PROGRESS Observed: 11/18/2017 Status: COMPLETED Source: [place] 2:22 PM [facility] REPOSITORY HNO ID: [id number] Author: Fiorella Bone [facility] Service: (none) Author Type: (none) Type: Progress Notes Filed: 11/24/2017 8:58 AM Note Text: PHMA TEAMLET DOCUMENTATION Provider Action/FYI: Please file labs. Upcoming appointment 03/24/18 PSR Action/FYI: Teamlet has identified patient by name and date of . Team: Dr. Hieu Palomo Older Allie Aburto Myself ? Last Office Visit:10/20/2017 ? Next Office Visit: 03/24/2018 ? Last BP/Labs: Blood Pressure: Last 3 Encounter BP Readings: Date: BP: 11/15/2017 126/58 09/22/2017 130/80 05/23/2017 126/80 Lipids: Cholesterol, Total (mg/dL) Date Value 05/20/2017 97 03/14/2016 94 HDL Cholesterol (mg/dL) Date Value 05/20/2017 29 03/14/2016 30 LDL Cholesterol (mg/dL) Date Value 05/20/2017 42 03/14/2016 41 Triglyceride (mg/dL) Date Value 05/20/2017 132 03/14/2016 117 HGB A1C: Lab Results Component Value Date HBA1C 8.0 09/18/2017 HBA1C 8.9 05/22/2017 HBA1C 7.4 10/25/2016 TSH: TSH (uU/mL) Date Value 12/29/2015 2.160 04/07/2015 1.310 ) Care Gap: CKD DM HTN Hyperlipidemia CAD Plan: ? Type of appointment needed: Has upcoming appointment 03/24/18 - needs labs prior. Labs, HM and Immunization: Health Maintenance Due: ZOSTER VACCINE (SHINGRIX)(1 of 2) due on 2002 DILATED RETINAL EXAM due on 06/29/2016 ABDOMINAL AORTIC ANEURYSM SCREENING TOPIC due on 2017 ADULT PREVNAR-13 due on 2017 PNEUMOVAX AGE 65 AND OVER WITH 5YR LOOKBACK(1) due on 2017 Fiorella Bone [facility] CNPTOUTREACH Observed: 11/18/2017 Status: COMPLETED Source: [place] 12:00 AM [facility] REPOSITORY Patient Outreach (INTM[facility]) MARISSA PERALTA ([id number]) 1950 M Date Time Provider Department 11/18/17 FIORELLA BONE (YAMILETH) IN[facility] During your visit today, we recorded the following information about you: Fiorella Bone [facility] 11/24/2017 8:58 AM Signed PHMA TEAMLET DOCUMENTATION Provider Action/FYI: Please file labs. Upcoming appointment 03/24/18 PSR Action/FYI: Teamlet has identified patient by name and date of . Team: Dr. Hieu Palomo Older Allie Aburto Myself ? Last Office Visit:10/20/2017 ? Next Office Visit: 03/24/2018 ? Last BP/Labs: Blood Pressure: Last 3 Encounter BP Readings: Date: BP: 11/15/2017 126/58 09/22/2017 130/80 05/23/2017 126/80 Lipids: Cholesterol, Total (mg/dL) Date Value 05/20/2017 97 03/14/2016 94 HDL Cholesterol (mg/dL) Date Value 05/20/2017 29 03/14/2016 30 LDL Cholesterol (mg/dL) Date Value 05/20/2017 42 03/14/2016 41 Triglyceride (mg/dL) Date Value 05/20/2017 132 03/14/2016 117 HGB A1C: Lab Results Component Value Date HBA1C 8.0 09/18/2017 HBA1C 8.9 05/22/2017 HBA1C 7.4 10/25/2016 TSH: TSH (uU/mL) Date Value 12/29/2015 2.160 04/07/2015 1.310 ) Care Gap: CKD DM HTN Hyperlipidemia CAD Plan: ? Type of appointment needed: Has upcoming appointment 03/24/18 - needs labs prior. Labs, HM and Immunization: Health Maintenance Due: ZOSTER VACCINE (SHINGRIX)(1 of 2) due on 2002 DILATED RETINAL EXAM due on 06/29/2016 ABDOMINAL AORTIC ANEURYSM SCREENING TOPIC due on 2017 ADULT PREVNAR-13 due on 2017 PNEUMOVAX AGE 65 AND OVER WITH 5YR LOOKBACK(1) due on 2017 [facility] 11/24/2017 8:58 AM Signed Performable message sent. [facility] 11/24/2017 8:58 AM Signed [employer] message read. Allergies As of Date: 11/18/2017 Noted Allergy Reaction REMERON (MIRTAZAPINE) 07/10/2015 5 - Intolerance Comments: sleptalot; felt spaced out. DEMEROL (MEPERIDINE HCL) 03/18/2005 5 - Intolerance Comments: Vomiting spacey Date Reviewed: 11/15/2017 Reviewed by: Rhonda Sullivan Ma - Fully Assessed Reason for Visit: PHFL/Care Gap Outreach [[id number]] Primary Visit Diagnosis:Type 2 diabetes mellitus with stage 3 chronic kidney disease, with long-term current use of insulin (HCC) [E11.22, N18.3, Z79.4] Other Visit Diagnosis:Other hyperlipidemia [E78.4] Order(s):BASIC METABOLIC PNL [SQBMP] Order #: [id number] FUTURE LIPID PANEL BASIC [SQLIPB] Order #: [id number] FUTURE Prescriptions as of 11/18/2017 Sig: CEPHALEXIN 500 MG CAPSULE Take 1 capsule by mouth three* DOXYCYCLINE MONOHYDRATE 100 M* Take 1 capsule by mouth twice* INSULIN ASPART U-100 100 UNI* Inject 12 units as a base the* PEN NEEDLE, DIABETIC 31 GAUGE* Use 1 pen needle for each ins* INSULIN GLARGINE (U-100) 100 * Inject 26 Units subcutaneousl* CARVEDILOL 6.25 MG TABLET Take 1 tablet by mouth twice * ATORVASTATIN 40 MG TABLET TAKE ONE TABLET BY MOUTH AT B* ISOSORBIDE DINITRATE 30 MG TA* TAKE TWO TABLETS BY MOUTH THR* CHROMIUM PICOLINATE 1,000 MCG* Take by mouth. OMEGA 3 350 MG-DHA 235 MG-EPA* Take by mouth. CLOPIDOGREL 75 MG TABLET Take 1 tablet by mouth once d* FUROSEMIDE 80 MG TABLET Take 0.5 tablets by mouth onc* FREESTYLE TEST STRIPS USE ONE STRIP TO CHECK GLUCOS* NITROGLYCERIN 0.4 MG SUBLINGU* Dissolve 1 tablet under the t* VITAMIN B COMPLEX TABLET Take 1 tablet by mouth once d* IPRATROPIUM BROMIDE 42 MCG (0* Use 2 Sprays in the nose twic* OXYGEN (HOME THERAPY) Inhale as instructed as dire* BLOOD-GLUCOSE METER Use as directed, test 4 times* LANCING DEVICE LiteTouch Test 4 times daily,* ASPIRIN 81 MG TABLET,DELAYED * Take 81 mg by mouth once joanie* CHOLECALCIFEROL (VITAMIN D3) * Take 2 tablets by mouth once * Problem List As Of Date 11/18/2017 Noted Resolved Other hyperlipidemia [E78.4] BENIGN HYPERTENSION [I10] AORTOCORONARY BYPASS STATUS [Z95.1] INVALID FOR* HEARING LOSS NOS [H91.90] INVALID FOR* Type II diabetes mellitus with renal manifestat*INVALID FOR* Priority: D NEUROPATHY IN DIABETES [E11.42] INVALID FOR* Impotence of organic origin [N52.9] INVALID FOR*10/17/2015 CHRONIC RHINITIS [J31.0] INVALID FOR* Hypertrophy of prostate without urinary obstruc*INVALID FOR*05/22/2017 MOD NONPROLIF DIAB RETINOPATHY [E11.3399] INVALID FOR* More... Proteinuria [R80.9] INVALID FOR* Debility [R53.81] INVALID FOR*05/22/2017 Atrial flutter [I48.92] INVALID FOR*10/17/2015 More... Gallbladder calculus without cholecystitis [K80*INVALID FOR*11/04/2013 ADHF (acute decompensated heart failure) ([facility]) *INVALID FOR*10/11/2014 Priority: B More... Angina pectoris (HCC) [I20.9] INVALID FOR*10/16/2015 More... CAD (coronary artery disease), [place] coronary *INVALID FOR* Priority: B More... SUMMARY [V999.95] INVALID FOR*05/09/2014 Priority: A More... CKD (chronic kidney disease) stage 3, GFR 30-59*INVALID FOR* Aortic stenosis [I35.0] INVALID FOR* Priority: Mild More... Lung crackles [R09.89] INVALID FOR*10/11/2014 More... SUMMARY [V999.95] INVALID FOR*10/17/2015 Priority: Very Severe More... Hematoma [T14.8XXA] INVALID FOR*10/11/2014 More... Rash and nonspecific skin eruption [R21] INVALID FOR*10/17/2015 Hydrocele of testis [N43.3] INVALID FOR*10/17/2015 BPH with obstruction/lower urinary tract sympto*INVALID FOR*10/17/2015 Encounter for screening for other disorder [Z13*INVALID FOR*10/17/2015 SUMMARY INVALID FOR*04/09/2015 Priority: Mild More... 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 Ascites of liver [R18.8] INVALID FOR*10/16/2015 More... Pulmonary hypertension, primary (HCC) [I27.0] INVALID FOR* More... More... Depressive disorder [F32.9] INVALID FOR*05/22/2017 Priority: A Dental caries on smooth surface penetrating int*INVALID FOR*10/17/2015 Hypertensive kidney disease with CKD stage III *INVALID FOR* Priority: C More... S/P aortic valve replacement [Z95.2] INVALID FOR* Right foot ulcer (HCC) [L97.519] INVALID FOR*08/08/2016 ACS (acute coronary syndrome) (HCC) [I24.9] INVALID FOR*05/22/2017 Encounter Status:Closed by FIORELLA BONE CMA on 11/24/17 WOUND Observed: 11/15/2017 Status: F Source: [place] CULTURE/STAIN 2:59 PM [facility] REPOSITORY Sp. Request/Comment: - Swab Smear Result - Rare Gram positive cocci --> ABNORMAL ALERT No Polymorphonuclear leukocytes No Mononuclear cells Culture Result - Many Staphylococcus aureus --> ABNORMAL ALERT ORGANISM: Staphylococcus aureus METHOD: Minimum inhibitory concentration(Vitek) Antibiotic Interp STELLA Status Erythromycin RESISTANT >=8 F Clindamycin SUSCEPTIBLE 0.25 F Testing for inducible clindamycin resistance was performed. Tetracycline SUSCEPTIBLE <=1 F Vancomycin SUSCEPTIBLE 1 F Oxacillin SUSCEPTIBLE 0.5 F Oxacillin susceptible staphylococci are susceptible to other penicillinase stable penicillins, beta lactam/beta lactamase inhibitor combinations, anti staphyloccal cephems, and carbapenems. Trimeth sulfameth SUSCEPTIBLE <=10 F Gentamicin SUSCEPTIBLE <=0.5 F Rifampin SUSCEPTIBLE <=0.5 F Rifampin should not be used alone for antimicrobial therapy. Doxycycline SUSCEPTIBLE <=0.5 F Performed By: #### WCUL #### [facility] [address], [place] [address] PROGRESS Observed: 11/15/2017 Status: COMPLETED Source: [place] 2:40 PM [facility] REPOSITORY HNO ID: [id number] Author: Damon Alcala) Jesus Service: (none) Author Type: Physician Wardrobe Coordinator Type: Progress Notes Filed: 11/15/2017 5:01 PM Note Text: Subjective HPI HPI Marissa Peralta is a 67 year old male who presents today for CC of spider bites (one on R leg and other on R upper back) that started 6 AND 4 weeks ago, respectively. He notes that it started off as very tender, and it started to ooze a lot. It has gotten progressively larger, and has become more red and swollen. There has been continued drainage from the area (per , red, yellow, and clear). The area is warm per pt. Denies any streaking up the area. 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 BP 126/58 (BP Site: Right Arm, BP Position: Sitting, BP Cuff Size: Regular Adult) Pulse 66 Temp 36.7 ?C (98.1 ?F) (Left Tympanic) Resp 20 Wt 73.6 kg (162 lb 3.2 oz) SpO2 96% BMI 24.66 kg/m? ALLERGIES Allergen Reactions - Remeron [Mirtazapin* Intolerance sleptalot; felt spaced out. 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) Proteinuria Cad (Coronary Artery Disease), [place] Coronary Artery Ckd (Chronic Kidney Disease) Stage 3, Gfr 30-59 Ml/Min Aortic Stenosis Acute On Chronic Combined Systolic and Diastolic Heart Failure (Hcc) Pulmonary Hypertension, Primary (Hcc) Hypertensive Kidney Disease With Ckd Stage Iii S/P Aortic Valve Replacement Family History Problem Relation Age of Onset - Diabetes Father age 71 - Heart Father - Diabetes Mother - None Brother Social History Marital status: Spouse name: Years of education: Number of children: Social History Main Topics Smoking status: Former Smoker Packs/day: 0.00 Years: 0.00 Types: Pipe, Cigars Quit date: 04/02/2010 Smokeless tobacco: Never Used Comment: Pipe or cigars, since age 22 Alcohol use: No Drug use: No Social History Narrative 2015: Lives with spouse. Ambulatory. Hearing aids. Home oxygen. Minimal driving. Review of Systems Constitutional: Positive for chills and fever. Skin: Positive for rash (Spider bites). Negative for itching. Objective Physical Exam Constitutional: He is well-developed, well-nourished, and in no distress. Cardiovascular: Normal rate, regular rhythm and normal heart sounds. Exam reveals no friction rub. No murmur heard. Pulmonary/Chest: Effort normal and breath sounds normal. No respiratory distress. Skin: Rash noted. Rash is pustular. Multiple small ~1-2 cm pustules on an erythematous base, located on right posterior shoulder. Similar appearing lesions noted on right lateral-posterior thigh. 2-3 of the lesions draining a scant amount of purulence discharge (drainage cultured from the shoulder lesion) ASSESSMENT/PLAN: 1. Abscess of shoulder - ICD9: 682.3, ICD10: L02.419 (primary diagnosis) - Begin treatment with Cephalaxin (Keflex) AND Doxycycline (concern for potential MRSA) - No lymphangetic streaking, this was defined for patient to watch for and to seek medical care immediately if appears - Follow up w/ PCP for recheck in two days - WOUND CULTURE AND GRAM STAIN - GLUCOSE, BLOOD (POC) - CEPHALEXIN 500 MG CAPSULE - DOXYCYCLINE MONOHYDRATE 100 MG CAPSULE 2. Cellulitis of right lower extremity - ICD9: 682.6, ICD10: L03.115 - See above - CEPHALEXIN 500 MG CAPSULE - DOXYCYCLINE MONOHYDRATE 100 MG CAPSULE 3. Uncontrolled type 2 diabetes mellitus without complication, with long-term current use of insulin (HCC) - ICD9: 250.02, V58.67, ICD10: E11.65, Z79.4 Poor adherence to plan of care. - Continue current medications per PCP -Reinforced importance of glycemic control, especially when it comes to wound infections - GLUCOSE, BLOOD (POC) - DOXYCYCLINE MONOHYDRATE 100 MG CAPSULE Damon Tamayo PA-C CNOV Observed: 11/15/2017 Status: COMPLETED Source: [place] 2:30 PM [facility] REPOSITORY Office Visit ([facility]) HEATHERMARISSA ([id number]) 1950 M Date Time Provider Department 11/15/17 2:30 PM DAMON TAMAYO) [facility] During your visit today, we recorded the following information about you: Temperature Pulse Respiration Blood pressure 98.1 degrees 66/minute 20/minute 126/58 Weight 73.6 kg Damon Tamayo PA-C 11/15/2017 5:01 PM Signed Subjective HPI HPI Marissa Peralta is a 67 year old male who presents today for CC of spider bites (one on R leg and other on R upper back) that started 6 AND 4 weeks ago, respectively. He notes that it started off as very tender, and it started to ooze a lot. It has gotten progressively larger, and has become more red and swollen. There has been continued drainage from the area (per , red, yellow, and clear). The area is warm per pt. Denies any streaking up the area. 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 BP 126/58 (BP Site: Right Arm, BP Position: Sitting, BP Cuff Size: Regular Adult) Pulse 66 Temp 36.7 ?C (98.1 ?F) (Left Tympanic) Resp 20 Wt 73.6 kg (162 lb 3.2 oz) SpO2 96% BMI 24.66 kg/m? ALLERGIES Allergen Reactions - Remeron [Mirtazapin* Intolerance sleptalot; felt spaced out. 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) Proteinuria Cad (Coronary Artery Disease), [place] Coronary Artery Ckd (Chronic Kidney Disease) Stage 3, Gfr 30-59 Ml/Min Aortic Stenosis Acute On Chronic Combined Systolic and Diastolic Heart Failure (Hcc) Pulmonary Hypertension, Primary (Hcc) Hypertensive Kidney Disease With Ckd Stage Iii S/P Aortic Valve Replacement Family History Problem Relation Age of Onset - Diabetes Father age 71 - Heart Father - Diabetes Mother - None Brother Social History Marital status: Spouse name: Years of education: Number of children: Social History Main Topics Smoking status: Former Smoker Packs/day: 0.00 Years: 0.00 Types: Pipe, Cigars Quit date: 04/02/2010 Smokeless tobacco: Never Used Comment: Pipe or cigars, since age 22 Alcohol use: No Drug use: No Social History Narrative 2015: Lives with spouse. Ambulatory. Hearing aids. Home oxygen. Minimal driving. Review of Systems Constitutional: Positive for chills and fever. Skin: Positive for rash (Spider bites). Negative for itching. Objective Physical Exam Constitutional: He is well-developed, well-nourished, and in no distress. Cardiovascular: Normal rate, regular rhythm and normal heart sounds. Exam reveals no friction rub. No murmur heard. Pulmonary/Chest: Effort normal and breath sounds normal. No respiratory distress. Skin: Rash noted. Rash is pustular. Multiple small ~1-2 cm pustules on an erythematous base, located on right posterior shoulder. Similar appearing lesions noted on right lateral-posterior thigh. 2-3 of the lesions draining a scant amount of purulence discharge (drainage cultured from the shoulder lesion) ASSESSMENT/PLAN: 1. Abscess of shoulder - ICD9: 682.3, ICD10: L02.419 (primary diagnosis) - Begin treatment with Cephalaxin (Keflex) AND Doxycycline (concern for potential MRSA) - No lymphangetic streaking, this was defined for patient to watch for and to seek medical care immediately if appears - Follow up w/ PCP for recheck in two days - WOUND CULTURE AND GRAM STAIN - GLUCOSE, BLOOD (POC) - CEPHALEXIN 500 MG CAPSULE - DOXYCYCLINE MONOHYDRATE 100 MG CAPSULE 2. Cellulitis of right lower extremity - ICD9: 682.6, ICD10: L03.115 - See above - CEPHALEXIN 500 MG CAPSULE - DOXYCYCLINE MONOHYDRATE 100 MG CAPSULE 3. Uncontrolled type 2 diabetes mellitus without complication, with long-term current use of insulin (HCC) - ICD9: 250.02, V58.67, ICD10: E11.65, Z79.4 Poor adherence to plan of care. - Continue current medications per PCP -Reinforced importance of glycemic control, especially when it comes to wound infections - GLUCOSE, BLOOD (POC) - DOXYCYCLINE MONOHYDRATE 100 MG CAPSULE DANIEL Mixon PA-C 11/15/2017 3:23 PM Signed [facility] PATIENT INFO SKIN INFECTION OVERVIEW Cellulitis is an infection of the skin and soft tissue of the skin. The infection is usually caused by bacteria that normally live on the skin, such as staphylococci (Staph) or streptococci (Strep). The infection develops when there is a break in the skin, such as a wound or injury, which may be minor. This allows bacteria to enter the skin and grow, causing infection and swelling. Most cases of cellulitis are mild and heal completely with antibiotic treatment. However, the infection can become severe and cause a bodywide infection if left untreated. It is important to seek medical care promptly if you could have a skin infection. SKIN INFECTION RISK FACTORS Certain conditions increase the risk of developing cellulitis. These include: ? Recent injury to the skin (a wound, abrasion, cut, recent shaving, or injection drug use) ? Swelling of the skin due to radiation therapy ? Current skin infection, such as athlete's foot or impetigo ? Accumulation of fluid (edema) due to poor circulation, heart failure, liver disease, or past surgery to remove lymph nodes ? Being overweight ? Chronic skin conditions, such as eczema or psoriasis However, cellulitis can also develop in people who have no known risk factors. SKIN INFECTION SYMPTOMS Cellulitis ? The most common symptom of cellulitis is pain or tenderness. Other cellulitis symptoms can include swelling, warmth, and redness in a distinct area of skin. These symptoms usually worsen and the redness may expand over the course of a few days. The skin is usually smooth and shiny rather than raised or bumpy. Fever and chills are not common. The most common areas of the body for cellulitis to develop include the legs and the arms; it can also develop around the eye, on the abdominal wall, in the mouth, and around the anus. Other skin infections ? Other types of skin infections include abscesses, furuncles (boils), and carbuncles. These usually cause a collection of pus under the skin. Skin that is raised, reddened, tender, and pus-filled may be caused by a skin infection known as methicillin-resistant Staphylococcus aureus (MRSA). DO I NEED TO BE EXAMINED? There are many types and causes of skin infections, and it is important to know the most likely cause of the infection before beginning treatment. Using the wrong treatment could allow the infection to worsen. To ensure that the correct treatment is used, it is important to be evaluated by a healthcare provider. SKIN INFECTION TREATMENT Cellulitis treatment includes antibiotics as well as treatment of any underlying condition that led to the skin infection. Elevate the area ? Elevating the arm or leg above the level of the heart can help to reduce swelling and speed healing. Keep the area clean and dry ? It is important to keep the infected area clean and dry. You can shower or bathe normally, and pat the area dry with a clean towel. You can use a bandage or gauze to protect the skin, if needed. Do not use any antibiotic ointments or creams. Antibiotics ? Most people with cellulitis are treated with an antibiotic that is taken by mouth for one to two weeks. The best antibiotic depends upon your situation. If the infection is severe, you may need to be hospitalized and treated with antibiotics given into a vein (IV). It is important to take the antibiotic exactly as recommended and to finish the entire course of treatment. Skipping doses or ending treatment early could potentially allow the bacteria to become resistant and require longer treatment. Time to heal ? The swelling, warmth, and redness should begin to improve within one to three days after starting antibiotics, although these symptoms can persist for two weeks. If the reddened area becomes larger, more swollen, or more tender, call your healthcare provider. He or she may want to reexamine you to determine if further testing or an alternate antibiotic are needed. SKIN INFECTION PROGNOSIS In most cases, you will recover completely from an episode of cellulitis without any complications. If you have skin infection risk factors talk to your healthcare provider to determine if there are steps you can take to minimize the risk of infections in the future. Referring Provider: SELF [[id number]] Allergies As of Date: 11/15/2017 Noted Allergy Reaction REMERON (MIRTAZAPINE) 07/10/2015 5 - Intolerance Comments: sleptalot; felt spaced out. DEMEROL (MEPERIDINE HCL) 03/18/2005 5 - Intolerance Comments: Vomiting spacey Date Reviewed: 11/15/2017 Reviewed by: Rhonda Sullivan Ma - Fully Assessed Reason for Visit: spider bites [Other] Primary Visit Diagnosis:Abscess of shoulder [L02.419] Other Visit Diagnoses:Cellulitis of right lower extremity [L03.115] Uncontrolled type 2 diabetes mellitus without complication, with long-term current use of insulin ([facility]) [E11.65, Z79.4] Order(s):WOUND CULTURE AND GRAM STAIN [SQWCUL] Order #: [id number] GLUCOSE, BLOOD (POC) [6652711] Order #: [id number] GLUCOSE, BLOOD (POC) [1019749] Order #: [id number]. #:[id number] cephALEXin (KEFLEX) 500 mg capsuleTake 1 capsule by mouth three times daily for 10 days.Disp: 15 capsuleRfl: 0 doxycycline monohydrate (MONODOX) 100 mg capsuleTake 1 capsule by mouth twice daily for 10 days.Disp: 20 capsuleRfl: 0 Prescriptions as of 11/15/2017 Sig: INSULIN ASPART U-100 100 UNI* Inject 12 units as a base the* PEN NEEDLE, DIABETIC 31 GAUGE* Use 1 pen needle for each ins* INSULIN GLARGINE (U-100) 100 * Inject 26 Units subcutaneousl* CARVEDILOL 6.25 MG TABLET Take 1 tablet by mouth twice * ATORVASTATIN 40 MG TABLET TAKE ONE TABLET BY MOUTH AT B* ISOSORBIDE DINITRATE 30 MG TA* TAKE TWO TABLETS BY MOUTH THR* CHROMIUM PICOLINATE 1,000 MCG* Take by mouth. OMEGA 3 350 MG-DHA 235 MG-EPA* Take by mouth. CLOPIDOGREL 75 MG TABLET Take 1 tablet by mouth once d* FUROSEMIDE 80 MG TABLET Take 0.5 tablets by mouth onc* FREESTYLE TEST STRIPS USE ONE STRIP TO CHECK GLUCOS* NITROGLYCERIN 0.4 MG SUBLINGU* Dissolve 1 tablet under the t* VITAMIN B COMPLEX TABLET Take 1 tablet by mouth once d* IPRATROPIUM BROMIDE 42 MCG (0* Use 2 Sprays in the nose twic* OXYGEN (HOME THERAPY) Inhale as instructed as dire* BLOOD-GLUCOSE METER Use as directed, test 4 times* LANCING DEVICE LiteTouch Test 4 times daily,* ASPIRIN 81 MG TABLET,DELAYED * Take 81 mg by mouth once joanie* CHOLECALCIFEROL (VITAMIN D3) * Take 2 tablets by mouth once * CEPHALEXIN 500 MG CAPSULE Take 1 capsule by mouth three* DOXYCYCLINE MONOHYDRATE 100 M* Take 1 capsule by mouth twice* Problem List As Of Date 11/15/2017 Noted Resolved Other hyperlipidemia [E78.4] BENIGN HYPERTENSION [I10] AORTOCORONARY BYPASS STATUS [Z95.1] INVALID FOR* HEARING LOSS NOS [H91.90] INVALID FOR* Type II diabetes mellitus with renal manifestat*INVALID FOR* Priority: D NEUROPATHY IN DIABETES [E11.42] INVALID FOR* Impotence of organic origin [N52.9] INVALID FOR*10/17/2015 CHRONIC RHINITIS [J31.0] INVALID FOR* Hypertrophy of prostate without urinary obstruc*INVALID FOR*05/22/2017 MOD NONPROLIF DIAB RETINOPATHY [E11.3399] INVALID FOR* More... Proteinuria [R80.9] INVALID FOR* Debility [R53.81] INVALID FOR*05/22/2017 Atrial flutter [I48.92] INVALID FOR*10/17/2015 More... Gallbladder calculus without cholecystitis [K80*INVALID FOR*11/04/2013 ADHF (acute decompensated heart failure) (HCC) *INVALID FOR*10/11/2014 Priority: B More... Angina pectoris (HCC) [I20.9] INVALID FOR*10/16/2015 More... CAD (coronary artery disease), [place] coronary *INVALID FOR* Priority: B More... SUMMARY [V999.95] INVALID FOR*05/09/2014 Priority: A More... CKD (chronic kidney disease) stage 3, GFR 30-59*INVALID FOR* Aortic stenosis [I35.0] INVALID FOR* Priority: Mild More... Lung crackles [R09.89] INVALID FOR*10/11/2014 More... SUMMARY [V999.95] INVALID FOR*10/17/2015 Priority: Very Severe More... Hematoma [T14.8XXA] INVALID FOR*10/11/2014 More... Rash and nonspecific skin eruption [R21] INVALID FOR*10/17/2015 Hydrocele of testis [N43.3] INVALID FOR*10/17/2015 BPH with obstruction/lower urinary tract sympto*INVALID FOR*10/17/2015 Encounter for screening for other disorder [Z13*INVALID FOR*10/17/2015 SUMMARY INVALID FOR*04/09/2015 Priority: Mild More... 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 Ascites of liver [R18.8] INVALID FOR*10/16/2015 More... Pulmonary hypertension, primary (HCC) [I27.0] INVALID FOR* More... More... Depressive disorder [F32.9] INVALID FOR*05/22/2017 Priority: A Dental caries on smooth surface penetrating int*INVALID FOR*10/17/2015 Hypertensive kidney disease with CKD stage III *INVALID FOR* Priority: C More... S/P aortic valve replacement [Z95.2] INVALID FOR* Right foot ulcer (HCC) [L97.519] INVALID FOR*08/08/2016 ACS (acute coronary syndrome) (HCC) [I24.9] INVALID FOR*05/22/2017 Other instructions from your clinician: EXPRESS CARE PATIENT INFO SKIN INFECTION OVERVIEW Cellulitis is an infection of the skin and soft tissue of the skin. The infection is usually caused by bacteria that normally live on the skin, such as staphylococci (Staph) or streptococci (Strep). The infection develops when there is a break in the skin, such as a wound or injury, which may be minor. This allows bacteria to enter the skin and grow, causing infection and swelling. Most cases of cellulitis are mild and heal completely with antibiotic treatment. However, the infection can become severe and cause a bodywide infection if left untreated. It is important to seek medical care promptly if you could have a skin infection. SKIN INFECTION RISK FACTORS Certain conditions increase the risk of developing cellulitis. These include: ? Recent injury to the skin (a wound, abrasion, cut, recent shaving, or injection drug use) ? Swelling of the skin due to radiation therapy ? Current skin infection, such as athlete's foot or impetigo ? Accumulation of fluid (edema) due to poor circulation, heart failure, liver disease, or past surgery to remove lymph nodes ? Being overweight ? Chronic skin conditions, such as eczema or psoriasis However, cellulitis can also develop in people who have no known risk factors. SKIN INFECTION SYMPTOMS Cellulitis ? The most common symptom of cellulitis is pain or tenderness. Other cellulitis symptoms can include swelling, warmth, and redness in a distinct area of skin. These symptoms usually worsen and the redness may expand over the course of a few days. The skin is usually smooth and shiny rather than raised or bumpy. Fever and chills are not common. The most common areas of the body for cellulitis to develop include the legs and the arms; it can also develop around the eye, on the abdominal wall, in the mouth, and around the anus. Other skin infections ? Other types of skin infections include abscesses, furuncles (boils), and carbuncles. These usually cause a collection of pus under the skin. Skin that is raised, reddened, tender, and pus-filled may be caused by a skin infection known as methicillin-resistant Staphylococcus aureus (MRSA). DO I NEED TO BE EXAMINED? There are many types and causes of skin infections, and it is important to know the most likely cause of the infection before beginning treatment. Using the wrong treatment could allow the infection to worsen. To ensure that the correct treatment is used, it is important to be evaluated by a healthcare provider. SKIN INFECTION TREATMENT Cellulitis treatment includes antibiotics as well as treatment of any underlying condition that led to the skin infection. Elevate the area ? Elevating the arm or leg above the level of the heart can help to reduce swelling and speed healing. Keep the area clean and dry ? It is important to keep the infected area clean and dry. You can shower or bathe normally, and pat the area dry with a clean towel. You can use a bandage or gauze to protect the skin, if needed. Do not use any antibiotic ointments or creams. Antibiotics ? Most people with cellulitis are treated with an antibiotic that is taken by mouth for one to two weeks. The best antibiotic depends upon your situation. If the infection is severe, you may need to be hospitalized and treated with antibiotics given into a vein (IV). It is important to take the antibiotic exactly as recommended and to finish the entire course of treatment. Skipping doses or ending treatment early could potentially allow the bacteria to become resistant and require longer treatment. Time to heal ? The swelling, warmth, and redness should begin to improve within one to three days after starting antibiotics, although these symptoms can persist for two weeks. If the reddened area becomes larger, more swollen, or more tender, call your healthcare provider. He or she may want to reexamine you to determine if further testing or an alternate antibiotic are needed. SKIN INFECTION PROGNOSIS In most cases, you will recover completely from an episode of cellulitis without any complications. If you have skin infection risk factors talk to your healthcare provider to determine if there are steps you can take to minimize the risk of infections in the future. Prescriptions ordered this encounter Disp Refills Start End CEPHALEXIN 500 MG CAPSULE 15 c* 0 11/15/2017 11/25/2017 Route: ORAL Sig: Take 1 capsule by mouth three times daily for 10 days. DOXYCYCLINE MONOHYDRATE 100 MG CAPSU* 20 c* 0 11/15/2017 11/25/2017 Route: ORAL Sig: Take 1 capsule by mouth twice daily for 10 days. Medications Discontinued During This Encounter IRON, FERROUS SULFATE, ORAL 11/15/2017 Class: Historical Med Route: ORAL Sig: Take 325 mg by mouth once daily. Disc: Reason for discontinue is not on file. Encounter Status:Closed by DAMON TAMAYO on 11/15/17 PROGRESS Observed: 09/22/2017 Status: COMPLETED Source: [place] 4:05 PM [facility] REPOSITORY HNO ID: [id number] Author: Melvi (Rt) Zachary Bullard Service: (none) Author Type: Gas Leak Inspector Type: Progress Notes Filed: 09/22/2017 4:06 PM Note Text: Radiology Service Progress Note PATIENT NAME: Marissa Peralta DATE OF SERVICE: September 22, 2017 TIME: 4:05 PM PATIENT IDENTITY VERIFICATION COMPLETED USING TWO (2) METHODS: Patient confirmed name verbally and Date of . PATIENT GENDER DATA: Male PATIENT RELEVANT IMPLANT DATA REVIEWED: Not Applicable RADIOLOGY DEPARTMENT: General X-ray: Exam(s) Completed: Spine X-Ray(s): Cervical AP / LAT / OBL w/odontoid PERIPHERAL IV DATA: Not applicable SIGNED BY: RT Yumi September 22, 2017 4:05 PM XR CERVICAL 4V Observed: 09/22/2017 Status: F Source: [place] AP/LAT/OBL 4:05 PM [facility] REPOSITORY * * *Final Report* * * DATE OF EXAM: Sep 22 2017 4:05PM WOX [id number] - XR CERVICAL 4V AP/LAT/OBL / PROCEDURE REASON: Cervicalgia * * * * Physician Interpretation * * * * EXAMINATIONS: Cervical spine, 5 views (AP, swimmer's, lateral and oblique views) Cervical spine, 2 views (odontoid views) HISTORY: Cervicalgia. COMPARISON: None. RESULTS: Diffuse osteopenia noted. All seven cervical vertebrae are identified in the lateral projection. C7 is obscured on lateral projections by overlapping structures. Straightening of cervical lordosis noted. Degenerative changes of cervical spine noted. Disc space narrowing is noted which is mild at C2-3; severe at C3-4, C4-5 and C5-C6. Degenerative endplate and facet changes noted. No fracture or subluxation noted. Odontoid views unremarkable. Prevertebral soft tissues unremarkable. Neural foramen narrowing on the right: severe at C3-4 through C6-7. Neural foramen narrowing on the left: moderate at C3-4, C4- 5; and severe at C5-6 and C6-7. Elongated well-defined ossific density noted within soft tissues of posterior mid neck. Calcifications within both sides of neck consistent with carotid arterial calcifications. Sternotomy wires, surgical noa and prosthetic cardiac valve noted. Degenerative changes of upper thoracic spine. IMPRESSION: 1. Degenerative changes of cervical spine and upper thoracic spine, with multiple levels of neural foramen narrowing, as described. 2. Calcifications within soft tissues of both sides of neck, consistent with carotid arterial calcifications. Furniture Mechanic: CAROLYNN Transcribe Date/Time: Sep 23 2017 8:25A Dictated by : ALEXIS RICHARDS MD This examination was interpreted and the report reviewed and electronically signed by: ALEXIS RICHARDS MD on Sep 23 2017 8:31AM EST [id number] XR CERVICAL SPECIFY Observed: 09/22/2017 Status: F Source: [place] 1V 4:05 PM [facility] [place] REPOSITORY * * *Final Report* * * DATE OF EXAM: Sep 22 2017 4:05PM WOX 5315 - XR CERVICAL SPECIFY 1V / PROCEDURE REASON: multiple diagnoses * * * * Physician Interpretation * * * * EXAMINATIONS: Cervical spine, 5 views (AP, swimmer's, lateral and oblique views) Cervical spine, 2 views (odontoid views) HISTORY: Cervicalgia. COMPARISON: None. RESULTS: Diffuse osteopenia noted. All seven cervical vertebrae are identified in the lateral projection. C7 is obscured on lateral projections by overlapping structures. Straightening of cervical lordosis noted. Degenerative changes of cervical spine noted. Disc space narrowing is noted which is mild at C2-3; severe at C3-4, C4-5 and C5-C6. Degenerative endplate and facet changes noted. No fracture or subluxation noted. Odontoid views unremarkable. Prevertebral soft tissues unremarkable. Neural foramen narrowing on the right: severe at C3-4 through C6-7. Neural foramen narrowing on the left: moderate at C3-4, C4- 5; and severe at C5-6 and C6-7. Elongated well-defined ossific density noted within soft tissues of posterior mid neck. Calcifications within both sides of neck consistent with carotid arterial calcifications. Sternotomy wires, surgical noa and prosthetic cardiac valve noted. Degenerative changes of upper thoracic spine. IMPRESSION: 1. Degenerative changes of cervical spine and upper thoracic spine, with multiple levels of neural foramen narrowing, as described. 2. Calcifications within soft tissues of both sides of neck, consistent with carotid arterial calcifications. Furniture Mechanic: PSCB Transcribe Date/Time: Sep 23 2017 8:25A Dictated by : ALEXIS RICHARDS MD This examination was interpreted and the report reviewed and electronically signed by: ALEXIS RICHARDS MD on Sep 23 2017 8:31AM EST [id number] PROGRESS Observed: 09/22/2017 Status: COMPLETED Source: [place] 3:50 PM [facility] REPOSITORY HNO ID: [id number] Author: Stacia (Channel Executive) Older Service: (none) Author Type: Nurse Practitioner Type: Progress Notes Filed: 09/23/2017 9:14 AM Note Text: CC: Patient presents with: 4 month follow up neck pain after falling out of chair and hitting neck on win: x 1 month HPI Marissa Peralta is a 67 year old male who presents today for 4 month F/U. Patient c/o neck stiffness and pain after falling backwards in a chair and hitting base of posterior neck on window sill about 3-4 weeks ago. Pain is worse upon waking. Taking 2 tylenol twice a day upon waking and at night with minimal relief. States feels crunching in neck on movement. Pain and decreased ROM when looking left only. C/o new onset dizziness since then. Denies visual changes, H/As, weakness, changes in hearing, confusion, changes in gait, or difficulty concentrating. DIABETES MELLITUS: Checks BG routinely upon waking and between supper and bedtime. Taking 26 units Lantus at bedtime. Fasting BG 100- 105. Taking 10-12 units glulisine before meals. BG 160-200 between dinner and bedtime. States has decreased insulin dose since he started taking Tumeric. Excessive thirst, urinary frequency, numbness, tingling or pain in extremities, new or unusual visual symptoms, low sugar/hypoglycemic reactions, weight loss/gain or fatigue: No Follows a diabetic diet most of the time. He is compliant with medication(s) and is tolerating med(s) without any side effects. Patient's last HgA1C was Hemoglobin A1C (%) Date Value 09/18/2017 8.0 05/22/2017 8.9 ) REVIEW OF SYSTEMS See HPI. PAST MEDICAL HISTORY Diagnosis Date - Aortic stenosis 05/06/2014 - Ascites of liver 04/04/2015 ar hepatic seen on CTA - Atrial flutter (HCC) 10/09/2012 - Chronic renal insufficiency - Chronic rhinitis 03/19/2005 - CKD (chronic kidney disease) stage 3, GFR 30-59 ml/min 05/05/2014 - Congestive heart failure (HCC) - Essential hypertension, benign - Fracture - Gallbladder calculus without cholecystitis 10/09/2012 - Hypertrophy of prostate without urinary obstruction and other lower urinary tract symptoms (LUTS) 12/03/2007 - Impotence of organic origin 03/19/2005 - Moderate nonproliferative diabetic retinopathy(362.05) 12/16/2007 Dr. Pope - Myocardial infarct, old - New onset atrial flutter (HCC) 10/09/2012 - Other and unspecified hyperlipidemia - Polyneuropathy in diabetes(357.2) 03/19/2005 - Postsurgical aortocoronary bypass status 03/19/2005 - Proteinuria 08/13/2010 - Rash and nonspecific skin eruption 06/27/2014 - Rheumatic fever - Type I (juvenile type) diabetes mellitus with renal manifestations, not stated as uncontrolled(250.41) 03/19/2005 - Type II or unspecified type diabetes mellitus without mention of complication, not stated as uncontrolled - Unspecified hearing loss 03/19/2005 PAST SURGICAL HISTORY Procedure Laterality Date - CABG, ARTERY-VEIN, FIVE 09/1997 - CARDIAC CATHETERIZATION HX - CC CORONARY STENT 05/16/2014 bare metal stent, LMT - CC CORONARY STENT 04/07/2015 ENZO, LCfx - CC CORONARY STENT 09/28/2016 ENZO again, Left Cfx - HEART SURGERY HX - LEFT HEART CATH,PERCUTANEOUS 12/17/2001 Cardiac cath, L heart - TAVR PROCEDURAL PLANNING 07/11/2015 ALLERGIES Remeron [Mirtazapine]; Demerol [Meperidine Hcl] MEDICATIONS Insulin [place], Disposable, (BD ULTRAFINE III MINI PEN) 31 gauge x 16 ndle Use 1 pen needle for each insulin injection (4 times daily) DX: Type I (juvenile type) DM with renal manifestations 250.41 insulin glargine (LANTUS SOLOSTAR U-100 INSULIN) 100 unit/mL (3 mL) inpn Inject 26 Units subcutaneously every evening. Take around 10 PM. carvedilol (COREG) 6.25 mg tablet Take 1 tablet by mouth twice daily with meals. atorvastatin (LIPITOR) 40 mg tablet TAKE ONE TABLET BY MOUTH AT BEDTIME isosorbide dinitrate (ISORDIL, SORBITRATE) 30 mg tablet TAKE TWO TABLETS BY MOUTH THREE TIMES DAILY chromium picolinate 1,000 mcg tab Take by mouth. omega 8-szd-mtq-fish oil 350 mg-235 mg- 90 mg-597 mg cpDR Take by mouth. clopidogrel (PLAVIX) 75 mg tablet Take 1 tablet by mouth once daily. furosemide (LASIX) 80 mg tablet Take 0.5 tablets by mouth once daily. FREESTYLE TEST test strip USE ONE STRIP TO CHECK GLUCOSE 4 TIMES DAILY insulin glulisine (APIDRA SOLOSTAR) 100 unit/mL sub-Q pen Inject 12 units as a base then 1 unit for every 25 carbs 3 times a day with meals and snacks. (12-15 units based upon glucose) nitroglycerin sublingual (NITROSTAT) 0.4 mg SL tablet Dissolve 1 tablet under the tongue every 5 minutes as needed for Chest Pain. vitamin b complex (B COMPLETE) tab Take 1 tablet by mouth once daily. ipratropium bromide (ATROVENT) 0.06 % nasal spray Use 2 Sprays in the nose twice daily as needed. OXYGEN, HOME THERAPY, Inhale as instructed as directed. 3 lts at night while sleeping and 2 lts if needed while awake Blood-Glucose Meter (GMATE VOICE METER) [facility] [place] Use as directed, test 4 times a day and as needed dx E11.22 Lancing Device (GMATE LANCING DEVICE) [facility] [place] LiteTouch Test 4 times daily, and PRN Insulin yes, dx:E11.22 aspirin, enteric coated (ASPIRIN, ENTERIC COATED) 81 mg EC tablet Take 81 mg by mouth once daily. Cholecalciferol, Vitamin D3, (VITAMIN D-3) 1,000 unit Chew Take 2 tablets by mouth once daily. IRON, FERROUS SULFATE, ORAL Take 325 mg by mouth once daily. FAMILY HISTORY Problem Relation Age of Onset - Diabetes Father age 71 - Heart Father - Diabetes Mother - None Brother Social History Substance Use Topics - Smoking status: Former Smoker Types: Pipe, Cigars Quit date: 04/02/2010 - Smokeless tobacco: Never Used Comment: Pipe or cigars, since age 22 - Alcohol use No PHYSICAL EXAM BP 130/80 Pulse 68 Temp 36.9 ?C (98.5 ?F) (Temporal Artery) Resp 14 Wt 71.7 kg (158 lb) SpO2 95% BMI 24.02 kg/m2 General Appearance: well appearing, in no acute distress, alert Skin: Skin color, texture, turgor normal for age; Head: normocephalic, atraumatic Eyes: PERRLA, EOM's intact, conjunctiva pink and moist, no icterus, sclera white, non-injected Neck: Full strength against resistance bilaterally, decreased ROM when turning towareds left shoulder otherwise normal and painless ROM. No spinal or paraspinal tenderness with palpation Lungs: Lungs clear to auscultation. No wheezing, rhonchi, rales Heart: RRR without gallop or rubs. No ectopy, Negative except for murmur: 06/07 Musculoskeletal: Negative findings: ROM of all joints is normal, Strength normal Neurological: Gait normal. Biceps, triceps, and brachioradialis reflexes normal and symmetric. Feet:Shoes and socks removed, No deformities, ulcers, calluses, normal distal pulses and sensitive to 10 gm monofilament ASSESSMENT/PLAN: Discussed health maintenance, including regular aerobic exercise, low fat diet, and periodic exams. Needs pneumonia vaccines updated, declined at this time. Declined testing for AAA as well, will consider and discuss at next appointment 1. Injury of neck, initial encounter - ICD9: 959.09, ICD10: S19.9XXA (primary diagnosis) Neurologically intact, no concerns for acute intracranial process at this time. Pain likely secondary to contusion - XR CERV OTHER 4V AP/LAT/OBL today to rule out fracture Tylenol as needed for pain Follow-up pending results of x-ray 2. Cervicalgia - ICD9: 723.1, ICD10: M54.2 See above. 3. Type 2 diabetes mellitus with stage 3 chronic kidney disease, with long-term current use of insulin (HCC) - ICD9: 250.40, 585.3, V58.67, ICD10: E11.22, N18.3, Z79.4 Uncontrolled - Needs diabetic eye exam, states he will call and schedule with job estimator - Patient encouraged to count carbs and take glulisine 12 units AC and add an additional unit for every 25 carbs as prescribed. - Decrease Lantus from 30 units to 26 units QPM per patient request, fasting BG 100-105 - Refill INSULIN GLARGINE (U-100) 100 UNIT/ML (3 ML) SUBCUTANEOUS PEN per pt request - HGB A1C in 3 months - F/U in 6 months. Prescription instructions reviewed with patient as applicable. Potential red flag symptoms discussed with the patient. Reviewed appropriate action plan to take if red flag symptoms occur. Patient agreeable to treatment plan. Stacia Bermudez APRN.CNP CNOV Observed: 09/22/2017 Status: COMPLETED Source: [place] 2:40 PM [facility] REPOSITORY Office Visit (INTMWS) MARISSA PERALTA ([id number]) 1950 M Date Time Provider Department 09/22/17 2:40 PM STACIA BERMUDEZ ([place]) INTMWS During your visit today, we recorded the following information about you: Temperature Pulse Respiration Blood pressure 98.5 degrees 68/minute 14/minute 130/80 Weight 71.7 kg Stacia Bermudez APRN.CNP 09/23/2017 9:14 AM Signed CC: Patient presents with: 4 month follow up neck pain after falling out of chair and hitting neck on win: x 1 month HPI Marissa Peralta is a 67 year old male who presents today for 4 month F/U. Patient c/o neck stiffness and pain after falling backwards in a chair and hitting base of posterior neck on window sill about 3-4 weeks ago. Pain is worse upon waking. Taking 2 tylenol twice a day upon waking and at night with minimal relief. States feels ANDquot;crunchingANDquot; in neck on movement. Pain and decreased ROM when looking left only. C/o new onset dizziness since then. Denies visual changes, H/As, weakness, changes in hearing, confusion, changes in gait, or difficulty concentrating. DIABETES MELLITUS: Checks BG routinely upon waking and between supper and bedtime. Taking 26 units Lantus at bedtime. Fasting BG 100- 105. Taking 10-12 units glulisine before meals. BG 160-200 between dinner and bedtime. States has decreased insulin dose since he started taking Tumeric. Excessive thirst, urinary frequency, numbness, tingling or pain in extremities, new or unusual visual symptoms, low sugar/hypoglycemic reactions, weight loss/gain or fatigue: No Follows a diabetic diet most of the time. He is compliant with medication(s) and is tolerating med(s) without any side effects. Patient's last HgA1C was Hemoglobin A1C (%) Date Value 09/18/2017 8.0 05/22/2017 8.9 ) REVIEW OF SYSTEMS See HPI. PAST MEDICAL HISTORY Diagnosis Date - Aortic stenosis 05/06/2014 - Ascites of liver 04/04/2015 ar hepatic seen on CTA - Atrial flutter (HCC) 10/09/2012 - Chronic renal insufficiency - Chronic rhinitis 03/19/2005 - CKD (chronic kidney disease) stage 3, GFR 30-59 ml/min 05/05/2014 - Congestive heart failure (HCC) - Essential hypertension, benign - Fracture - Gallbladder calculus without cholecystitis 10/09/2012 - Hypertrophy of prostate without urinary obstruction and other lower urinary tract symptoms (LUTS) 12/03/2007 - Impotence of organic origin 03/19/2005 - Moderate nonproliferative diabetic retinopathy(362.05) 12/16/2007 Dr. Pope - Myocardial infarct, old - New onset atrial flutter (HCC) 10/09/2012 - Other and unspecified hyperlipidemia - Polyneuropathy in diabetes(357.2) 03/19/2005 - Postsurgical aortocoronary bypass status 03/19/2005 - Proteinuria 08/13/2010 - Rash and nonspecific skin eruption 06/27/2014 - Rheumatic fever - Type I (juvenile type) diabetes mellitus with renal manifestations, not stated as uncontrolled(250.41) 03/19/2005 - Type II or unspecified type diabetes mellitus without mention of complication, not stated as uncontrolled - Unspecified hearing loss 03/19/2005 PAST SURGICAL HISTORY Procedure Laterality Date - CABG, ARTERY-VEIN, FIVE 09/1997 - CARDIAC CATHETERIZATION HX - CC CORONARY STENT 05/16/2014 bare metal stent, LMT - CC CORONARY STENT 04/07/2015 ENZO, LCfx - CC CORONARY STENT 09/28/2016 ENZO again, Left Cfx - HEART SURGERY HX - LEFT HEART CATH,PERCUTANEOUS 12/17/2001 Cardiac cath, L heart - TAVR PROCEDURAL PLANNING 07/11/2015 ALLERGIES Remeron [Mirtazapine]; Demerol [Meperidine Hcl] MEDICATIONS Insulin Milton, Disposable, (BD ULTRAFINE III MINI PEN) 31 gauge x 3/16ANDquot; ndle Use 1 pen needle for each insulin injection (4 times daily) DX: Type I (juvenile type) DM with renal manifestations 250.41 insulin glargine (LANTUS SOLOSTAR U-100 INSULIN) 100 unit/mL (3 mL) inpn Inject 26 Units subcutaneously every evening. Take around 10 PM. carvedilol (COREG) 6.25 mg tablet Take 1 tablet by mouth twice daily with meals. atorvastatin (LIPITOR) 40 mg tablet TAKE ONE TABLET BY MOUTH AT BEDTIME isosorbide dinitrate (ISORDIL, SORBITRATE) 30 mg tablet TAKE TWO TABLETS BY MOUTH THREE TIMES DAILY chromium picolinate 1,000 mcg tab Take by mouth. omega 1-mib-agl-fish oil 350 mg-235 mg- 90 mg-597 mg cpDR Take by mouth. clopidogrel (PLAVIX) 75 mg tablet Take 1 tablet by mouth once daily. furosemide (LASIX) 80 mg tablet Take 0.5 tablets by mouth once daily. FREESTYLE TEST test strip USE ONE STRIP TO CHECK GLUCOSE 4 TIMES DAILY insulin glulisine (APIDRA SOLOSTAR) 100 unit/mL sub-Q pen Inject 12 units as a base then 1 unit for every 25 carbs 3 times a day with meals and snacks. (12-15 units based upon glucose) nitroglycerin sublingual (NITROSTAT) 0.4 mg SL tablet Dissolve 1 tablet under the tongue every 5 minutes as needed for Chest Pain. vitamin b complex (B COMPLETE) tab Take 1 tablet by mouth once daily. ipratropium bromide (ATROVENT) 0.06 % nasal spray Use 2 Sprays in the nose twice daily as needed. OXYGEN, HOME THERAPY, Inhale as instructed as directed. 3 lts at night while sleeping and 2 lts if needed while awake Blood-Glucose Meter (GMATE VOICE METER) [facility] [place] Use as directed, test 4 times a day and as needed dx E11.22 Lancing Device (GMATE LANCING DEVICE) [facility] [place] LiteTouch Test 4 times daily, and PRN Insulin yes, dx:E11.22 aspirin, enteric coated (ASPIRIN, ENTERIC COATED) 81 mg EC tablet Take 81 mg by mouth once daily. Cholecalciferol, Vitamin D3, (VITAMIN D-3) 1,000 unit Chew Take 2 tablets by mouth once daily. IRON, FERROUS SULFATE, ORAL Take 325 mg by mouth once daily. FAMILY HISTORY Problem Relation Age of Onset - Diabetes Father age 71 - Heart Father - Diabetes Mother - None Brother Social History Substance Use Topics - Smoking status: Former Smoker Types: Pipe, Cigars Quit date: 04/02/2010 - Smokeless tobacco: Never Used Comment: Pipe or cigars, since age 22 - Alcohol use No PHYSICAL EXAM BP 130/80 Pulse 68 Temp 36.9 ?C (98.5 ?F) (Temporal Artery) Resp 14 Wt 71.7 kg (158 lb) SpO2 95% BMI 24.02 kg/m2 General Appearance: well appearing, in no acute distress, alert Skin: Skin color, texture, turgor normal for age; Head: normocephalic, atraumatic Eyes: PERRLA, EOM's intact, conjunctiva pink and moist, no icterus, sclera white, non-injected Neck: Full strength against resistance bilaterally, decreased ROM when turning towareds left shoulder otherwise normal and painless ROM. No spinal or paraspinal tenderness with palpation Lungs: Lungs clear to auscultation. No wheezing, rhonchi, rales Heart: RRR without gallop or rubs. No ectopy, Negative except for murmur: 1/6 Musculoskeletal: Negative findings: ROM of all joints is normal, Strength normal Neurological: Gait normal. Biceps, triceps, and brachioradialis reflexes normal and symmetric. Feet:Shoes and socks removed, No deformities, ulcers, calluses, normal distal pulses and sensitive to 10 gm monofilament ASSESSMENT/PLAN: Discussed health maintenance, including regular aerobic exercise, low fat diet, and periodic exams. Needs pneumonia vaccines updated, declined at this time. Declined testing for AAA as well, will consider and discuss at next appointment 1. Injury of neck, initial encounter - ICD9: 959.09, ICD10: S19.9XXA (primary diagnosis) Neurologically intact, no concerns for acute intracranial process at this time. Pain likely secondary to contusion - XR CERV OTHER 4V AP/LAT/OBL today to rule out fracture Tylenol as needed for pain Follow-up pending results of x-ray 2. Cervicalgia - ICD9: 723.1, ICD10: M54.2 See above. 3. Type 2 diabetes mellitus with stage 3 chronic kidney disease, with long-term current use of insulin (HCC) - ICD9: 250.40, 585.3, V58.67, ICD10: E11.22, N18.3, Z79.4 Uncontrolled - Needs diabetic eye exam, states he will call and schedule with job estimator - Patient encouraged to count carbs and take glulisine 12 units AC and add an additional unit for every 25 carbs as prescribed. - Decrease Lantus from 30 units to 26 units QPM per patient request, fasting BG 100-105 - Refill INSULIN GLARGINE (U-100) 100 UNIT/ML (3 ML) SUBCUTANEOUS PEN per pt request - HGB A1C in 3 months - F/U in 6 months. Prescription instructions reviewed with patient as applicable. Potential red flag symptoms discussed with the patient. Reviewed appropriate action plan to take if red flag symptoms occur. Patient agreeable to treatment plan. Stacia Bermudez APRN.ADMINISTRATIVE OFFICE MANAGER Referring Provider: SELF [[id number]] Allergies As of Date: 09/22/2017 Noted Allergy Reaction REMERON (MIRTAZAPINE) 07/10/2015 5 - Intolerance Comments: sleptalot; felt spaced out. DEMEROL (MEPERIDINE HCL) 03/18/2005 5 - Intolerance Comments: Vomiting spacey Date Reviewed: 09/22/2017 Reviewed by: Archana Seay Dental Practice Manager - Fully Assessed Reason for Visit: 4 month follow up [Other] neck pain after falling out of chair and hitting neck on win [Other] Cmt: x 1 mo- nth Primary Visit Diagnosis:Injury of neck, initial encounter [S19.9XXA] Other Visit Diagnoses:Cervicalgia [M54.2] Type 2 diabetes mellitus with stage 3 chronic kidney disease, with long-term current use of insulin (HCC) [E11.22, N18.3, Z79.4] Order(s):HGB A1C [[id number]] Order #: [id number] FUTURE XR CERV OTHER 4V AP/LAT/OBL [[id number]] Order #: [id number] FUTURE Insulin Milton, Disposable, (BD ULTRAFINE III MINI PEN) 31 gauge x 3/16 ndleUse 1 pen needle for each insulin injection (4 times daily) DX: 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 Take around 10 PM.Disp: 15 PenRfl: 1 XR CERV INJURY 3V AP/LAT/ODON [[id number]] Order #: [id number] FUTURE Prescriptions as of 09/22/2017 Sig: PEN NEEDLE, DIABETIC 31 GAUGE* Use 1 pen needle for each ins* INSULIN GLARGINE (U-100) 100 * Inject 26 Units subcutaneousl* CARVEDILOL 6.25 MG TABLET Take 1 tablet by mouth twice * ATORVASTATIN 40 MG TABLET TAKE ONE TABLET BY MOUTH AT B* ISOSORBIDE DINITRATE 30 MG TA* TAKE TWO TABLETS BY MOUTH THR* CHROMIUM PICOLINATE 1,000 MCG* Take by mouth. OMEGA 3 350 MG-DHA 235 MG-EPA* Take by mouth. CLOPIDOGREL 75 MG TABLET Take 1 tablet by mouth once d* FUROSEMIDE 80 MG TABLET Take 0.5 tablets by mouth onc* FREESTYLE TEST STRIPS USE ONE STRIP TO CHECK GLUCOS* INSULIN GLULISINE (U-100) 100* Inject 12 units as a base the* NITROGLYCERIN 0.4 MG SUBLINGU* Dissolve 1 tablet under the t* VITAMIN B COMPLEX TABLET Take 1 tablet by mouth once d* IPRATROPIUM BROMIDE 42 MCG (0* Use 2 Sprays in the nose twic* OXYGEN (HOME THERAPY) Inhale as instructed as dire* BLOOD-GLUCOSE METER Use as directed, test 4 times* LANCING DEVICE LiteTouch Test 4 times daily,* ASPIRIN 81 MG TABLET,DELAYED * Take 81 mg by mouth once joanie* CHOLECALCIFEROL (VITAMIN D3) * Take 2 tablets by mouth once * IRON (FERROUS SULFATE) ORAL Take 325 mg by mouth once jameel* Problem List As Of Date 09/22/2017 Noted Resolved Other hyperlipidemia [E78.4] BENIGN HYPERTENSION [I10] AORTOCORONARY BYPASS STATUS [Z95.1] INVALID FOR* HEARING LOSS NOS [H91.90] INVALID FOR* Type II diabetes mellitus with renal manifestat*INVALID FOR* Priority: D NEUROPATHY IN DIABETES [E11.42] INVALID FOR* Impotence of organic origin [N52.9] INVALID FOR*10/17/2015 CHRONIC RHINITIS [J31.0] INVALID FOR* Hypertrophy of prostate without urinary obstruc*INVALID FOR*05/22/2017 MOD NONPROLIF DIAB RETINOPATHY [E11.3399] INVALID FOR* More... Proteinuria [R80.9] INVALID FOR* Debility [R53.81] INVALID FOR*05/22/2017 Atrial flutter [I48.92] INVALID FOR*10/17/2015 More... Gallbladder calculus without cholecystitis [K80*INVALID FOR*11/04/2013 ADHF (acute decompensated heart failure) (HCC) *INVALID FOR*10/11/2014 Priority: B More... Angina pectoris (HCC) [I20.9] INVALID FOR*10/16/2015 More... CAD (coronary artery disease), [place] coronary *INVALID FOR* Priority: B More... SUMMARY [V999.95] INVALID FOR*05/09/2014 Priority: A More... CKD (chronic kidney disease) stage 3, GFR 30-59*INVALID FOR* Aortic stenosis [I35.0] INVALID FOR* Priority: Mild More... Lung crackles [R09.89] INVALID FOR*10/11/2014 More... SUMMARY [V999.95] INVALID FOR*10/17/2015 Priority: Very Severe More... Hematoma [T14.8XXA] INVALID FOR*10/11/2014 More... Rash and nonspecific skin eruption [R21] INVALID FOR*10/17/2015 Hydrocele of testis [N43.3] INVALID FOR*10/17/2015 BPH with obstruction/lower urinary tract sympto*INVALID FOR*10/17/2015 Encounter for screening for other disorder [Z13*INVALID FOR*10/17/2015 SUMMARY INVALID FOR*04/09/2015 Priority: Mild More... 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 Ascites of liver [R18.8] INVALID FOR*10/16/2015 More... Pulmonary hypertension, primary (HCC) [I27.0] INVALID FOR* More... More... Depressive disorder [F32.9] INVALID FOR*05/22/2017 Priority: A Dental caries on smooth surface penetrating int*INVALID FOR*10/17/2015 Hypertensive kidney disease with CKD stage III *INVALID FOR* Priority: C More... S/P aortic valve replacement [Z95.2] INVALID FOR* Right foot ulcer (HCC) [L97.519] INVALID FOR*08/08/2016 ACS (acute coronary syndrome) (HCC) [I24.9] INVALID FOR*05/22/2017 Prescriptions ordered this encounter Disp Refills Start End INSULIN GLARGINE (U-100) 100 UNIT/ML* 09/22/2017 09/22/2017 Class: Med Update Route: SUBCUTANEOUS Sig: Inject 26 Units subcutaneously every evening. Take around 10 PM. 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 Take around 10 PM. Medications Discontinued During This Encounter insulin glargine (LANTUS SOLOSTAR) 1* 05/22/2017 09/22/2017 Class: Med Update Route: SUBCUTANEOUS Sig: Inject 30 Units subcutaneously every evening. Take around 10 PM. Disc: Reason for discontinue is not on file. 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 insulin glargine (LANTUS SOLOSTAR U-* 09/22/2017 09/22/2017 Class: Med Update Route: SUBCUTANEOUS Sig: Inject 26 Units subcutaneously every evening. Take around 10 PM. Disc: Reason for discontinue is not on file. Encounter Status:Closed by STACIA BERMUDEZ CNP on 09/23/17 HEMOGLOBIN A1C Collected: 09/18/2017 Status: F Source: [place] 11:47 AM [facility] REPOSITORY TYPE CODE TESTS RESULT OUT OF REFERENCE UNITS RANGE LAB HGBA1C 4.3-5.6 % High Hemoglobin A1c 8.0 LAB HBA0 mg/dL Est. Average Glucose 183 Result Comment: eAG: (Estimated average glucose) is a calculated value from HgbA1c and is patient accounting representative of the average blood glucose level in the last 2-3 month period. Performed By: #### HBA1C #### [facility] [address], [place] [address] ALBUMIN/CREAT RATIO Collected: 09/18/2017 Status: F Source: [place] 11:40 AM [facility] REPOSITORY TYPE CODE TESTS RESULT OUT OF REFERENCE UNITS RANGE LAB UCRR 20-300 mg/dL Creatinine,Ur 104.3 ine,Ran LAB UALBR 0.0-23.0 mg/L High Albumin Urine 2672.5 Random LAB UALBCR 0-30 mg/g High Albumin/Creat 2562 Ratio Result Comment: 30 to 300 mg/g indicates an increased risk for diabetic nephropathy. Greater than 300 mg/g is consistent with clinical nephropathy. (Am J Kidney Disease 1994, 25:107) Performed By: #### UACR #### [facility] [address] [place], [place] [address] CNPTOUTREACH Observed: 09/09/2017 Status: COMPLETED Source: [place] 12:00 [facility] REPOSITORY Patient Outreach ([facility]) MARISSA PERALTA ([id number]) 1950 M Date Time Provider Department 09/09/17 EDUIN HAGEN [facility] During your visit today, we recorded the following information about you: Allergies As of Date: 09/09/2017 Noted Allergy Reaction REMERON (MIRTAZAPINE) 07/10/2015 5 - Intolerance Comments: sleptalot; felt spaced out. DEMEROL (MEPERIDINE HCL) 03/18/2005 5 - Intolerance Comments: Vomiting spacey Date Reviewed: 05/23/2017 Reviewed by: Francesca Chapman - Fully Assessed Visit Diagnosis:Medication management [Z79.899] Order(s):ALBUMIN/CREAT RATIO RND UR [SQUACR] Order #: [id number] FUTURE HGB A1C [ACZPM7V] Order #: [id number] FUTURE Prescriptions as of 09/09/2017 Sig: CARVEDILOL 6.25 MG TABLET Take 1 tablet by mouth twice * ATORVASTATIN 40 MG TABLET TAKE ONE TABLET BY MOUTH AT B* ISOSORBIDE DINITRATE 30 MG TA* TAKE TWO TABLETS BY MOUTH THR* CHROMIUM PICOLINATE 1,000 MCG* Take by mouth. OMEGA 3 350 MG-DHA 235 MG-EPA* Take by mouth. X INSULIN GLARGINE (U-100) 100 * Inject 30 Units subcutaneousl* CLOPIDOGREL 75 MG TABLET Take 1 tablet by mouth once d* FUROSEMIDE 80 MG TABLET Take 0.5 tablets by mouth onc* X FREESTYLE TEST STRIPS USE ONE STRIP TO CHECK GLUCOS* X INSULIN GLULISINE (U-100) 100* Inject 12 units as a base the* NITROGLYCERIN 0.4 MG SUBLINGU* Dissolve 1 tablet under the t* X PEN NEEDLE, DIABETIC 31 GAUGE* Use 1 pen needle for each ins* VITAMIN B COMPLEX TABLET Take 1 tablet by mouth once d* X IRON (FERROUS SULFATE) ORAL Take 325 mg by mouth once jameel* X IPRATROPIUM BROMIDE 42 MCG (0* Use 2 Sprays in the nose twic* OXYGEN (HOME THERAPY) Inhale as instructed as dire* BLOOD-GLUCOSE METER Use as directed, test 4 times* LANCING DEVICE LiteTouch Test 4 times daily,* ASPIRIN 81 MG TABLET,DELAYED * Take 81 mg by mouth once joanie* CHOLECALCIFEROL (VITAMIN D3) * Take 2 tablets by mouth once * Problem List As Of Date 09/09/2017 Noted Resolved Other hyperlipidemia [E78.49] BENIGN HYPERTENSION [I10] AORTOCORONARY BYPASS STATUS [Z95.1] INVALID FOR* HEARING LOSS NOS [H91.90] INVALID FOR* Type II diabetes mellitus with renal manifestat*INVALID FOR* Priority: D NEUROPATHY IN DIABETES [E11.42] INVALID FOR* Impotence of organic origin [N52.9] INVALID FOR*10/17/2015 CHRONIC RHINITIS [J31.0] INVALID FOR* Hypertrophy of prostate without urinary obstruc*INVALID FOR*05/22/2017 MOD NONPROLIF DIAB RETINOPATHY [E11.3399] INVALID FOR* More... Proteinuria [R80.9] INVALID FOR* Debility [R53.81] INVALID FOR*05/22/2017 Atrial flutter [I48.92] INVALID FOR*10/17/2015 More... Gallbladder calculus without cholecystitis [K80*INVALID FOR*11/04/2013 ADHF (acute decompensated heart failure) (HCC) *INVALID FOR*10/11/2014 Priority: B More... Angina pectoris (HCC) [I20.9] INVALID FOR*10/16/2015 More... CAD (coronary artery disease), [place] coronary *INVALID FOR* Priority: B More... SUMMARY [V999.95] INVALID FOR*05/09/2014 Priority: A More... CKD (chronic kidney disease) stage 3, GFR 30-59*INVALID FOR* Aortic stenosis [I35.0] INVALID FOR* Priority: Mild More... Lung crackles [R09.89] INVALID FOR*10/11/2014 More... SUMMARY [V999.95] INVALID FOR*10/17/2015 Priority: Very Severe More... Hematoma [T14.8XXA] INVALID FOR*10/11/2014 More... Rash and nonspecific skin eruption [R21] INVALID FOR*10/17/2015 Hydrocele of testis [N43.3] INVALID FOR*10/17/2015 BPH with obstruction/lower urinary tract sympto*INVALID FOR*10/17/2015 Encounter for screening for other disorder [Z13*INVALID FOR*10/17/2015 SUMMARY INVALID FOR*04/09/2015 Priority: Mild More... 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 Ascites of liver [R18.8] INVALID FOR*10/16/2015 More... Pulmonary hypertension, primary (HCC) [I27.0] INVALID FOR* More... More... Depressive disorder [F32.9] INVALID FOR*05/22/2017 Priority: A Dental caries on smooth surface penetrating int*INVALID FOR*10/17/2015 Hypertensive kidney disease with CKD stage III *INVALID FOR* Priority: C More... S/P aortic valve replacement [Z95.2] INVALID FOR* Right foot ulcer (HCC) [L97.519] INVALID FOR*08/08/2016 ACS (acute coronary syndrome) (HCC) [I24.9] INVALID FOR*05/22/2017 Encounter Status:Closed by CARMEL STONEUSEPhilly on 03/13/18 OBSOLETE Observed: 08/28/2017 Status: COMPLETED Source: [place] 12:00 AM [facility] REPOSITORY Refill ([facility]) MARISSA PERALTA ([id number]) 1950 M Date Time Provider Department 08/28/17 JG CASTILLO During your visit today, we recorded the following information about you: Fran Wilde, RN, RN 08/28/2017 8:58 AM Signed Received request from [facility] to change coreg prescription to 6.25mg tablet. Left patient a msg for him to return call. Would like to verify if there is any reason not to do this. Thank you. Fran Wilde RN, RN 08/28/2017 10:18 AM Signed Spouse confirms that this change is ok. Please review, thank you. Jg Castillo MD 08/28/2017 11:24 AM Signed The following approved medication requests have been transmitted electronically. Signed Prescriptions Disp Refills carvedilol (COREG) 6.25 mg tablet 180 tablet 3 Sig: Take 1 tablet by mouth twice daily with meals. CARA: No Authorizing Provider: JG CASTILLO MD Adam Gilmor, RN, RN 08/28/2017 11:55 AM Signed escript confirmed Allergies As of Date: 08/28/2017 Noted Allergy Reaction REMERON (MIRTAZAPINE) 07/10/2015 5 - Intolerance Comments: sleptalot; felt spaced out. DEMEROL (MEPERIDINE HCL) 03/18/2005 5 - Intolerance Comments: Vomiting spacey Date Reviewed: 05/23/2017 Reviewed by: Francesca Chapman - Fully Assessed Reason for Visit: Refill Request [94] Order(s):carvedilol (COREG) 6.25 mg tabletTake 1 tablet by mouth twice daily with meals.Disp: 180 tabletRfl: 3 Prescriptions as of 08/28/2017 Sig: CARVEDILOL 6.25 MG TABLET Take 1 tablet by mouth twice * ATORVASTATIN 40 MG TABLET TAKE ONE TABLET BY MOUTH AT B* ISOSORBIDE DINITRATE 30 MG TA* TAKE TWO TABLETS BY MOUTH THR* CHROMIUM PICOLINATE 1,000 MCG* Take by mouth. OMEGA 3 350 MG-DHA 235 MG-EPA* Take by mouth. INSULIN GLARGINE (U-100) 100 * Inject 30 Units subcutaneousl* CLOPIDOGREL 75 MG TABLET Take 1 tablet by mouth once d* FUROSEMIDE 80 MG TABLET Take 0.5 tablets by mouth onc* FREESTYLE TEST STRIPS USE ONE STRIP TO CHECK GLUCOS* INSULIN GLULISINE (U-100) 100* Inject 12 units as a base the* NITROGLYCERIN 0.4 MG SUBLINGU* Dissolve 1 tablet under the t* PEN NEEDLE, DIABETIC 31 GAUGE* Use 1 pen needle for each ins* VITAMIN B COMPLEX TABLET Take 1 tablet by mouth once d* IRON (FERROUS SULFATE) ORAL Take 325 mg by mouth once jameel* IPRATROPIUM BROMIDE 42 MCG (0* Use 2 Sprays in the nose twic* OXYGEN (HOME THERAPY) Inhale as instructed as dire* BLOOD-GLUCOSE METER Use as directed, test 4 times* LANCING DEVICE LiteTouch Test 4 times daily,* ASPIRIN 81 MG TABLET,DELAYED * Take 81 mg by mouth once joanie* CHOLECALCIFEROL (VITAMIN D3) * Take 2 tablets by mouth once * Problem List As Of Date 08/28/2017 Noted Resolved Other hyperlipidemia [E78.4] BENIGN HYPERTENSION [I10] AORTOCORONARY BYPASS STATUS [Z95.1] INVALID FOR* HEARING LOSS NOS [H91.90] INVALID FOR* Type II diabetes mellitus with renal manifestat*INVALID FOR* Priority: D NEUROPATHY IN DIABETES [E11.42] INVALID FOR* Impotence of organic origin [N52.9] INVALID FOR*10/17/2015 CHRONIC RHINITIS [J31.0] INVALID FOR* Hypertrophy of prostate without urinary obstruc*INVALID FOR*05/22/2017 MOD NONPROLIF DIAB RETINOPATHY [E11.3399] INVALID FOR* More... Proteinuria [R80.9] INVALID FOR* Debility [R53.81] INVALID FOR*05/22/2017 Atrial flutter [I48.92] INVALID FOR*10/17/2015 More... Gallbladder calculus without cholecystitis [K80*INVALID FOR*11/04/2013 ADHF (acute decompensated heart failure) (HCC) *INVALID FOR*10/11/2014 Priority: B More... Angina pectoris (HCC) [I20.9] INVALID FOR*10/16/2015 More... CAD (coronary artery disease), [place] coronary *INVALID FOR* Priority: B More... SUMMARY [V999.95] INVALID FOR*05/09/2014 Priority: A More... CKD (chronic kidney disease) stage 3, GFR 30-59*INVALID FOR* Aortic stenosis [I35.0] INVALID FOR* Priority: Mild More... Lung crackles [R09.89] INVALID FOR*10/11/2014 More... SUMMARY [V999.95] INVALID FOR*10/17/2015 Priority: Very Severe More... Hematoma [T14.8XXA] INVALID FOR*10/11/2014 More... Rash and nonspecific skin eruption [R21] INVALID FOR*10/17/2015 Hydrocele of testis [N43.3] INVALID FOR*10/17/2015 BPH with obstruction/lower urinary tract sympto*INVALID FOR*10/17/2015 Encounter for screening for other disorder [Z13*INVALID FOR*10/17/2015 SUMMARY INVALID FOR*04/09/2015 Priority: Mild More... 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 Ascites of liver [R18.8] INVALID FOR*10/16/2015 More... Pulmonary hypertension, primary (HCC) [I27.0] INVALID FOR* More... More... Depressive disorder [F32.9] INVALID FOR*05/22/2017 Priority: A Dental caries on smooth surface penetrating int*INVALID FOR*10/17/2015 Hypertensive kidney disease with CKD stage III *INVALID FOR* Priority: C More... S/P aortic valve replacement [Z95.2] INVALID FOR* Right foot ulcer (HCC) [L97.519] INVALID FOR*08/08/2016 ACS (acute coronary syndrome) (HCC) [I24.9] INVALID FOR*05/22/2017 Prescriptions ordered this encounter Disp Refills Start End CARVEDILOL 6.25 MG TABLET 180 * 3 08/28/2017 Route: ORAL Sig: Take 1 tablet by mouth twice daily with meals. Medications Discontinued During This Encounter carvedilol (COREG) 3.125 mg tablet 120 * 11 08/30/2016 08/28/2017 Route: ORAL Sig: Take 2 tablets by mouth twice daily with meals. Disc: Reason for discontinue is not on file. Encounter Status:Closed by FRAN WILDE on 08/28/17 ALLERGIES ALLERGIES DATE TYPE / NAME / CODE REACTION SEVERITY SOURCE CODE 06/23/2018 Drug meperidine Other Unknown [place] Allergy/41 HCl/[id number](RX [facility] [id number]([facility]) Repository 07/10/2015 DRUG MIRTAZAPINE INTOLERANCE [address] [id number]( Repository OMED CT) 03/18/2005 DRUG MEPERIDINE HCL INTOLERANCE Low [address] [id number]( Repository OMED CT) NG/[id number] MIRTAZAPINE [facility] 06([employer] [facility]) Repository NG/[id number] MEPERIDINE HCL [facility] 06([facility] [employer] [facility]) Repository ENCOUNTERS ENCOUNTERS ADMIT/DISCHARGE ACCOUNT NUMBER ADMITTING ENCOUNTER LOCATION SOURCE CLASS 06/23/2018/06/26/19 [id number] [place], [place]patient [place] [facility] [place] Encounter [facility] ding:PCURoom Repository : [id number]: 1 06/23/[id number] [facility], Ambulatory BMSBuilding: [place] Jos[place] BMS.[facility] Repository 06/23/[id number] [facility], Ambulatory BMSBuilding: [place] Jos[place] BMS.[facility] Repository 06/23/[id number] [facility], Ambulatory BMSBuilding: [place] Jos[place] BMS.[facility] Repository 06/23/[id number] [facility], Ambulatory BMSBuilding: Ash Salas BMS.[facility] Repository 06/23/2018/06/23/19 [id number] [facility] Repository 06/23/2018/06/24/19 [id number] [facility] Repository 05/28/2018/05/28/20 [id number] [facility] Repository 05/20/2018/05/21/20 [id number] [facility] Repository 05/20/2018/05/21/20 [id number] [facility] Repository 05/05/2018/05/05/20 [id number] [facility] Repository 05/05/2018/05/07/20 [id number] [facility] Repository 03/24/2018/03/26/20 [id number] [facility] Repository 03/18/2018/03/18/20 [id number] [facility] Repository 03/18/2018/03/19/20 [id number] [facility] Repository 03/18/2018/03/18/20 [id number] [facility] Repository 11/21/2017/11/22/19 [id number] [facility] Repository 11/21/2017/11/22/19 [id number] [facility] Repository 11/21/2017 [id number] Ambulatory [facility] MEDICAL Repository CENTERBuildi ng:CAGWS 11/15/2017/11/18/19 [id number] [facility]ulatory [facility] Repository 09/22/2017/09/23/19 [id number] [facility] Repository 09/22/2017/09/25/19 [id number] [facility] Repository 09/18/2017/09/19/19 [id number] Ambulatory [place] [facility] Repository PAYERS PAYERS ENCOUNTER GUARANTOR PAYER SUBSCRIBER SOURCE 06/23/2018 MARISSA [id number] Insurance:MEDICARE BORSICKDOB: [facility] BPolicy [id number] [address]Lty: Number: Repository [id number] () Date:2018-06-23 06/23/2018 Secondary MARLIN L [place] Insurance:MEDICAIDPol BORSICKDOB: [facility] icy Number: [id number] [facility] [id number] Repository Date:2018-06-23 06/23/2018 Tertiary NOT GIVENUNK [place] Insurance:SELF PAY [facility] Number: Effective Repository Date:2018-06-23 06/23/2018 MARLIN L Primary MARLIN L [place] [id number] Insurance:MEDICAIDPol BORSICKDOB: [facility] Number: [id number] [facility] [address]Koo: [id number] Repository Date:2018-06-23 () 06/23/2018 Secondary MARLIN L [place] Insurance:MEDICARE BORSICKDOB: [facility] PART A [facility] [id number] Hospital Number: Repository [id number] Date:2018-06-23 06/23/2018 Tertiary NOT GIVENUNK [place] Insurance:SELF PAY [facility] Number: Effective Repository Date:2018-06-23 06/23/2018 MARLIN L Primary MARLIN L [place] [id number] Insurance:MEDICARE BORSICKDOB: [facility], PART A [facility] [id number] Medical Center [id number]: Number: Repository [id number] () Date:2018-06-23 06/23/2018 Secondary MARLIN L [place] Insurance:MEDICAIDPol BORSICKDOB: [facility] icy Number: [id number] Hospital [id number] Repository Date:2018-06-23 06/23/2018 Tertiary NOT GIVENUNK [place] Insurance:SELF PAY [facility] Number: Effective Repository Date:2018-06-23 06/23/2018 MARLIN L Primary MARLIN L [place] [id number] Insurance:MEDICARE BORSICKDOB: [facility], PART A [facility] [id number] Medical Center [address]Tlx: Number: Repository [id number] (HP) Date:2018-06-23 06/23/2018 Secondary MARLIN L [place] Insurance:MEDICAIDPol BORSICKDOB: [facility] icy Number: [id number] Hospital [id number] Repository Date:2018-06-23 06/23/2018 Tertiary NOT GIVENUNK [place] Insurance:SELF PAY [facility] Number: Effective Repository Date:2018-06-23 06/23/2018 MARLIN L Primary MARLIN L [place] [id number] Insurance:MEDICARE BORSICKDOB: [facility], PART A [facility] [id number] Medical Center [address]Icu: Number: Repository [id number] (HP) Date:2018-06-23 06/23/2018 Secondary MARLIN L [place] Insurance:MEDICAIDPol BORSICKDOB: [facility] ic Number: [id number] Hospital [id number] Repository Date:2018-06-23 06/23/2018 Tertiary NOT GIVENUNK [place] Insurance:SELF PAY [facility] Number: Effective Repository Date:2018-06-23 11/21/2017 [place] Primary MARLIN [facility] BORSICKDOB: Insurance:MEDICARE A BORSICKDOB: [facility] AND BPolicy Number: [id number] Repository [facility] [id number] [address]Jpm: Date: (HP) 11/21/2017 Secondary MARLIN [facility] Insurance:[place] BORSICKDOB: [facility] MEDICAIDPolicy [id number] Repository Number: [id number] Date:
== END 2018-06-26 15:27 | disposition home or self-care (01) | DRG 291 ==
LOC: ED 20:41 → PCU 23:50
PROVIDERS: Physician Assistant; Podiatrist; Admitting Provider Internal Medicine; Emergency Provider Emergency Medicine; Family Provider Internal Medicine; PCP Internal Medicine; Visit Provider Family Medicine
DX: I13.0 Hypertensive heart and chronic kidney disease with heart failure and stage 1 through stage 4 chronic kidney disease, or unspecified chronic kidney disease (principal); I50.23 Acute on chronic systolic (congestive) heart failure; N18.4 Chronic kidney disease, stage 4 (severe); E11.22 Type 2 diabetes mellitus with diabetic chronic kidney disease; I25.2 Old myocardial infarction; Z95.1 Presence of aortocoronary bypass graft; I25.10 Atherosclerotic heart disease of native coronary artery without angina pectoris; Z95.5 Presence of coronary angioplasty implant and graft; E78.5 Hyperlipidemia, unspecified; N40.0 Benign prostatic hyperplasia without lower urinary tract symptoms; I27.20 Pulmonary hypertension, unspecified; Z95.810 Presence of automatic (implantable) cardiac defibrillator; B95.61 Methicillin susceptible Staphylococcus aureus infection as the cause of diseases classified elsewhere; R55 Syncope and collapse; L03.031 Cellulitis of right toe; R53.81 Other malaise; Z95.3 Presence of xenogenic heart valve; E11.621 Type 2 diabetes mellitus with foot ulcer; L97.519 Non-pressure chronic ulcer of other part of right foot with unspecified severity; Z79.4 Long term (current) use of insulin
CPT/HCPCS: 36415; 71046; 73630; 80048; 80053; 80061; 82962; 83036; 83735; 83880; 84443; 84484; 85025; 85027; 85610; 85652; 85730; 86140; 87070; 87075; 87077; 87186; 87205; 93005; 93306; 93922; 97161; 97165; 97530; 97802; 99283; J7040; Q9957; A4216; C8929; J0295; J1940

== ENCOUNTER → 2018-08-06 12:02 | Outpatient (CLI) | payer MEDICARE, MEDICAID, SELFPAY ==
[2018-06-24 00:36] VITALS: BMI 23.7
--- NOTE | 2018-08-06 12:19 | RAD_ITS ---
STUDY: X-RAY - RIGHT FOOT CLINICAL: Male, 68 years old. Second toe ulcer TECHNIQUE: 3 view(s) of the foot. COMPARISON: 06/24/2018 FINDINGS: At the distal second toe, there appears to be overlying bandage. There is no evidence of discrete osseous destruction on plain film to represent osteomyelitis. Unchanged diffuse demineralization and age-related degenerative changes. There is some forefoot soft tissue swelling. Extensive vascular calcifications are again noted. No acute fracture or dislocation. RAD/Foot min 3 Views IMPRESSION: No definite evidence of osteomyelitis. Stable degenerative changes. Mild soft tissue swelling Electronically Signed: Zbigniew Rashid DO at 12:19 EST Tel , Service support ,
[2018-08-06 12:35] LABS: Erythrocyte Sedimentation Rate 12 mm/hr (0-20)
[2018-08-06 12:37] LABS: Absolute Lymphocyte Count 1.09 X10^3/ul (0.83-4.51); Absolute Neutrophil Count 4.6 X10^3/uL (2.0-7.7); Basophil# 0.02 X10^3/uL; Basophil% 0.3 % (0-1); Eosinophil# 0.13 X10^3/uL; Hematocrit 41.5 % (40-54); Hemoglobin 12.8 g/dl (13.0-16.5); Lymphocyte # 1.09 X10^3/ul (4.0); Lymphocyte % 16.9 % (19-41); Mean Corp Hgb Conc 30.8 g/gl (32-36); Mean Corpuscular Hgb 26.6 pg (27.0-32.0); Mean Corpuscular Volume 86.3 fL (80-94); Mean Platelet Vol. 10.3 fl (6.2-12.0); Monocyte# 0.63 X10^3/uL; Monocyte% 9.8 % (0-10); Neutrophil # 4.56 X10^3/uL (2.7-7.7); Neutrophil % 70.8 % (47-70); POSITIVE COUNT NO; POSITIVE DIFFERENTIAL NO; POSITIVE MORPHOLOGY NO; Platelet Count 155 K/mm3 (150-450); RBC Distribution Width SD 47.8 fl (35.1-43.9); Red Blood Count 4.81 M/mm3 (4.6-6.2); White Blood Count 6.4 K/mm3 (4.4-11.0)
[2018-08-06 13:04] LABS: CRP < 2.90 mg/L (0.0-3.0)
== END ==
PROVIDERS: Family Provider Internal Medicine; PCP Internal Medicine; Referring Provider Podiatrist; Visit Provider Podiatrist
DX: L03.039 Cellulitis of unspecified toe (principal); L97.512 Non-pressure chronic ulcer of other part of right foot with fat layer exposed
CPT/HCPCS: 36415; 73630; 85025; 85652; 86140

== ENCOUNTER → 2018-11-17 | Outpatient (CLI) | payer MEDICARE, MEDICAID, SELFPAY ==
[2018-06-24 00:36] VITALS: BMI 23.7
--- NOTE | 2018-11-17 13:31 | ADUL_ITS ---
Reason For Study: Atherosclerosis Right Velocities Ext. Iliac Artery, dist = 81.9 cm./sec. Common Femoral Artery, mid = 68.8 cm./sec. Supf Femoral Artery, prox = 68.8 cm./sec. Supf Femoral Artery, mid = 67.7 cm./sec. Supf Femoral Artery, dist. = 46.8 cm./sec. Profunda Femoral Artery = 50.1 cm./sec. Popliteal Artery, prox. = 48.9 cm./sec. Popliteal Artery, mid = 50 cm./sec. Popliteal Artery, dist = 70.9 cm./sec. Ant. Tibial Artery, prox = 81.5 cm./sec. Ant. Tibial Artery, mid = 70.5 cm./sec. Ant. Tibial Artery, dist = 36.5 cm./sec. Post. Tibial Artery, prox = 69.8 cm./sec. Post. Tibial Artery, mid = 74.2 cm./sec. Post. Tibial Artery, dist = 75.2 cm./sec. Peroneal Artery, prox = 47.8 cm./sec. Peroneal Artery, mid = 65.3 cm./sec. Peroneal Artery,dist = 60.9 cm./sec. Procedure Exam performed in department. Interpretation Summary 1. Right leg with no stenosis. Ordering Physician: Aristides Hoff Referring Physician: Eduin Hagen M.D. Performed By: Tiffany Rooney RVT
--- NOTE | 2018-11-17 13:31 | ART_ITS ---
Reason For Study: Atherosclerosis Procedure A bilateral lower extremity continuous wave Doppler with analog waveform analysis and ankle brachial indexes. Left Segmental Pressures Left brachial= 141mmHg. Left posterior tibial artery = >254mmHg. Left dorsalis pedis artery = >254mmHg. Left digit = 99 mmHg. The left dorsalis pedis waveforms are biphasic. The left posterior tibial artery waveforms are triphasic. Right Segmental Pressures Right brachial= 134mmHg. Right posterior tibial artery = >254mmHg. Right dorsalis pedis artery = >254mmHg. Right digit = 86 mmHg. The right dorsalis pedis waveforms are biphasic. The right posterior tibial artery waveforms are biphasic. Indices The right ankle brachial index by the dorsalis pedis is NC. The right ankle brachial index by the posterior tibial artery is NC. The right digital-brachial index is 0.61. The left ankle brachial index by the dorsalis pedis is NC. The left ankle brachial index by the posterior tibial artery is NC. The left digital-brachial index is 0.70. Interpretation Summary 1. Bilat ankle noncompressible and biphasic waveform. DBI 0.61/0.7. Ordering Physician: Aristides Hoff Referring Physician: Eduin Hagen M.D. Performed By: Tiffany Rooney RVT
== END | disposition home or self-care (01) ==
LOC: CVS 13:29
PROVIDERS: Family Provider Internal Medicine; PCP Internal Medicine; Referring Provider Surgery Vascular Surgery; Visit Provider Surgery Vascular Surgery
DX: I70.235 Atherosclerosis of native arteries of right leg with ulceration of other part of foot (principal)
CPT/HCPCS: 93922; 93926